=== PATIENT | female | born 1940 | race Caucasian/White ===

== ENCOUNTER → 2018-04-20 15:13 | Outpatient (CLI) | payer MEDICARE, SELFPAY ==
--- NOTE | 2018-04-20 15:16 | DI.RAD.S_ITS ---
PROCEDURE: XR LUMBAR SPINE MIN 4V INDICATIONS: Scoliosis TECHNIQUE: 5 views of the lumbar spine were acquired. COMPARISON: None. FINDINGS: Bones: 5 nonrib-bearing vertebrae are present. There is mild levoscoliosis. There is normal bony alignment. No vertebral body compression fractures. Mild degenerative disc disease throughout the lumbar spine. There is moderate to severe facet arthropathy at L4-L5 and L5-S1. No suspicious bony lesions. Soft tissues: Overlying bowel gas pattern is normal. Severe aortic calcifications consistent with atherosclerosis. Oblique images: No pars defects. IMPRESSION: 1. Mild levoscoliosis. 2. Degenerative disc and facet disease as described. 3. Severe atherosclerosis. Dictated by: Elodia Maki M.D. on 04/20/2018 at 17:31 Approved by: Elodia Maki M.D. on 04/20/2018 at 17:33
== END ==
PROVIDERS: PCP Internal Medicine; Visit Provider Physical Medicine & Rehabilitation
DX: M41.50 Other secondary scoliosis, site unspecified (principal); M47.817 Spondylosis without myelopathy or radiculopathy, lumbosacral region; M47.816 Spondylosis without myelopathy or radiculopathy, lumbar region; M51.36 Other intervertebral disc degeneration, lumbar region; I70.0 Atherosclerosis of aorta
CPT/HCPCS: 72110; 99214

== ENCOUNTER 2018-04-26 10:41 | Outpatient (CLI) | payer MEDICARE, SELFPAY ==
[2018-04-26] VITALS (9 sets, daily range): BP systolic 101–146; BP diastolic 52–82; PULSE 84–89; RESP 16–18; TEMP 37.4; O2SAT 96–100
--- NOTE | 2018-04-26 10:42 | DI.RAD.S_ITS ---
PROCEDURE: PAIN L/SI FACET INJ/BLK 1STL INDICATIONS: Lumbosacral spondylosis FINDINGS: Fluoroscopic spot filming was performed to verify placement of spinal needles at the L3-4 and L4-5 right-sided facet joint level(s), as labeled on the films. Appropriate location(s) of the needle tip(s) was confirmed by injection of iodinated contrast. IMPRESSION: Successful needle tip localization for right sided facet joint steroid injection at the L3-4 and L4-5 levels. Dictated by: Hardik Irwin M.D. on 04/26/2018 at 12:43 Approved by: Hardik Irwin M.D. on 04/26/2018 at 12:44
[2018-04-26] MEDS: MIDAZOLAM 5 MG/5 ML VIAL IV (11:57)
[2018-04-26] MEDS: IOPAMIDOL 15 ML VIAL 3 ML INJ (12:10)
[2018-04-26] MEDS: BUPIVACAINE 0.5% (PF) VIAL 2 ML INJ (12:10)
[2018-04-26] MEDS: LIDOCAINE 1% 20 ML INJ 10 ML INJ (12:11)
[2018-04-26] MEDS: BETAMETHASONE 30 MG/5 ML MDV 12 MG INJ (12:11)
--- NOTE | 2018-04-26 12:14 | PC.NURSE ---
ASSISTING PT OFF TABLE AND TRANSPORTING TO POST PROC AREA IN STABLE CONDITION
--- NOTE | 2018-04-26 12:20 | P.PCN_ITS ---
Procedures Date/Time Date of procedure: 04/26/18 Time of procedure: 12:18 General Procedure description: PREOP DIAGNOSIS 1. FACET ARTHROPATHY 2. AXIAL LBP 3. MULTILEVEL DDD POST OP DIAGNOSIS 1. FACET ARTHROPATHY 2. AXIAL LBP 3. MULTILEVEL DDD PROCEDURES 1. FLUORSCOPICALLY GUIDED CONTRAST CONTROLLED FACET JOINT INJECTIONS BILATERAL L3/4, L4/5 and left L5/S1 PHYSICIAN: Gilberto Thakur DO INDICATIONS: Chasity is referred by Dr. Varela for treatment of Axial LBP FINDINGS Multilevel Facet Arthropathy with Clinically significant axial LBP DESCRIPTION OF PROCEDURE Fluoroscopically guided, contrast-controlled bilateral L3/4, L4/5 and left L5/S1 facet joint injections. Following denial of allergy and review of potential side effects and complications, including, but not necessarily limited to, infection, allergic reaction, local tissue breakdown, stroke, temporary or permanent nerve injury, paralysis, and possible , the patient indicated that the patient understood and agreed to proceed. An informed consent document was signed by the patient, witnessed by a nurse, and placed in the patient's chart. Additionally, other treatment options including medications, modalities, and physical therapy were reviewed with the patient. After review of previous anaesthesic history and IV conscious sedation the patient was deemed safe to proceed with todays procedure with IV conscious sedation as ASA class II designation. Safety time-out was performed to confirm patient ID, procedure to be performed and site of procedure. IV sedation was accomplished with a combination of 3mg of Versed was administered by the RN after DO order, titrated to patient comfort during the course of the procedure while the patient remained responsive to all verbal commands. In the prone position, following sterile prep and drape of the lumbar region, the posterior aspect of the L3/4, L4/5 facet joints were identified fluoroscopically. The skin was anesthetized via a 25-gauge 1.5-inch needle with 1% lidocaine solution into the corresponding facet joints. At this point, a 22- gauge 3.5-inch spinal needle was atraumatically introduced and advanced under fluoroscopic guidance into the corresponding facet joints. Following negative aspiration, injections of approximately 0.2-cc of Isovue 200 confirmed interarticular placement without vascular uptake. The identical procedure was then performed at the L3/4, L4/5 and L5/S1 facet joints on the left. Radiological data, including multiple fluoroscopic views of the lumbosacral spine, reveal a spinal needle at the L3/4, L4/5 facet joints bilaterally and left L5/S1. Subsequent views show flow of contrast material both superiorly and inferiorly within the joint space without vascular or intrathecal uptake. At this point, a total of 0.5 cc including a mixture of 0.25 cc Marcaine and 0.25 cc betamethasone was injected without complication into each of the corresponding facet joints. The patient tolerated the procedure well without signs or symptoms of complicat ions prior to transfer to the recovery area continued monitoring without incident. The patient was then transferred to the recovery area where they were observed for an appropriate period of time after the injection. The patient reported a VAS score of 7 prior to the procedure and a post-procedure VAS of 0. Total Fluoroscopy Time: 20.3 seconds Total Conscious Sedation Time: 24min POST OP INSTRUCTIONS The patient was provided a Pain Log to continue to record their response to the target-specific procedure prior to follow-up visit with their referring physician. Additionally, specific post-injection care instructions and a contact number to our office were provided if concerns arise regarding possible complications associated with the procedure are suspected. Gilberto Thakur DO Complications: none
--- NOTE | 2018-04-26 12:25 | PC.NURSE ---
pt arrived post procedure, a little groggy, able to move from w/c to chair with minimal assist. Resumed monitoring from Cate BETANCOURT.
== END 2018-04-26 13:01 ==
PROVIDERS: PCP Internal Medicine; Visit Provider Physical Medicine & Rehabilitation
DX: M47.816 Spondylosis without myelopathy or radiculopathy, lumbar region (principal); M47.817 Spondylosis without myelopathy or radiculopathy, lumbosacral region; M54.5 Low back pain; M51.36 Other intervertebral disc degeneration, lumbar region; M51.37 Other intervertebral disc degeneration, lumbosacral region
CPT/HCPCS: 64493; 64494; 99152; J0702; J2250

== ENCOUNTER → 2018-06-06 19:43 | Outpatient (CLI) | payer MEDICARE, SELFPAY ==
--- NOTE | 2018-06-06 19:48 | DI.MRI.S_ITS ---
PROCEDURE: MR CERVICAL SPINE WO CON INDICATIONS: - OTHER SPONDYLOSIS WITH RADICULOPATHY TECHNIQUE: Noncontrast sagittal T1 spin echo and T2 fast spin echo, sagittal STIR, foraminal oblique sagittal T2 fast spin echo, and axial gradient echo or T2 fast spin echo through the cervical spine. COMPARISON: None. FINDINGS: Image quality: Diagnostic, with note made of motion artifact. Alignment and Curvature: There is normal bony alignment. Bone Marrow: Marrow demonstrates normal overall signal. Spinal Cord: Visualized spinal cord has normal size and signal. No cerebellar tonsillar herniation. Paraspinous Soft Tissues: No paravertebral masses. Prevertebral soft tissues are normal in thickness. C2-C3: Normal appearance. C3-C4: Mild loss of disc height is seen. Loss of disc signal is seen. A mild degree of generalized disc osteophyte complex is seen. There is prominent right-sided and moderate left-sided facet hypertrophy seen. There is moderate bilateral neural foraminal narrowing seen. Moderate central canal narrowing is seen. C4-C5: The disc height is well-preserved. Loss of disc signal is seen at this level. Moderate disc osteophyte complex is seen, which is eccentric to the right. There is prominent right-sided and moderate left-sided facet hypertrophy seen. Moderate to severe right-sided and at least moderate left-sided neural foraminal narrowing can be seen. Mild central canal narrowing is seen. C5-C6: Mild loss of disc height is seen. Loss of disc signal is seen. Mild to moderate disc osteophyte complex is seen. There is prominent right-sided and mild to moderate left-sided facet hypertrophy at this level. There is moderate to severe right-sided and moderate left-sided neural foraminal narrowing seen. Mild central canal narrowing is seen. C6-C7: Moderate loss of disc height is seen. Loss of disc signal is seen. Moderate generalized disc osteophyte complex is seen, with a central disc osteophyte protrusion. Moderate facet joint hypertrophy is seen. There is moderate right-sided and moderate to severe left-sided neural foraminal narrowing seen. Moderate to severe central canal narrowing is seen, as on series 3 image 28. There is associated mass effect upon the ventral spinal cord. C7-T1: The disc height is well-preserved. Loss of disc signal is seen at this level. A mild degree of generalized disc osteophyte complex is seen. No significant neural foraminal narrowing is seen. Likely mild central canal narrowing is present. IMPRESSION: Multiple levels of cervical spine degenerative changes are seen, including a central disc osteophyte protrusion at C6-C7. Dictated by: Rom Hankins M.D. on 06/07/2018 at 8:59 Approved by: Rom Hankins M.D. on 06/07/2018 at 9:04
== END ==
PROVIDERS: Family Provider Internal Medicine; PCP Internal Medicine; Visit Provider Physical Medicine & Rehabilitation
DX: M47.22 Other spondylosis with radiculopathy, cervical region (principal); M50.123 Cervical disc disorder at C6-C7 level with radiculopathy
CPT/HCPCS: 72141

== ENCOUNTER 2018-06-12 19:30 | Emergency (ER) | payer MEDICARE, SELFPAY ==
[2018-06-12] VITALS (10 sets, daily range): BP systolic 90–124; BP diastolic 56–79; PULSE 99–125; RESP 16–27; TEMP 36.4–37.6; O2SAT 88–97
--- NOTE | 2018-06-12 19:51 | DI.RAD.S_ITS ---
PROCEDURE: XR CHEST 1V INDICATIONS: back pain/dizziness/nausea TECHNIQUE: One view of the chest was acquired. COMPARISON: None. FINDINGS: Surgical changes and devices: Right apical surgical clips. It is uncertain whether these clips are related to the lung on this single view. Lungs and pleura: There is a moderate right pleural effusion. There is associated right basilar atelectasis. Mediastinum: Mediastinal contours appear normal. Heart size is normal. Bones and chest wall: No suspicious bony lesions. Overlying soft tissues appear unremarkable. IMPRESSION: Moderate right pleural effusion with underlying right basilar atelectasis. Dictated by: Adolfo Lazo M.D. on 06/12/2018 at 20:16 Approved by: Adolfo Lazo M.D. on 06/12/2018 at 20:18
[2018-06-12 20:15] LABS: Add Manual Diff / Slide Review NO; Basophils Absolute Auto 100 /uL (0-100); Basophils Percent Auto 0.6 % (0-2); Eosinophils Absolute Auto 0 /uL (0-450); Eosinophils Percent Auto 0.1 % (2-4); Hematocrit 23.2 % (36-46); Lymphocytes Absolute Auto 800 /uL (1100-4500); Lymphocytes Percent Auto 6.8 % (25-40); Mean Corpuscular HGB Conc 28.6 % (30-36); Monocytes Absolute Auto 1300 /uL (0-900); Neutrophils Absolute Auto 9700 /uL (1500-7000); Neutrophils Percent Auto 81.5 % (50-75); Platelet Count 333 X10^3/uL (150-400); Red Blood Cell Count 3.68 X10^6/uL (4.0-5.2); Red Cell Distribution Width 20.4 % (11.6-14.8)
[2018-06-12] MEDS: ONDANSETRON 4 MG/2 ML INJ IV (20:20)
[2018-06-12] MEDS: SODIUM CHLORIDE 0.9% 1,000 ML 150 ML IV (20:20)
--- NOTE | 2018-06-12 20:26 | ED.BACK ---
HPI - Back Pain/Injury <DO Daniel Long Last Filed: 06/14/18 03:19> General Chief Complaint: Back Pain/Injury Stated Complaint: NAUSEA BACK HURTS Time Seen by Provider: 06/12/18 19:35 Source: patient and family Mode of arrival: ambulatory Limitations: no limitations History of Present Illness HPI Narrative: 70-year-old female former smoker with extensive cardiac history presents with severe back pain, shortness of breath and fatigue. She has had extensive recent workup including MRI and back injection as of late. She states she is profoundly short of breath with any exertion. She becomes dizzy and lightheaded standing or walking. She denies any chest pain. She has nausea but denies any vomiting. She has had no blood in her stool or urine. She states symptoms came on relatively sudden.Her cardiac stents were 10 years ago and vascular grafts were 15 years ago MD Complaint: back pain Related Data Home Medications Medication Instructions Recorded Confirmed aspirin 81 mg tablet,delayed 81 mg PO DAILY 04/20/18 06/13/18 release losartan 25 mg tablet 25 mg PO DAILY 04/20/18 06/13/18 pantoprazole 40 mg tablet,delayed 40 mg PO DAILY 04/20/18 06/13/18 release simvastatin 40 mg tablet 40 mg PO BEDTIME 04/20/18 06/13/18 warfarin 5 mg tablet 5 mg PO DANIEL 04/20/18 06/13/18 isosorbide mononitrate 60 mg PO DAILY 06/13/18 06/13/18 metoprolol succinate 50 mg PO DAILY 06/13/18 06/13/18 warfarin 2.5 mg PO MOTUWETHFRSA 06/13/18 06/13/18 Previous Rx's Medication Instructions Recorded tramadol 50 mg tablet 50 mg PO TID PRN #60 tab 06/01/18 Allergies Allergy/AdvReac Type Severity Reaction Status Date / Time morphine AdvReac Intermediate burning Verified 06/01/18 11:53 sensation at IV site amoxicillin [From Augmentin] AdvReac Mild flu like Verified 06/01/18 11:53 symptoms clavulanic acid AdvReac Mild flu like Verified 06/01/18 11:53 [From Augmentin] symptoms lisinopril AdvReac Mild cough Verified 06/01/18 11:53 Review of Systems <DO Daniel Long Last Filed: 06/14/18 03:19> Constitutional Denies chills, Reports fatigue, Denies fever(s), Reports lethargy, Reports malaise and Reports weakness Eyes Denies change in vision, Denies eye discharge, Denies irritation and Denies loss of vision ENT Ears, Nose, Mouth, and Throat: Denies change in voice, Denies neck pain and Denies sore throat Cardiovascular Reports chest pain, Denies irregular heart rhythm, Denies lightheadedness, Denies palpitations, Reports dyspnea, Reports dyspnea on exertion and Denies orthopnea Respiratory Denies cough, Reports dyspnea, Reports dyspnea on exertion and Denies wheezing Gastrointestinal Gastrointestinal: Denies abdominal pain, Denies change in bowel habits, Denies diarrhea, Denies nausea and Denies vomiting Genitourinary Denies hematuria, Denies flank pain, Denies urinary incontinence and Denies urinary urgency Musculoskeletal Reports back pain and Denies neck pain Integumentary/Breasts Denies pruritus, Denies erythema, Denies rash and Denies wounds Neurologic Denies confusion, Denies loss of vision and Reports weakness Psychiatric Denies anxiety, Denies confusion, Denies depression, Denies homicidal ideation and Denies suicidal ideation Endocrine Reports fatigue and Denies palpitations Hematologic/Lymphatic Denies easy bruising Allergic/Immunologic Denies wheezing Exam <Lionel Juarez, DO - Last Filed: 06/14/18 03:19> Narrative Exam Narrative: GENERAL: 78-year-old female, ill appearing diaphoretic and pale HEAD: Atraumatic. Normocephalic. No temporal or scalp tenderness. EYES: Pale conjunctiva Pupils equal round and reactive. Extraocular motions intact. No scleral icterus. No injection or drainage. ENT: Nose without bleeding, purulent drainage or septal hematoma. Throat without erythema, tonsillar hypertrophy or exudate. Uvula midline. Airway patent. NECK: Trachea midline. No JVD or lymphadenopathy. Supple, nontender, no meningeal signs. CARDIOVASCULAR: Tachycardic but regular rhythm without murmurs, gallops, or rubs. RESPIRATORY: Clear to auscultation. Breath sounds equal bilaterally. No wheezes, rales, or rhonchi. GASTROINTESTINAL: Abdomen soft, non-tender, nondistended. No hepato-splenomegaly, or palpable masses. No guarding. RECTAL: weakly heme positive. EXTREMITIES: No clubbing, cyanosis, or edema. No joint tenderness, effusion, or edema noted. BACK: Upper and lower midline tenderness, consistent with prior NEURO: AOx3. SKIN: No rash or erythema. Initial Vital Signs Initial Vital Signs: Vital Signs Temperature 98.9 F 06/12/18 19:37 Pulse Rate 125 H 06/12/18 19:37 Respiratory Rate 20 06/12/18 19:37 Blood Pressure 107/70 06/12/18 19:37 Pulse Oximetry 92 06/12/18 19:37 <Fortunato Gómez, DO - Last Filed: 06/13/18 18:02> Initial Vital Signs Initial Vital Signs: Vital Signs Temperature 98.9 F 06/12/18 19:37 Pulse Rate 125 H 06/12/18 19:37 Respiratory Rate 20 06/12/18 19:37 Blood Pressure 107/70 06/12/18 19:37 Pulse Oximetry 92 06/12/18 19:37 Course <Lionel Juarez DO - Last Filed: 06/14/18 03:19> Orders Ordered: Discontinued Medications Sodium Chloride (Normal Saline 0.9%) 1,000 mls @ 150 mls/hr IV CONT [facility] Last Infusion: 06/12/18 20:38 Dose: 0 mls/hr Admin: 06/12/18 20:20 Dose: 150 mls/hr Sodium Chloride (Normal Saline 0.9%) 1,000 mls @ 100 mls/hr IV CONT [facility] Last Admin: 06/13/18 14:58 Dose: 100 mls/hr Ondansetron HCl (Zofran) 4 mg IV NOW ONE Stop: 06/12/18 19:59 Last Admin: 06/12/18 20:20 Dose: 4 mg Ondansetron HCl (Zofran) 4 mg IV NOW ONE Stop: 06/13/18 08:46 Last Admin: 06/13/18 08:47 Dose: 4 mg Tramadol HCl (Ultram) 50 mg PO NOW ONE Stop: 06/13/18 08:06 Last Admin: 06/13/18 08:16 Dose: 50 mg Reevaluation(s) Reevaluation #1: Patient feels well, she is not dizzy at this point nor lightheaded but continues to feel weak. She denies any chest pain or increasing shortness of breath Consultations Consultation #1: Initial call to our General surgery whom is happy to provide surgical backup if hospitalist is willing to accept Next call to hospitalist whom is unable to keep this patient due to a rising troponin and complexity of medical history. [facility] is full and on divert [facility] in [place] is full and on divert Prov is full and on divert VM is full [facility] is full /[facility] is accepting patient info and will call back. [phone] /[facility] has no availability, [facility] capped and HV boarding 20+ patients 0528 [place] is full 0530 call to [facility] cardiology to discuss troponin/EKGs. We share opinion that this is likely demand ischemia and that we are doing appropriate treatment with trending labs, administration of blood. Not a cath candidate. 0537 call back to [facility]. 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 No link between symptoms, labs, and these findings Consultation #3: call back from [facility]. Dr. Teran to be accepting. No current beds, but we are on the list. Will continue to replace PRBCs. Will recheck H/H. No need to reverse coumadin given lack of large bleed. Vital Signs - 8 hr 06/13/18 10:30 06/13/18 11:00 06/13/18 11:30 Pulse Rate 96 H 84 92 H Respiratory Rate 17 17 24 Blood Pressure [Left Arm] 103/82 103/82 111/83 Pulse Oximetry 95 97 06/13/18 11:35 06/13/18 12:00 06/13/18 13:00 Pulse Rate 98 H 102 H Respiratory Rate 26 H 25 H Blood Pressure [Left Arm] 116/74 120/67 Pulse Oximetry 95 97 06/13/18 13:30 06/13/18 14:00 06/13/18 15:00 Pulse Rate 92 H 97 H 87 Respiratory Rate 15 17 17 Blood Pressure [Left Arm] 129/76 122/95 H 108/67 Pulse Oximetry 96 96 95 06/13/18 16:00 06/13/18 17:00 Pulse Rate 95 H 96 H Respiratory Rate 20 19 Blood Pressure [Left Arm] 112/61 108/82 Pulse Oximetry 95 95 <Fortunato Gómez DO - Last Filed: 06/13/18 18:02> Orders Ordered: Discontinued Medications Sodium Chloride (Normal Saline 0.9%) 1,000 mls @ 150 mls/hr IV CONT [facility] Last Infusion: 06/12/18 20:38 Dose: 0 mls/hr Admin: 06/12/18 20:20 Dose: 150 mls/hr Sodium Chloride (Normal Saline 0.9%) 1,000 mls @ 100 mls/hr IV CONT [facility] Last Admin: 06/13/18 14:58 Dose: 100 mls/hr Ondansetron HCl (Zofran) 4 mg IV NOW ONE Stop: 06/12/18 19:59 Last Admin: 06/12/18 20:20 Dose: 4 mg Ondansetron HCl (Zofran) 4 mg IV NOW ONE Stop: 06/13/18 08:46 Last Admin: 06/13/18 08:47 Dose: 4 mg Tramadol HCl (Ultram) 50 mg PO NOW ONE Stop: 06/13/18 08:06 Last Admin: 06/13/18 08:16 Dose: 50 mg Vital Signs - 8 hr 06/13/18 10:30 06/13/18 11:00 06/13/18 11:30 Pulse Rate 96 H 84 92 H Respiratory Rate 17 17 24 Blood Pressure [Left Arm] 103/82 103/82 111/83 Pulse Oximetry 95 97 06/13/18 11:35 06/13/18 12:00 06/13/18 13:00 Pulse Rate 98 H 102 H Respiratory Rate 26 H 25 H Blood Pressure [Left Arm] 116/74 120/67 Pulse Oximetry 95 97 06/13/18 13:30 06/13/18 14:00 06/13/18 15:00 Pulse Rate 92 H 97 H 87 Respiratory Rate 15 17 17 Blood Pressure [Left Arm] 129/76 122/95 H 108/67 Pulse Oximetry 96 96 95 06/13/18 16:00 06/13/18 17:00 Pulse Rate 95 H 96 H Respiratory Rate 20 19 Blood Pressure [Left Arm] 112/61 108/82 Pulse Oximetry 95 95 MDM - Back Pain/Injury <Lionel Juarez DO - Last Filed: 06/14/18 03:19> Lab Data Attestation: I reviewed the patient's lab results. Result diagrams: 06/13/18 08:15 06/12/18 20:03 Lab Results 06/12/18 06/12/18 06/12/18 Range/Units 20:00 20:03 20:03 WBC 12.0 H (4.5-11.0) X10^3/uL RBC 3.68 L (4.0-5.2) X10^6/uL Hgb 6.6 L* (12.0-16.0) g/dL Hct 23.2 L (36-46) % MCV 63.0 L (80-100) fL MCH 18.0 L (26-34) PG MCHC 28.6 L (30-36) % RDW 20.4 H (11.6-14.8) % Plt Count 333 (150-400) X10^3/uL Neut % (Auto) 81.5 H (50-75) % Lymph % (Auto) 6.8 L (25-40) % [place] % (Auto) 11.0 (3-14) % Eos % (Auto) 0.1 L (2-4) % Baso % (Auto) 0.6 (0-2) % Neut # (Auto) 9700 H (8818-4123) /uL Lymph # (Auto) 800 L (1901-6824) /uL [place] # (Auto) 1300 H (0-900) /uL Eos # (Auto) 0 (0-450) /uL Baso # (Auto) 100 (0-100) /uL RBC Morphology Not Reportable Hypochromasia 3+ H Poikilocytosis 1+ H Anisocytosis 3+ H Microcytosis 3+ H PT 29.6 H (10.1-12.7) SECONDS INR 2.5 H (0.9-1.3) APTT 29 (26.4-36.2) SECONDS Sodium Cancelled Potassium Cancelled Chloride Cancelled Carbon Dioxide Cancelled BUN Cancelled Creatinine Cancelled Estimated GFR Cancelled BUN/Creatinine Ratio Cancelled Glucose Cancelled Calcium Cancelled Total Bilirubin Cancelled AST Cancelled ALT Cancelled Alkaline Phosphatase Cancelled Total Creatine Kinase Cancelled CK-MB (CK-2) Cancelled CK-MB (CK-2) Rel Index Cancelled Troponin I Cancelled B-Natriuretic Peptide (<100) Total Protein Cancelled Albumin Cancelled Globulin Cancelled Albumin/Globulin Ratio Cancelled Lipase (23-300) U/L Specimen Hemolysis Cancelled Blood Type Antibody Screen Crossmatch 06/12/18 06/12/18 06/12/18 Range/Units 20:03 20:03 20:03 WBC (4.5-11.0) X10^3/uL RBC (4.0-5.2) X10^6/uL Hgb (12.0-16.0) g/dL Hct (36-46) % MCV (80-100) fL MCH (26-34) PG MCHC (30-36) % RDW (11.6-14.8) % Plt Count (150-400) X10^3/uL Neut % (Auto) (50-75) % Lymph % (Auto) (25-40) % [place] % (Auto) (3-14) % Eos % (Auto) (2-4) % Baso % (Auto) (0-2) % Neut # (Auto) (7845-6995) /uL Lymph # (Auto) (6200-2540) /uL [place] # (Auto) (0-900) /uL Eos # (Auto) (0-450) /uL Baso # (Auto) (0-100) /uL RBC Morphology Hypochromasia Poikilocytosis Anisocytosis Microcytosis PT (10.1-12.7) SECONDS INR (0.9-1.3) APTT (26.4-36.2) SECONDS Sodium 133 L Potassium 4.3 Chloride 95 L Carbon Dioxide 25 BUN 28 H Creatinine 1.00 Estimated GFR 53.6 L BUN/Creatinine Ratio 28.0 H Glucose 135 H Calcium 9.0 Total Bilirubin 1.6 H AST 682 H ALT 557 H Alkaline Phosphatase 106 Total Creatine Kinase 73 CK-MB (CK-2) TNP CK-MB (CK-2) Rel Index TNP Troponin I 0.140 H* B-Natriuretic Peptide 679 H (<100) Total Protein 6.9 Albumin 4.1 Globulin 2.8 Albumin/Globulin Ratio 1.5 Lipase 44 (23-300) U/L Specimen Hemolysis Blood Type O Positive Antibody Screen Negative Crossmatch See Detail 06/12/18 06/13/18 06/13/18 Range/Units 23:45 02:27 02:27 WBC (4.5-11.0) X10^3/uL RBC (4.0-5.2) X10^6/uL Hgb 8.0 L (12.0-16.0) g/dL Hct 26.0 L (36-46) % MCV (80-100) fL MCH (26-34) PG MCHC (30-36) % RDW (11.6-14.8) % Plt Count (150-400) X10^3/uL Neut % (Auto) (50-75) % Lymph % (Auto) (25-40) % [place] % (Auto) (3-14) % Eos % (Auto) (2-4) % Baso % (Auto) (0-2) % Neut # (Auto) (1427-6218) /uL Lymph # (Auto) (9322-8929) /uL [place] # (Auto) (0-900) /uL Eos # (Auto) (0-450) /uL Baso # (Auto) (0-100) /uL RBC Morphology Hypochromasia Poikilocytosis Anisocytosis Microcytosis PT (10.1-12.7) SECONDS INR (0.9-1.3) APTT (26.4-36.2) SECONDS Sodium Potassium Chloride Carbon Dioxide BUN Creatinine Estimated GFR BUN/Creatinine Ratio Glucose Calcium Total Bilirubin AST ALT 527 H Alkaline Phosphatase Total Creatine Kinase CK-MB (CK-2) CK-MB (CK-2) Rel Index Troponin I 0.205 H* 0.293 H* B-Natriuretic Peptide (<100) Total Protein Albumin Globulin Albumin/Globulin Ratio Lipase (23-300) U/L Specimen Hemolysis Blood Type Antibody Screen Crossmatch 06/13/18 06/13/18 06/13/18 Range/Units 08:15 08:15 14:50 WBC (4.5-11.0) X10^3/uL RBC (4.0-5.2) X10^6/uL Hgb 10.1 L (12.0-16.0) g/dL Hct 32.6 L (36-46) % MCV (80-100) fL MCH (26-34) PG MCHC (30-36) % RDW (11.6-14.8) % Plt Count (150-400) X10^3/uL Neut % (Auto) (50-75) % Lymph % (Auto) (25-40) % [place] % (Auto) (3-14) % Eos % (Auto) (2-4) % Baso % (Auto) (0-2) % Neut # (Auto) (3174-3875) /uL Lymph # (Auto) (0861-7240) /uL [place] # (Auto) (0-900) /uL Eos # (Auto) (0-450) /uL Baso # (Auto) (0-100) /uL RBC Morphology Hypochromasia Poikilocytosis Anisocytosis Microcytosis PT (10.1-12.7) SECONDS INR (0.9-1.3) APTT (26.4-36.2) SECONDS Sodium Potassium Chloride Carbon Dioxide BUN Creatinine Estimated GFR BUN/Creatinine Ratio Glucose Calcium Total Bilirubin AST ALT Alkaline Phosphatase Total Creatine Kinase CK-MB (CK-2) CK-MB (CK-2) Rel Index Troponin I 0.341 H* 0.254 H* B-Natriuretic Peptide (<100) Total Protein Albumin Globulin Albumin/Globulin Ratio Lipase (23-300) U/L Specimen Hemolysis Blood Type Antibody Screen Crossmatch Urine Dip Bedside Urine Glucose Negative Bedside Urine Bilirubin - Negative Bedside Urine Ketone - Negative Urine Specific [place] 1.020 Bedside Urine Occult Blood - Negative Bedside Urine pH 6.0 Bedside Urine Protein + 30 Bedside Urine Urobilinogen +/- 1mg Bedside Urine Nitrite - Negative Bedside Urine Leukocytes - Negative Esterase Imaging Data CT scan - chest: Radiologist's impression: [place] [address] CT Scan Report Signed Patient: Chasity Wilks R#: [id number] : [id number]:[id number] Age/Sex: 78 / FDate of Service: 06/12/18 Loc: ED Accession Number: [id number] Procedure: CT angio chest abdomen pelvis Ordering Provider: Lionel Juarez D.O. PROCEDURE: CT ANGIO CHEST ABDOMEN PELVIS INDICATIONS: chest, back pain, near syncopal, tachy, hypotense TECHNIQUE: Precontrast 5 mm thick sections acquired from the lung apices to the iliac crests. After the administration of intravenous contrast, 2.5 mm thick sections again acquired from the lung apices to the iliac crests. Maximum intensity projection (MIP) oblique sagittal and coronal reformats were then acquired. For radiation dose reduction, the following was used: automated exposure control. COMPARISON: None. FINDINGS: Image quality: Excellent. AORTA and its attachments: The ascending aorta is normal caliber. It has shaggy plaque within it. The plaque continues down the thoracic aorta and abdominal aorta. There is no dissection. The infrarenal abdominal aorta is mildly aneurysmal, measuring 3.7 cm. 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 There is a vascular bypass of the right iliac which is also thrombosed. The right external iliac is diffusely diminutive and calcified and thrombosed. There is a right axillary/femoral bypass graft present which is widely patent. 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 There is a aorto left iliac bypass graft which is widely patent. There is classic 3 vessel arch anatomy. There is mild brachycephalic disease and mild to moderate proximal left common carotid artery disease. There is high grade stenosis of the proximal left subclavian artery, proximal to the origin of the left subclavian artery. CHEST: Lungs and pleura: Moderate to severe biapical centrilobular emphysema. No suspicious pulmonary nodules. No acute airspace opacities. Moderate right pleural effusion. Right basilar atelectasis. No pneumothorax. Central and peripheral airways are patent and normal in caliber. No pulmonary emboli. Mediastinum: Heart size is normal. No pericardial effusion. Diffuse coronary artery atherosclerotic calcifications. No mediastinal or hilar adenopathy by size criteria. Central pulmonary arteries are normal in size. Esophagus is normal in caliber. No hiatal hernias. Bones and chest wall: No axillary adenopathy by size criteria. Thyroid gland is unremarkable the. No suspicious bony lesions. No vertebral body compression fractures. ABDOMEN: Vasculature: Celiac and SMA are patent. MOLINA is occluded proximally. Renal arteries are grossly patent. Solid organs: Liver is normal in size and enhancement. Gallbladder contains a large gallstone. Biliary system is non dilated. Pancreas enhances normally. Spleen is normal in size and enhancement. No adrenal nodules. Both kidneys are normal in size and enhancement, without hydronephrosis. Peritoneum and bowel: Small amount of free air in the pelvis. Sigmoid diverticulosis without evidence of diverticulitis. Bowel loops are normal in caliber and wall thickness. Nodes and vessels: No retroperitoneal or mesenteric adenopathy by size criteria. Inferior vena cava is normal in morphology. Miscellaneous: No ventral hernias. PELVIS: Genitourinary: Bladder wall thickness is normal. Miscellaneous: No inguinal hernias or adenopathy. No ventral hernias. Bones: No suspicious bony lesions. No vertebral body compression fractures. IMPRESSION: 1. Normal caliber thoracic aorta without dissection. 2. High-grade proximal left subclavian artery stenosis. 3. Patent right ax-femoral bypass graft 4. SMA and celiac, and renals are patent. 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 5. Mild aneurysmal dilatation of the distal abdominal aorta. 6. Bilateral [place] common iliac arteries are occluded. Right aortoiliac bypass is occluded. 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 Left aortoiliac graft is patent. 7. No pulmonary emboli. 8. Moderate right pleural effusion with right basilar atelectasis. 9. Large gallstone. 10. Sigmoid diverticulosis. Dictated by: Adolfo Lazo M.D. on 06/12/2018 at 21:22 Approved by: Adolfo Lazo M.D. on 06/12/2018 at 21:38 ECG Data Attestation: I personally reviewed and interpreted this ECG as follows: Prior ECG tracings: not available for review Interpretation: sinus tachycardia with ST depressions in lateral leads no change in EKG #2 EKG #3 notes sinus rate [address] depressions in lateral leads MDM Narrative Medical decision making narrative: 70-year-old female presents in rather impressive fashion, short of breath, diaphoretic and weak. She has a rather impressive anemia which will require transfusions. EKG changes no lateral ST depressions and troponin is slowly rising. These are thought to be demand ischemia given cardiac history and low oxygen carrying capacity. Patient requires transfer due to complexity of medical history, and significant, symptomatic anemia in the absence of any of his large bleed, troponin, EKG changes. <Fortunato Gómez, DO - Last Filed: 06/13/18 18:02> Lab Data Lab Results 06/12/18 06/12/18 06/12/18 Range/Units 20:00 20:03 20:03 WBC 12.0 H (4.5-11.0) X10^3/uL RBC 3.68 L (4.0-5.2) X10^6/uL Hgb 6.6 L* (12.0-16.0) g/dL Hct 23.2 L (36-46) % MCV 63.0 L (80-100) fL MCH 18.0 L (26-34) PG MCHC 28.6 L (30-36) % RDW 20.4 H (11.6-14.8) % Plt Count 333 (150-400) X10^3/uL Neut % (Auto) 81.5 H (50-75) % Lymph % (Auto) 6.8 L (25-40) % [place] % (Auto) 11.0 (3-14) % Eos % (Auto) 0.1 L (2-4) % Baso % (Auto) 0.6 (0-2) % Neut # (Auto) 9700 H (3220-6084) /uL Lymph # (Auto) 800 L (6558-3840) /uL [place] # (Auto) 1300 H (0-900) /uL Eos # (Auto) 0 (0-450) /uL Baso # (Auto) 100 (0-100) /uL RBC Morphology Not Reportable Hypochromasia 3+ H Poikilocytosis 1+ H Anisocytosis 3+ H Microcytosis 3+ H PT 29.6 H (10.1-12.7) SECONDS INR 2.5 H (0.9-1.3) APTT 29 (26.4-36.2) SECONDS Sodium Cancelled Potassium Cancelled Chloride Cancelled Carbon Dioxide Cancelled BUN Cancelled Creatinine Cancelled Estimated GFR Cancelled BUN/Creatinine Ratio Cancelled Glucose Cancelled Calcium Cancelled Total Bilirubin Cancelled AST Cancelled ALT Cancelled Alkaline Phosphatase Cancelled Total Creatine Kinase Cancelled CK-MB (CK-2) Cancelled CK-MB (CK-2) Rel Index Cancelled Troponin I Cancelled B-Natriuretic Peptide (<100) Total Protein Cancelled Albumin Cancelled Globulin Cancelled Albumin/Globulin Ratio Cancelled Lipase (23-300) U/L Specimen Hemolysis Cancelled Blood Type Antibody Screen Crossmatch 06/12/18 06/12/18 06/12/18 Range/Units 20:03 20:03 20:03 WBC (4.5-11.0) X10^3/uL RBC (4.0-5.2) X10^6/uL Hgb (12.0-16.0) g/dL Hct (36-46) % MCV (80-100) fL MCH (26-34) PG MCHC (30-36) % RDW (11.6-14.8) % Plt Count (150-400) X10^3/uL Neut % (Auto) (50-75) % Lymph % (Auto) (25-40) % [place] % (Auto) (3-14) % Eos % (Auto) (2-4) % Baso % (Auto) (0-2) % Neut # (Auto) (4159-0173) /uL Lymph # (Auto) (7185-3355) /uL [place] # (Auto) (0-900) /uL Eos # (Auto) (0-450) /uL Baso # (Auto) (0-100) /uL RBC Morphology Hypochromasia Poikilocytosis Anisocytosis Microcytosis PT (10.1-12.7) SECONDS INR (0.9-1.3) APTT (26.4-36.2) SECONDS Sodium 133 L Potassium 4.3 Chloride 95 L Carbon Dioxide 25 BUN 28 H Creatinine 1.00 Estimated GFR 53.6 L BUN/Creatinine Ratio 28.0 H Glucose 135 H Calcium 9.0 Total Bilirubin 1.6 H AST 682 H ALT 557 H Alkaline Phosphatase 106 Total Creatine Kinase 73 CK-MB (CK-2) TNP CK-MB (CK-2) Rel Index TNP Troponin I 0.140 H* B-Natriuretic Peptide 679 H (<100) Total Protein 6.9 Albumin 4.1 Globulin 2.8 Albumin/Globulin Ratio 1.5 Lipase 44 (23-300) U/L Specimen Hemolysis Blood Type O Positive Antibody Screen Negative Crossmatch See Detail 06/12/18 06/13/18 06/13/18 Range/Units 23:45 02:27 02:27 WBC (4.5-11.0) X10^3/uL RBC (4.0-5.2) X10^6/uL Hgb 8.0 L (12.0-16.0) g/dL Hct 26.0 L (36-46) % MCV (80-100) fL MCH (26-34) PG MCHC (30-36) % RDW (11.6-14.8) % Plt Count (150-400) X10^3/uL Neut % (Auto) (50-75) % Lymph % (Auto) (25-40) % [place] % (Auto) (3-14) % Eos % (Auto) (2-4) % Baso % (Auto) (0-2) % Neut # (Auto) (7671-2989) /uL Lymph # (Auto) (9274-9848) /uL [place] # (Auto) (0-900) /uL Eos # (Auto) (0-450) /uL Baso # (Auto) (0-100) /uL RBC Morphology Hypochromasia Poikilocytosis Anisocytosis Microcytosis PT (10.1-12.7) SECONDS INR (0.9-1.3) APTT (26.4-36.2) SECONDS Sodium Potassium Chloride Carbon Dioxide BUN Creatinine Estimated GFR BUN/Creatinine Ratio Glucose Calcium Total Bilirubin AST ALT 527 H Alkaline Phosphatase Total Creatine Kinase CK-MB (CK-2) CK-MB (CK-2) Rel Index Troponin I 0.205 H* 0.293 H* B-Natriuretic Peptide (<100) Total Protein Albumin Globulin Albumin/Globulin Ratio Lipase (23-300) U/L Specimen Hemolysis Blood Type Antibody Screen Crossmatch 06/13/18 06/13/18 06/13/18 Range/Units 08:15 08:15 14:50 WBC (4.5-11.0) X10^3/uL RBC (4.0-5.2) X10^6/uL Hgb 10.1 L (12.0-16.0) g/dL Hct 32.6 L (36-46) % MCV (80-100) fL MCH (26-34) PG MCHC (30-36) % RDW (11.6-14.8) % Plt Count (150-400) X10^3/uL Neut % (Auto) (50-75) % Lymph % (Auto) (25-40) % [place] % (Auto) (3-14) % Eos % (Auto) (2-4) % Baso % (Auto) (0-2) % Neut # (Auto) (2606-2046) /uL Lymph # (Auto) (6761-4028) /uL [place] # (Auto) (0-900) /uL Eos # (Auto) (0-450) /uL Baso # (Auto) (0-100) /uL RBC Morphology Hypochromasia Poikilocytosis Anisocytosis Microcytosis PT (10.1-12.7) SECONDS INR (0.9-1.3) APTT (26.4-36.2) SECONDS Sodium Potassium Chloride Carbon Dioxide BUN Creatinine Estimated GFR BUN/Creatinine Ratio Glucose Calcium Total Bilirubin AST ALT Alkaline Phosphatase Total Creatine Kinase CK-MB (CK-2) CK-MB (CK-2) Rel Index Troponin I 0.341 H* 0.254 H* B-Natriuretic Peptide (<100) Total Protein Albumin Globulin Albumin/Globulin Ratio Lipase (23-300) U/L Specimen Hemolysis Blood Type Antibody Screen Crossmatch Urine Dip Bedside Urine Glucose Negative Bedside Urine Bilirubin - Negative Bedside Urine Ketone - Negative Urine Specific [place] 1.020 Bedside Urine Occult Blood - Negative Bedside Urine pH 6.0 Bedside Urine Protein + 30 Bedside Urine Urobilinogen +/- 1mg Bedside Urine Nitrite - Negative Bedside Urine Leukocytes - Negative Esterase MDM Narrative Medical decision making narrative: Dr gómez 0800: Received turned over from Dr. Juarez. Performed my own history and physical exam. Reviewed patient's lab reports. Patient just finished the 4th unit of packed red blood cells. Will repeat hemoglobin and hematocrit and also repeat troponin. Patient is complaining of shoulder pain which is not new for her. She has been on tramadol for the past couple days which she states works very well for her. Will give her dose of her tramadol. Patient was removed from the oxygen. Oxygen saturations currently above 90. Will continue to monitor. We do have an accepting physician at [facility] which was arranged by Dr. Juarez awaiting a bed assignment. Patient was informed of this. Patient currently stable for transport. Patient was informed of transport and agrees. Will continue to monitor until bed is available. 0900: Patient's oxygen saturations desatted to the high 80s when she was sleeping. She was placed back on nasal cannula and has now been greater than 90%. Hemoglobin and hematocrit improved. Will hold on further transfusions. Troponin continuing to elevate slightly. Patient states she feels better after receiving the Ultram with regard to her back pain. continuing to wait for bed assignment. Will continue to monitor. 1700: Patient has remained stable throughout the day. Multiple calls to [facility] resulted in them saying that it is unlikely that she is going to have a bed for the remainder of the day. I did discuss the case with Dr. Meek at [facility] who accepts the patient. I did discuss the case with the on-call GI provider who stated that she would contact the medicine provider to see what they would like her to do. Patient is stable for transfer. She was informed of the change in plans and is in agreement. Critical Care Time <Lionel Juarez DO - Last Filed: 06/14/18 03:19> Critical Care Time: Yes Total Critical Care Time: 60 Attestation: The high probability of a clinically significant, sudden or life threatening deterioration of the [cardiovascular] system(s) required my full and direct attention, intervention and personal management. The aggregate critical care time was [60] minutes. This time is in addition to time spent performing reported procedures but includes the following: [x] Data Review and interpretation [x] Patient assessment and monitoring of vital signs [x] Documentation [x] Medication orders and management Discharge Plan Departure Patient Disposition: [facility] Clinical Impression: Non-ST elevation SD (NSTEMI), Acute GI bleeding, Elevated LFTs Anemia Qualifiers: Anemia type: iron deficiency Iron deficiency anemia type: unspecified iron deficiency Qualified Code(s): D50.9 - Iron deficiency anemia, unspecified Discharge Date/Time: 06/13/18 19:49 Interventions: ED Discharge Assessment Last Done: 06/13/18 19:05 Prescriptions: No Action metoprolol succinate 50 mg tablet extended release 24 hr 50 mg PO DAILY RF: 0 isosorbide mononitrate 60 mg tablet extended release 24 hr 60 mg PO DAILY RF: 0 warfarin 5 mg Tablet 2.5 mg PO [id number] RF: 0 aspirin [Adult Aspirin Regimen] 81 mg tablet,delayed release (DR/EC) 81 mg PO DAILY RF: 0 simvastatin 40 mg tablet 40 mg PO BEDTIME RF: 0 pantoprazole 40 mg tablet,delayed release (DR/EC) 40 mg PO DAILY RF: 0 warfarin 5 mg tablet 5 mg PO DANIEL RF: 0 losartan 25 mg tablet 25 mg PO DAILY RF: 0 tramadol 50 mg tablet 50 mg PO TID PRN (Reason: pain) Qty: 60 RF: 1 Referrals: Deepa Varela MD [Primary Care Provider] -
[2018-06-12 20:27] LABS: Hemoglobin 6.6 g/dL (12.0-16.0)
[2018-06-12 20:28] LABS: Alanine Aminotransferase 557 IU/L (9-52); Albumin 4.1 g/dL (3.5-5.0); Albumin Globulin Ratio 1.5 (1.0-2.8); Alkaline Phosphatase 106 U/L (38-126); Aspartate Aminotransferase 682 IU/L (14-36); Bilirubin Total 1.6 mg/dL (0.2-1.3); Blood Urea Nitrogen 28 mg/dL (7-17); Carbon Dioxide 25 mmol/L (22-32); Chloride 95 mmol/L (98-107); Creatine Kinase 73 U/L (30-135); Estimated Glomerular Filt Rate 53.6 mL/min (>60); Globulin 2.8 g/dL (1.7-4.1); Glucose 135 mg/dL (80-110); HEMOLYSIS < 15 (0-50); Lipase 44 U/L (23-300); Potassium 4.3 mmol/L (3.4-5.1); Sodium 133 mmol/L (137-145); Total Protein 6.9 g/dL (6.3-8.2)
--- NOTE | 2018-06-12 20:33 | ED_ITS ---
HPI - Back Pain/Injury <DO Daniel Long Last Filed: 06/14/18 03:19> General Chief Complaint: Back Pain/Injury Stated Complaint: NAUSEA BACK HURTS Time Seen by Provider: 06/12/18 19:35 Source: patient and family Mode of arrival: ambulatory Limitations: no limitations History of Present Illness HPI Narrative: 70-year-old female former smoker with extensive cardiac history presents with severe back pain, shortness of breath and fatigue. She has had extensive recent workup including MRI and back injection as of late. She states she is profoundly short of breath with any exertion. She becomes dizzy and lightheaded standing or walking. She denies any chest pain. She has nausea but denies any vomiting. She has had no blood in her stool or urine. She states symptoms came on relatively sudden.Her cardiac stents were 10 years ago and vascular grafts were 15 years ago MD Complaint: back pain Related Data Home Medications Medication Instructions Recorded Confirmed aspirin 81 mg tablet,delayed 81 mg PO DAILY 04/20/18 06/13/18 release losartan 25 mg tablet 25 mg PO DAILY 04/20/18 06/13/18 pantoprazole 40 mg tablet,delayed 40 mg PO DAILY 04/20/18 06/13/18 release simvastatin 40 mg tablet 40 mg PO BEDTIME 04/20/18 06/13/18 warfarin 5 mg tablet 5 mg PO DANIEL 04/20/18 06/13/18 isosorbide mononitrate 60 mg PO DAILY 06/13/18 06/13/18 metoprolol succinate 50 mg PO DAILY 06/13/18 06/13/18 warfarin 2.5 mg PO MOTUWETHFRSA 06/13/18 06/13/18 Previous Rx's Medication Instructions Recorded tramadol 50 mg tablet 50 mg PO TID PRN #60 tab 06/01/18 Allergies Allergy/AdvReac Type Severity Reaction Status Date / Time morphine AdvReac Intermediate burning Verified 06/01/18 11:53 sensation at IV site amoxicillin [From Augmentin] AdvReac Mild flu like Verified 06/01/18 11:53 symptoms clavulanic acid AdvReac Mild flu like Verified 06/01/18 11:53 [From Augmentin] symptoms lisinopril AdvReac Mild cough Verified 06/01/18 11:53 Review of Systems <DO Daniel Long Last Filed: 06/14/18 03:19> Constitutional Denies chills, Reports fatigue, Denies fever(s), Reports lethargy, Reports malaise and Reports weakness Eyes Denies change in vision, Denies eye discharge, Denies irritation and Denies loss of vision ENT Ears, Nose, Mouth, and Throat: Denies change in voice, Denies neck pain and Denies sore throat Cardiovascular Reports chest pain, Denies irregular heart rhythm, Denies lightheadedness, Den ies palpitations, Reports dyspnea, Reports dyspnea on exertion and Denies orthopnea Respiratory Denies cough, Reports dyspnea, Reports dyspnea on exertion and Denies wheezing Gastrointestinal Gastrointestinal: Denies abdominal pain, Denies change in bowel habits, Denies diarrhea, Denies nausea and Denies vomiting Genitourinary Denies hematuria, Denies flank pain, Denies urinary incontinence and Denies urinary urgency Musculoskeletal Reports back pain and Denies neck pain Integumentary/Breasts Denies pruritus, Denies erythema, Denies rash and Denies wounds Neurologic Denies confusion, Denies loss of vision and Reports weakness Psychiatric Denies anxiety, Denies confusion, Denies depression, Denies homicidal ideation and Denies suicidal ideation Endocrine Reports fatigue and Denies palpitations Hematologic/Lymphatic Denies easy bruising Allergic/Immunologic Denies wheezing Exam <Lionle Juarez, DO - Last Filed: 06/14/18 03:19> Narrative Exam Narrative: GENERAL: 78-year-old female, ill appearing diaphoretic and pale HEAD: Atraumatic. Normocephalic. No temporal or scalp tenderness. EYES: Pale conjunctiva Pupils equal round and reactive. Extraocular motions intact. No scleral icterus. No injection or drainage. ENT: Nose without bleeding, purulent drainage or septal hematoma. Throat without erythema, tonsillar hypertrophy or exudate. Uvula midline. Airway patent. NECK: Trachea midline. No JVD or lymphadenopathy. Supple, nontender, no meningeal signs. CARDIOVASCULAR: Tachycardic but regular rhythm without murmurs, gallops, or rubs. RESPIRATORY: Clear to auscultation. Breath sounds equal bilaterally. No wheezes, rales, or rhonchi. GASTROINTESTINAL: Abdomen soft, non-tender, nondistended. No hepato- splenomegaly, or palpable masses. No guarding. RECTAL: weakly heme positive. EXTREMITIES: No clubbing, cyanosis, or edema. No joint tenderness, effusion, or edema noted. BACK: Upper and lower midline tenderness, consistent with prior NEURO: AOx3. SKIN: No rash or erythema. Initial Vital Signs Initial Vital Signs: Vital Signs Temperature 98.9 F 06/12/18 19:37 Pulse Rate 125 H 06/12/18 19:37 Respiratory Rate 20 06/12/18 19:37 Blood Pressure 107/70 06/12/18 19:37 Pulse Oximetry 92 06/12/18 19:37 <Fortunato Gómez, DO - Last Filed: 06/13/18 18:02> Initial Vital Signs Initial Vital Signs: Vital Signs Temperature 98.9 F 06/12/18 19:37 Pulse Rate 125 H 06/12/18 19:37 Respiratory Rate 20 06/12/18 19:37 Blood Pressure 107/70 06/12/18 19:37 Pulse Oximetry 92 06/12/18 19:37 Course <Lionel Juarez DO - Last Filed: 06/14/18 03:19> Orders Ordered: Discontinued Medications Sodium Chloride (Normal Saline 0.9%) 1,000 mls @ 150 mls/hr IV CONT [facility] Last Infusion: 06/12/18 20:38 Dose: 0 mls/hr Admin: 06/12/18 20:20 Dose: 150 mls/hr Sodium Chloride (Normal Saline 0.9%) 1,000 mls @ 100 mls/hr IV CONT [facility] Last Admin: 06/13/18 14:58 Dose: 100 mls/hr Ondansetron HCl (Zofran) 4 mg IV NOW ONE Stop: 06/12/18 19:59 Last Admin: 06/12/18 20:20 Dose: 4 mg Ondansetron HCl (Zofran) 4 mg IV NOW ONE Stop: 06/13/18 08:46 Last Admin: 06/13/18 08:47 Dose: 4 mg Tramadol HCl (Ultram) 50 mg PO NOW ONE Stop: 06/13/18 08:06 Last Admin: 06/13/18 08:16 Dose: 50 mg Reevaluation(s) Reevaluation #1: Patient feels well, she is not dizzy at this point nor lightheaded but continues to feel weak. She denies any chest pain or increasing shortness of breath Consultations Consultation #1: Initial call to our General surgery whom is happy to provide surgical backup if hospitalist is willing to accept Next call to hospitalist whom is unable to keep this patient due to a rising troponin and complexity of medical history. [facility] is full and on divert [facility] in [place] is full and on divert [facility] is full and on divert [facility] is full [place] is full [place] [place] and will call back. [phone] /[facility] [place], [facility] capped and [facility] boarding 20+ patients 0528 [place] is full 0530 call to [facility] cardiology to discuss troponin/EKGs. We share opinion that this is likely demand ischemia and that we are doing appropriate treatment with trending labs, administration of blood. Not a cath candidate. 0537 call back to [facility]. 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 No link between symptoms, labs, and these findings Consultation #3: call back from [facility]. Dr. Teran to be accepting. No current beds, but we are on the list. Will continue to replace PRBCs. Will recheck H/H. No need to reverse coumadin given lack of large bleed. Vital Signs - 8 hr 06/13/18 10:30 06/13/18 11:00 06/13/18 11:30 Pulse Rate 96 H 84 92 H Respiratory Rate 17 17 24 Blood Pressure [Left Arm] 103/82 103/82 111/83 Pulse Oximetry 95 97 06/13/18 11:35 06/13/18 12:00 06/13/18 13:00 Pulse Rate 98 H 102 H Respiratory Rate 26 H 25 H Blood Pressure [Left Arm] 116/74 120/67 Pulse Oximetry 95 97 06/13/18 13:30 06/13/18 14:00 06/13/18 15:00 Pulse Rate 92 H 97 H 87 Respiratory Rate 15 17 17 Blood Pressure [Left Arm] 129/76 122/95 H 108/67 Pulse Oximetry 96 96 95 06/13/18 16:00 06/13/18 17:00 Pulse Rate 95 H 96 H Respiratory Rate 20 19 Blood Pressure [Left Arm] 112/61 108/82 Pulse Oximetry 95 95 <Fortunato Gómez DO - Last Filed: 06/13/18 18:02> Orders Ordered: Discontinued Medications Sodium Chloride (Normal Saline 0.9%) 1,000 mls @ 150 mls/hr IV CONT [facility] Last Infusion: 06/12/18 20:38 Dose: 0 mls/hr Admin: 06/12/18 20:20 Dose: 150 mls/hr Sodium Chloride (Normal Saline 0.9%) 1,000 mls @ 100 mls/hr IV CONT [facility] Last Admin: 06/13/18 14:58 Dose: 100 mls/hr Ondansetron HCl (Zofran) 4 mg IV NOW ONE Stop: 06/12/18 19:59 Last Admin: 06/12/18 20:20 Dose: 4 mg Ondansetron HCl (Zofran) 4 mg IV NOW ONE Stop: 06/13/18 08:46 Last Admin: 06/13/18 08:47 Dose: 4 mg Tramadol HCl (Ultram) 50 mg PO NOW ONE Stop: 06/13/18 08:06 Last Admin: 06/13/18 08:16 Dose: 50 mg Vital Signs - 8 hr 06/13/18 10:30 06/13/18 11:00 06/13/18 11:30 Pulse Rate 96 H 84 92 H Respiratory Rate 17 17 24 Blood Pressure [Left Arm] 103/82 103/82 111/83 Pulse Oximetry 95 97 06/13/18 11:35 06/13/18 12:00 06/13/18 13:00 Pulse Rate 98 H 102 H Respiratory Rate 26 H 25 H Blood Pressure [Left Arm] 116/74 120/67 Pulse Oximetry 95 97 06/13/18 13:30 06/13/18 14:00 06/13/18 15:00 Pulse Rate 92 H 97 H 87 Respiratory Rate 15 17 17 Blood Pressure [Left Arm] 129/76 122/95 H 108/67 Pulse Oximetry 96 96 95 06/13/18 16:00 06/13/18 17:00 Pulse Rate 95 H 96 H Respiratory Rate 20 19 Blood Pressure [Left Arm] 112/61 108/82 Pulse Oximetry 95 95 MDM - Back Pain/Injury <Lionel Juarez DO - Last Filed: 06/14/18 03:19> Lab Data Attestation: I reviewed the patient's lab results. Result diagrams: 06/13/18 08:15 06/12/18 20:03 Lab Results 06/12/18 06/12/18 06/12/18 Range/Units 20:00 20:03 20:03 WBC 12.0 H (4.5-11.0) X10^3/uL RBC 3.68 L (4.0-5.2) X10^6/uL Hgb 6.6 L* (12.0-16.0) g/dL Hct 23.2 L (36-46) % MCV 63.0 L (80-100) fL MCH 18.0 L (26-34) PG MCHC 28.6 L (30-36) % RDW 20.4 H (11.6-14.8) % Plt Count 333 (150-400) X10^3/uL Neut % (Auto) 81.5 H (50-75) % Lymph % (Auto) 6.8 L (25-40) % [place] % (Auto) 11.0 (3-14) % Eos % (Auto) 0.1 L (2-4) % Baso % (Auto) 0.6 (0-2) % Neut # (Auto) 9700 H (4162-4656) /uL Lymph # (Auto) 800 L (8648-5083) /uL [place] # (Auto) 1300 H (0-900) /uL Eos # (Auto) 0 (0-450) /uL Baso # (Auto) 100 (0-100) /uL RBC Morphology Not Reportable Hypochromasia 3+ H Poikilocytosis 1+ H Anisocytosis 3+ H Microcytosis 3+ H PT 29.6 H (10.1-12.7) SECONDS INR 2.5 H (0.9-1.3) APTT 29 (26.4-36.2) SECONDS Sodium Cancelled Potassium Cancelled Chloride Cancelled Carbon Dioxide Cancelled BUN Cancelled Creatinine Cancelled Estimated GFR Cancelled BUN/Creatinine Ratio Cancelled Glucose Cancelled Calcium Cancelled Total Bilirubin Cancelled AST Cancelled ALT Cancelled Alkaline Phosphatase Cancelled Total Creatine Kinase Cancelled CK-MB (CK-2) Cancelled CK-MB (CK-2) Rel Index Cancelled Troponin I Cancelled B-Natriuretic Peptide (<100) Total Protein Cancelled Albumin Cancelled Globulin Cancelled Albumin/Globulin Ratio Cancelled Lipase (23-300) U/L Specimen Hemolysis Cancelled Blood Type Antibody Screen Crossmatch 06/12/18 06/12/18 06/12/18 Range/Units 20:03 20:03 20:03 WBC (4.5-11.0) X10^3/uL RBC (4.0-5.2) X10^6/uL Hgb (12.0-16.0) g/dL Hct (36-46) % MCV (80-100) fL MCH (26-34) PG MCHC (30-36) % RDW (11.6-14.8) % Plt Count (150-400) X10^3/uL Neut % (Auto) (50-75) % Lymph % (Auto) (25-40) % [place] % (Auto) (3-14) % Eos % (Auto) (2-4) % Baso % (Auto) (0-2) % Neut # (Auto) (3737-5388) /uL Lymph # (Auto) (6480-2277) /uL [place] # (Auto) (0-900) /uL Eos # (Auto) (0-450) /uL Baso # (Auto) (0-100) /uL RBC Morphology Hypochromasia Poikilocytosis Anisocytosis Microcytosis PT (10.1-12.7) SECONDS INR (0.9-1.3) APTT (26.4-36.2) SECONDS Sodium 133 L Potassium 4.3 Chloride 95 L Carbon Dioxide 25 BUN 28 H Creatinine 1.00 Estimated GFR 53.6 L BUN/Creatinine Ratio 28.0 H Glucose 135 H Calcium 9.0 Total Bilirubin 1.6 H AST 682 H ALT 557 H Alkaline Phosphatase 106 Total Creatine Kinase 73 CK-MB (CK-2) TNP CK-MB (CK-2) Rel Index TNP Troponin I 0.140 H* B-Natriuretic Peptide 679 H (<100) Total Protein 6.9 Albumin 4.1 Globulin 2.8 Albumin/Globulin Ratio 1.5 Lipase 44 (23-300) U/L Specimen Hemolysis Blood Type O Positive Antibody Screen Negative Crossmatch See Detail 06/12/18 06/13/18 06/13/18 Range/Units 23:45 02:27 02:27 WBC (4.5-11.0) X10^3/uL RBC (4.0-5.2) X10^6/uL Hgb 8.0 L (12.0-16.0) g/dL Hct 26.0 L (36-46) % MCV (80-100) fL MCH (26-34) PG MCHC (30-36) % RDW (11.6-14.8) % Plt Count (150-400) X10^3/uL Neut % (Auto) (50-75) % Lymph % (Auto) (25-40) % [place] % (Auto) (3-14) % Eos % (Auto) (2-4) % Baso % (Auto) (0-2) % Neut # (Auto) (3246-1284) /uL Lymph # (Auto) (4429-6424) /uL [place] # (Auto) (0-900) /uL Eos # (Auto) (0-450) /uL Baso # (Auto) (0-100) /uL RBC Morphology Hypochromasia Poikilocytosis Anisocytosis Microcytosis PT (10.1-12.7) SECONDS INR (0.9-1.3) APTT (26.4-36.2) SECONDS Sodium Potassium Chloride Carbon Dioxide BUN Creatinine Estimated GFR BUN/Creatinine Ratio Glucose Calcium Total Bilirubin AST ALT 527 H Alkaline Phosphatase Total Creatine Kinase CK-MB (CK-2) CK-MB (CK-2) Rel Index Troponin I 0.205 H* 0.293 H* B-Natriuretic Peptide (<100) Total Protein Albumin Globulin Albumin/Globulin Ratio Lipase (23-300) U/L Specimen Hemolysis Blood Type Antibody Screen Crossmatch 06/13/18 06/13/18 06/13/18 Range/Units 08:15 08:15 14:50 WBC (4.5-11.0) X10^3/uL RBC (4.0-5.2) X10^6/uL Hgb 10.1 L (12.0-16.0) g/dL Hct 32.6 L (36-46) % MCV (80-100) fL MCH (26-34) PG MCHC (30-36) % RDW (11.6-14.8) % Plt Count (150-400) X10^3/uL Neut % (Auto) (50-75) % Lymph % (Auto) (25-40) % [place] % (Auto) (3-14) % Eos % (Auto) (2-4) % Baso % (Auto) (0-2) % Neut # (Auto) (5701-9165) /uL Lymph # (Auto) (2533-9286) /uL [place] # (Auto) (0-900) /uL Eos # (Auto) (0-450) /uL Baso # (Auto) (0-100) /uL RBC Morphology Hypochromasia Poikilocytosis Anisocytosis Microcytosis PT (10.1-12.7) SECONDS INR (0.9-1.3) APTT (26.4-36.2) SECONDS Sodium Potassium Chloride Carbon Dioxide BUN Creatinine Estimated GFR BUN/Creatinine Ratio Glucose Calcium Total Bilirubin AST ALT Alkaline Phosphatase Total Creatine Kinase CK-MB (CK-2) CK-MB (CK-2) Rel Index Troponin I 0.341 H* 0.254 H* B-Natriuretic Peptide (<100) Total Protein Albumin Globulin Albumin/Globulin Ratio Lipase (23-300) U/L Specimen Hemolysis Blood Type Antibody Screen Crossmatch Urine Dip Bedside Urine Glucose Negative Bedside Urine Bilirubin - Negative Bedside Urine Ketone - Negative Urine Specific [place] 1.020 Bedside Urine Occult Blood - Negative Bedside Urine pH 6.0 Bedside Urine Protein + 30 Bedside Urine Urobilinogen +/- 1mg Bedside Urine Nitrite - Negative Bedside Urine Leukocytes - Negative Esterase Imaging Data CT scan - chest: Radiologist's impression: [place] [address] CT Scan Report Signed Patient: Chasity Wilks R#: [id number] : 1940cct:[id number] Age/Sex: 78 / FDate of Service: 06/12/18 Loc: ED Accession Number: [id number] Procedure: CT angio chest abdomen pelvis Ordering Provider: Lionel Juarez D.O. PROCEDURE: CT ANGIO CHEST ABDOMEN PELVIS INDICATIONS: chest, back pain, near syncopal, tachy, hypotense TECHNIQUE: Precontrast 5 mm thick sections acquired from the lung apices to the iliac crests. After the administration of intravenous contrast, 2.5 mm thick sections again acquired from the lung apices to the iliac crests. Maximum intensity projection (MIP) oblique sagittal and coronal reformats were then acquired. For radiation dose reduction, the following was used: automated exposure control. COMPARISON: None. FINDINGS: Image quality: Excellent. AORTA and its attachments: The ascending aorta is normal caliber. It has shaggy plaque within it. The plaque continues down the thoracic aorta and abdominal aorta. There is no dissection. The infrarenal abdominal aorta is mildly aneurysmal, measuring 3.7 cm. 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 There is a vascular bypass of the right iliac which is also thrombosed. The right external iliac is diffusely diminutive and calcified and thrombosed. There is a right axillary/femoral bypass graft present which is widely patent. 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 There is a aorto left iliac bypass graft which is widely patent. There is classic 3 vessel arch anatomy. There is mild brachycephalic disease and mild to moderate proximal left common carotid artery disease. There is high grade michael nosis of the proximal left subclavian artery, proximal to the origin of the left subclavian artery. CHEST: Lungs and pleura: Moderate to severe biapical centrilobular emphysema. No suspicious pulmonary nodules. No acute airspace opacities. Moderate right pleural effusion. Right basilar atelectasis. No pneumothorax. Central and peripheral airways are patent and normal in caliber. No pulmonary emboli. Mediastinum: Heart size is normal. No pericardial effusion. Diffuse coronary artery atherosclerotic calcifications. No mediastinal or hilar adenopathy by size criteria. Central pulmonary arteries are normal in size. Esophagus is normal in caliber. No hiatal hernias. Bones and chest wall: No axillary adenopathy by size criteria. Thyroid gland is unremarkable the. No suspicious bony lesions. No vertebral body compression fractures. ABDOMEN: Vasculature: Celiac and SMA are patent. MOLINA is occluded proximally. Renal arteries are grossly patent. Solid organs: Liver is normal in size and enhancement. Gallbladder contains a large gallstone. Biliary system is non dilated. Pancreas enhances normally. Spleen is normal in size and enhancement. No adrenal nodules. Both kidneys are normal in size and enhancement, without hydronephrosis. Peritoneum and bowel: Small amount of free air in the pelvis. Sigmoid diverticulosis without evidence of diverticulitis. Bowel loops are normal in caliber and wall thickness. Nodes and vessels: No retroperitoneal or mesenteric adenopathy by size criteria. Inferior vena cava is normal in morphology. Miscellaneous: No ventral hernias. PELVIS: Genitourinary: Bladder wall thickness is normal. Miscellaneous: No inguinal hernias or adenopathy. No ventral hernias. Bones: No suspicious bony lesions. No vertebral body compression fractures. IMPRESSION: 1. Normal caliber thoracic aorta without dissection. 2. High-grade proximal left subclavian artery stenosis. 3. Patent right ax-femoral bypass graft 4. SMA and celiac, and renals are patent. 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 5. Mild aneurysmal dilatation of the distal abdominal aorta. 6. Bilateral [place] common iliac arteries are occluded. Right aortoiliac bypass is occluded. 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 Left aortoiliac graft is patent. 7. No pulmonary emboli. 8. Moderate right pleural effusion with right basilar atelectasis. 9. Large gallstone. 10. Sigmoid diverticulosis. Dictated by: Adolfo Lazo M.D. on 06/12/2018 at 21:22 Approved by: Adolfo Lazo M.D. on 06/12/2018 at 21:38 ECG Data Attestation: I personally reviewed and interpreted this ECG as follows: Prior ECG tracings: not available for review Interpretation: sinus tachycardia with ST depressions in lateral leads no change in EKG #2 EKG #3 notes sinus rate [address] depressions in lateral leads MDM Narrative Medical decision making narrative: 70-year-old female presents in rather impressive fashion, short of breath, diaphoretic and weak. She has a rather impressive anemia which will require transfusions. EKG changes no lateral ST depressions and troponin is slowly rising. These are thought to be demand ischemia given cardiac history and low oxygen carrying capacity. Patient requires transfer due to complexity of medical history, and significant, symptomatic anemia in the absence of any of his large bleed, troponin, EKG changes. <Fortunato Gómez, DO - Last Filed: 06/13/18 18:02> Lab Data Lab Results 06/12/18 06/12/18 06/12/18 Range/Units 20:00 20:03 20:03 WBC 12.0 H (4.5-11.0) X10^3/uL RBC 3.68 L (4.0-5.2) X10^6/uL Hgb 6.6 L* (12.0-16.0) g/dL Hct 23.2 L (36-46) % MCV 63.0 L (80-100) fL MCH 18.0 L (26-34) PG MCHC 28.6 L (30-36) % RDW 20.4 H (11.6-14.8) % Plt Count 333 (150-400) X10^3/uL Neut % (Auto) 81.5 H (50-75) % Lymph % (Auto) 6.8 L (25-40) % [place] % (Auto) 11.0 (3-14) % Eos % (Auto) 0.1 L (2-4) % Baso % (Auto) 0.6 (0-2) % Neut # (Auto) 9700 H (8114-0386) /uL Lymph # (Auto) 800 L (9301-1495) /uL [place] # (Auto) 1300 H (0-900) /uL Eos # (Auto) 0 (0-450) /uL Baso # (Auto) 100 (0-100) /uL RBC Morphology Not Reportable Hypochromasia 3+ H Poikilocytosis 1+ H Anisocytosis 3+ H Microcytosis 3+ H PT 29.6 H (10.1-12.7) SECONDS INR 2.5 H (0.9-1.3) APTT 29 (26.4-36.2) SECONDS Sodium Cancelled Potassium Cancelled Chloride Cancelled Carbon Dioxide Cancelled BUN Cancelled Creatinine Cancelled Estimated GFR Cancelled BUN/Creatinine Ratio Cancelled Glucose Cancelled Calcium Cancelled Total Bilirubin Cancelled AST Cancelled ALT Cancelled Alkaline Phosphatase Cancelled Total Creatine Kinase Cancelled CK-MB (CK-2) Cancelled CK-MB (CK-2) Rel Index Cancelled Troponin I Cancelled B-Natriuretic Peptide (<100) Total Protein Cancelled Albumin Cancelled Globulin Cancelled Albumin/Globulin Ratio Cancelled Lipase (23-300) U/L Specimen Hemolysis Cancelled Blood Type Antibody Screen Crossmatch 06/12/18 06/12/18 06/12/18 Range/Units 20:03 20:03 20:03 WBC (4.5-11.0) X10^3/uL RBC (4.0-5.2) X10^6/uL Hgb (12.0-16.0) g/dL Hct (36-46) % MCV (80-100) fL MCH (26-34) PG MCHC (30-36) % RDW (11.6-14.8) % Plt Count (150-400) X10^3/uL Neut % (Auto) (50-75) % Lymph % (Auto) (25-40) % [place] % (Auto) (3-14) % Eos % (Auto) (2-4) % Baso % (Auto) (0-2) % Neut # (Auto) (7297-6096) /uL Lymph # (Auto) (7216-3306) /uL [place] # (Auto) (0-900) /uL Eos # (Auto) (0-450) /uL Baso # (Auto) (0-100) /uL RBC Morphology Hypochromasia Poikilocytosis Anisocytosis Microcytosis PT (10.1-12.7) SECONDS INR (0.9-1.3) APTT (26.4-36.2) SECONDS Sodium 133 L Potassium 4.3 Chloride 95 L Carbon Dioxide 25 BUN 28 H Creatinine 1.00 Estimated GFR 53.6 L BUN/Creatinine Ratio 28.0 H Glucose 135 H Calcium 9.0 Total Bilirubin 1.6 H AST 682 H ALT 557 H Alkaline Phosphatase 106 Total Creatine Kinase 73 CK-MB (CK-2) TNP CK-MB (CK-2) Rel Index TNP Troponin I 0.140 H* B-Natriuretic Peptide 679 H (<100) Total Protein 6.9 Albumin 4.1 Globulin 2.8 Albumin/Globulin Ratio 1.5 Lipase 44 (23-300) U/L Specimen Hemolysis Blood Type O Positive Antibody Screen Negative Crossmatch See Detail 06/12/18 06/13/18 06/13/18 Range/Units 23:45 02:27 02:27 WBC (4.5-11.0) X10^3/uL RBC (4.0-5.2) X10^6/uL Hgb 8.0 L (12.0-16.0) g/dL Hct 26.0 L (36-46) % MCV (80-100) fL MCH (26-34) PG MCHC (30-36) % RDW (11.6-14.8) % Plt Count (150-400) X10^3/uL Neut % (Auto) (50-75) % Lymph % (Auto) (25-40) % [place] % (Auto) (3-14) % Eos % (Auto) (2-4) % Baso % (Auto) (0-2) % Neut # (Auto) (0085-1337) /uL Lymph # (Auto) (9590-4015) /uL [place] # (Auto) (0-900) /uL Eos # (Auto) (0-450) /uL Baso # (Auto) (0-100) /uL RBC Morphology Hypochromasia Poikilocytosis Anisocytosis Microcytosis PT (10.1-12.7) SECONDS INR (0.9-1.3) APTT (26.4-36.2) SECONDS Sodium Potassium Chloride Carbon Dioxide BUN Creatinine Estimated GFR BUN/Creatinine Ratio Glucose Calcium Total Bilirubin AST ALT 527 H Alkaline Phosphatase Total Creatine Kinase CK-MB (CK-2) CK-MB (CK-2) Rel Index Troponin I 0.205 H* 0.293 H* B-Natriuretic Peptide (<100) Total Protein Albumin Globulin Albumin/Globulin Ratio Lipase (23-300) U/L Specimen Hemolysis Blood Type Antibody Screen Crossmatch 06/13/18 06/13/18 06/13/18 Range/Units 08:15 08:15 14:50 WBC (4.5-11.0) X10^3/uL RBC (4.0-5.2) X10^6/uL Hgb 10.1 L (12.0-16.0) g/dL Hct 32.6 L (36-46) % MCV (80-100) fL MCH (26-34) PG MCHC (30-36) % RDW (11.6-14.8) % Plt Count (150-400) X10^3/uL Neut % (Auto) (50-75) % Lymph % (Auto) (25-40) % [place] % (Auto) (3-14) % Eos % (Auto) (2-4) % Baso % (Auto) (0-2) % Neut # (Auto) (5282-2427) /uL Lymph # (Auto) (6254-4805) /uL [place] # (Auto) (0-900) /uL Eos # (Auto) (0-450) /uL Baso # (Auto) (0-100) /uL RBC Morphology Hypochromasia Poikilocytosis Anisocytosis Microcytosis PT (10.1-12.7) SECONDS INR (0.9-1.3) APTT (26.4-36.2) SECONDS Sodium Potassium Chloride Carbon Dioxide BUN Creatinine Estimated GFR BUN/Creatinine Ratio Glucose Calcium Total Bilirubin AST ALT Alkaline Phosphatase Total Creatine Kinase CK-MB (CK-2) CK-MB (CK-2) Rel Index Troponin I 0.341 H* 0.254 H* B-Natriuretic Peptide (<100) Total Protein Albumin Globulin Albumin/Globulin Ratio Lipase (23-300) U/L Specimen Hemolysis Blood Type Antibody Screen Crossmatch Urine Dip Bedside Urine Glucose Negative Bedside Urine Bilirubin - Negative Bedside Urine Ketone - Negative Urine Specific Cypress 1.020 Bedside Urine Occult Blood - Negative Bedside Urine pH 6.0 Bedside Urine Protein + 30 Bedside Urine Urobilinogen +/- 1mg Bedside Urine Nitrite - Negative Bedside Urine Leukocytes - Negative Esterase MDM Narrative Medical decision making narrative: Dr gómez 0800: Received turned over from Dr. Juarez. Performed my own history and physical exam. Reviewed patient's lab reports. Patient just finished the 4th unit of packed red blood cells. Will repeat hemoglobin and hematocrit and also repeat troponin. Patient is complaining of shoulder pain which is not new for her. She has been on tramadol for the past couple days which she states works very well for her. Will give her dose of her tramadol. Patient was removed from the oxygen. Oxygen saturations currently above 90. Will continue to monitor. We do have an accepting physician at [facility] which was arranged by Dr. Juarez awaiting a bed assignment. Patient was informed of this. Patient currently stable for transport. Patient was informed of transport and agrees. Will continue to monitor until bed is available. 0900: Patient's oxygen saturations desatted to the high 80s when she was sleeping. She was placed back on nasal cannula and has now been greater than 90%. Hemoglobin and hematocrit improved. Will hold on further transfusions. Troponin continuing to elevate slightly. Patient states she feels better after receiving the Ultram with regard to her back pain. continuing to wait for bed assignment. Will continue to monitor. 1700: Patient has remained stable throughout the day. Multiple calls to [facility] resulted in them saying that it is unlikely that she is going to have a bed for the remainder of the day. I did discuss the case with Dr. Meek at [facility] who accepts the patient. I did discuss the case with the on-call GI provider who stated that she would contact the medicine provider to see what they would like her to do. Patient is stable for transfer. She was informed of the change in plans and is in agreement. Critical Care Time <Lionel Juarez DO - Last Filed: 06/14/18 03:19> Critical Care Time: Yes Total Critical Care Time: 60 Attestation: The high probability of a clinically significant, sudden or life threatening deterioration of the [cardiovascular] system(s) required my full and direct att ention, intervention and personal management. The aggregate critical care time was [60] minutes. This time is in addition to time spent performing reported procedures but includes the following: [x] Data Review and interpretation [x] Patient assessment and monitoring of vital signs [x] Documentation [x] Medication orders and management Discharge Plan Departure Patient Disposition: [facility] Clinical Impression: Non-ST elevation MD (NSTEMI), Acute GI bleeding, Elevated LFTs Anemia Qualifiers: Anemia type: iron deficiency Iron deficiency anemia type: unspecified iron deficiency Qualified Code(s): D50.9 - Iron deficiency anemia, unspecified Discharge Date/Time: 06/13/18 19:49 Interventions: ED Discharge Assessment Last Done: 06/13/18 19:05 Prescriptions: No Action metoprolol succinate 50 mg tablet extended release 24 hr 50 mg PO DAILY RF: 0 isosorbide mononitrate 60 mg tablet extended release 24 hr 60 mg PO DAILY RF: 0 warfarin 5 mg Tablet 2.5 mg PO MOTUWETHFRSA RF: 0 aspirin [Adult Aspirin Regimen] 81 mg tablet,delayed release (DR/EC) 81 mg PO DAILY RF: 0 simvastatin 40 mg tablet 40 mg PO BEDTIME RF: 0 pantoprazole 40 mg tablet,delayed release (DR/EC) 40 mg PO DAILY RF: 0 warfarin 5 mg tablet 5 mg PO DANIEL RF: 0 losartan 25 mg tablet 25 mg PO DAILY RF: 0 tramadol 50 mg tablet 50 mg PO TID PRN (Reason: pain) Qty: 60 RF: 1 Referrals: Deepa Varela MD [Primary Care Provider] -
[2018-06-12 20:37] LABS: B Type Natriuretic Peptide 679 (<100)
--- NOTE | 2018-06-12 20:39 | DI.CT.S_ITS ---
PROCEDURE: CT ANGIO CHEST ABDOMEN PELVIS INDICATIONS: chest, back pain, near syncopal, tachy, hypotense TECHNIQUE: Precontrast 5 mm thick sections acquired from the lung apices to the iliac crests. After the administration of intravenous contrast, 2.5 mm thick sections again acquired from the lung apices to the iliac crests. Maximum intensity projection (MIP) oblique sagittal and coronal reformats were then acquired. For radiation dose reduction, the following was used: automated exposure control. COMPARISON: None. FINDINGS: Image quality: Excellent. AORTA and its attachments: The ascending aorta is normal caliber. It has shaggy plaque within it. The plaque continues down the thoracic aorta and abdominal aorta. There is no dissection. The infrarenal abdominal aorta is mildly aneurysmal, measuring 3.7 cm. 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 There is a vascular bypass of the right iliac which is also thrombosed. The right external iliac is diffusely diminutive and calcified and thrombosed. There is a right axillary/femoral bypass graft present which is widely patent. 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 There is a aorto left iliac bypass graft which is widely patent. There is classic 3 vessel arch anatomy. There is mild brachycephalic disease and mild to moderate proximal left common carotid artery disease. There is high grade stenosis of the proximal left subclavian artery, proximal to the origin of the left subclavian artery. CHEST: Lungs and pleura: Moderate to severe biapical centrilobular emphysema. No suspicious pulmonary nodules. No acute airspace opacities. Moderate right pleural effusion. Right basilar atelectasis. No pneumothorax. Central and peripheral airways are patent and normal in caliber. No pulmonary emboli. Mediastinum: Heart size is normal. No pericardial effusion. Diffuse coronary artery atherosclerotic calcifications. No mediastinal or hilar adenopathy by size criteria. Central pulmonary arteries are normal in size. Esophagus is normal in caliber. No hiatal hernias. Bones and chest wall: No axillary adenopathy by size criteria. Thyroid gland is unremarkable the. No suspicious bony lesions. No vertebral body compression fractures. ABDOMEN: Vasculature: Celiac and SMA are patent. MOLINA is occluded proximally. Renal arteries are grossly patent. Solid organs: Liver is normal in size and enhancement. Gallbladder contains a large gallstone. Biliary system is non dilated. Pancreas enhances normally. Spleen is normal in size and enhancement. No adrenal nodules. Both kidneys are normal in size and enhancement, without hydronephrosis. Peritoneum and bowel: Small amount of free air in the pelvis. Sigmoid diverticulosis without evidence of diverticulitis. Bowel loops are normal in caliber and wall thickness. Nodes and vessels: No retroperitoneal or mesenteric adenopathy by size criteria. Inferior vena cava is normal in morphology. Miscellaneous: No ventral hernias. PELVIS: Genitourinary: Bladder wall thickness is normal. Miscellaneous: No inguinal hernias or adenopathy. No ventral hernias. Bones: No suspicious bony lesions. No vertebral body compression fractures. IMPRESSION: 1. Normal caliber thoracic aorta without dissection. 2. High-grade proximal left subclavian artery stenosis. 3. Patent right ax-femoral bypass graft 4. SMA and celiac, and renals are patent. 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 5. Mild aneurysmal dilatation of the distal abdominal aorta. 6. Bilateral [place]nine [place] common iliac arteries are occluded. Right aortoiliac bypass is occluded. 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 Left aortoiliac graft is patent. 7. No pulmonary emboli. 8. Moderate right pleural effusion with right basilar atelectasis. 9. Large gallstone. 10. Sigmoid diverticulosis. Dictated by: Adolfo Lazo M.D. on 06/12/2018 at 21:22 Approved by: Adolfo Lazo M.D. on 06/12/2018 at 21:38
[2018-06-12 20:53] LABS: Anisocytosis 3+; Hypochromasia 3+; Microcytosis 3+; Poikilocytosis 1+
--- NOTE | 2018-06-12 21:03 | PC.NURSE ---
pt came to ED for back pain. in triage HR was found to be in the 120s. Pt placed in room 1 on monitor. Pt states she has not been feeling good for some time now. Her back pain was initially managed by an injection but the pain has persisted and worsened over time. IV placed, labs drawn, pt blood banded. Pt desatting to mid 80s on RA, placed on 3L nc, provider notified. Fluid stopped due to low hgb, provider aware.
[2018-06-12 21:29] LABS: INR 2.5 (0.9-1.3); Prothrombin Time 29.6 SECONDS (10.1-12.7)
[2018-06-12 21:31] LABS: PTT Partial Thromboplastin Tim 29 SECONDS (26.4-36.2)
[2018-06-13] VITALS (34 sets, daily range): BP systolic 94–132; BP diastolic 58–95; PULSE 84–107; RESP 15–28; TEMP 36.6–37; O2SAT 84–97
[2018-06-13 00:30] LABS: Troponin I 0.205 ng/mL (0.01-0.034)
[2018-06-13 02:54] LABS: Alanine Aminotransferase 527 IU/L (9-52)
[2018-06-13 03:07] LABS: Troponin I 0.293 ng/mL (0.01-0.034)
--- NOTE | 2018-06-13 05:30 | PC.NURSE ---
Pt has not urinated nor has had the urge to urinate. Provider notified, mccord order recieved.
[2018-06-13] MEDS: TRAMADOL 50 MG TABLET PO (08:16)
[2018-06-13 08:30] LABS: Hematocrit 32.6 % (36-46); Hemoglobin 10.1 g/dL (12.0-16.0)
[2018-06-13] MEDS: ONDANSETRON 4 MG/2 ML INJ IV (08:47)
--- NOTE | 2018-06-13 08:59 | PC.NURSE ---
Patient is 84% on RA at this time while sleeping. Has slight wet cough. Lungs clear to auscultation however MD Gómez reports she has a slight pleural effusion on chest xray. Does not appear to have labored breathing and denies shortness of breath. I confirmed her O2 Saturation using Juan SPO2 monitor. It states 84% as well. I placed her on 3L NC and was able to get her O2 saturation to 91-93%. She appears comfortable with this. MD Gómez is aware. I left the Juan monitor on the patient to ensure accurate readings.
[2018-06-13 09:16] LABS: Troponin I 0.341 ng/mL (0.01-0.034)
--- NOTE | 2018-06-13 09:36 | PC.NURSE ---
Reports nausea has improved.
--- NOTE | 2018-06-13 14:54 | PC.NURSE ---
At this time I spoke with transfer [facility] at [facility] regarding possible transfer of patient.
[2018-06-13] MEDS: SODIUM CHLORIDE 0.9% 1,000 ML 100 ML IV (14:58)
[2018-06-13 15:53] LABS: Troponin I 0.254 ng/mL (0.01-0.034)
--- NOTE | 2018-06-13 16:48 | PC.NURSE ---
Patient reports she feels a little more short of breath than this morning. Lung sounds are diminished with some mild expiratory wheezes. I asked RT to come and assess her and see if she would benefit from a breathing treatment.
--- NOTE | 2018-06-29 10:20 | PC.NURSE ---
NS Drip started at 1458 on 06/13/18 at 100ml/hr. This was stopped upon transfer at 1949 and patient received approximately 500ML. Fluids were restarted by transfer RN's.
== END 2018-06-13 19:49 | disposition short-term general hospital (02) ==
PROVIDERS: Emergency Medicine; Emergency Provider Emergency Medicine; Family Provider Internal Medicine; PCP Internal Medicine
DX: I21.4 Non-ST elevation (NSTEMI) myocardial infarction (principal); K92.2 Gastrointestinal hemorrhage, unspecified; R94.5 Abnormal results of liver function studies; D50.9 Iron deficiency anemia, unspecified
CPT/HCPCS: 36415; 36430; 36591; 51701; 71045; 71275; 74174; 80053; 81003; 82550; 83690; 83880; 84460; 84484; 85014; 85018; 85025; 85610; 85730; 86850; 86900; 86901; 93005; 93010; 96361; 96374; 96375; 96376; 99285; P9016; J2405

== ENCOUNTER → 2018-06-30 14:35 | Outpatient (REF) | payer MEDICARE, SELFPAY ==
[2018-06-30 15:07] LABS: INR 1.2 (0.9-1.3); Prothrombin Time 13.6 SECONDS (10.1-12.7)
[2018-06-30 15:12] LABS: BUN Creatinine Ratio 25.7 (6-22); Blood Urea Nitrogen 18 mg/dL (7-17); Carbon Dioxide 29 mmol/L (22-32); Chloride 101 mmol/L (98-107); Estimated Glomerular Filt Rate > 60.0 mL/min (>60); Glucose 191 mg/dL (80-110); HEMOLYSIS < 15 (0-50); Potassium 3.8 mmol/L (3.4-5.1); Sodium 140 mmol/L (137-145)
[2018-06-30 15:15] LABS: Add Manual Diff / Slide Review NO; Basophils Absolute Auto 100 /uL (0-100); Basophils Percent Auto 1.2 % (0-2); Eosinophils Absolute Auto 200 /uL (0-450); Eosinophils Percent Auto 2.1 % (2-4); Hematocrit 36.6 % (36-46); Hemoglobin 11.1 g/dL (12.0-16.0); Lymphocytes Absolute Auto 1400 /uL (1100-4500); Lymphocytes Percent Auto 13.9 % (25-40); Mean Corpuscular HGB Conc 30.3 % (30-36); Mean Corpuscular Hemoglobin 22.1 PG (26-34); Monocytes Absolute Auto 1000 /uL (0-900); Monocytes Percent Auto 10.4 % (3-14); Neutrophils Absolute Auto 7100 /uL (1500-7000); Neutrophils Percent Auto 72.4 % (50-75); Platelet Count 436 X10^3/uL (150-400); Red Blood Cell Count 5.02 X10^6/uL (4.0-5.2); Red Cell Distribution Width 29.2 % (11.6-14.8); White Blood Cell Count 9.8 X10^3/uL (4.5-11.0)
[2018-06-30 16:13] LABS: Anisocytosis 2+; Hypochromasia 2+; Microcytosis 2+; Platelet Morphology Comment NOTE; Poikilocytosis 1+
[2018-06-30 16:15] LABS: Schistocytes 1+
== END ==
LOC: LAB 14:35
PROVIDERS: Family Provider Internal Medicine; PCP Internal Medicine; Visit Provider Nurse Practitioner Family
DX: I48.91 Unspecified atrial fibrillation (principal); A41.9 Sepsis, unspecified organism
CPT/HCPCS: 80048; 85025; 85610

== ENCOUNTER → 2018-07-20 13:49 | Outpatient (CLI) | payer MEDICARE, SELFPAY ==
--- NOTE | 2018-07-20 14:03 | DI.CT.S_ITS ---
PROCEDURE: CT CHEST ABD PEL W CON INDICATIONS: ABDOMINAL ABSCESS TECHNIQUE: After the administration of oral and intravenous contrast, 5 mm thick sections acquired from the lung apices to the symphysis. 5 mm coronal and sagittal reformats were performed, with additional 7 mm coronal MIP reformats through the lungs. For radiation dose reduction, the following was used: automated exposure control, adjustment of mA and/or kV according to patient size. COMPARISON: [facility], CT, CT ANGIO CHEST ABDOMEN PELVIS, 06/12/2018, 20:55. FINDINGS: Image quality: Excellent. CHEST: Lungs and pleura: There is biapical scarring. Moderate centrilobular emphysema is seen. Dependent atelectasis in posterior aspect of bilateral lung bases are seen. No acute airspace opacities. No pleural effusions or pneumothorax. Central and peripheral airways appear patent and normal in caliber. Mediastinum: Left sided PICC line tip is in the SVC. Heart size is normal. No pericardial effusion. Coronary artery calcification is seen. Moderate amount of atherosclerotic calcifications throughout thoracic aorta is seen. No thoracic aortic dissection or aneurysm. Borderline enlarged mediastinal lymph nodes are seen measures up to 1 cm in short axis diameter in the precarinal space. No gross hilar lymphadenopathy. No gross filling defect is seen in pulmonary arteries. Esophagus is normal in caliber. No hiatal hernia. Chest wall: No axillary or supraclavicular adenopathy by size criteria. Thyroid gland is normal in size. Tiny 4 mm hypodense nodule involving the lower pole of left thyroid lobe is seen. Right axillary femoral bypass graft is again seen and is patent unchanged from prior study.. ABDOMEN: Solid organs: Liver is normal in size and enhancement. Gallbladder contain a calcified stone, unchanged from prior study. No evidence of acute cholecystitis. 6 mm cystic area involving the inferior aspect of right hepatic lobe is again seen, unchanged from prior study. Biliary system is non dilated. Pancreas enhances normally. Spleen is normal in size and enhancement. No adrenal nodules. Kidneys demonstrate normal size and enhancement, without hydronephrosis. Peritoneum and bowel: There is no gastric or small bowel wall thickening. Wall thickening involving distal sigmoid colon with narrowing of the lumen and surrounding mesenteric fat stranding is seen. No discrete drainable abscess collection. No free fluid or free air. owel loops demonstrate normal wall thickness and caliber. No free fluid or air. Nodes and vessels: No retroperitoneal or mesenteric adenopathy by size criteria. Infrarenal abdominal aortic aneurysm is again seen unchanged from prior study. 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 Thrombosed right iliac bypass graft is again seen and unchanged. Miscellaneous: No ventral hernias. PELVIS: Genitourinary: Bladder wall thickness is normal. Miscellaneous: No inguinal hernias or adenopathy. Bones: No suspicious bony lesions. No vertebral body compression fractures. IMPRESSION: 1. Interval development of significant wall thickening and narrowing of the lumen with surrounding fat stranding involving mid to distal sigmoid colon. Presacral fat stranding is also seen. No discrete abscess collection. No free fluid or free air. Sigmoid diverticulosis is seen. Finding may represent infectious or inflammatory sigmoid colitis versus sigmoid diverticulitis. 2. Fusiform infrarenal abdominal aortic aneurysm with thrombosed right iliac artery origin and thrombosed right iliac bypass graft. Patent right axillary femoral bypass graft. 3. Interval resolution of previously noted right-sided pleural effusion. Moderate centrilobular emphysema. No focal infiltrate, significant pleural effusion no gross pneumothorax. Bibasilar dependent atelectasis. 4. Cholelithiasis, no CT evidence of acute cholecystitis. Dictated by: De Nance M.D. on 07/20/2018 at 14:51 Approved by: De Nance M.D. on 07/20/2018 at 16:21
== END ==
PROVIDERS: Family Provider Internal Medicine; PCP Internal Medicine
DX: K65.1 Peritoneal abscess (principal); K57.30 Diverticulosis of large intestine without perforation or abscess without bleeding; I71.4 Abdominal aortic aneurysm, without rupture; J43.2 Centrilobular emphysema; K80.20 Calculus of gallbladder without cholecystitis without obstruction; J98.11 Atelectasis
CPT/HCPCS: 71260; 74177; Q9967

== ENCOUNTER → 2018-08-11 07:26 | Outpatient (ROUT) | payer SELFPAY ==
[2018-08-11 08:40] LABS: Prothrombin Time 35.6 SECONDS (10.1-12.7)
== END ==
PROVIDERS: Family Provider Internal Medicine; PCP Internal Medicine; Visit Provider Internal Medicine
DX: I48.91 Unspecified atrial fibrillation (principal)
CPT/HCPCS: 36415; 85610

== ENCOUNTER 2018-10-29 09:41 | Observation (INO) | payer MEDICARE, SELFPAY ==
[2018-10-29] VITALS (14 sets, daily range): BP systolic 114–179; BP diastolic 72–103; PULSE 85–97; RESP 16–24; TEMP 36.3–37; O2SAT 94–98; BMI 23.8
--- NOTE | 2018-10-29 09:54 | DI.CT.S_ITS ---
PROCEDURE: CT HEAD/BRAIN WO CON INDICATIONS: right facial droop TECHNIQUE: Noncontrast 4.5 mm thick angled axial sections acquired from the foramen magnum to the vertex, with coronal and sagittal reformats. For radiation dose reduction, the following was used: automated exposure control, adjustment of mA and/or kV according to patient size. COMPARISON: None. FINDINGS: Image quality: Diagnostic CSF spaces: Basal cisterns are patent. No extra-axial fluid collections. Ventricles are moderately prominent with corresponding parenchymal volume loss. The degree of ventricular enlargement is more prominent than the degree of parenchymal volume loss, raising suspicion for normal pressure hydrocephalus. Brain: No midline shift. No intracranial masses or hemorrhage. Martin-white matter interface is normal. Confluent areas of low attenuation are seen within the periventricular and deep white matter of the supratentorial brain. Skull and face: Calvarium and visualized facial bones are intact, without suspicious lesions. Sinuses: Mucous retention cyst versus a mucosal polyp involving the right posterior maxillary sinus is present. Otherwise, the imaged paranasal sinuses and mastoid air cells are clear. IMPRESSION: 1. No acute intracranial hemorrhage. 2. Parenchymal volume loss and chronic small vessel ischemic changes. 3. Possible normal pressure hydrocephalus. Please correlate clinically. 4. Right maxillary sinus mucosal polyp versus mucus retention cyst. Dictated by: Esau Elizabeth M.D. on 10/29/2018 at 9:12 Approved by: Esau Elizabeth M.D. on 10/29/2018 at 9:13
[2018-10-29 10:04] LABS: Add Manual Diff / Slide Review NO; Basophils Absolute Auto 100 /uL (0-100); Basophils Percent Auto 0.8 % (0-2); Eosinophils Absolute Auto 300 /uL (0-450); Eosinophils Percent Auto 3.9 % (2-4); Hematocrit 43.8 % (36-46); Hemoglobin 14.8 g/dL (12.0-16.0); Lymphocytes Absolute Auto 1900 /uL (1100-4500); Lymphocytes Percent Auto 26.2 % (25-40); Mean Corpuscular HGB Conc 33.9 % (30-36); Mean Corpuscular Hemoglobin 29.6 PG (26-34); Mean Corpuscular Volume 87.2 fL (80-100); Monocytes Absolute Auto 700 /uL (0-900); Monocytes Percent Auto 9.4 % (3-14); Neutrophils Absolute Auto 4300 /uL (1500-7000); Neutrophils Percent Auto 59.7 % (50-75); Platelet Count 257 X10^3/uL (150-400); Red Blood Cell Count 5.02 X10^6/uL (4.0-5.2); Red Cell Distribution Width 14.2 % (11.6-14.8); White Blood Cell Count 7.3 X10^3/uL (4.5-11.0)
[2018-10-29] MEDS: SODIUM CHLORIDE 0.9% 1,000 ML 150 ML IV ×2 (10:09→18:55)
[2018-10-29 10:12] LABS: INR 2.3 (0.9-1.3); Prothrombin Time 27.1 SECONDS (10.1-12.7)
[2018-10-29 10:14] LABS: Alanine Aminotransferase 13 IU/L (9-52); Albumin 4.2 g/dL (3.5-5.0); Albumin Globulin Ratio 1.3 (1.0-2.8); Alkaline Phosphatase 80 U/L (38-126); Aspartate Aminotransferase 26 IU/L (14-36); BUN Creatinine Ratio 17.5 (6-22); Bilirubin Total 0.6 mg/dL (0.2-1.3); Blood Urea Nitrogen 14 mg/dL (7-17); Calcium 9.9 mg/dL (8.4-10.2); Carbon Dioxide 31 mmol/L (22-32); Chloride 101 mmol/L (98-107); Creatine Kinase 45 U/L (30-135); Estimated Glomerular Filt Rate > 60.0 mL/min (>60); Globulin 3.2 g/dL (1.7-4.1); Glucose 113 mg/dL (80-110); HEMOLYSIS 16 (0-50); PTT Partial Thromboplastin Tim 44 SECONDS (26.4-36.2); Potassium 3.9 mmol/L (3.4-5.1); Sodium 142 mmol/L (137-145); Total Protein 7.4 g/dL (6.3-8.2)
--- NOTE | 2018-10-29 10:18 | ED.NEUROSD ---
HPI - Neuro Symptoms/Deficit General Chief Complaint: Neuro Symptoms/Deficit Stated Complaint: Possible stroke Time Seen by Provider: 10/29/18 09:54 Source: patient and family Mode of arrival: wheelchair Limitations: no limitations History of Present Illness HPI Narrative: Patient is a 78-year-old female with history of stroke with residual left facial droop, atrial fibrillation on Coumadin, coronary artery disease and COPD on home oxygen presenting with a slurring of speech and left facial droop. Her last known normal was 7:30 p.m.. Her son picked her up today and noticed that she was definitely having trouble speaking and right-sided facial droop. Upon arrival to the emergency department her speech is clear but does have some obvious right-sided facial droop. She denies any arm weakness or leg weakness no numbness or tingling. She states she had a headache last evening but to go to sleep. She denies any nausea no chest pain or shortness of breath. She took about 5 or 6 baby aspirin prior to her arrival. Location: speech and right face History of same: No On Anticoagulants: Yes (aspirin) Related Data Home Medications Medication Instructions Recorded Confirmed aspirin 81 mg tablet,delayed 81 mg PO DAILY 04/20/18 06/13/18 release losartan 25 mg tablet 25 mg PO DAILY 04/20/18 06/13/18 pantoprazole 40 mg tablet,delayed 40 mg PO DAILY 04/20/18 06/13/18 release simvastatin 40 mg tablet 40 mg PO BEDTIME 04/20/18 06/13/18 warfarin 5 mg tablet 5 mg PO DANIEL 04/20/18 06/13/18 isosorbide mononitrate 60 mg PO DAILY 06/13/18 06/13/18 metoprolol succinate 50 mg PO DAILY 06/13/18 06/13/18 warfarin 2.5 mg PO MOTUWETHFRSA 06/13/18 06/13/18 Previous Rx's Medication Instructions Recorded tramadol 50 mg tablet 50 mg PO TID PRN #60 tab 06/01/18 Allergies Allergy/AdvReac Type Severity Reaction Status Date / Time morphine AdvReac Intermediate burning Verified 10/29/18 09:51 sensation at IV site amoxicillin [From Augmentin] AdvReac Mild flu like Verified 10/29/18 09:51 symptoms clavulanic acid AdvReac Mild flu like Verified 10/29/18 09:51 [From Augmentin] symptoms lisinopril AdvReac Mild cough Verified 10/29/18 09:51 Review of Systems Review of Systems ROS Unobtainable: All systems reviewed & are unremarkable except as noted in HPI and below Constitutional Denies chills, Denies fever(s), Denies lethargy and Denies weakness Eyes Denies change in vision, Denies eye discharge, Denies irritation and Denies loss of vision Cardiovascular Denies chest pain, Denies irregular heart rhythm, Denies lightheadedness, Denies palpitations, Denies dyspnea, Denies dyspnea on exertion and Denies orthopnea Respiratory Denies cough, Denies dyspnea, Denies dyspnea on exertion and Denies wheezing Gastrointestinal Gastrointestinal: Denies abdominal pain, Denies change in bowel habits, Denies diarrhea, Denies nausea and Denies vomiting Integumentary/Breasts Denies pruritus, Denies erythema, Denies rash and Denies wounds Neurologic Reports as per HPI, Denies loss of vision and Denies weakness Endocrine Denies palpitations Allergic/Immunologic Denies wheezing [facility] Medical History COPD (chronic obstructive pulmonary disease) (Acute) CVA (cerebral vascular accident) (Acute) Exam Initial Vital Signs Initial Vital Signs: Vital Signs Pulse Rate 92 H 10/29/18 09:45 Respiratory Rate 16 10/29/18 09:45 Pulse Oximetry 97 10/29/18 09:45 GENERAL: Alert pleasant well-appearing elderly female and in no acute distress. HEENT: Head atraumatic,EOMI, pupils reactive, of very slight left-sided facial droop CARDIOVASCULAR: Regular rate and rhythm without murmurs, rubs or gallops. RESPIRATORY: Breath sounds equal bilaterally, no wheezes rales or rhonchi. ABDOMEN: Soft, nontender. Normoactive bowel sounds all 4 quadrants. No guarding or rebound. : No CVA tenderness EXTREMITIES: Normal range of motion, no clubbing or edema. Neurovascularly intact NEUROLOGICAL: Alert and oriented x4.Normal gait and speech. Cranial nerves II through XII grossly intact. Good [id number], good [id number], strength equal bilaterally, no dysarthria or aphasia, sensation in tact to soft touch bilaterally, no visual changes, no facial droop SKIN: Warm, dry, no laceration, no petechiae, no rashes or lesions. Scores NIH Stroke Scale Level of Conciousness: Alert, keenly responsive Ask month/age: Answers both questions correctly. Open/close eyes, close hand: Performs both tasks correctly Best gaze horizontal: Normal Visual acevedo: No visual loss Facial palsy: Minor paralysis, flattened nasolabial fold, asymmetry on smiling (old left) Left arm drift: No drift for full 10 sec Right arm drift: No drift for full 10 sec Left leg drift: No drift for full 10 sec Right leg drift: No drift for full 10 sec Limb ataxia: Absent Sensory on face/arms/legs: Normal, no sensory loss Best language: No aphasia, normal Dysarthria: Normal Extinction or inattention: No abnormality Total NIH Stroke scale score: 1 Course Orders Ordered: ED Orders 10/29/18 09:52 Complete Blood Count AUTO DIFF Stat Comprehensive Metabolic Panel Stat Partial Thromboplastin Time Stat Prothrombin Time INR Stat Troponin & CK Cardiac Panel Stat 10/29/18 09:54 CT head/brain wo con Stat EKG-12 Lead Stat 10/29/18 11:15 Urine Drug Screen, Rapid Stat 10/29/18 11:30 Urine Culture Stat 10/29/18 13:53 Education, smoking cessation ONGOING 10/30/18 05:00 Basic Metabolic Panel DAILY Complete Blood Count AUTO DIFF DAILY Hemoglobin A1C% w Est Avg Glu Routine Lipid Panel Routine Magnesium DAILY Partial Thromboplastin Time DAILY Prothrombin Time INR DAILY TSH w/ Reflex to FT4 Routine 10/31/18 05:00 Basic Metabolic Panel DAILY Complete Blood Count AUTO DIFF DAILY Magnesium DAILY Partial Thromboplastin Time DAILY Prothrombin Time INR DAILY 11/01/18 05:00 Basic Metabolic Panel DAILY Complete Blood Count AUTO DIFF DAILY Magnesium DAILY Partial Thromboplastin Time DAILY Prothrombin Time INR DAILY Acetaminophen (Tylenol) 650 mg PO Q6HR PRN PRN Reason: As Needed for Fever/Mild Pain Aspirin (Aspirin Ec) 81 mg PO DAILY SILKE Bisacodyl (Dulcolax) 10 mg PO DAILY PRN PRN Reason: Constipation Sodium Chloride (Normal Saline 0.9%) 1,000 mls @ 150 mls/hr IV CONT SILKE Last Admin: 10/29/18 10:09 Dose: 150 mls/hr Metoprolol Succinate (Toprol Xl) 25 mg PO DAILY SILKE Ondansetron HCl (Zofran) 4 mg IV Q8HR PRN PRN Reason: Nausea And Vomiting Pantoprazole Sodium (Protonix) 40 mg PO DAILY SILKE Simvastatin (Zocor) 40 mg PO BEDTIME [facility] Vital Signs - 8 hr 10/29/18 09:45 10/29/18 10:04 10/29/18 10:09 Temperature Pulse Rate 92 H 92 H 94 H Respiratory Rate 16 16 16 Blood Pressure 155/91 H Blood Pressure [Right Arm] 156/84 H Pulse Oximetry 97 97 95 10/29/18 10:56 10/29/18 11:30 10/29/18 12:00 Temperature Pulse Rate 90 90 97 H Respiratory Rate 16 18 17 Blood Pressure Blood Pressure [Right Arm] 149/87 H 161/78 H 179/94 H Pulse Oximetry 97 96 97 10/29/18 12:30 10/29/18 13:04 10/29/18 13:53 Temperature 98 F Pulse Rate 96 H 96 H 86 Respiratory Rate 20 24 16 Blood Pressure 153/97 H Blood Pressure [Right Arm] 145/96 H 142/75 H Pulse Oximetry 95 96 94 MDM - Neuro Symptoms/Deficit Lab Data Attestation: I reviewed the patient's lab results. Result diagrams: 10/29/18 09:52 10/29/18 09:52 Lab Results 10/29/18 10/29/18 10/29/18 Range/Units 09:52 09:52 09:52 WBC 7.3 (4.5-11.0) X10^3/uL RBC 5.02 (4.0-5.2) X10^6/uL Hgb 14.8 (12.0-16.0) g/dL Hct 43.8 (36-46) % MCV 87.2 (80-100) fL MCH 29.6 (26-34) PG MCHC 33.9 (30-36) % RDW 14.2 (11.6-14.8) % Plt Count 257 (150-400) X10^3/uL Neut % (Auto) 59.7 (50-75) % Lymph % (Auto) 26.2 (25-40) % Bradford % (Auto) 9.4 (3-14) % Eos % (Auto) 3.9 (2-4) % Baso % (Auto) 0.8 (0-2) % Neut # (Auto) 4300 (3992-8742) /uL Lymph # (Auto) 1900 (6853-1075) /uL Bradford # (Auto) 700 (0-900) /uL Eos # (Auto) 300 (0-450) /uL Baso # (Auto) 100 (0-100) /uL PT 27.1 H (10.1-12.7) SECONDS INR 2.3 H (0.9-1.3) APTT 44 H D (26.4-36.2) SECONDS Sodium 142 (137-145) mmol/L Potassium 3.9 (3.4-5.1) mmol/L Chloride 101 (98-107) mmol/L Carbon Dioxide 31 (22-32) mmol/L BUN 14 (7-17) mg/dL Creatinine 0.80 (0.52-1.04) mg/dL Estimated GFR > 60.0 (>60) mL/min BUN/Creatinine Ratio 17.5 (6-22) Glucose 113 H (80-110) mg/dL Calcium 9.9 (8.4-10.2) mg/dL Total Bilirubin 0.6 (0.2-1.3) mg/dL AST 26 (14-36) IU/L ALT 13 (9-52) IU/L Alkaline Phosphatase 80 (38-126) U/L Total Creatine Kinase 45 (30-135) U/L CK-MB (CK-2) TNP CK-MB (CK-2) Rel Index TNP Troponin I 0.014 (0.01-0.034) ng/mL Total Protein 7.4 (6.3-8.2) g/dL Albumin 4.2 (3.5-5.0) g/dL Globulin 3.2 (1.7-4.1) g/dL Albumin/Globulin Ratio 1.3 (1.0-2.8) Urine Opiates Screen (Negative) Ur Oxycodone Screen (Negative) Urine Methadone Screen (Negative) Ur Barbiturates Screen (Negative) U Tricyclic Antidepress (Negative) Ur Phencyclidine Scrn (Negative) Ur Amphetamines Screen (Negative) U Methamphetamines Scrn (Negative) Ur MDMA Scrn (Ecstasy) (Negative) U Benzodiazepines Scrn (Negative) Urine Cocaine Screen (Negative) U Marijuana (THC) Screen (Negative) 08/25/19 Range/Units 11:15 WBC (4.5-11.0) X10^3/uL RBC (4.0-5.2) X10^6/uL Hgb (12.0-16.0) g/dL Hct (36-46) % MCV (80-100) fL MCH (26-34) PG MCHC (30-36) % RDW (11.6-14.8) % Plt Count (150-400) X10^3/uL Neut % (Auto) (50-75) % Lymph % (Auto) (25-40) % Bradford % (Auto) (3-14) % Eos % (Auto) (2-4) % Baso % (Auto) (0-2) % Neut # (Auto) (2424-8217) /uL Lymph # (Auto) (7905-2054) /uL Bradford # (Auto) (0-900) /uL Eos # (Auto) (0-450) /uL Baso # (Auto) (0-100) /uL PT (10.1-12.7) SECONDS INR (0.9-1.3) APTT (26.4-36.2) SECONDS Sodium (137-145) mmol/L Potassium (3.4-5.1) mmol/L Chloride (98-107) mmol/L Carbon Dioxide (22-32) mmol/L BUN (7-17) mg/dL Creatinine (0.52-1.04) mg/dL Estimated GFR (>60) mL/min BUN/Creatinine Ratio (6-22) Glucose (80-110) mg/dL Calcium (8.4-10.2) mg/dL Total Bilirubin (0.2-1.3) mg/dL AST (14-36) IU/L ALT (9-52) IU/L Alkaline Phosphatase (38-126) U/L Total Creatine Kinase (30-135) U/L CK-MB (CK-2) CK-MB (CK-2) Rel Index Troponin I (0.01-0.034) ng/mL Total Protein (6.3-8.2) g/dL Albumin (3.5-5.0) g/dL Globulin (1.7-4.1) g/dL Albumin/Globulin Ratio (1.0-2.8) Urine Opiates Screen Negative (Negative) Ur Oxycodone Screen Negative (Negative) Urine Methadone Screen Negative (Negative) Ur Barbiturates Screen Negative (Negative) U Tricyclic Antidepress Negative (Negative) Ur Phencyclidine Scrn Negative (Negative) Ur Amphetamines Screen Negative (Negative) U Methamphetamines Scrn Negative (Negative) Ur MDMA Scrn (Ecstasy) Negative (Negative) U Benzodiazepines Scrn Negative (Negative) Urine Cocaine Screen Negative (Negative) U Marijuana (THC) Screen Negative (Negative) Point of Care Testing Glucose POC 121 Urine Dip Bedside Urine Glucose Negative Bedside Urine Bilirubin - Negative Bedside Urine Ketone - Negative Urine Specific [place] 1.015 Bedside Urine Occult Blood + Bedside Urine pH 6.0 Bedside Urine Protein - Negative Bedside Urine Urobilinogen - Negative Bedside Urine Nitrite + Positive Bedside Urine Leukocytes +++ [address] scan - head: Radiologist's impression: PROCEDURE: CT HEAD/BRAIN WO CON INDICATIONS: right facial droop TECHNIQUE: Noncontrast 4.5 mm thick angled axial sections acquired from the foramen magnum to the vertex, with coronal and sagittal reformats. For radiation dose reduction, the following was used: automated exposure control, adjustment of mA and/or kV according to patient size. COMPARISON: None. FINDINGS: Image quality: Diagnostic CSF spaces: Basal cisterns are patent. No extra-axial fluid collections. Ventricles are moderately prominent with corresponding parenchymal volume loss. The degree of ventricular enlargement is more prominent than the degree of parenchymal volume loss, raising suspicion for normal pressure hydrocephalus. Brain: No midline shift. No intracranial masses or hemorrhage. Martin-white matter interface is normal. Confluent areas of low attenuation are seen within the periventricular and deep white matter of the supratentorial brain. Skull and face: Calvarium and visualized facial bones are intact, without suspicious lesions. Sinuses: Mucous retention cyst versus a mucosal polyp involving the right posterior maxillary sinus is present. Otherwise, the imaged paranasal sinuses and mastoid air cells are clear. IMPRESSION: 1. No acute intracranial hemorrhage. 2. Parenchymal volume loss and chronic small vessel ischemic changes. 3. Possible normal pressure hydrocephalus. Please correlate clinically. 4. Right maxillary sinus mucosal polyp versus mucus retention cyst. Dictated by: Esau Elizabeth M.D. on 10/29/2018 at 9:12 ECG Data Attestation: I personally reviewed and interpreted this ECG as follows: Prior ECG tracings: available for review Interpretation: Atrial fibrillation rate [address] changes much improved from previous EKGs where there was significant ST depression. MDM Narrative Medical decision making narrative: Within states that she does have some fluid on her brain which they have noted before. Head CT today does show some hydrocephalus likely old. Her symptoms have completely resolved at this time. She has a chronic left facial droop but speech has returned to normal. Patient is not a candidate for tPA she is out of the window and does not have large vessel occlusion signs or symptoms. Dr. Driscoll has been updated on patient's symptoms test results agrees to observation. Discharge Plan Departure Patient Disposition: Admitted as Observation Clinical Impression: Brain TIA Discharge Date/Time: 10/29/18 13:36 Interventions: ED Discharge Assessment Last Done: 10/29/18 13:35 Referrals: Deepa Varela MD [Primary Care Provider] - Admit Date/Time: 10/29/18 11:15 Admit Provider: Di Cameron
[2018-10-29 10:26] LABS: Troponin I 0.014 ng/mL (0.01-0.034)
[2018-10-29 11:26] LABS: Urine Amphetamines Negative (Negative); Urine Barbiturates Negative (Negative); Urine Benzodiazepines Negative (Negative); Urine Cocaine Negative (Negative); Urine MDMA Negative (Negative); Urine Methadone Negative (Negative); Urine Methamphetamines Negative (Negative); Urine Morphine/Opi cutoff 2000 Negative (Negative); Urine Oxycodone Negative (Negative); Urine Phencyclidine Negative (Negative); Urine Tetrahydrocannabinol Negative (Negative); Urine Tricyclic Antidepressant Negative (Negative)
--- NOTE | 2018-10-29 14:28 | PM.HP.1 ---
History of Present Illness Date Patient Seen: 10/29/18 Time Patient Seen: 14:28 Chief complaint: Possible stroke Narrative: Chasity Wilks is a 78-year-old female with past medical history of CAD (stents x7 per patient), PAD s/p bypass and bilateral carotid disease, Atrial fibrillation on Coumadin, prior CVA with residual left-sided facial droop, HTN, HLD, COPD on 2L home O2, and perforated bowel after endoscopy without surgical repair who presented to the emergency room with right-sided facial droop and slurred speech. Since last night the patient reports a dull bilateral frontal headache without radiation. This improved with Tylenol last night but continued this morning. The patient lives alone and her son comes to help her with her medications in the morning, so around 830 the son came and noted slurred speech as well as a new right-sided facial droop. They brought her urgently to the emergency room. By the time she arrived in the emergency room her speech had cleared, the total duration of this was about an hour. In the emergency room she still had small residual right-sided facial droop which is now only apparent on smiling. She currently feels back to normal. Prior to the episode she only noted the headache, she had no nausea, vomiting, photophobia, fevers, chills, chest pain, palpitations, abdominal pain. She and her son both deny weakness in her arms or legs, and no sensory deficits. A few weeks ago she was evaluated it would at [facility] for an episode of syncope, where no definitive cause was found according to the patient and her son. Home medications: Metoprolol 25 mg daily Pantoprazole 40 mg daily Simvastatin 40 mg daily warfarin 2.5 mg ///sun warfarin 3.0 mg //. CaCo3 500 mg TID Iron tabs vit C Asa 81 mg daily Patient History Medical History (Updated 10/29/18 @ 14:43 by Andrea Driscoll DO) CAD (coronary artery disease) (Chronic) Carotid stenosis (Chronic) HLD (hyperlipidemia) (Chronic) HTN (hypertension) (Chronic) Heart failure (Chronic) PAD (peripheral artery disease) (Chronic) CVA (cerebral vascular accident) (Acute) COPD (chronic obstructive pulmonary disease) (Chronic) Surgical History (Updated 10/29/18 @ 14:43 by Andrea Driscoll DO) H/O carotid endarterectomy (Chronic) History of coronary artery stent placement (Chronic) Social History household members: none Smoking Status: Former smoker alcohol intake: current Family & Social History Safety & Behavioral: Feels Safe in Current Yes Environment Been Physically Hurt or No Threatened By a Person Meds Home Medications Medication Instructions Recorded Confirmed Type aspirin 81 mg tablet,delayed 81 mg PO DAILY 04/20/18 06/13/18 History release losartan 25 mg tablet 25 mg PO DAILY 04/20/18 06/13/18 History pantoprazole 40 mg tablet,delayed 40 mg PO DAILY 04/20/18 06/13/18 History release simvastatin 40 mg tablet 40 mg PO BEDTIME 04/20/18 06/13/18 History warfarin 5 mg tablet 5 mg PO DANIEL 04/20/18 06/13/18 History tramadol 50 mg tablet 50 mg PO TID PRN #60 tab 06/01/18 06/13/18 Rx isosorbide mononitrate 60 mg PO DAILY 06/13/18 06/13/18 History metoprolol succinate 50 mg PO DAILY 06/13/18 06/13/18 History warfarin 2.5 mg PO MOTUWETHFRSA 06/13/18 06/13/18 History Allergies Allergy/AdvReac Type Severity Reaction Status Date / Time morphine AdvReac Intermediate burning Verified 10/29/18 09:51 sensation at IV site amoxicillin [From Augmentin] AdvReac Mild flu like Verified 10/29/18 09:51 symptoms clavulanic acid AdvReac Mild flu like Verified 10/29/18 09:51 [From Augmentin] symptoms lisinopril AdvReac Mild cough Verified 10/29/18 09:51 Review of Systems Review of Systems All other systems reviewed with the patient and are negative unless otherwise stated. Exam Vital Signs (past 8 hours): - 10/29/18 09:45 10/29/18 10:04 10/29/18 10:09 Temperature Pulse Rate 92 H 92 H 94 H Respiratory Rate 16 16 16 Blood Pressure 155/91 H Blood Pressure [Right Arm] 156/84 H Pulse Oximetry 97 97 95 10/29/18 10:56 10/29/18 11:30 10/29/18 12:00 Temperature Pulse Rate 90 90 97 H Respiratory Rate 16 18 17 Blood Pressure Blood Pressure [Right Arm] 149/87 H 161/78 H 179/94 H Pulse Oximetry 97 96 97 10/29/18 12:30 10/29/18 13:04 10/29/18 13:53 Temperature 98 F Pulse Rate 96 H 96 H 86 Respiratory Rate 20 24 16 Blood Pressure 153/97 H Blood Pressure [Right Arm] 145/96 H 142/75 H Pulse Oximetry 95 96 94 Oxygen Delivery Method Nasal Cannula Oxygen Flow Rate 2 Narrative Exam Narrative: GENERAL APPEARANCE: Elderly female in NAD. SKIN: Inspection of the skin reveals mild bruising in her bilateral upper extremities. HEENT: The sclerae were anicteric and conjunctivae were pink and moist. Extraocular movements were intact and pupils were equal, round with normal accommodation. External inspection of the ears and nose showed no scars, lesions, or masses. Lips, teeth, and gums showed normal mucosa. The oral mucosa, hard and soft palate, tongue and posterior pharynx were unremarkable. NECK: Supple and symmetric. There was no thyroid enlargement, and no tenderness, or masses were felt. No JVD. CHEST: Normal AP diameter and normal contour without any kyphoscoliosis. LUNGS: Auscultation of the lungs revealed no wheezes, rhonchi, or rales. CARDIOVASCULAR: Irregulary irregular rhythm with normal rate without any murmurs, gallops, rubs. Peripheral pulses were 2+ and symmetric. ABDOMEN: Soft and nontender with normal bowel sounds. No ascites was noted. MUSCULOSKELETAL: There was no tenderness or effusions noted. Muscle strength and tone were normal. EXTREMITIES: No cyanosis, clubbing or edema. NEUROLOGIC: Alert and oriented x 3. Normal affect. Gait was normal. Strength is +5/5 in the Upper Extremities and Lower Extremities Bilaterally. Sensation to touch was normal. Rapid alternating movements smooth and coordinated, Heel to slaughter unremarkable. No pronator drift. Chronic L facial droop, R facial droop only present on smiling. Speech is normal. Objective ECG Impression: I read and interpreted her EKG, it showed AFib with a rate in the 90s, but no concerning ST or T-wave changes. Imaging CT scan - head: Radiologist's impression: 1. No acute intracranial hemorrhage. 2. Parenchymal volume loss and chronic small vessel ischemic changes. 3. Possible normal pressure hydrocephalus. Please correlate clinically. 4. Right maxillary sinus mucosal polyp versus mucus retention cyst. Labs Result Diagrams: 10/29/18 09:52 10/29/18 09:52 Labs: Laboratory Results - last 24 hr 10/29/18 10/29/18 10/29/18 09:52 09:52 09:52 WBC 7.3 RBC 5.02 Hgb 14.8 Hct 43.8 MCV 87.2 MCH 29.6 MCHC 33.9 RDW 14.2 Plt Count 257 Neut % (Auto) 59.7 Lymph % (Auto) 26.2 Anderson % (Auto) 9.4 Eos % (Auto) 3.9 Baso % (Auto) 0.8 Neut # (Auto) 4300 Lymph # (Auto) 1900 Anderson # (Auto) 700 Eos # (Auto) 300 Baso # (Auto) 100 PT 27.1 H INR 2.3 H APTT 44 H D Sodium 142 Potassium 3.9 Chloride 101 Carbon Dioxide 31 BUN 14 Creatinine 0.80 Estimated GFR > 60.0 BUN/Creatinine Ratio 17.5 Glucose 113 H Calcium 9.9 Total Bilirubin 0.6 AST 26 ALT 13 Alkaline Phosphatase 80 Total Creatine Kinase 45 CK-MB (CK-2) TNP CK-MB (CK-2) Rel Index TNP Troponin I 0.014 Total Protein 7.4 Albumin 4.2 Globulin 3.2 Albumin/Globulin Ratio 1.3 Urine Opiates Screen Ur Oxycodone Screen Urine Methadone Screen Ur Barbiturates Screen U Tricyclic Antidepress Ur Phencyclidine Scrn Ur Amphetamines Screen U Methamphetamines Scrn Ur MDMA Scrn (Ecstasy) U Benzodiazepines Scrn Urine Cocaine Screen U Marijuana (THC) Screen 10/29/18 11:15 WBC RBC Hgb Hct MCV MCH MCHC RDW Plt Count Neut % (Auto) Lymph % (Auto) Anderson % (Auto) Eos % (Auto) Baso % (Auto) Neut # (Auto) Lymph # (Auto) Anderson # (Auto) Eos # (Auto) Baso # (Auto) PT INR APTT Sodium Potassium Chloride Carbon Dioxide BUN Creatinine Estimated GFR BUN/Creatinine Ratio Glucose Calcium Total Bilirubin AST ALT Alkaline Phosphatase Total Creatine Kinase CK-MB (CK-2) CK-MB (CK-2) Rel Index Troponin I Total Protein Albumin Globulin Albumin/Globulin Ratio Urine Opiates Screen Negative Ur Oxycodone Screen Negative Urine Methadone Screen Negative Ur Barbiturates Screen Negative U Tricyclic Antidepress Negative Ur Phencyclidine Scrn Negative Ur Amphetamines Screen Negative U Methamphetamines Scrn Negative Ur MDMA Scrn (Ecstasy) Negative U Benzodiazepines Scrn Negative Urine Cocaine Screen Negative U Marijuana (THC) Screen Negative Assessment & Plan Assessment & Plan narrative: Chasity Wilks is a 78-year-old female with past medical history of CAD (stents x7 per patient), PAD s/p bypass and bilateral carotid disease, Atrial fibrillation on Coumadin, prior CVA with residual left-sided facial droop, HTN, HLD, COPD on 2L home O2, and perforated bowel after endoscopy without surgical repair who presented to the emergency room with right-sided facial droop and slurred speech. Her symptoms have markedly improved. She is admitted under observation for a transient ischemic attack. 1. Transient ischemic attack -patient presented with slurred speech and right-sided facial droop, which lasted for about 1 hour. Her speech is now back to baseline, and she has a mild right-sided facial droop upon smiling only. She has known carotid disease, and has a history of bilateral carotid endarterectomy. Her INR is therapeutic currently so this is unlikely to be embolic. CT head was negative for hemorrhage. There is comment of possible NPH by the radiologist, however the patient is not have current symptoms compatible with this and the family reports something similar being mentioned after her episode of syncope. Stroke Scale is 1. - telemetry - TSH, A1c and Lipid panel in the AM - No further imaging at this time given known carotid disease, will need to follow up outpatient with vascular surgery. - PT/OT evaluation, no difficulties currently with swallowing but will continue to monitor. -stroke scales Q shift 2. Elevated troponin - no ischemic findings on EKG, and no current or previous chest pain. Likely in setting of elevated demand. - continue to trend until downtrending. 3. Atrial fibrillation, chronic, present on admission - -INR therapeutic on admission, continue home dosing of Coumadin. 4. CAD, chronic -patient has a reported history of 7 cardiac stents as well as significant peripheral arterial disease. -continue aspirin and home simvastatin 5. Chronic heart failure -unknown ejection fraction but does not appear to be volume overloaded currently, no need to repeat echocardiogram. -continue metoprolol, losartan, and home Lasix 10 mg daily. 6. Chronic respiratory failure secondary to COPD-patient is currently on 2 L at home. -continue 2 L oxygen here 7. Hypertension, chronic -continue home medications as noted above. Code: Full code DVT: On warfarin FEN/GI: heart health diet Scores NIHSS Level of Conciousness: Alert, keenly responsive Ask month/age: Answers both questions correctly. Open/close eyes, close hand: Performs both tasks correctly Best gaze horizontal: Normal Visual acevedo: No visual loss Facial palsy: Minor paralysis, flattened nasolabial fold, asymmetry on smiling Left arm drift: No drift for full 10 sec Right arm drift: No drift for full 10 sec Left leg drift: No drift for full 5 sec Right leg drift: No drift for full 5 sec Limb ataxia: Absent Sensory on face/arms/legs: Normal, no sensory loss Best language: No aphasia, normal Dysarthria: Normal Extinction or inattention: No abnormality Total NIH Stroke scale score: 1
[2018-10-29 17:46] LABS: Troponin I < 0.012 ng/mL (0.01-0.034)
[2018-10-29] MEDS: SIMVASTATIN 40 MG TABLET PO (20:41)
[2018-10-30] VITALS (7 sets, daily range): BP systolic 137–161; BP diastolic 57–80; PULSE 95–96; RESP 15–18; TEMP 36.3–36.7; O2SAT 93–97; BMI 21.5
[2018-10-30] MEDS: SODIUM CHLORIDE 0.9% 1,000 ML 150 ML IV ×2 (00:57→07:05)
[2018-10-30 05:30] LABS: Add Manual Diff / Slide Review NO; Basophils Absolute Auto 0 /uL (0-100); Basophils Percent Auto 0.7 % (0-2); Eosinophils Absolute Auto 300 /uL (0-450); Eosinophils Percent Auto 4.6 % (2-4); Hematocrit 39.1 % (36-46); Lymphocytes Absolute Auto 1500 /uL (1100-4500); Lymphocytes Percent Auto 21.9 % (25-40); Mean Corpuscular HGB Conc 33.3 % (30-36); Mean Corpuscular Hemoglobin 28.9 PG (26-34); Monocytes Absolute Auto 700 /uL (0-900); Monocytes Percent Auto 9.4 % (3-14); Neutrophils Absolute Auto 4400 /uL (1500-7000); Neutrophils Percent Auto 63.4 % (50-75); Platelet Count 216 X10^3/uL (150-400); Red Blood Cell Count 4.49 X10^6/uL (4.0-5.2); Red Cell Distribution Width 14.2 % (11.6-14.8)
[2018-10-30 05:38] LABS: INR 2.6 (0.9-1.3)
[2018-10-30 05:40] LABS: Hemoglobin A1C% w Est Avg Glu 6.2 % (4.0-6.0)
[2018-10-30 05:41] LABS: PTT Partial Thromboplastin Tim 48 SECONDS (26.4-36.2)
[2018-10-30 05:42] LABS: Blood Urea Nitrogen 12 mg/dL (7-17); Calcium 8.9 mg/dL (8.4-10.2); Carbon Dioxide 31 mmol/L (22-32); Chloride 106 mmol/L (98-107); Cholesterol 115 mg/dL (140-199); Estimated Glomerular Filt Rate > 60.0 mL/min (>60); Glucose 99 mg/dL (80-110); HDL Cholesterol 36 mg/dL (40-60); HEMOLYSIS < 15 (0-50); LDL Cholesterol Calculated 56 mg/dL (<100); Magnesium 1.9 mg/dL (1.6-2.3); Potassium 3.7 mmol/L (3.4-5.1); Sodium 143 mmol/L (137-145); Triglycerides 114 mg/dL (35-150)
[2018-10-30 06:16] LABS: TSH w/ Reflex to FT4 2.14 uIU/mL (0.47-4.68)
--- NOTE | 2018-10-30 06:38 | PC.NURSE ---
Pt admit with CVA, slurred speech noted by pt upon waking up yesterday morning. NIH value of 1. Pt denies headache, evolution of CVA symptoms. Baseline mild left facial droop. Pt does endorse multiple falls in recent past, as recent as past 10days. She states she just wakes up on floor. Does not remember being dizzy or light headed, just realizes she must have fallen and found herself on floor. Pt with long cardiac hx. On tele in Afib. On coumadin and two medications for BP. Mild HTN overnight 150-160/70's. HR 80-90's. Pt wears upper dentures, lower ones missing for past 3 months. Pt has rectal fistula, blood noted on stool by previous shift. Not a candidate for surgery. Bed alarm on.
--- NOTE | 2018-10-30 08:29 | CM.DANOTE ---
DCP: Case received, EMR reviewed and met with patient. Introduced self and role. Was able to obtain baseline history and health information from patient. DCP assessment completed with information currently available. Patient is a 78 year old female who admitted yesterday morning to the care of the hospitalist team. PCP: Dr. Varela. Payer: confirmed: Medicare/[employer]. Patient came to the hospital via family vehicle secondary to stroke symptoms. Patient holds diagnosis of TIA. Met with patient in her room. She was sitting up in her bed eating breakfast, alert and oriented. She resides in [place]. She is on home oxygen, for she has a history of COPD. Patient lives alone, uses a walker, stated, she is pretty independent, but her son, Geoff, lives next door and helps her set up her medication. She mentioned that she had some slurring of her speech, which is why she came here. P: DCP to follow closely. She is on observation at this point. She should be able to return home when stable. She may also be working with therapy team. Audrey Moy RN/Compliance Review Officer
--- NOTE | 2018-10-30 09:15 | PT.IIE ---
Surgical History (Last Updated 10/29/18 @ 14:43 by Andrea Driscoll DO) H/O carotid endarterectomy (Chronic) History of coronary artery stent placement (Chronic) Medical History (Last Updated 10/29/18 @ 14:43 by Andrea Driscoll DO) CAD (coronary artery disease) (Chronic) Carotid stenosis (Chronic) HLD (hyperlipidemia) (Chronic) HTN (hypertension) (Chronic) Heart failure (Chronic) PAD (peripheral artery disease) (Chronic) CVA (cerebral vascular accident) (Acute) COPD (chronic obstructive pulmonary disease) (Chronic) Physical Therapy Inpatient Evaluation/Re-Eval M1 PT/OT-IP Prior Functional Status Start: 10/29/18 16:11 Freq: NEEDED Status: Active Protocol: Document 10/30/18 09:15 RS (Rec: 10/30/18 09:40 RS [id number]) Medical Review Prior Functional Status Medical History Reviewed Yes Diet/Fluid Consistency Regular Communication no known deficits Mobility and Gait mod ind with FWW (only recently), used to not use any ADs Activities of Daily Living and IADL's denies needing help with toileting, dressing, bathing, eating. dtr in law brings her most meals. son comes twice a day for assist with medications. pt hasn't driven since June 2018, relies on family. Prior Functional Level (Other details) has had multiple falls of different causes Social History Household Members none Living Arrangements House Number of Floors (Floors) One Floor Number of Stairs To Enter/Railing? 2STE Home Environment Walk in Shower Home Equipment Front Wheel Walker Shower Seat with Backrest Grab Bars Near Toilet Grab Bars In Shower Employment Status Retired M2 PT-IP Current Condition Start: 10/29/18 16:11 Freq: NEEDED Status: Active Protocol: Document 10/30/18 09:15 RS (Rec: 10/30/18 09:40 RS [id number]) Physical Therapy Current Condition Current Condition Evaluation Date 10/30/18 Treatment Diagnosis TIA (acute), impaired balance (chronic) Onset Date 10/29/18 M3 PT-IP Subjective Start: 10/29/18 16:11 Freq: NEEDED Status: Active Protocol: Document 10/30/18 09:15 RS (Rec: 10/30/18 09:40 RS [id number]) Subjective Physical Therapy Visit Type Type Initial Evaluation Visit Start Time 08:30 Visit Stop Time 09:15 Total Visit Minutes 45 Number of CONCRETE SCULPTOR Visits 0 Physical Therapy Visit Comments Patient Comments Pt feels like there's no difference between current function/strength/balance compared to 2 days ago, denies ever having symptoms into extremities. Patient Goals go home M4 PT-IP Mobility and Gait Start: 10/29/18 16:11 Freq: NEEDED Status: Active Protocol: Document 10/30/18 09:15 RS (Rec: 10/30/18 09:40 RS [id number]) PT-Bed Mobility Assessment Supine to Sit Supine to Sit Standby Assistance Sit to Supine Sit to Supine Standby Assistance Scooting Scooting to Edge of Bed Standby Assistance PT-Transfer Assessment Sit to and From Stand Sit to and from Stand Standby Assistance Equipment Transfer Assistive Device Gait Belt Front Wheeled Walker Transfers Transfer Destination Bed Chair Toilet Transfer Technique walked Transfer Ability Level of Assist Standby Assistance Comments Mobility Comments Pt doesn't require physical assist, is able to perform all bed mobility and transfers with SBA only. Relatively steady, no LOB. Gait Assessment Gait Gait Assistance Required: Contact Guard Assist Distance (Feet) 100 Assistive Devices Assistive Device Gait Belt Front Wheeled Walker Gait Deviations General Gait Pattern Flexed Trunk Comments Gait Comments Pt needing cues for upright posture and FWW positioned closer to body. Pt walks slower when trying to do that but eventually (without ongoing cues) tends to flex forward again and let walker get further away. Stair Climbing Assessment Comments Stair Climbing Comments not tested yet PT-Balance Assessment Sitting Balance and Reactions Static Sitting Balance Ability Normal Dynamic Sitting Balance Ability Good Standing Balance and Reactions Static Standing Balance Ability Good Dynamic Standing Balance Ability Fair Device Used FWW M5 PT-IP Objective Assessments Start: 10/29/18 16:11 Freq: NEEDED Status: Active Protocol: Document 10/30/18 09:15 RS (Rec: 10/30/18 09:40 RS [id number]) Orientation Orientation/Cognition Level of Alertness Alert Orientation Name Age Birthday Month Date Year Day of Week Place Situation Language Function Ability No Deficits Noted Safety Awareness Decreased Safety Awareness Memory Description No Deficits Noted Gross Range of Motion Upper Extremity ROM Assessment Within Functional Limits Lower Extremity ROM Assessment Within Functional Limits Strength Comments Strength Comments BUE/BLE grossly intact but at 4-/5 M6 PT-IP Treatment Start: 10/29/18 16:11 Freq: NEEDED Status: Active Protocol: Document 10/30/18 09:15 RS (Rec: 10/30/18 10:13 RS [id number]) Physical Therapy Treatment Education Education Provided Safety M7 PT-IP Assessment and Plan Start: 10/29/18 16:11 Freq: NEEDED Status: Active Protocol: Document 10/30/18 09:15 RS (Rec: 10/30/18 10:13 RS [id number]) PT Summary Assessment and Plan Potential Rehabilitation Potential Good Status of Condition at Evaluation Stable Summary Impairments Strength Balance Transfers Gait Activity Tolerance Assessment Summary Pt presents with gross weakness and poor balance, but both of these are chronic in nature. Pt does not present with acute changes in overall function, however, pt does have potential for functional improvement. Pt will benefit from ongoing acute and then home health PT to optimize independence, reduce fall risk , and improve overall quality of life. Pt will be safe to discharge directly home once medically ready and continue with same level of assist from family as well as HHPT. Goals Bed Mobility Goal Independent Transfer Goal Independent Front Wheeled Walker Gait Goal Independent Front Wheel Walker Other Goals Up/down 2 steps with SBA Days to Meet Goals 3 Frequency of Treatment Frequency Of Treatment Once a Day Treatment Plan Physical Therapy Treatment Plan Transfer Training Gait Training Balance Retraining Discharge Planning Neuromuscular Re-ed Other Recommendations and Next Treatment walker safety with turns/tight Focus spaces, balance, stairs Recommendations To Nursing Amount of Assist Needed 1 Person Assist Discharge Recommendations PT Discharge Recommendations Home with Assistance Home Health Equipment Needed for Home Before none, pt already owns FWW Discharge
[2018-10-30] MEDS: METOPROLOL ER 25 MG TABLET PO (09:27)
[2018-10-30] MEDS: ASPIRIN EC 81 MG TABLET PO (09:27)
[2018-10-30] MEDS: FUROSEMIDE 20 MG TABLET 10 MG PO (09:27)
[2018-10-30] MEDS: LOSARTAN 25 MG TABLET PO (09:28)
[2018-10-30] MEDS: PANTOPRAZOLE 40 MG TABLET PO (09:28)
[2018-10-30] MEDS: WARFARIN 2.5 MG TABLET PO (09:29)
--- NOTE | 2018-10-30 13:08 | PM.DS.1 ---
History of Present Illness Chief complaint: Possible stroke Narrative: Chasity Wilks is a 78-year-old female with past medical history of CAD (stents x7 per patient), PAD s/p bypass and bilateral carotid disease, Atrial fibrillation on Coumadin, prior CVA with residual left-sided facial droop, HTN, HLD, COPD on 2L home O2, and perforated bowel after endoscopy without surgical repair who presented to the emergency room with right-sided facial droop and slurred speech. Since last night the patient reports a dull bilateral frontal headache without radiation. This improved with Tylenol last night but continued this morning. The patient lives alone and her son comes to help her with her medications in the morning, so around 830 the son came and noted slurred speech as well as a new right-sided facial droop. They brought her urgently to the emergency room. By the time she arrived in the emergency room her speech had cleared, the total duration of this was about an hour. In the emergency room she still had small residual right-sided facial droop which is now only apparent on smiling. She currently feels back to normal. Prior to the episode she only noted the headache, she had no nausea, vomiting, photophobia, fevers, chills, chest pain, palpitations, abdominal pain. She and her son both deny weakness in her arms or legs, and no sensory deficits. A few weeks ago she was evaluated it would at [facility] for an episode of syncope, where no definitive cause was found according to the patient and her son. Home medications: Metoprolol 25 mg daily Pantoprazole 40 mg daily Simvastatin 40 mg daily warfarin 2.5 mg ///tue warfarin 3.0 mg //. CaCo3 500 mg TID Iron tabs vit C Asa 81 mg daily Discharge Providers Date of admission: 10/29/18 11:15 Discharge Date: 10/30/18 Primary care physician: Deepa Varela MD Consults: 10/29/18 14:40 Consult to Dietitian, Adult Routine Comment: Reason For Exam: weight loss 20lbs in 5 months 10/29/18 15:04 Consult to Occupational Therapy Evaluate & Treat Comment: Physician Instructions: Evaluate and treat Consult to Physical Therapy Evaluate & Treat Comment: Physician Instructions: Evaluate and Treat Discharge provider: Andrea Driscoll DO Summary Discharge Diagnosis: Chasity Wilks is a 78-year-old female with past medical history of CAD (stents x7 per patient), PAD s/p bypass and bilateral carotid disease, Atrial fibrillation on Coumadin, prior CVA with residual left-sided facial droop, HTN, HLD, COPD on 2L home O2, and perforated bowel after endoscopy without surgical repair who presented to the emergency room with right-sided facial droop and slurred speech. Her symptoms resolved the next morning and she was discharged the following day after evaluations with physical therapy and occupational therapy. She should follow up with her vascular surgeons for possible imaging of her carotid arteries after TIA, given that she has known carotid disease and multiple interventions do not believe there is any benefit to additional imaging as an inpatient. 1. Transient ischemic attack 2. Elevated troponin - 3. Atrial fibrillation, chronic, present on admission - 4. CAD, chronic - 5. Chronic heart failure, unspecified ejection fraction - 6. Chronic hypoxemic respiratory failure secondary to COPD- 7. Hypertension, chronic Hospital Course: Chasity Wilks is a 78-year-old female with past medical history of CAD (stents x7 per patient), PAD s/p bypass and bilateral carotid disease, Atrial fibrillation on Coumadin, prior CVA with residual left-sided facial droop, HTN, HLD, COPD on 2L home O2, and perforated bowel after endoscopy without surgical repair who presented to the emergency room with right-sided facial droop and slurred speech. Her symptoms resolved the next morning and she was discharged the following day after evaluations with physical therapy and occupational therapy. She should follow up with her vascular surgeons for possible imaging of her carotid arteries after TIA, given that she has known carotid disease and multiple interventions do not believe there is any benefit to additional imaging as an inpatient. 1. Transient ischemic attack -patient presented with slurred speech and right-sided facial droop, which lasted for about 1 hour. Her speech is now back to baseline, and she has a mild right-sided facial droop upon smiling only. She has known carotid disease, and has a history of bilateral carotid endarterectomy. Her INR is therapeutic currently so this is unlikely to be embolic. CT head was negative for hemorrhage. There is comment of possible NPH by the radiologist, however the patient is not have current symptoms compatible with this and the family reports something similar being mentioned after her episode of syncope. Stroke Scale was 1. - telemetry was unremarkable - TSH, A1c and Lipid panel was unremarkable - No further imaging at this time given known carotid disease, will need to follow up outpatient with vascular surgery. - PT/OT evaluation, recommended discharge home with home assist. 2. Elevated troponin - no ischemic findings on EKG, and no current or previous chest pain. Likely in setting of elevated demand. Peak at 0.014, and 2nd value was negative. 3. Atrial fibrillation, chronic, present on admission - -INR therapeutic on admission, continue home dosing of Coumadin. 4. CAD, chronic -patient has a reported history of 7 cardiac stents as well as significant peripheral arterial disease. -continue aspirin and home simvastatin 5. Chronic heart failure -unknown ejection fraction but does not appear to be volume overloaded currently, no need to repeat echocardiogram. -continue metoprolol, losartan, and home Lasix 10 mg daily. 6. Chronic respiratory failure secondary to COPD-patient is currently on 2 L at home. -continue 2 L oxygen 7. Hypertension, chronic -continue home medications as noted above. Status at Discharge Cognitive/behavioral status at discharge: oriented Functional status at discharge: uses cane/walker Overall status at discharge: patient is back to baseline Time Spent with Patient Greater than 30 minutes Exam Vital Signs (past 8 hours): - 10/30/18 08:00 10/30/18 08:11 10/30/18 09:48 Temperature 97.3 F L Pulse Rate 96 H Respiratory Rate 15 Blood Pressure 150/80 H Pulse Oximetry 94 95 93 10/30/18 09:49 10/30/18 12:00 Temperature 97.5 F L Pulse Rate 95 H Respiratory Rate 16 Blood Pressure 137/57 L Pulse Oximetry 97 96 Oxygen Delivery Method Nasal Cannula Oxygen Flow Rate 2 Narrative Exam Narrative: GENERAL APPEARANCE: Elderly female in NAD. SKIN: Inspection of the skin reveals mild bruising in her bilateral upper extremities. HEENT: The sclerae were anicteric and conjunctivae were pink and moist. Extraocular movements were intact and pupils were equal, round with normal accommodation. External inspection of the ears and nose showed no scars, lesions, or masses. Lips, teeth, and gums showed normal mucosa. The oral mucosa, hard and soft palate, tongue and posterior pharynx were unremarkable. NECK: Supple and symmetric. There was no thyroid enlargement, and no tenderness, or masses were felt. No JVD. CHEST: Normal AP diameter and normal contour without any kyphoscoliosis. LUNGS: Auscultation of the lungs revealed no wheezes, rhonchi, or rales. CARDIOVASCULAR: Irregulary irregular rhythm with normal rate without any murmurs, gallops, rubs. Peripheral pulses were 2+ and symmetric. ABDOMEN: Soft and nontender with normal bowel sounds. No ascites was noted. MUSCULOSKELETAL: There was no tenderness or effusions noted. Muscle strength and tone were normal. EXTREMITIES: No cyanosis, clubbing or edema. NEUROLOGIC: Alert and oriented x 3. Normal affect. Gait was normal. Strength is +5/5 in the Upper Extremities and Lower Extremities Bilaterally. Sensation to touch was normal. Rapid alternating movements smooth and coordinated, Heel to slaughter unremarkable. No pronator drift. Chronic L facial droop, R facial droop resolved. Speech is normal. Objective Labs Result Diagrams: 10/30/18 05:08 10/30/18 05:08 Labs: Laboratory Results - last 24 hr 10/29/18 10/30/18 10/30/18 17:16 05:08 05:08 WBC 7.0 RBC 4.49 Hgb 13.0 Hct 39.1 MCV 87.0 MCH 28.9 MCHC 33.3 RDW 14.2 Plt Count 216 Neut % (Auto) 63.4 Lymph % (Auto) 21.9 L [place] % (Auto) 9.4 Eos % (Auto) 4.6 H Baso % (Auto) 0.7 Neut # (Auto) 4400 Lymph # (Auto) 1500 [place] # (Auto) 700 Eos # (Auto) 300 Baso # (Auto) 0 PT 31.0 H INR 2.6 H APTT 48 H D Sodium Potassium Chloride Carbon Dioxide BUN Creatinine Estimated GFR BUN/Creatinine Ratio Glucose Hemoglobin A1c Calcium Magnesium Troponin I < 0.012 Triglycerides Cholesterol LDL Cholesterol, Calc HDL Cholesterol TSH 10/30/18 10/30/18 10/30/18 05:08 05:08 05:08 WBC RBC Hgb Hct MCV MCH MCHC RDW Plt Count Neut % (Auto) Lymph % (Auto) [place] % (Auto) Eos % (Auto) Baso % (Auto) Neut # (Auto) Lymph # (Auto) [place] # (Auto) Eos # (Auto) Baso # (Auto) PT INR APTT Sodium 143 Potassium 3.7 Chloride 106 Carbon Dioxide 31 BUN 12 Creatinine 0.80 Estimated GFR > 60.0 BUN/Creatinine Ratio 15.0 Glucose 99 Hemoglobin A1c 6.2 H Calcium 8.9 Magnesium 1.9 Troponin I Triglycerides 114 Cholesterol 115 L LDL Cholesterol, Calc 56 HDL Cholesterol 36 L TSH 2.14 Discharge Plan Discharge Plan Patient Disposition: Home Discharge comment: Your admitted to the hospital for a transient ischemic attack, your facial droop improved upon discharge. Your evaluated by Physical therapy and Occupational therapy. You should continue the medications you were taking prior to coming to the hospital as no changes are needed. You should follow up with your vascular surgeons, to see additional imaging of your carotid arteries is needed. Discharge Med Rec/Prescriptions Prescriptions: Continued warfarin 5 mg Tablet 2.5 mg PO MOTUWETHFRSA RF: 0 calcium carbonate 300 mg (750 mg) Tablet,Chewable 300 mg PO TID RF: 0 simvastatin [Zocor] 40 mg Tablet 40 mg PO QPM RF: 0 warfarin 3 mg Tablet 3 mg PO DAILY RF: 0 ascorbic acid (vitamin C) [Vitamin C] 500 mg Tablet 500 mg PO DAILY RF: 0 ferrous gluconate 240 mg (27 mg iron) Tablet 240 mg PO DAILY RF: 0 furosemide 20 mg Tablet 10 mg PO DAILY RF: 0 metoprolol succinate 25 mg Tablet Extended Release 24 Hr 25 mg PO DAILY RF: 0 albuterol sulfate [Ventolin HFA] 90 mcg/actuation Hfa Aerosol Inhaler 2 puff INHALATION Q6H PRN (Reason: Shortness Of Breath Or Wheezing) RF: 0 magnesium oxide 400 mg magnesium Tablet 400 mg PO QAM RF: 0 aspirin [Adult Aspirin Regimen] 81 mg tablet,delayed release (DR/EC) 81 mg PO DAILY RF: 0 pantoprazole 40 mg tablet,delayed release (DR/EC) 40 mg PO DAILY RF: 0 Follow up/Referrals: Deepa Varela MD [Primary Care Provider] - Provider Discharge Instructions Diet: Diet as Tolerated and Low-sodium Activity: As tolerated Visit Report/Discharge Packet Instructions: DI for Transient Ischemic Attack Discharge Data Primary Care Provider: Deepa Varela Attending Provider: Di Cameron Admit Date/Time: 10/29/18 11:15 Quality VTE Deep Vein Thrombosis/Pulmonary Embolism Present on Admission: No
--- NOTE | 2018-10-30 13:36 | DIET.PN ---
Dietary Progress Note Assessment: 78y F referred to nutrition for reported 20# wt loss in 5mo. Pt came in c symptoms of stroke, hx of CAD, PAD, CVA, HTN, HLD, and COPD on oxygen at home. Pt reports having reduced appetite since June r/t perforated bowel. Appetite is average now. Usual day: B: oatmeal c cinnamon and raisins D: bowl soup or noodles Sn: fruit Pt eats intuitively, does not follow regimen. Prepares some things herself or family brings in food. Feels she will easily gain some wt back when healed, does not want to gain it all back, however. HT: 177.8cm WT: 68.2kg (100%IBW) UBW: 72.7kg (6% loss in 5mo) BMI: 21.6 (low for age) Labs: A1c: 6.2 (prediabetes) Nutrition Diagnosis: Inadequate Protein energy intake r/t decreased appetite c perforated intestines aeb 6% wt loss in 5mo, BMI 21.6 (low for age) and pt stating reduced appetite for 5mo. Interventions: Discussed increasing healthy fats in diet to reduce respiratory quotient (olive oil, nuts, seeds, avocado, fatty fish) Recc consistent carb diet c limited saturated fat so pt can benefit from healthy fat to reduce RQ and pt A1c shows prediabetic. Monitoring/Evaluations: I&Os, wt
--- NOTE | 2018-10-30 14:29 | OT.IP.EVAL ---
Past Medical History (Last Updated 10/29/18 @ 14:43 by Andrea Driscoll DO) CAD (coronary artery disease) (Chronic) Carotid stenosis (Chronic) HLD (hyperlipidemia) (Chronic) HTN (hypertension) (Chronic) Heart failure (Chronic) PAD (peripheral artery disease) (Chronic) CVA (cerebral vascular accident) (Acute) COPD (chronic obstructive pulmonary disease) (Chronic) Surgical History (Last Updated 10/29/18 @ 14:43 by Andrea Driscoll DO) H/O carotid endarterectomy (Chronic) History of coronary artery stent placement (Chronic) Occupational Therapy Inpatient Evaluation/Re-Eval M1 PT/OT-IP Prior Functional Status Start: 10/30/18 13:33 Freq: NEEDED Status: Active Protocol: Document 10/30/18 13:33 [facility] (Rec: 10/30/18 14:29 [facility] [id number]) Medical Review Prior Functional Status Medical History Reviewed Yes Diet/Fluid Consistency Regular Communication no known deficits Mobility and Gait mod ind with FWW (only recently), used to not use any ADs Activities of Daily Living and IADL's denies needing help with toileting, dressing, bathing, eating. dtr in law brings her most meals. son comes twice a day for assist with medications. pt hasn't driven since June 2018, relies on family. When spoke to pt during OT eval, pt states usually has family present and sitting in her living room while she showers. In addition, pt states would like to get back to driving eventually. Pt states pays her bills via writing checks and automatic payments. Prior Functional Level (Other details) has had multiple falls of different causes Pt states has had difficulty with blacking out all her life and not been able to determine what causes it. Social History Household Members none Living Arrangements House Number of Floors (Floors) One Floor Number of Stairs To Enter/Railing? 2STE Home Environment Walk in Shower Home Equipment Front Wheel Walker Shower Seat with Backrest Grab Bars In Shower Employment Status Retired M2 OT-IP Current Condition Start: 10/30/18 13:33 Freq: Status: Active Protocol: Document 10/30/18 13:33 [facility] (Rec: 10/30/18 14:29 [facility] [id number]) Occupational Therapy Current Condition Current Condition Evaluation Date 10/30/18 Treatment Diagnosis TIA, decreased balance Weight Bearing Status Weight Bearing Status Weight Bear as Tolerated M3 OT- IP Subjective and Pain Start: 10/30/18 13:33 Freq: Status: Active Protocol: Document 10/30/18 13:33 [facility] (Rec: 10/30/18 14:29 [facility] [id number]) OT- Subjective Occupational Therapy Visit Type Type Initial Evaluation Visit Start Time 11:20 Visit Stop Time 11:47 Total Visit Minutes 47 Notes Pt also seen to complete ACL assessment from [id number]. Occupational Therapy Visit Comments Patient Comments Pt wanting to use the bathroom . Patient/Caregiver Goals Pt wanting to go home. M4 OT- IP ADL's Start: 10/30/18 13:33 Freq: Status: Active Protocol: Document 10/30/18 13:33 [facility] (Rec: 10/30/18 14:29 [facility] [id number]) OT ADL-Dressing General Eval Lower Body Dressing Ability Independent Comments OT Dressing Comments Pt able to don/doff socks while sitting from the edge of the bed independently. OT ADL-Toileting General Evaluation Toileting Ability Independent Devices Toileting Assistive Devices Grab Bars Comments OT Toileting Comments Pt states has to get up to the bathroom 2times a night at times. Pt states uses O2 cord able to reach the bathroom at home or at times goes without the o2 tubing. Pt states usually fall in the bathroom when trying to get up from the toilet. Pt states looking to get handles on back of the toilet as currently in no place for her to hold to from getting up from the toilet. OT ADL-Bathing Comments OT Bathing Comments Pt states has a shower chair and if going home will have someone to be present when showering initially. M5 OT- IP IADL's Start: 10/30/18 13:33 Freq: Status: Active Protocol: Document 10/30/18 13:33 [facility] (Rec: 10/30/18 14:29 [facility] [id number]) OT-Instrumental Activities of Daily Living Home Safety Awareness Ability to Problem Solve Emergency Able to Problem Solve Situations Home Safety Comments Intact to problem solve home safety in case of fire, stranger at the door, running out of medications, toilet flooding, and if receiving a phone scam. Pt states does not have good cell medical receptionist in her mother in law apartment , and that her family is looking to install a land line for her. Suggestion of Life Alert and/or caregiver wireless nurse calling alert system given. Medication Management Medication Management Caregiver Provides Supervision Medication Management Comments Pt's son sets up medications for her. Money Management Money Management Comments Pt states writes checks or use of automatic bill payments. Meal Preparation Meal Preparation Caregiver Provides Assist Desk Assistant Desk Assistant Comments Daughter in law brings her meals, does laundry and other IADl needs. Driving Driving Comments At this time pt not driving. M6 OT- IP Functional Cognition Start: 10/30/18 13:33 Freq: Status: Active Protocol: Document 10/30/18 13:33 [facility] (Rec: 10/30/18 14:29 [facility] [id number]) Cognitive Factors Limiting Selfcare Function Cognitive Ability Level of Alertness Alert Patient Orientation Name Age Birthday Month Date Year Day of Week Place Situation Attention Span Ability Capable of Focused Attention Capable of Sustained Attention Ability to Follow Commands Able to Follow Multi-Step Commands Memory Description Short Term Impaired Safety Awareness Underestimates Need for Assistance Problem Solving Ability Needs Assist to Identify Solutions Executive Function Ability Unable to Remember Details Cognitive Tests ACL Pt score 4.6 out of 6.0 which implies pt may live alone with daily assistance to monitor personal safety, my need assist with finances, med set -up, monitor nutrition and get to appointment. Pt feels like she is baseline for cognition. Cognitive Comments Cognitive Assessment Comments Pt able to follow 2 step commands. However, pt has difficulty to manage O2 tubing and constantly tangled up in the O2 tubing however states has never fallen from tripping over the O2 tubing. While in the bathroom , instead of sitting, pt standing and holding to the grab bar while stepping over and untangling herself from the o2 tubing. OT- Vision and Hearing OT- Hearing Assessment OT- Hearing Assessment WFL OT- Vision Assessment Visual Acuity Glasses For Reading Visual Convergence WFL Visual Brantley WFL M7 OT- IP Mobility and Balance Start: 10/30/18 13:33 Freq: Status: Active Protocol: Document 10/30/18 13:33 [facility] (Rec: 10/30/18 14:29 [facility] [id number]) OT- Bed Mobility Assessment Rolling Type of Rolling Roll to Right Supine to Sit Supine to Sit Assist Standby Assistance Sit to Supine Sit to Supine Assist Standby Assistance Scooting Scooting to Edge of Bed Standby Assistance OT-Transfer Assessment Sit to and From Stand Sit to and from Stand Standby Assistance Transfers Transfer Ability Standby Assistance Technique Transfer Destination Bed Chair Toilet Devices Transfer Assistive Devices Gait Belt Front Wheeled Walker Comments Mobility Comments Pt at times not using FWW and tend to how to counter and recliner for transfer. Suggested pt to have FWW in front of her at all times. In addition to be mindful and watch out for O2 tubing to get tangled under her feet. OT- Balance Assessment Sitting Balance and Reactions Static Sitting Balance Ability Normal Dynamic Sitting Balance Ability Normal Standing Balance and Reactions Static Standing Balance Ability Good M8 OT- IP Objective Assessments Start: 10/30/18 13:33 Freq: Status: Active Protocol: Document 10/30/18 13:33 [facility] (Rec: 10/30/18 14:29 [facility] [id number]) OT Gross Range of Motion Upper Extremity Range of Motion Assessment Within Functional Limits OT Strength Comments Strength Comments LUE 4-5/, RUE 4/5 OT-Muscle Tone Assessment Muscle Tone WNL Yes M9 OT- IP Assessment and Plan Start: 10/30/18 13:33 Freq: Status: Active Protocol: Document 10/30/18 13:33 [facility] (Rec: 10/30/18 14:29 [facility] [id number]) OT Summary Assessment and Plan Potential Rehabilitation Potential Good Analytic Complexity at Evaluation Low Summary OT Impairments Balance Functional Mobility Toileting Bathing Toilet Transfers Shower Transfers Progress Towards Goals Progressing Toward Goals Goals Grooming Goal Independent Dressing Goal Independent Toileting Goal Independent Bathing Goal Standby Assistance Toilet Transfer Goal Independent Shower Transfer Goal Standby Assistance OT-Other Goals Pt to have good O2 tubing management to prevent from falls. Days to Meet Goals 2 Frequency of Treatment Frequency Of Treatment Once a Day Treatment Plan OT Treatment Plan ADL Training Functional Mobility Patient/Family Education Discharge Planning Other Treatment Recommendations and Next Shower Treatment Focus Discharge Recommendations OT Discharge Recommendations Home with Assistance Home Health Home Equipment Needs Life Alert and/or caregiver wireless call button
--- NOTE | 2018-10-30 15:04 | PC.NURSE ---
Day shift: Left unit in w/ BOILER/CHILLER OPERATOR at approx 1500. Paperwork signed and all questions answered. Pt has all personal belongings. No new MD scrips.
== END 2018-10-30 15:05 | disposition home or self-care (01) ==
LOC: ED 11:10 → AC 11:16
PROVIDERS: Internal Medicine; Admitting Provider Internal Medicine; Emergency Provider Emergency Medicine; PCP Internal Medicine; Visit Provider Internal Medicine
DX: G45.9 Transient cerebral ischemic attack, unspecified (principal); R29.701 NIHSS score 1; I48.2 Chronic atrial fibrillation; Z79.01 Long term (current) use of anticoagulants; I25.10 Atherosclerotic heart disease of native coronary artery without angina pectoris; Z95.5 Presence of coronary angioplasty implant and graft; I11.0 Hypertensive heart disease with heart failure; I50.9 Heart failure, unspecified; J96.10 Chronic respiratory failure, unspecified whether with hypoxia or hypercapnia; J44.9 Chronic obstructive pulmonary disease, unspecified
CPT/HCPCS: 36415; 70450; 80048; 80053; 80061; 80305; 81003; 82550; 82962; 83036; 83735; 84443; 84484; 85025; 85610; 85730; 87077; 87086; 87186; 93005; 94760; 97116; 97162; 97165; 97530; 99283; 99285; G0378

== ENCOUNTER 2019-02-04 13:55 | Observation (INO) | payer MEDICARE, SELFPAY ==
[2018-10-29 14:25] VITALS: BMI 23.8
[2019-02-04] VITALS (9 sets, daily range): BP systolic 76–141; BP diastolic 50–87; PULSE 76–109; RESP 13–22; TEMP 36.6–37.1; O2SAT 87–97; BMI 22.2
--- NOTE | 2019-02-04 14:19 | ED_ITS ---
HPI - Back Pain/Injury General Chief Complaint: Back Pain/Injury Stated Complaint: Back pain Time Seen by Provider: 02/04/19 14:18 Source: patient and family History of Present Illness HPI Narrative: Patient is 78-year-old elderly female with history of COPD recent stents currently wearing a defibrillator vest and currently taking Eliquis discharged from [place] on the . She tripped and fell landing on her left side she denies any head injury. She says the pain is getting worse. It hurts when she takes a breath. She was seen evaluated Steve Ash on 02/02/2019. Pain continues today she feels short of breath overall weak. She took pain pills prior to arrival. In triage she is noted to be hypoxic with oxygen level 76% and a blood pressure of 76/50. She is awake alert able to give me history. Son is with her as well with some records. Related Data Home Medications Medication Instructions Recorded Confirmed aspirin 81 mg tablet,delayed 81 mg PO DAILY 04/20/18 10/29/18 release pantoprazole 40 mg tablet,delayed 40 mg PO DAILY 04/20/18 10/29/18 release warfarin 2.5 mg PO MOTUWETHFRSA 06/13/18 10/29/18 albuterol sulfate [Ventolin HFA] 2 puff INHALATION Q6H PRN 10/29/18 10/29/18 ascorbic acid (vitamin C) [Vitamin 500 mg PO DAILY 10/29/18 10/29/18 C] calcium carbonate 300 mg PO TID 10/29/18 10/29/18 ferrous gluconate 240 mg PO DAILY 10/29/18 10/29/18 furosemide 10 mg PO DAILY 10/29/18 10/29/18 magnesium oxide 400 mg PO QAM 10/29/18 10/29/18 metoprolol succinate 25 mg PO DAILY 10/29/18 10/29/18 simvastatin [Zocor] 40 mg PO QPM 10/29/18 10/29/18 warfarin 3 mg PO DAILY 10/29/18 10/29/18 Allergies Allergy/AdvReac Type Severity Reaction Status Date / Time morphine AdvReac Intermediate burning Verified 10/29/18 09:51 sensation at IV site amoxicillin [From Augmentin] AdvReac Mild flu like Verified 10/29/18 09:51 symptoms clavulanic acid AdvReac Mild flu like Verified 10/29/18 09:51 [From Augmentin] symptoms lisinopril AdvReac Mild cough Verified 10/29/18 09:51 Review of Systems Review of Systems ROS Unobtainable: All systems reviewed & are unremarkable except as noted in HPI and below Constitutional Constitutional: Denies chills, Denies fever(s), Denies lethargy and Denies weakness Eyes Eyes: Denies change in vision, Denies eye discharge, Denies irritation and Denies loss of vision Cardiovascular Cardiovascular: Reports as per HPI Respiratory Respiratory: Reports as per HPI Gastrointestinal Gastrointestinal: Denies abdominal pain, Denies change in bowel habits, Denies diarrhea, Denies nausea and Denies vomiting Genitourinary Genitourinary: Denies hematuria, Denies flank pain, Denies urinary incontinence and Denies urinary urgency Musculoskeletal Musculoskeletal: Denies back pain, Denies muscle weakness, Denies numbness and Denies tingling Integumentary/Breasts Skin/Breast: Denies pruritus, Denies erythema, Denies rash and Denies wounds Neurologic Neurologic: Denies loss of vision, Denies numbness, Denies tingling and Denies weakness Patient History Medical History Afib (Acute) CAD (coronary artery disease) (Chronic) Cardiac defibrillator in place (Acute) Carotid stenosis (Chronic) Colovaginal fistula (Acute) COPD (chronic obstructive pulmonary disease) (Chronic) CVA (cerebral vascular accident) (Acute) Enterovaginal fistula (Acute) Heart failure (Chronic) HLD (hyperlipidemia) (Chronic) HTN (hypertension) (Chronic) Nicotine addiction (Acute) PAD (peripheral artery disease) (Chronic) Surgical History H/O carotid endarterectomy (Chronic) History of appendectomy (Acute) History of coronary artery stent placement (Chronic) History of hysterectomy (Acute) Hx of tonsillectomy (Acute) Family History Father Throat cancer Mother Ovarian cancer Social History household members: none Smoking Status: Former smoker alcohol intake: current alcohol intake frequency: holidays/special occasions only Substance Use Type: does not use Exam Initial Vital Signs Initial Vital Signs: Vital Signs Temperature 97.8 F 02/04/19 13:58 Pulse Rate 79 02/04/19 13:58 Respiratory Rate 22 02/04/19 13:58 Blood Pressure 76/50 L 02/04/19 13:58 Pulse Oximetry 87 L 02/04/19 13:58 GENERAL: Week alert elderly female and in no acute distress. HEENT: Head atraumatic,EOMI, pupils reactive, CARDIOVASCULAR: Regular rate and rhythm without murmurs, rubs or gallops. Life Vest in place. Tender to touch left ribs side but no contusion RESPIRATORY: Breath sounds equal bilaterally, no wheezes rales or rhonchi. ABDOMEN: Soft, nontender. Normoactive bowel sounds all 4 quadrants. No guarding or rebound. EXTREMITIES: Normal range of motion, no clubbing or edema. Neurovascularly intact NEUROLOGICAL: Alert and oriented x4. SKIN: Warm, dry, no laceration, no petechiae, no rashes or lesions. Course Orders Ordered: ED Orders 02/04/19 14:19 XR chest 1V Stat EKG-12 Lead Stat 02/04/19 14:44 B Type Natriuretic Peptide Stat Complete Blood Count AUTO DIFF Stat Comprehensive Metabolic Panel Stat Lipase Stat Partial Thromboplastin Time Stat Prothrombin Time INR Stat Troponin & CK Cardiac Panel Stat 02/04/19 18:04 Education, smoking cessation ONGOING 02/05/19 Basic Metabolic Panel Stat Complete Blood Count AUTO DIFF Stat Hydrocodone Bitart/Acetaminophen ([place] 5/325) 2 tab PO Q4HR PRN PRN Reason: Pain, Severe (7-10) Last Admin: 02/04/19 18:46 Dose: 2 tab Documented by: FLAVIA Albuterol (Ventolin Hfa) 2 puff INH Q6H PRN PRN Reason: Shortness Of Breath Or Wheezing Aspirin (Aspirin Ec) 81 mg PO DAILY SILKE Sodium Chloride (Normal Saline 0.9%) 1,000 mls @ 75 mls/hr IV CONT SILKE Last Admin: 02/04/19 18:47 Dose: 75 mls/hr Documented by: FLAVIA Naloxone HCl (Narcan) 0.2 mg IV Q2MIN PRN PRN Reason: Opiate Reversal Pantoprazole Sodium (Protonix) 40 mg PO DAILY SILKE Simvastatin (Zocor) 40 mg PO QPM SILKE Warfarin Sodium (Coumadin) 2.5 mg PO WeFr@1700 [facility] Warfarin Sodium (Coumadin) 3 mg PO SuTuThSa@1700 [facility] Discontinued Medications Albuterol/Ipratropium (Duoneb) 3 ml INH NOW ONE Stop: 02/04/19 14:20 Last Admin: 02/04/19 14:50 Dose: 3 ml Documented by: NIKKI Enoxaparin Sodium (Lovenox) 40 mg SUBCUT DAILY [facility] Vital Signs Vital signs: Vital Signs - 8 hr 02/04/19 13:58 02/04/19 14:50 02/04/19 15:33 Temperature 97.8 F Pulse Rate 79 109 H 76 Respiratory Rate 22 16 13 Blood Pressure 76/50 L Blood Pressure [Right Arm] 116/56 L Pulse Oximetry 87 L 91 97 02/04/19 16:10 02/04/19 17:04 02/04/19 18:06 Temperature Pulse Rate 81 82 84 Respiratory Rate 14 17 Blood Pressure 104/87 Blood Pressure [Right Arm] 125/57 L 123/54 L Pulse Oximetry 95 95 95 MDM - Back Pain/Injury Lab Data Attestation: I reviewed the patient's lab results. Result diagrams: 02/04/19 14:44 02/04/19 14:44 Labs: Lab Results 02/04/19 02/04/19 02/04/19 Range/Units 14:44 14:44 14:44 WBC 11.1 H (4.5-11.0) X10^3/uL RBC 3.63 L (4.0-5.2) X10^6/uL Hgb 11.0 L (12.0-16.0) g/dL Hct 33.1 L (36-46) % MCV 91.4 (80-100) fL MCH 30.2 (26-34) PG MCHC 33.1 (30-36) % RDW 16.3 H (11.6-14.8) % Plt Count 358 (150-400) X10^3/uL Neut % (Auto) 81.2 H (50-75) % Lymph % (Auto) 9.6 L (25-40) % [place] % (Auto) 6.2 (3-14) % Eos % (Auto) 2.5 (2-4) % Baso % (Auto) 0.5 (0-2) % Neut # (Auto) 9000 H (0368-6944) /uL Lymph # (Auto) 1100 (5289-5937) /uL [place] # (Auto) 700 (0-900) /uL Eos # (Auto) 300 (0-450) /uL Baso # (Auto) 100 (0-100) /uL PT 19.7 H (10.1-12.7) SECONDS INR 1.7 H (0.9-1.3) APTT 34 D (26.4-36.2) SECONDS Sodium 135 L (137-145) mmol/L Potassium 4.6 (3.4-5.1) mmol/L Chloride 96 L (98-107) mmol/L Carbon Dioxide 30 (22-32) mmol/L BUN 27 H (7-17) mg/dL Creatinine 1.00 (0.52-1.04) mg/dL Estimated GFR 53.6 L (>60) mL/min BUN/Creatinine Ratio 27.0 H (6-22) Glucose 118 H (80-110) mg/dL Calcium 9.5 (8.4-10.2) mg/dL Total Bilirubin 0.9 (0.2-1.3) mg/dL AST 24 (14-36) IU/L ALT 11 (<35) IU/L Alkaline Phosphatase 71 (38-126) U/L Total Creatine Kinase 49 (30-135) U/L CK-MB (CK-2) TNP CK-MB (CK-2) Rel Index TNP Troponin I < 0.012 (0.01-0.034) ng/mL B-Natriuretic Peptide 437 H (<100) Total Protein 6.9 (6.3-8.2) g/dL Albumin 4.0 (3.5-5.0) g/dL Globulin 2.9 (1.7-4.1) g/dL Albumin/Globulin Ratio 1.4 (1.0-2.8) Lipase 36 (23-300) U/L Imaging Data Chest x-ray: Radiologist's impression: PROCEDURE: XR CHEST 1V INDICATIONS: sob left sided pain TECHNIQUE: One view of the chest was acquired. COMPARISON: [facility], CR, XR CHEST 1V, 06/12/2018, 19:58. FINDINGS: Study is limited by overlying equipment monitor phototypesetting. Surgical changes and devices: None. Lungs and pleura: The lung volumes are large and the diaphragms are flattened suggesting emphysema. Blunting of the right costophrenic sulcus suggesting small pleural effusion. Mediastinum: Mediastinal contours appear normal. Heart size is normal. Bones and chest wall: No suspicious bony lesions. Overlying soft tissues appear unremarkable. IMPRESSION: Limited study. Emphysematous change. Probable small right effusion. Dictated by: Afia Todd M.D. on 02/04/2019 at 14:19 ECG Data Attestation: I personally reviewed and interpreted this ECG as follows: Prior ECG tracings: available for review Interpretation: Sinus rhythm rate [address] elevation no signs of ischemia MDM Narrative Medical decision making narrative: Her blood pressure actually improved without any sort of intervention. Possible vagal reaction. Oxygen increased with 2-3 L of oxygen she does have oxygen at she has not been wearing it but has the ability to have it. She had a CT couple days ago [facility] which did not show any sort of rib fracture or hematoma. She was given pain medications which may have also contributed to her hypoxia and hypotensive. Son is concerned patient is progressively getting weak, her pain is out of control at home, alt samy she has not required pain medication in the ER. Patient was also recently diagnosed with UTI and started on antibiotics at [facility] I have discussed with Dr. pablo about possible observation for pain control and rehab evaluation. He is aware of all of her medical conditions, in ED to see and evaluate patient. And accepts. Discharge Plan Departure Patient Disposition: Admitted as Observation Admit Date/Time: 02/04/19 18:06 Admit Provider: Robina Pablo
[2019-02-04] MEDS: ALBUTEROL/IPRATROPIUM 3 ML AMPUL INH (14:50)
[2019-02-04 14:54] LABS: Add Manual Diff / Slide Review NO; Basophils Absolute Auto 100 /uL (0-100); Basophils Percent Auto 0.5 % (0-2); Eosinophils Absolute Auto 300 /uL (0-450); Eosinophils Percent Auto 2.5 % (2-4); Hematocrit 33.1 % (36-46); Lymphocytes Absolute Auto 1100 /uL (1100-4500); Lymphocytes Percent Auto 9.6 % (25-40); Mean Corpuscular HGB Conc 33.1 % (30-36); Mean Corpuscular Hemoglobin 30.2 PG (26-34); Mean Corpuscular Volume 91.4 fL (80-100); Monocytes Absolute Auto 700 /uL (0-900); Monocytes Percent Auto 6.2 % (3-14); Neutrophils Absolute Auto 9000 /uL (1500-7000); Neutrophils Percent Auto 81.2 % (50-75); Platelet Count 358 X10^3/uL (150-400); Red Blood Cell Count 3.63 X10^6/uL (4.0-5.2); Red Cell Distribution Width 16.3 % (11.6-14.8); White Blood Cell Count 11.1 X10^3/uL (4.5-11.0)
[2019-02-04 14:59] LABS: INR 1.7 (0.9-1.3); Prothrombin Time 19.7 SECONDS (10.1-12.7)
[2019-02-04 15:02] LABS: PTT Partial Thromboplastin Tim 34 SECONDS (26.4-36.2)
[2019-02-04 15:04] LABS: Alanine Aminotransferase 11 IU/L (<35); Albumin Globulin Ratio 1.4 (1.0-2.8); Alkaline Phosphatase 71 U/L (38-126); Aspartate Aminotransferase 24 IU/L (14-36); Bilirubin Total 0.9 mg/dL (0.2-1.3); Blood Urea Nitrogen 27 mg/dL (7-17); Calcium 9.5 mg/dL (8.4-10.2); Carbon Dioxide 30 mmol/L (22-32); Chloride 96 mmol/L (98-107); Creatine Kinase 49 U/L (30-135); Estimated Glomerular Filt Rate 53.6 mL/min (>60); Globulin 2.9 g/dL (1.7-4.1); Glucose 118 mg/dL (80-110); HEMOLYSIS < 15 (0-50); Lipase 36 U/L (23-300); Potassium 4.6 mmol/L (3.4-5.1); Sodium 135 mmol/L (137-145); Total Protein 6.9 g/dL (6.3-8.2)
[2019-02-04 15:16] LABS: Troponin I < 0.012 ng/mL (0.01-0.034)
[2019-02-04 15:37] LABS: B Type Natriuretic Peptide 437 (<100)
--- NOTE | 2019-02-04 18:10 | PM.HP.1 ---
History of Present Illness History of Present Illness Date Patient Seen: 02/04/19 Time Patient Seen: 18:29 Chief complaint: Back pain Narrative: This is a 78-year-old female, patient of Dr. Deepa Delarosa from [place] who arrives to our ED this evening with complaints of generalized weakness, falling and running out of her pain medicines. She was just in [facility] for a 12 day cardiac hospitalization, then was discharged to home and then fell on 02/02 contusing the left posterior ribs on the toilet edge. A rib fracture was reportedly ruled out with a chest CT at [facility] and she returned home where she has used up all her Hydrocodone and become unable to care for herself. She has also been treated for a UTI (with Bactrim)related to her Colovaginal and Enterovaginal fistulas. She had been pending surgical repair of these fistulas in [place] just before this cardiac hospitalization. During this hospitalization she was treated with 2 emergency coronary stents and was placed on an external cardiac defibrillator vest device which she is still wearing. This is apparently also the reason why she was not able to go to [facility] for rehab, due to the cost of this device concerning the [facility] facility. She has also recently resumed home oxygen. When she arrived in our emergency department she was hypotensive and and hypoxic both of which improved spontaneously. She is a vasculopath with descriptions of bypasses that run from the right axilla to the right iliac artery, from the right pelvis to the left pelvis, vascular bypasses in her legs, bilateral carotid endarterectomies and very loud carotid bruits bilaterally today. The recent admission to the [facility] was because of recurrent syncope which was determined to be arhythmia in origin when she experienced 1 of these episodes while on telemetry there. Patient History Medical History (Updated 02/04/19 @ 18:21 by Robina Pablo MD) Afib (Acute) CAD (coronary artery disease) (Chronic) Cardiac defibrillator in place (Acute) Carotid stenosis (Chronic) Colovaginal fistula (Acute) COPD (chronic obstructive pulmonary disease) (Chronic) CVA (cerebral vascular accident) (Acute) Enterovaginal fistula (Acute) Heart failure (Chronic) HLD (hyperlipidemia) (Chronic) HTN (hypertension) (Chronic) Nicotine addiction (Acute) PAD (peripheral artery disease) (Chronic) Surgical History (Updated 02/04/19 @ 18:16 by Robina Pablo MD) H/O carotid endarterectomy (Chronic) History of appendectomy (Acute) History of coronary artery stent placement (Chronic) History of hysterectomy (Acute) Hx of tonsillectomy (Acute) Family & Social History Family History (Updated 02/04/19 @ 18:17 by Robina Pablo MD) Father Throat cancer Mother Ovarian cancer Social History: household members none Tobacco & Substance use: Tobacco type cigarettes Smoking Status Former smoker alcohol intake current alcohol intake frequency holiday/special occasion Substance Use Type does not use Comment: She stopped smoking 1 year ago. She drinks alcohol rarely. Her son Geoff is her backup decision maker. She lives in a [id number] unit on her son's property in [place]. Her physician is Dr. Delarosa. Her sports physiologist is Dr. Ruel Treviño Home Medications and Allergies Home Medications Medication Instructions Recorded Confirmed Type aspirin 81 mg tablet,delayed 81 mg PO DAILY 04/20/18 10/29/18 History release pantoprazole 40 mg tablet,delayed 40 mg PO DAILY 04/20/18 10/29/18 History release warfarin 2.5 mg PO MOTUWETHFRSA 06/13/18 10/29/18 History albuterol sulfate [Ventolin HFA] 2 puff INHALATION Q6H PRN 10/29/18 10/29/18 History ascorbic acid (vitamin C) [Vitamin 500 mg PO DAILY 10/29/18 10/29/18 History C] calcium carbonate 300 mg PO TID 10/29/18 10/29/18 History ferrous gluconate 240 mg PO DAILY 10/29/18 10/29/18 History furosemide 10 mg PO DAILY 10/29/18 10/29/18 History magnesium oxide 400 mg PO QAM 10/29/18 10/29/18 History metoprolol succinate 25 mg PO DAILY 10/29/18 10/29/18 History simvastatin [Zocor] 40 mg PO QPM 10/29/18 10/29/18 History warfarin 3 mg PO DAILY 10/29/18 10/29/18 History Allergies Allergy/AdvReac Type Severity Reaction Status Date / Time morphine AdvReac Intermediate burning Verified 10/29/18 09:51 sensation at IV site amoxicillin [From Augmentin] AdvReac Mild flu like Verified 10/29/18 09:51 symptoms clavulanic acid AdvReac Mild flu like Verified 10/29/18 09:51 [From Augmentin] symptoms lisinopril AdvReac Mild cough Verified 10/29/18 09:51 Review of Systems Review of Systems Narrative: Positive for weakness, fatigue, shortness of breath, wheezing, falling. Negative for fevers, chills, sweats, chest pain, palpitations, vomiting, bleeding, dysuria, rashes, seizures, headaches, difficulty talking, new allergies. ROS Unobtainable: All systems reviewed & are unremarkable except as noted in HPI and below Exam Vital Signs (past 8 hours): - 02/04/19 13:58 02/04/19 14:50 02/04/19 15:33 Temperature 97.8 F Pulse Rate 79 109 H 76 Respiratory Rate 22 16 13 Blood Pressure 76/50 L Blood Pressure [Right Arm] 116/56 L Pulse Oximetry 87 L 91 97 02/04/19 16:10 02/04/19 17:04 02/04/19 18:06 Temperature Pulse Rate 81 82 84 Respiratory Rate 14 17 Blood Pressure 104/87 Blood Pressure [Right Arm] 125/57 L 123/54 L Pulse Oximetry 95 95 95 Oxygen Delivery Method Nasal Cannula Oxygen Flow Rate 2 Narrative Exam Narrative: Alert and oriented x3. No apparent distress. She does appear quite weak and bed-bound. Pupils are equally round and reactive to light and accommodation. Extraocular muscles are intact. Sclerae are pink and not icteric. No lymph nodes are felt head, neck, supraclavicular area. Throat looks normal. JVD is less than 7 cm. Carotid bruits are heard bilaterally they are quite loud. Heart is regular rate and rhythm without murmur. She is wearing a external defibrillator vest. Lungs are clear to auscultation bilaterally. Abdomen is soft, bowel sounds positive, nontender, no organomegaly. Extremities no ankle edema. She has surprisingly strong dorsalis pedal pulses bilaterally. Neuro exam there is no tremor. Cranial nerves 2-12 tested intact. Motor function is 3/5 throughout. Gait and balance are not tested. Skin no rash or jaundice. Objective Labs Result Diagrams: 02/04/19 14:44 02/04/19 14:44 Labs: Laboratory Results - last 24 hr 02/04/19 02/04/19 02/04/19 14:44 14:44 14:44 WBC 11.1 H RBC 3.63 L Hgb 11.0 L Hct 33.1 L MCV 91.4 MCH 30.2 MCHC 33.1 RDW 16.3 H Plt Count 358 Neut % (Auto) 81.2 H Lymph % (Auto) 9.6 L [place] % (Auto) 6.2 Eos % (Auto) 2.5 Baso % (Auto) 0.5 Neut # (Auto) 9000 H Lymph # (Auto) 1100 [place] # (Auto) 700 Eos # (Auto) 300 Baso # (Auto) 100 PT 19.7 H INR 1.7 H APTT 34 D Sodium 135 L Potassium 4.6 Chloride 96 L Carbon Dioxide 30 BUN 27 H Creatinine 1.00 Estimated GFR 53.6 L BUN/Creatinine Ratio 27.0 H Glucose 118 H Calcium 9.5 Total Bilirubin 0.9 AST 24 ALT 11 Alkaline Phosphatase 71 Total Creatine Kinase 49 CK-MB (CK-2) TNP CK-MB (CK-2) Rel Index TNP Troponin I < 0.012 B-Natriuretic Peptide 437 H Total Protein 6.9 Albumin 4.0 Globulin 2.9 Albumin/Globulin Ratio 1.4 Lipase 36 Assessment & Plan Assessment & Plan narrative: Severe Weakness and Falling - PT and OT ordered - Discharge Planning for SNF placement - She already has a Medicare Qualifying stay at [facility] in the last 30 days. (Her son says that [facility] had declined to take her due to the cost of the external defibrillator) - Follow labs and continue UTI treatment if indicated. Atrial Fibrillation - Continue Warfarin, pharmacy to manage dosing - Continue Metoprolol External Defibrillator Device - Continue, monitor on telemetry COPD - Continue Albuterol prn Hypertension - continue Metoprolol Hyperlipidemia - Continue Simvastatin Peripheral Arterial Disease - Continue Warfarin and Aspirin Colovaginal Fistula - Pending surgery with Dr. Yamile Marc in [place]. Enterovaginal Fistula - Pending surgery with Dr. Yamile Marc in [place]. Urinary Tract Infection - Repeat UA and resume Bactrim if indicated - Her intestinal/vaginal fistulas complicate the dependability of her urine culture and UA results. - No current typical UTI symptoms other than her general weakness. Disposition - Per Dry Heat Cabinet Attendant/c4 planner. Likely to be unable to go home and will need a SNF. She has a medicare qualifying stay at [facility].
[2019-02-04] MEDS: HYDROCODONE/ACET 5/325 TABLET 2 TAB PO ×2 (18:46→23:57)
[2019-02-04] MEDS: SODIUM CHLORIDE 0.9% 1,000 ML 75 ML IV (18:47)
--- NOTE | 2019-02-04 21:33 | PC.ADMIT ---
[address] Admission Note: The patient,Chasity Wilks,78 y/o, was given written information regarding hospital policies, unit procedures and contact persons. Patient's smoking status: Former smoker. Vital Signs - 8 hr 02/04/19 13:58 02/04/19 14:50 02/04/19 15:33 Temperature 97.8 F Pulse Rate 79 109 H 76 Respiratory Rate 22 16 13 Blood Pressure 76/50 L Blood Pressure [Right Arm] 116/56 L Pulse Oximetry 87 L 91 97 02/04/19 16:10 02/04/19 17:04 02/04/19 18:06 Temperature Pulse Rate 81 82 84 Respiratory Rate 14 17 Blood Pressure 104/87 Blood Pressure [Right Arm] 125/57 L 123/54 L Pulse Oximetry 95 95 95 02/04/19 18:26 02/04/19 19:35 Temperature 97.9 F Pulse Rate 82 Respiratory Rate 20 Blood Pressure 125/74 Blood Pressure [Right Arm] Pulse Oximetry 93 92 Admit to room 219 from ED, awake, alert, and pleasant. Oriented to room, environment, and plan of care. High fall risk precautions initiated, call light within reach. Son Geoff at bedside providing supportive care
--- NOTE | 2019-02-04 21:35 | PC.NURSE ---
Paz shift note: Received patient from ED, awake, alert, and pleasant. Transferred from [facility] with 2 person [place] assistance, transfer only to bed. Weak and unsteady gait. Able to shift positions independently in bed, High fall risk precautions initiated. Received from ED on O2 at 3L via NC, O2 sat 93%. Medicated for pain as ordered with adequate relief, states pain 3/10 at rest and 8/10 with activity to left lateral back. Large bruise to right chest area, no open skin. Patient has a defibrillator vest which was placed on [employer] (dailey) with monitor/battery pack attached. Son Marcos) at bedside, who is primary caregiver, providing supportive and attentive care. Call light within reach
[2019-02-05] VITALS (9 sets, daily range): BP systolic 108–154; BP diastolic 61–73; PULSE 83–97; RESP 14–21; TEMP 36.5–37; O2SAT 91–98
[2019-02-05 00:49] LABS: Appearance Urine UA CLEAR; Bilirubin Urine UA NEGATIVE (NEGATIVE); Color Urine UA YELLOW; Glucose Urine UA NEGATIVE (Negative); Ketones Urine UA NEGATIVE (NEGATIVE); Leukocyte Esterase Urine UA NEGATIVE (NEGATIVE); Nitrite Urine UA NEGATIVE (Negative); Occult Blood Urine UA NEGATIVE (Negative); Protein Urine UA NEGATIVE (Negative); RBC Urine None Seen (0-5/HPF); Specific Gravity Urine UA <=1.005 (1.000-1.035); Urobilinogen Urine UA 0.2 E.U./dL (0.2)
[2019-02-05 00:50] LABS: Bacteria Urine Occasional (0-1); Squamous Epithelial Cell Urine 1-5 /HPF (0-5/HPF); WBC Urine 0-1/HPF (0-5/HPF); pH Urine UA 5.5 (4.5-8.0)
[2019-02-05 00:51] LABS: Culture Indicated Urine Cult Not Indicated; Hyaline Casts Urine 0-1/LPF
--- NOTE | 2019-02-05 03:11 | PC.NURSE ---
Desats. low 70-85% with 2 liters of oxygen, with any activities. If she's resting or sleeping her SPO2 90-95% 2 liters. Using the bed dominguez at this time, will cont. POC & monitor.
[2019-02-05 05:37] LABS: Add Manual Diff / Slide Review NO; Basophils Absolute Auto 0 /uL (0-100); Basophils Percent Auto 0.4 % (0-2); Eosinophils Absolute Auto 300 /uL (0-450); Hematocrit 30.9 % (36-46); Hemoglobin 10.4 g/dL (12.0-16.0); INR 1.5 (0.9-1.3); Lymphocytes Absolute Auto 1200 /uL (1100-4500); Lymphocytes Percent Auto 15.8 % (25-40); Mean Corpuscular HGB Conc 33.7 % (30-36); Mean Corpuscular Hemoglobin 30.6 PG (26-34); Monocytes Absolute Auto 700 /uL (0-900); Neutrophils Absolute Auto 5500 /uL (1500-7000); Neutrophils Percent Auto 70.8 % (50-75); Platelet Count 325 X10^3/uL (150-400); Prothrombin Time 17.2 SECONDS (10.1-12.7); Red Cell Distribution Width 15.9 % (11.6-14.8); White Blood Cell Count 7.8 X10^3/uL (4.5-11.0)
[2019-02-05] MEDS: HYDROCODONE/ACET 5/325 TABLET 2 TAB PO ×4 (05:41→20:18)
[2019-02-05 05:43] LABS: Blood Urea Nitrogen 23 mg/dL (7-17); Calcium 9.3 mg/dL (8.4-10.2); Carbon Dioxide 32 mmol/L (22-32); Chloride 99 mmol/L (98-107); Estimated Glomerular Filt Rate 53.6 mL/min (>60); Glucose 95 mg/dL (80-110); HEMOLYSIS < 15 (0-50); Potassium 4.5 mmol/L (3.4-5.1); Sodium 138 mmol/L (137-145)
--- NOTE | 2019-02-05 06:52 | PC.NURSE ---
Son Geoff came by this morning to changed the battery of her cardiac vest. Reported battery need to be change every 0600 in the morning & leave an instructions booklet in the room & haz tech. Will report to day RN & will monitor. While she's asleep her SPO2 @ 96% in 3 liters of oxygen, turned down her 02 to 2 liters.
[2019-02-05] MEDS: SODIUM CHLORIDE 0.9% 1,000 ML 75 ML IV (08:18)
[2019-02-05] MEDS: PANTOPRAZOLE 40 MG TABLET PO (08:19)
[2019-02-05] MEDS: ASPIRIN EC 81 MG TABLET PO (08:19)
[2019-02-05] MEDS: METOPROLOL ER 25 MG TABLET PO (08:26)
--- NOTE | 2019-02-05 08:35 | OT.IP.EVAL ---
Past Medical History (Last Reviewed 02/04/19 @ 19:19 by Jeannie Steinberg DO) Afib (Acute) CAD (coronary artery disease) (Chronic) Cardiac defibrillator in place (Acute) Carotid stenosis (Chronic) Colovaginal fistula (Acute) COPD (chronic obstructive pulmonary disease) (Chronic) CVA (cerebral vascular accident) (Acute) Enterovaginal fistula (Acute) Heart failure (Chronic) HLD (hyperlipidemia) (Chronic) HTN (hypertension) (Chronic) Nicotine addiction (Acute) PAD (peripheral artery disease) (Chronic) Surgical History (Last Reviewed 02/04/19 @ 19:19 by Jeannie Steinberg DO) H/O carotid endarterectomy (Chronic) History of appendectomy (Acute) History of coronary artery stent placement (Chronic) History of hysterectomy (Acute) Hx of tonsillectomy (Acute) Occupational Therapy Inpatient Evaluation/Re-Eval M1 PT/OT-IP Prior Functional Status Start: 02/05/19 10:03 Freq: NEEDED Status: Active Protocol: Document 02/05/19 10:03 [facility] (Rec: 02/05/19 10:33 [facility] [id number]) Medical Review Prior Functional Status Medical History Reviewed Yes Diet/Fluid Consistency Regular,Thin Liquids Communication Independent. Mobility and Gait Pt states at times used 4WW and for at night ot the bathroom. Activities of Daily Living and IADL's Pt completely independent for basic ADl's and granddaughter present and assisted for showers. Pt's son provides medications , and daughter in law provides al her meals and does IADl needs. Social History Household Members none Living Arrangements House Number of Floors (Floors) One Floor Number of Stairs To Enter/Railing? 2 steps and no rails. Home Environment Standard Height Toilet,Walk in Shower Home Equipment Front Wheel Walker,Four Wheel Walker,Raised Toilet Seat w/ Armrests,Shower Seat with Backrest,Hand Held Shower,Grab Bars In Shower Employment Status Retired Additional Social History Comment Pt fell on the toilet 02/02/19 and [facility] noted negative for rib fracture at the time. 01/23/19 pt [facility]'d [facility] with recent stents and wearing defribillator cardiac vest. M2 OT-IP Current Condition Start: 02/05/19 10:03 Freq: Status: Active Protocol: Document 02/05/19 10:03 [facility] (Rec: 02/05/19 10:33 [facility] [id number]) Occupational Therapy Current Condition Current Condition Evaluation Date 02/05/19 Treatment Diagnosis Back pain, decreased functional mobility and ADl's Diagnosis Onset Date 02/04/19 Post Operative Precautions Lumbar Precautions Log Roll,No Twisting,Limit Bending,Lifting Restriction of 10 lbs M3 OT- IP Subjective and Pain Start: 02/05/19 10:03 Freq: Status: Active Protocol: Document 02/05/19 10:03 [facility] (Rec: 02/05/19 10:33 [facility] [id number]) OT- Subjective Occupational Therapy Visit Type Type Initial Evaluation Visit Start Time 08:35 Visit Stop Time 09:47 Total Visit Minutes 72 Occupational Therapy Visit Comments Patient Comments Pt needing encouragement and agreed to try to get up for OT /PT eval. Patient/Caregiver Goals Pt just states at this time just wants to sleep and not be in pain. OT Pain Assessment Pain When Pain Assessed During Mobility Pain Present Pain Present Pain Reported Location Left Back Intensity 10 Scale Used Numeric (1 - 10) Description Stabbing M4 OT- IP ADL's Start: 02/05/19 10:03 Freq: Status: Active Protocol: Document 02/05/19 10:03 [facility] (Rec: 02/05/19 10:33 [facility] [id number]) OT [id number] General Evaluation Self-Feeding Ability Independent OT ADL-Grooming Comments OT Grooming Comments Pt not wanting to do any grooming needs at this time. OT ADL-Dressing General Eval Lower Body Dressing Ability Minimal Assistance Comments OT Dressing Comments Pt intially was not able to lean forwards to get brief over her foot due to back pain/spasm and than after resting able to jodee brief over right foot with right hand and left foot with left hand. Pt CGA/SBa to stand from higher surface with FWW while able to pull up brief over her hips and needing assist to take off tab brief. Pt's socks already on at this time. OT ADL-Toileting Comments OT Toileting Comments Pt states just used the toilet eariler. Pt would benefit from BSC at home but states will never use one at home and would rather just walk to the bathroom. OT ADL-Bathing Comments OT Bathing Comments No performed. M5 OT- IP IADL's Start: 02/05/19 10:03 Freq: Status: Active Protocol: Document 02/05/19 10:03 [facility] (Rec: 02/05/19 10:33 [facility] [id number]) OT-Instrumental Activities of Daily Living Home Safety Awareness Awareness of Need for Assistance at Home Decreased Awareness Medication Management Medication Management Caregiver Administers Meal Preparation Meal Preparation Caregiver Provides Assist Tapper Bit Tapper Bit Caregiver Provides Assist Driving Driving Caregiver Provides Assist M6 OT- IP Functional Cognition Start: 02/05/19 10:03 Freq: Status: Active Protocol: Document 02/05/19 10:03 [facility] (Rec: 02/05/19 10:33 [facility] [id number]) Cognitive Factors Limiting Selfcare Function Cognitive Ability Level of Alertness Alert,Confusional State Patient Orientation Name,Place,Situation Attention Span Ability Capable of Focused Attention, Capable of Sustained Attention Ability to Follow Commands Able to Follow One Step Commands with Increased Time, Able to Follow One Step Commands with Repetition Memory Description Short Term Impaired Safety Awareness Decreased Ability to Apply Precautions,Underestimates Need for Assistance Problem Solving Ability Unable to Identify Errors, Needs Assist to Identify Solutions Cognitive Comments Cognitive Assessment Comments Pt a bit confused and needing simple concrete commands to follow. Pt not remembering that therapist asked if she wanted to wear mesh brief with pad versus brief. Pt not remembering to follow safety awareness for hand placement to push up from the bed versus on the fww. Pt insistent that she does not need to use the FWW and having loss of balance and leaning backwards. OT- Vision and Hearing OT- Hearing Assessment OT- Hearing Assessment WFL OT- Vision Assessment Visual Acuity Glasses For Reading M7 OT- IP Mobility and Balance Start: 02/05/19 10:03 Freq: Status: Active Protocol: Document 02/05/19 10:03 [facility] (Rec: 02/05/19 10:33 [facility] [id number]) OT- Bed Mobility Assessment Supine to Sit Supine to Sit Assist Standby Assistance,Bedrails Sit to Supine Sit to Supine Assist Moderate Assistance OT-Transfer Assessment Sit to and From Stand Sit to and from Stand Minimal Assistance,1 Person Assistance Transfers Transfer Ability Minimal Assistance,2 Person Assistance Technique Transfer Destination Bed,Chair Transfer Technique Stand Step Pivot Devices Transfer Assistive Devices Gait Belt,Front Wheeled Walker Comments Mobility Comments Pt needing increased time to get up and initially due to pain stopped during process of getting up and needing 3 attempts and then eventually able to get to the edge of the bed. ALETHEA x 2 with FWW, one for balance and safety awareness and other person to help manage all lining of IV, O2, pulse ox line, and cardiac cord from cardiac vest. Supine bp 133/65, sitting, 119 /72, standing drops to 96/62. O2 reading on 3L drops to mid 80'5 after exertions and within one minute back up to lower 90's. OT- Gait Assessment Comments Gait Ability Comments Trasnfer only at this time. OT- Balance Assessment Sitting Balance and Reactions Static Sitting Balance Ability Normal Dynamic Sitting Balance Ability Good Standing Balance and Reactions Static Standing Balance Ability Fair M8 OT- IP Objective Assessments Start: 02/05/19 10:03 Freq: Status: Active Protocol: Document 02/05/19 10:03 [facility] (Rec: 02/05/19 10:33 [facility] [id number]) OT Gross Range of Motion Upper Extremity Range of Motion Assessment Left Impaired ROM Impairments LUE limited at end range of shoulder flexion. OT Strength Comments Strength Comments hand valve fitter 5/5, NT for BUE due to back pain at least 3+/5 per functional mobility. OT- Coordination Assessment Upper Extremity Finger to Nose Test Within Functional Limits Finger Tapping Test Within Functional Limits M9 OT- IP Assessment and Plan Start: 02/05/19 10:03 Freq: Status: Active Protocol: Document 02/05/19 10:03 [facility] (Rec: 02/05/19 10:33 [facility] [id number]) OT Summary Assessment and Plan Potential Rehabilitation Potential Good Analytic Complexity at Evaluation Moderate Summary OT Impairments Pain,Balance,Functional Cognition,Functional Mobility, Grooming,Dressing,Toileting, Bathing,Toilet Transfers, Shower Transfers Progress Towards Goals Slow Progress due to Pain,Slow Progress due to Activity Tolerance,Slow Progress due to Cognition Assessment Summary Pt MOD complexity and main barriers are steps, pain, and now needing assist for all functional mobility and ADl's needs. Pt needing increased time for movement and O2 level tends to drop during exertion . Pt does not have someone to assist her at home 27/09 and at this time would benefit from skilled rehab to help get pt back to prior level of MODA for basic ADl needs and mobility. Goals Grooming Goal Independent Dressing Goal Independent Toileting Goal Independent Bathing Goal Standby Assistance Toilet Transfer Goal Independent Shower Transfer Goal Standby Assistance Patient/Caregiver Education Goal Demonstrate Post-Op Precautions,Demonstrate Energy Conservation and Pacing OT-Other Goals Grooming goal in standing. Days to Meet Goals 10 Treatment Plan OT Treatment Plan ADL Training,Functional Cognition Training,Functional Mobility,Patient/Family Education,Discharge Planning Other Treatment Recommendations and Next Go over use of LB dressing Treatment Focus equipment for needs, standing for grooming. Discharge Recommendations OT Discharge Recommendations SNF Rehab Home Equipment Needs [facility]
--- NOTE | 2019-02-05 10:35 | PT.IIE ---
Surgical History (Last Reviewed 02/04/19 @ 19:19 by Jeannie Steinberg DO) H/O carotid endarterectomy (Chronic) History of appendectomy (Acute) History of coronary artery stent placement (Chronic) History of hysterectomy (Acute) Hx of tonsillectomy (Acute) Medical History (Last Reviewed 02/04/19 @ 19:19 by Jeannie Steinberg DO) Afib (Acute) CAD (coronary artery disease) (Chronic) Cardiac defibrillator in place (Acute) Carotid stenosis (Chronic) Colovaginal fistula (Acute) COPD (chronic obstructive pulmonary disease) (Chronic) CVA (cerebral vascular accident) (Acute) Enterovaginal fistula (Acute) Heart failure (Chronic) HLD (hyperlipidemia) (Chronic) HTN (hypertension) (Chronic) Nicotine addiction (Acute) PAD (peripheral artery disease) (Chronic) Physical Therapy Inpatient Evaluation/Re-Eval M1 PT/OT-IP Prior Functional Status Start: 02/05/19 08:16 Freq: NEEDED Status: Active Protocol: Document 02/05/19 09:44 AW (Rec: 02/05/19 10:35 AW [id number]) Medical Review Prior Functional Status Medical History Reviewed Yes Diet/Fluid Consistency Regular Communication No known deficits Mobility and Gait Pt reports household mobility only with need for FWW or 4WW Activities of Daily Living and IADL's Pt reports requiring occasional assistance with dressing, granddaughter helps with showering, independent with toileting. Son, Geoff, stops by twice per day to check in. He also assists with medication management. Social History Household Members none Living Arrangements House Number of Floors (Floors) One Floor Number of Stairs To Enter/Railing? 2 ZANDER without railing Home Environment Standard Height Toilet,Walk in Shower Home Equipment Front Wheel Walker,Four Wheel Walker,Raised Toilet Seat w/ Armrests,Shower Seat with Backrest,Hand Held Shower,Grab Bars In Shower Additional Social History Comment Pt's son, [id number], and granddaughter live in a house next door on the same property. There is a baby monitor/video monitor in place which the family uses as an additional safety measure. Pt reports she tends to sleep on a couch near her bathroom. M1 PT/OT-IP Prior Functional Status Start: 02/05/19 10:03 Freq: NEEDED Status: Active Protocol: Document 02/05/19 10:03 [facility] (Rec: 02/05/19 10:33 [facility] [id number]) Medical Review Prior Functional Status Medical History Reviewed Yes Diet/Fluid Consistency Regular,Thin Liquids Communication Independent. Mobility and Gait Pt states at times used 4WW and for at night ot the bathroom. Activities of Daily Living and IADL's Pt compoetely independent for basuic ADl's and granddaughter present and assisted for showers. Pt's son provides medications , and daughter in law provides al her meals and doesn IADl needs. Social History Household Members none Living Arrangements House Number of Floors (Floors) One Floor Number of Stairs To Enter/Railing? 2 steps and no rails. Home Environment Standard Height Toilet,Walk in Shower Home Equipment Front Wheel Walker,Four Wheel Walker,Raised Toilet Seat w/ Armrests,Shower Seat with Backrest,Hand Held Shower,Grab Bars In Shower Employment Status Retired Additional Social History Comment Pt fell on the toilet 02/02/19 and [facility] noted negative for rib fracture at the time. 01/23/19 pt d/c'd form [facility] with recent stents and wearing defribillator cardiac vest. M2 PT-IP Current Condition Start: 02/05/19 08:16 Freq: NEEDED Status: Active Protocol: Document 02/05/19 09:44 AW (Rec: 02/05/19 10:35 AW [id number]) Physical Therapy Current Condition Current Condition Evaluation Date 02/05/19 Treatment Diagnosis weakness, multiple falls, difficulty in walking Onset Date 02/04/19 Precautions Other Precautions Pt with defibrillator vest and external battery pack which requires daily battery change. Weight Bearing Status Weight Bearing Status Full Weight Bearing M3 PT-IP Subjective Start: 02/05/19 08:16 Freq: NEEDED Status: Active Protocol: Document 02/05/19 09:44 AW (Rec: 02/05/19 10:35 AW [id number]) Subjective Physical Therapy Visit Type Type Initial Evaluation Visit Start Time 08:40 Visit Stop Time 09:40 Total Visit Minutes 60 Notes Pt seen with OT Number of [facility] Visits 0 Physical Therapy Visit Comments Patient Comments Pt hurts to move but she is willing to attempt mobility Patient Goals Ultimately, to be home with family Therapy Pain Assessment Pain When Pain Assessed During Mobility Pain Present Pain Present Pain Reported Location Left Back Intensity 10 Description Sharp,Stabbing Pain Behaviors Facial Grimacing,Guarding, Moaning,Restlessness,Wincing M4 PT-IP Mobility and Gait Start: 02/05/19 08:16 Freq: NEEDED Status: Active Protocol: Document 02/05/19 09:44 AW (Rec: 02/05/19 10:35 AW [id number]) PT-Bed Mobility Assessment Rolling Level of Assist Minimal Assistance Supine to Sit Supine to Sit Minimal Assistance,2 Person Assistance,Bedrails Sit to Supine Sit to Supine Minimal Assistance,2 Person Assistance Scooting Scooting to Edge of Bed Contact Guard Assistance PT-Transfer Assessment Sit to and From Stand Sit to and from Stand Minimal Assistance,2 Person Assistance,Use of Upper Extremities Equipment Transfer Assistive Device Gait Belt,Front Wheeled Walker Transfers Transfer Destination Bed,Chair Transfer Technique Stand Step Pivot Transfer Ability Level of Assist Minimal Assistance,2 Person Assistance,Use of Upper Extremities Comments Mobility Comments Pt required significantly increased time to move from supine to sit min A x 2. She first attempted log roll but experienced sharp pain and needed several minutes to recover. SpO2 was ~95% on 3LPM but dropped to mid 80's when experiencing sharp pain. Second attempt at supine to sit also required increased time and min A x 2; instead of log roll, pt swung legs toward EOB and used bed rails to pull to seated position, managing to move in spite of increased pain reported at 10/ 10. She again de-satted to mid -80's. With cues for deep breaths through her nose, she recovered SpO2 to mid-90's. Pt was able to sit EOB with UE support and then stood with min A x 2 for line management (O2, pulse ox, BP, defibrillator battery pack, IV ) and for safety. Pt was then interested in changing her briefs, so sat again EOB. She was able to don the brief CGA for safety sitting EOB and then stand again using UE's on FWW to pull to standing. In standing, she was able to release the walker handles and pull up her briefs CGA. She then transferred with stand step pivot technique to chair at bedside using FWW min A x 2 for line management and safety. As with all mobility, SpO2 dropped to mid-80's. Pt requested return to bed, stating she could do it without the walker. Pt stood CGA without walker, but required min A to recover from lateral loss of balance as she reached for the bed. PT/OT encouraged pt to use the walker to transfer, but pt had difficulty staying within the walker frame, requiring max cues for sequencing and safety . BP was monitored throughout session as followin/65 supine, 119/72 sitting, 96/62 standing with patient reporting lightheadedness and appearing unsteady on her feet . Gait Assessment Gait Gait Assistance Required: Minimum Assistance Able to Maintain Weight Bearing Status Yes During Gait Assistive Devices Assistive Device Gait Belt,Front Wheeled Walker Gait Deviations General Gait Pattern Antalgic,Decreased Stride Length,Decreased Feet Clearance,Flexed Trunk Factors Limiting Gait Function Factors Limiting Gait Function Decreased Activity Tolerance, Decreased Strength,Difficulty Following Directions,Limited Range of Motion,Pain,Poor Balance,Poor Safety Awareness, Respiratory Distress Comments Gait Comments See mobility comments. Stair Climbing Assessment Comments Stair Climbing Comments Not assessed. PT-Balance Assessment Sitting Balance and Reactions Static Sitting Balance Ability Good Dynamic Sitting Balance Ability Fair Standing Balance and Reactions Static Standing Balance Ability Fair Dynamic Standing Balance Ability Fair Device Used FWW Comments Other Balance Tests/Deviations/Treatment Pt with poor safety awareness : regarding balance and denied need for walker during transfer, but she is clearly unsteady on her feet and susceptible to spasm/shooting pain which further compromises her balance. M5 PT-IP Objective Assessments Start: 02/05/19 08:16 Freq: NEEDED Status: Active Protocol: Document 02/05/19 09:44 AW (Rec: 02/05/19 10:35 AW [id number]) Orientation Orientation/Cognition Level of Alertness Confusional State Orientation Name,Place,Situation Language Function Ability No Deficits Noted Safety Awareness Decreased Safety Awareness Memory Description Short Term Impaired Gross Range of Motion Lower Extremity ROM Assessment Within Functional Limits Strength Lower Extremity Strength Hip R 4/5; L 3/5 Knee B 4/5 Ankle B 4+/5 Comments Strength Comments Pt could not take any resistance on MMT left hip due to reported left sided rib and back pain Coordination Assessment Gross Coordination Gross Coordination WNL Assessment Finger to Nose Test Normal Performance Sensation Assessment Sensation Gross Sensation WNL M6 PT-IP Treatment Start: 02/05/19 08:16 Freq: NEEDED Status: Active Protocol: Document 02/05/19 09:44 AW (Rec: 02/05/19 10:35 AW [id number]) Physical Therapy Treatment Education Education Provided Precautions,Safety Other Treatments Other Treatment Performed Discussed with pt PT plan of care, safe use of FWW. Initiated discharge planning conversation. M7 PT-IP Assessment and Plan Start: 02/05/19 08:16 Freq: NEEDED Status: Active Protocol: Document 02/05/19 09:44 AW (Rec: 02/05/19 10:35 AW [id number]) PT Summary Assessment and Plan Potential Rehabilitation Potential Good Status of Condition at Evaluation Evolving Summary Impairments Pain,ROM,Strength,Balance, Cognition,Bed Mobility, Transfers,Gait,Activity Tolerance Assessment Summary Pt is a 78 yo woman with multiple recent hospitalizations who was seen for PT evaluation three days after last known fall, two weeks after extensive cardiac workup including emergency stent placement and external defibrillator, and one day after admission due to multiple falls and weakness. Pt was living alone but next door to her son, daughter in law, and granddaughter who check on her a few times per day. She was ambulating modified independent with FWW and 4WW at home but had not left the house much since June when cardiac symptoms worsened significantly. Pt now presents with generalized weakness, painful movement, poor safety awareness, and decreased independence with all mobility secondary to left -sided thorax and back pain. She lacks 24/7 care at home and is unable to care for herself in her current condition. At discharge, she will require 24/7 assistance with all mobility and ongoing therapy to improve her independence and safety at home. PT recommends SNF rehab. Goals Bed Mobility Goal Standby Assistance Transfer Goal Standby Assistance,Front Wheeled Walker Gait Goal Standby Assistance,Front Wheel Walker Gait Distance 75 Other Goals up/down 2 stairs without railing CGA Days to Meet Goals 10 Frequency of Treatment Frequency Of Treatment Once a Day Treatment Plan Physical Therapy Treatment Plan Bed Mobility Training,Transfer Training,Gait Training, Therapeutic Exercise,Balance Retraining,Discharge Planning, Hot or Cold Pack,Neuromuscular Re-ed,Manual Therapy Other Recommendations and Next Treatment bed mobility, transfers, Focus initiate gait training Recommendations To Nursing Amount of Assist Needed 2 Person Assist Discharge Recommendations PT Discharge Recommendations SNF Rehab
--- NOTE | 2019-02-05 13:09 | CM.DANOTE ---
Addendum entered by Caitlyn Rodgers 02/05/19 13:36: Spoke with son/Wilson re: SNF choice. Wilson has no preference in facilities. He requested CM team attempt next closest facilities for placement. Patient and Wilson do not want [facility]. Therefore, asked YUNIOR/Mey to fax to both [facility] and [facility]. [facility] is patient/son first choice. [facility] Original Note: DCP/Assessment: Reviewed chart. Patient is a 78yr old female admitted to [facility] under OBS status back pain. PCP is Deepa Varela. Primary payor is 1)Medicare 2)[facility]. Met with patient explained CM/SW role. Patient reports that she was recently discharged from [facility] in [place]. At time of that d/c, patient had HH arranged through [facility] for nursing and therapy. Patient reports that she fell at home recently and has been unable to do much since. Patient complains of pain. PT/OT evaluations pending. Patient wears external cardiac defibrillator. Patient reports that she hopes to d/c to [facility] when medically stable. Patient does not believe that she can manage at home by herself. Patient does have supportive son and resides on his property but she feels that this is not enough. Patient has previous inpatient stay at [facility] that should qualify her for SNF if recommended. Placed call to [facility] notifying them of referral. Dr. Cameron reports that she is going to check with [facility] on why patient has external cardiac defibrillator rather than internal? P: Pending. Do not anticipate patient will be changed to inpatient. Patient has 3dy LOS from previous admit at [facility] within the last 30dys. [facility] reviewing for admit. Patient aware that second SNF choice may be needed. Continue to follow closely. JAIRO Eid Discharge Planning/Care Management CM Discharge Assessment Start: 02/05/19 13:06 Freq: Status: Active Protocol: Document 02/05/19 13:06 MEG (Rec: 02/05/19 13:09 [facility] [id number]) Discharge Planning Assessment Assigned Electric Scoop Operator JAIRO Eid Contact Information Geoff (son)# [phone] Advance Directives? Yes/POLST History Provided By Patient,Medical Record Prior Living Arrangements House Household Members none Type of transporation used prior to Relies on Others admit Independent with ADL's No Is patient alert and oriented? Yes Caregiver for Another No DME Already Rented / Owned FWW / Walker,Cane Patient/Family Preference Half-Way Facility Discharge Plan Half-Way Facility Referrals Initiated Half-Way If patient plan is SNF: Has PASSR been No completed? Medicare Choice List Provided Yes SNF/HH Preference [facility] Contact Name/Phone August [phone] Has Agency SNF been contacted Yes Whiteboard Updated in Patient Room with Yes name and ext. # of Electric Scoop Operator Review Status In Process Next Review Type Continued Stay Review
--- NOTE | 2019-02-05 15:39 | CM.DPC ---
Addendum entered by Silvia Rodgers R.N. 02/05/19 15:56: DCp Continues: [facility] and stated they will not be able to accept the patient due to the cost of coving the daily rental for patients Cardiac External Defibrillator which they can't charge to the patient because she is medicare. Sent Clinicals to [facility] to review for possible placement to review to cover basis. They are reviewing. CM/SW might want to talk about HH options for patient since SNF will be challenging due to the added cost with the cardiac Vest. Silvia Rodgers RN Original Note: DCP continued: YUNIOR Mathias Faxed clinicals to [facility] and [facility] to review for possible SNF placement. [facility] called CM/RN to discuss possible acceptance of the patient. [facility] needed more information about the patients cardiac external defibrillator vest. CM/RN sent discharge summary from carmen [facility]ace[facility] which gives some information about Cardiac vest for [facility] to review. CM/SW will follow up with dr. mensah to see if she had any information from [facility] about Cardiac vest. [facility] contacted CM/RN about accepting patient when ready to d/c. They can accept closer to the end of the week when the have a female bed available. Only thing they are verifying is the cost of taking the patient with an external defibrillator vest. [facility]- left a message for August to call CM/RN back about if they will accept patient. CM/SW to follow up in the AM. Silvia Rodgers RN
--- NOTE | 2019-02-05 16:47 | PM.PN.1 ---
Subjective Subjective Date Patient Seen: 02/05/19 Interval history: Chasity Wilks is a 78-year-old female with a past medical history significant for CAD status post stents x2, PAD status post venous grafts, chronic atrial fibrillation, recent nonsustained ventricular tachycardia causing syncope now with defibrillator vest in place, COPD, and colovaginal and enterovaginal fistulas with recent UTI who presented to the ED due to severe weakness and recent ground level fall with left-sided chest wall/rib pain. The patient is resting in bed and appears comfortable. She intermittently has muscle spasms which cause her some discomfort. She Has significant pinpoint tenderness to palpation on her left chest wall where she struck her self during the fall. She has pain with movement which is controlled with hydrocodone. She worked with physical therapy today and reports she did well. She requests a bowel regimen as she reports she has not had a bowel movement in 3-4 days. She has no other complaints and denies headache, shortness of breath, chest pain, abdominal pain, nausea, vomiting, fever, chills, dysuria, diarrhea or constipation. She is voiding and without difficulty. She is up ambulating with assistance. Exam Vital Signs (past 8 hours): - 02/05/19 15:42 Temperature 97.7 F Pulse Rate 88 Respiratory Rate 20 Blood Pressure 108/73 Pulse Oximetry 93 Oxygen Delivery Method Nasal Cannula Oxygen Flow Rate 2 Narrative Exam Narrative: General: Elderly female lying in bed and in no acute distress, well-developed, well-nourished, appropriately interactive HEENT: Normocephalic, atraumatic. External ears without defect. Pupils equal, round, and reactive to light. Anicteric sclerae, moist conjunctivae, and no lid lag. Neck: Supple with full range of motion. No lymphadenopathy or thyromegaly. Cardiovascular: Irregularly irregular without murmurs, rubs, or gallops appreciated. Pinpoint tenderness to palpation on lateral chest wall at mid axillary line. Pulmonary: Clear to auscultation bilaterally without crackles, wheezes, or rhonchi. Normal respiratory effort with no use of accessory muscles. Abdomen: Soft, bowel sounds present, nontender, nondistended. No hepatosplenomegaly or masses appreciated. Extremities: No clubbing, cyanosis, or edema. Skin: Normal temperature, turgor, and texture; no rash, ulcers, or subcutaneous nodules appreciated. Neurological: Cranial nerves grossly intact. Psychiatric: Anxious mood and affect. Appears to be alert and oriented to person, place, and time. Objective Labs Result Diagrams: 02/05/19 05:02 02/05/19 05:02 Labs: Laboratory Results - last 24 hr 02/04/19 02/05/19 02/05/19 23:20 05:02 05:02 WBC 7.8 RBC 3.40 L Hgb 10.4 L Hct 30.9 L MCV 91.0 MCH 30.6 MCHC 33.7 RDW 15.9 H Plt Count 325 Neut % (Auto) 70.8 Lymph % (Auto) 15.8 L Douglas % (Auto) 9.0 Eos % (Auto) 4.0 Baso % (Auto) 0.4 Neut # (Auto) 5500 Lymph # (Auto) 1200 Douglas # (Auto) 700 Eos # (Auto) 300 Baso # (Auto) 0 PT INR Sodium 138 Potassium 4.5 Chloride 99 Carbon Dioxide 32 BUN 23 H Creatinine 1.00 Estimated GFR 53.6 L BUN/Creatinine Ratio 23.0 H Glucose 95 Calcium 9.3 Urine Color Yellow Urine Appearance Clear Urine pH 5.5 Ur Specific [place] <=1.005 Urine Protein Negative Urine Glucose (UA) Negative Urine Ketones Negative Urine Occult Blood Negative Urine Nitrate Negative Urine Bilirubin Negative Urine Urobilinogen 0.2 Ur Leukocyte Esterase Negative Urine RBC None seen Urine WBC 0-1/hpf Ur Squamous Epith Cells 1-5 /hpf Urine Bacteria Occasional (0-1) Hyaline Casts 0-1/lpf Ur Culture Indicated? Cult not indicated 02/05/19 05:02 WBC RBC Hgb Hct MCV MCH MCHC RDW Plt Count Neut % (Auto) Lymph % (Auto) Douglas % (Auto) Eos % (Auto) Baso % (Auto) Neut # (Auto) Lymph # (Auto) Douglas # (Auto) Eos # (Auto) Baso # (Auto) PT 17.2 H INR 1.5 H Sodium Potassium Chloride Carbon Dioxide BUN Creatinine Estimated GFR BUN/Creatinine Ratio Glucose Calcium Urine Color Urine Appearance Urine pH Ur Specific [place] Urine Protein Urine Glucose (UA) Urine Ketones Urine Occult Blood Urine Nitrate Urine Bilirubin Urine Urobilinogen Ur Leukocyte Esterase Urine RBC Urine WBC Ur Squamous Epith Cells Urine Bacteria Hyaline Casts Ur Culture Indicated? Assessment & Plan Assessment & Plan narrative: Chasity Wilks is a 78-year-old female with a past medical history significant for CAD status post stents x2, PAD status post venous grafts, chronic atrial fibrillation, recent nonsustained ventricular tachycardia causing syncope now with defibrillator vest in place, COPD, and colovaginal and enterovaginal fistulas with recent UTI who presented to the ED due to severe weakness and recent ground level fall with left-sided chest wall/rib pain. 1. Severe weakness with ground level fall and left chest wall/rib contusion, present on admission. Active. 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 -Continue pain control with acetaminophen 650 mg every 6 hours as needed for mild pain, baclofen 10 mg 3 times daily as needed for muscle spasticity, and hydrocodone 10-325 mg every 4 hours as needed for severe pain. -Continue physical and occupational therapy evaluation and treatment. -She already has a Medicare qualifying stay at [facility] in the last 30 days. Her son says that [facility] had declined to take her due to the cost of the external defibrillator. Consulted [employer]RE[employer] for SNF placement if possible in lieu of life vest. 2. Chronic atrial fibrillation present on admission. Stable. -Continue metoprolol succinate 100 mg daily for rate control and Eliquis 5 mg twice daily for anticoagulation. -Continue to monitor electrolytes and replete as necessary. Goal K+ > 4.0 and Mg + >2.0. 3. Intermittent ventricular tachycardia with external defibrillator device, present on admission. Stable. -Continue to monitor closely on telemetry. -Continue to monitor electrolytes and replete as necessary. Goal K+ > 4.0 and Mg + >2.0. 4. COPD, present on admission. Stable. -Does not represent COPD exacerbation. -Continue albuterol inhaler every 6 hours as needed for shortness of breath or wheezing. 5. Hypertension, chronic, present on admission. Stable. -Continue metoprolol succinate 100 mg daily. 6. Hyperlipidemia, chronic, present on admission. Stable. -Continue simvastatin 40 mg daily at bedtime. 7. Coronary and peripheral arterial disease, chronic, present on admission. Stable. -Patient recently received 2 drug-eluting stents at [facility] 01/2019. Patient has history of several vascular grafts in her lower extremities. -Continue aspirin 81 mg daily, clopidogrel 75 mg daily, and Eliquis 5 mg twice daily for 1 month. 8. Colovaginal and enterovaginal fistulas, chronic, present on admission. Stable. -Pending surgery with Dr. Yamile Marc in [place]. 9. Recent urinary tract infection. -Her intestinal/vaginal fistulas complicate the dependability of her urine culture and UA results and place her at high risk for recurrent UTI. -No current UTI symptoms other than her generalized weakness. Urinalysis was not infected. Disposition: Patient potentially would benefit from senior living rehabilitation for physical and occupational therapy, however, due to life vest/external defibrillator not likely to be a candidate for senior living rehabilitation and will likely be discharged home with home health tomorrow and provided resources for caregiving if needed.
[2019-02-05] MEDS: SIMVASTATIN 40 MG TABLET PO (17:08)
[2019-02-05] MEDS: POLYETHYLENE GLYCOL 3350 17 GM POWD.PACK PO (17:08)
[2019-02-05] MEDS: DOCUSATE 100 MG CAPSULE PO (20:18)
[2019-02-05] MEDS: BACLOFEN 10 MG TABLET 5 MG PO (20:18)
[2019-02-05] MEDS: APIXABAN 5 MG TABLET PO (20:57)
[2019-02-06] VITALS (7 sets, daily range): BP systolic 139–151; BP diastolic 70–76; PULSE 89–92; RESP 17–19; TEMP 36.6–36.8; O2SAT 78–97
[2019-02-06] MEDS: HYDROCODONE/ACET 5/325 TABLET 2 TAB PO ×3 (00:22→12:27)
--- NOTE | 2019-02-06 03:18 | PC.NURSE ---
Addendum entered by Eliecer Mckoy R.N. 02/06/19 06:39: Patient has portable supervisor malt house for defibrillator in room. Patient said that battery was suppose to be changed Q Day, it was changed at 0630 this AM. Original Note: Pt AxOx3, Hypertensive and Tachy, Pt is on 2 liters O2 at 91%. Pt is on tele: AFib. Pt complains of left sided back/rib pain /, medicated w/ 2 [place] 5/325 Q4 for pain control. Pt has bilateral compression stockings applied. Patient has been on bedpan to urinate. Bed is in low and locked position, bed alarm is on, call light is within reach.
[2019-02-06] MEDS: ASPIRIN EC 81 MG TABLET PO (08:48)
[2019-02-06] MEDS: PANTOPRAZOLE 40 MG TABLET PO (08:48)
[2019-02-06] MEDS: BACLOFEN 10 MG TABLET 5 MG PO (08:48)
[2019-02-06] MEDS: DOCUSATE 100 MG CAPSULE PO (08:49)
[2019-02-06] MEDS: METOPROLOL ER 25 MG TABLET PO (08:49)
[2019-02-06] MEDS: APIXABAN 5 MG TABLET PO (08:49)
[2019-02-06] MEDS: BISACODYL 10 MG SUPP PR (09:19)
[2019-02-06] MEDS: POLYETHYLENE GLYCOL 3350 17 GM POWD.PACK PO (09:19)
--- NOTE | 2019-02-06 10:11 | P.DS_ITS ---
History of Present Illness History of Present Illness Date Patient Seen: 02/04/19 Chief complaint: Back pain Narrative: Written by Dr. Pablo: This is a 78-year-old female, patient of Dr. Deepa Delarosa from [place] who arrives to our ED this evening with complaints of generalized weakness, falling and running out of her pain medicines. She was just in [facility] for a 12 day cardiac hospitalization, then was discharged to home and then fell on 02/02 contusing the left posterior ribs on the toilet edge. A rib fracture was reportedly ruled out with a chest [place] [facility] and she returned home where she has used up all her Hydrocodone and become unable to care for herself. She has also been treated for a UTI (with Bactrim)related to her Colovaginal and Enterovaginal fistulas. She had been pending surgical repair of these fistulas in [place] just before this cardiac hospitalization. During this hospitalization she was treated with 2 emergency coronary stents and was placed on an external cardiac defibrillator vest device which she is still wearing. This is apparently also the reason why she was not able to go to [facility] for rehab, due to the cost of this device concerning the custodial facility. She has also recently resumed home oxygen. When she arrived in our emergency department she was hypotensive and and hypoxic both of which improved spontaneously. She is a vasculopath with descriptions of bypasses that run from the right axilla to the right iliac artery, from the right pelvis to the left pelvis, vascular bypasses in her legs, bilateral carotid endarterectomies and very loud carotid bruits bilaterally today. The recent admission to the [facility] was because of recurrent syncope which was determined to be arhythmia in origin when she experienced 1 of these episodes while on telemetry there. Discharge Providers Provider Date of admission: 02/04/19 18:06 Discharge Date: 02/06/19 Primary care physician: Deepa Varela MD Consults: 02/04/19 18:10 Consult to Pharmacy Routine Comment: coumadin dosing 02/04/19 18:24 Consult to Occupational Therapy Evaluate & Treat Comment: Physician Instructions: Evaluate and treat Consult to Physical Therapy Evaluate & Treat Comment: Physician Instructions: Evaluate and Treat Discharge provider: Di Cameron DO Summary Hospital Course Discharge Diagnosis: 1. Severe weakness with ground level fall and left chest wall/rib contusion, present on admission. Active. 2. Chronic atrial fibrillation present on admission. Stable. 3. Intermittent ventricular tachycardia with external defibrillator device, present on admission. Stable. 4. COPD, present on admission. Stable. 5. Hypertension, chronic, present on admission. Stable. 6. Hyperlipidemia, chronic, present on admission. Stable. 7. Coronary and peripheral arterial disease, chronic, present on admission. Stable. 8. Colovaginal and enterovaginal fistulas, chronic, present on admission. Stable. 9. Recent urinary tract infection. Hospital Course: Chasity Wilks is a 78-year-old female with a past medical history significant for CAD status post stents x2, PAD status post venous grafts, chronic atrial fibrillation, recent nonsustained ventricular tachycardia causing syncope now with defibrillator vest in place, COPD, and colovaginal and enterovaginal fistulas with recent UTI who presented to the ED due to severe weakness and recent ground level fall with left-sided chest wall/rib pain. 1. Severe weakness with ground level fall and left chest wall/rib contusion, present on admission. Active. 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 -Continued pain control with acetaminophen 650 mg every 6 hours as needed for mild pain, baclofen 10 mg 3 times daily as needed for muscle spasticity, and hydrocodone 10-325 mg every 4 hours as needed for severe pain. -Continued physical and occupational therapy evaluation and treatment. -She already has a Medicare qualifying stay at [facility] in the last 30 days. Consulted [facility] for SNF placement in lieu of life vest and we appreciate her time and care of the patient. 2. Chronic atrial fibrillation present on admission. Stable. -Continued metoprolol succinate 100 mg daily for rate control and Eliquis 5 mg twice daily for anticoagulation. -Continued to monitor electrolytes and replete as necessary. Goal K+ > 4.0 and Mg + >2.0. 3. Intermittent ventricular tachycardia with external defibrillator device, present on admission. Stable. -Continued to monitor closely on telemetry. -Continued to monitor electrolytes and replete as necessary. Goal K+ > 4.0 and Mg + >2.0. 4. COPD, present on admission. Stable. -Does not represent COPD exacerbation. -Continued albuterol inhaler every 6 hours as needed for shortness of breath or wheezing. 5. Hypertension, chronic, present on admission. Stable. -Continued metoprolol succinate 100 mg daily. 6. Hyperlipidemia, chronic, present on admission. Stable. -Continued simvastatin 40 mg daily at bedtime. 7. Coronary and peripheral arterial disease, chronic, present on admission. Stable. -Patient recently received 2 drug-eluting stents at [facility] 01/2019. Patient has history of several vascular grafts in her lower extremities. -Continued aspirin 81 mg daily, clopidogrel 75 mg daily, and Eliquis 5 mg twice daily. 8. Colovaginal and enterovaginal fistulas, chronic, present on admission. Stable. -Pending surgery with Dr. Yamile Marc in [place]. 9. Recent urinary tract infection. -Her intestinal/vaginal fistulas complicate the dependability of her urine culture and UA results and place her at high risk for recurrent UTI. -No current UTI symptoms other than her generalized weakness. Urinalysis was no t infected. Exam Vital Signs (past 8 hours): - 02/06/19 04:35 02/06/19 08:00 02/06/19 09:48 Temperature 98.1 F 97.8 F Pulse Rate 92 H 90 Respiratory Rate 19 17 Blood Pressure 139/75 140/76 Pulse Oximetry 90 L 91 97 02/06/19 09:51 Temperature Pulse Rate Respiratory Rate Blood Pressure Pulse Oximetry 78 L Oxygen Delivery Method Room Air Oxygen Flow Rate 2 Narrative Exam Narrative: General: Elderly female lying in bed and in no acute distress, well-developed, appropriately interactive. HEENT: Normocephalic, atraumatic. External ears without defect. Pupils equal, r ound, and reactive to light. Anicteric sclerae, moist conjunctivae, and no lid lag. Neck: Supple with full range of motion. No lymphadenopathy or thyromegaly. Cardiovascular: Irregularly irregular without murmurs, rubs, or gallops appreciated. Pinpoint tenderness to palpation on lateral chest wall at mid axillary line. Life vest in place. Pulmonary: Clear to auscultation bilaterally without crackles, wheezes, or rhonchi. Normal respiratory effort with no use of accessory muscles. Abdomen: Soft, bowel sounds present, nontender, nondistended. No hepatosplenomegaly or masses appreciated. Extremities: No clubbing, cyanosis, or edema. Skin: Normal temperature, turgor, and texture; no rash, ulcers, or subcutaneous nodules appreciated. Neurological: Cranial nerves grossly intact. Psychiatric: Anxious mood and affect. Appears to be alert and oriented to person, place, and time. Mildly slowed cognition due to muscle relaxant and narcotic use. Objective Labs Result Diagrams: 02/05/19 05:02 02/05/19 05:02 Discharge Plan Discharge Plan Patient Disposition: SNF Transfer to: [facility] Under care of provider: apprentice funeral directordirector inbound sales: Facility vehicle I certify the postop hospital custodial care is medically necessary on a continuing basis for any conditions for which he/ she received care during this hospitalization.: Yes The receiving facility has agreed to accept transfer and provide medical treatment.: Yes Discharge orders & Medications Prescriptions: New acetaminophen 325 mg Tablet 650 mg PO Q6HR PRN (Reason: Fever/Mild Pain (1-3)) Qty: 30 RF: 0 polyethylene glycol 3350 17 gram Powder In Packet 17 gm PO DAILY Qty: 1 RF: 0 hydrocodone-acetaminophen 5-325 mg Tablet 2 tab PO Q4HR PRN (Reason: Pain, Severe (7-10)) Qty: 30 RF: 0 baclofen 10 mg Tablet 5 mg PO TID Qty: 30 RF: 0 bisacodyl 10 mg Suppository [address] DAILY PRN (Reason: Constipation) Qty: 10 RF: 0 docusate sodium [DOK] 100 mg Capsule 100 mg PO BID Qty: 60 RF: 0 Continued simvastatin [Zocor] 40 mg Tablet 40 mg PO QPM RF: 0 metoprolol succinate 25 mg Tablet Extended Release 24 Hr 100 mg PO DAILY RF: 0 albuterol sulfate [Ventolin HFA] 90 mcg/actuation Hfa Aerosol Inhaler 2 puff INHALATION Q6H PRN (Reason: Shortness Of Breath Or Wheezing) RF: 0 magnesium oxide 400 mg magnesium Tablet 400 mg PO QAM RF: 0 clopidogrel 75 mg tablet 75 mg PO DAILY RF: 0 amlodipine 5 mg tablet 5 mg PO DAILY RF: 0 Eliquis 5 mg tablet 5 mg PO BID RF: 0 aspirin [Adult Aspirin Regimen] 81 mg tablet,delayed release (DR/EC) 81 mg PO DAILY RF: 0 pantoprazole 40 mg tablet,delayed release (DR/EC) 40 mg PO DAILY RF: 0 Follow up/Referrals: Deepa Varela MD [Primary Care Provider] - As previously scheduled Alverto Lipscomb MD [Non-Staff] - 3-5 Days (As soon as available) Diet/Activity/Treatments Diet: Diet as Tolerated, Low-fat, Low-sodium and Low-cholesterol Activity: Activity as tolerated with physical and occupational therapy [facility] Rehab type: Physical therapy and Occupational therapy Discharge Data Primary Care Provider: Deepa Varela Attending Provider: Robina Pablo Admit Date/Time: 02/04/19 18:06
--- NOTE | 2019-02-06 10:20 | PC.NURSE ---
Addendum entered by Zena Mendenhall R.N. 02/06/19 14:18: TSF - after lunch,SL dc'd, tele dc'd, when staff [facility] arrived pt slowly tsf from bed w/fww,gait belt to wc connected 02 at 2L to portable tank, her belongings including her external defib device and its director business, glasses, clothing, cell phone and director business were packed and given to [facility] staff, report called to ASIA Erickson at [facility]. Addendum entered by Zena Mendenhall R.N. 02/06/19 12:31: GI/PAIN - phys therapy in and pt up to [facility] w/x2 small formed stools, ret bed for lunch, states l torso discomfort 7 on scale 0/10, given norco 5/325mg x 2 tabs prior to transfer. Original Note: AM NOTE - pt is sitting up in bed eating breakfast, denies pain when not moving, does wince later am when repositioned and turned, discomfort r torso area, healing bruises, discussed medications, no complaints in am, no recent bm, did give prune juice, miralax and lurdes and later after breakfast admin a dulcolax suppos, positioned comfortably, call light available.
--- NOTE | 2019-02-06 11:03 | CM.DPC ---
DCP/continued: Reviewed chart. Received call from Tita at [facility]. She reports that they can accept patient today. Per Tita, they had prepared to take patient in the past but patient then insisted upon going home. Tita reports that they had gotten authorization/approval for cardiac vest. Dr. Cameron notified and reports that patient is medically stable to d/c today. Orders obtained. YUNIOR/Mey to finalize arrangements. Spoke with Amada at [facility] and she indicates that they will pick patient up around 1:00pm. [facility] aware that patient requires 2 liters 02 (baseline). Amada made aware that patient does have outpatient cardiac f/u on 02-15 (see d/c summary for details). Met with patient and she is so happy that she is able to go to [facility]. Placed call to son/Geoff and he is aware and agreeable to the above. Son also reports that he will double check to see if patient has additional outpatient appointments that will need to be provided to [facility]. P: [facility] today. JAIRO Eid
--- NOTE | 2019-02-06 11:11 | CM.DPC ---
DCP Cont: Faxed signed med list, SNF order, PASRR and discharge summary to [facility] at fax # [phone]. Fax confirmations scanned in. Reuben Shi Sales Training Coordinator
--- NOTE | 2019-02-06 11:14 | PT.IPTN ---
Physical Therapy Treatment Note M2 PT-IP Current Condition Start: 02/05/19 08:16 Freq: NEEDED Status: Active Protocol: Document 02/05/19 09:44 AW (Rec: 02/05/19 10:35 AW [id number]) Physical Therapy Current Condition Current Condition Evaluation Date 02/05/19 Treatment Diagnosis weakness, multiple falls, difficulty in walking Onset Date 02/04/19 Precautions Other Precautions Pt with defibrillator vest and external battery pack which requires daily battery change. Weight Bearing Status Weight Bearing Status Full Weight Bearing M3 PT-IP Subjective Start: 02/05/19 08:16 Freq: NEEDED Status: Active Protocol: Document 02/06/19 10:45 SP (Rec: 02/06/19 11:37 SP [email or web address]) Subjective Physical Therapy Visit Type Type Treatment Note Visit Start Time 10:45 Visit Stop Time 11:14 Total Visit Minutes 29 Physical Therapy Visit Comments Patient Comments Pt was willing to work with PT today. Therapy Pain Assessment Pain When Pain Assessed During Mobility Pain Present Pain Present Pain Reported Location Left Back Intensity 10 Scale Used Numeric (1 - 10) Description Sharp,Stabbing Pain Behaviors Facial Grimacing,Guarding, Holding Area,Moaning, Restlessness,Wincing Pain Management Techniques Apply Cold,Re-positioning, Timing of Activity with Medications M4 PT-IP Mobility and Gait Start: 02/05/19 08:16 Freq: NEEDED Status: Active Protocol: Document 02/06/19 10:45 SP (Rec: 02/06/19 11:37 SP [email or web address]) PT-Bed Mobility Assessment Rolling Type of Rolling Roll to Right Level of Assist Minimal Assistance Supine to Sit Supine to Sit Minimal Assistance,1 Person Assistance,Head of Bed Elevated,Bedrails Scooting Scooting to Edge of Bed Contact Guard Assistance PT-Transfer Assessment Sit to and From Stand Sit to and from Stand Minimal Assistance,1 Person Assistance,Use of Upper Extremities Equipment Transfer Assistive Device Gait Belt,Front Wheeled Walker Transfers Transfer Destination Chair Transfer Technique Stand Step Pivot Transfer Ability Level of Assist Minimal Assistance,1 Person Assistance,Use of Upper Extremities Comments Mobility Comments Pt required increased time to complete supine>sitting with HOB elevated secondary to L posterolateral ribcage pain 10 /10 top level pain during transition complete at 3rd attempt. Cued for log roll to R with no success, required Min support upper posterior back to transition sitting straight up with use of bed rails RUE. Pt was able to scoot to EOB her self CGA with fair sitting balance. Sp O2 on 2 L stable mid 90s. Pt was able to complete sit to stand Min A x1 using FWW and step pivot over to BSC with cuing for trunk and feet positioning within FWW and spacial awarness backing up to chair for safety. Pt required cuing for use of BUE to stand and reaching back with slow controlled descent to sit for safety. Gait Assessment Gait Gait Assistance Required: Minimum Assistance Distance (Feet) 5 Able to Maintain Weight Bearing Status Yes During Gait Assistive Devices Assistive Device Gait Belt,Front Wheeled Walker Gait Deviations General Gait Pattern Antalgic,Decreased Stride Length,Decreased Feet Clearance,Flexed Trunk Factors Limiting Gait Function Factors Limiting Gait Function Decreased Activity Tolerance, Decreased Strength,Difficulty Following Directions,Limited Range of Motion,Pain,Poor Balance,Poor Safety Awareness, Respiratory Distress Comments Gait Comments See mobililty comments. Pt was able to complete short distance gait to BSC 5 ft and again across room 20 ft using FWW Min A x1 with cuing for trunk and feet within and closer to FWW, obstacle mgt around end of bed. Cued patient for awareness of O2 tubing, Max assist for management. Pt required 2 stopped rest during room distance gait with good breathing techniques, stable O2 Mid 90s. PT-Balance Assessment Sitting Balance and Reactions Static Sitting Balance Ability Normal Dynamic Sitting Balance Ability Good Standing Balance and Reactions Static Standing Balance Ability Fair Dynamic Standing Balance Ability Fair Device Used FWW Comments Other Balance Tests/Deviations/Treatment Pt has poor safety awareness : regarding balance, welcomed suggestion of use of FWW during transfers and gait with Mod cuing for safety management and body closes within. Pt required increase time between activities for activity recovery. M5 PT-IP Objective Assessments Start: 02/05/19 08:16 Freq: NEEDED Status: Active Protocol: Document 02/05/19 09:44 AW (Rec: 02/05/19 10:35 AW [id number]) Orientation Orientation/Cognition Level of Alertness Confusional State Orientation Name,Place,Situation Language Function Ability No Deficits Noted Safety Awareness Decreased Safety Awareness Memory Description Short Term Impaired Gross Range of Motion Lower Extremity ROM Assessment Within Functional Limits Strength Lower Extremity Strength Hip R 4/5; L 3/5 Knee B 4/5 Ankle B 4+/5 Comments Strength Comments Pt could not take any resistance on MMT left hip due to reported left sided rib and back pain Coordination Assessment Gross Coordination Gross Coordination WNL Assessment Finger to Nose Test Normal Performance Sensation Assessment Sensation Gross Sensation WNL M6 PT-IP Treatment Start: 02/05/19 08:16 Freq: NEEDED Status: Active Protocol: Document 02/06/19 10:45 SP (Rec: 02/06/19 11:37 SP [email or web address]) Physical Therapy Treatment Education Education Provided Precautions,Safety Other Treatments Other Treatment Performed Discussed with pt PT plan of care, safe use of FWW. Initiated discharge planning conversation. M7 PT-IP Assessment and Plan Start: 02/05/19 08:16 Freq: NEEDED Status: Active Protocol: Document 02/06/19 10:45 SP (Rec: 02/06/19 11:37 SP [email or web address]) PT Summary Assessment and Plan Potential Rehabilitation Potential Good Status of Condition at Evaluation Evolving Summary Impairments Pain,ROM,Strength,Balance, Cognition,Bed Mobility, Transfers,Gait,Activity Tolerance Assessment Summary Pt has generalized weakness, painful movement, poor safety awareness, and decreased independence with all mobility secondary to left-sided thorax and back pain. See mobility comments. At discharge, she will require 24 /7 assistance with all mobility and ongoing therapy to improve her independence and safety at home. PT recommends SNF rehab. Goals Bed Mobility Goal Standby Assistance Transfer Goal Standby Assistance,Front Wheeled Walker Gait Goal Standby Assistance,Front Wheel Walker Gait Distance 75 Other Goals up/down 2 stairs without railing CGA at home. Days to Meet Goals 10 Frequency of Treatment Frequency Of Treatment Once a Day Treatment Plan Physical Therapy Treatment Plan Bed Mobility Training,Transfer Training,Gait Training, Therapeutic Exercise,Balance Retraining,Discharge Planning, Hot or Cold Pack,Neuromuscular Re-ed,Manual Therapy Other Recommendations and Next Treatment bed mobility, transfers, Focus initiate gait training Recommendations To Nursing Amount of Assist Needed 1 Person Assist Discharge Recommendations PT Discharge Recommendations SNF Rehab
--- NOTE | 2019-02-06 11:42 | OT.IP.TRT ---
Occupational Therapy Treatment Note M2 OT-IP Current Condition Start: 02/05/19 10:03 Freq: Status: Active Protocol: Document 02/05/19 10:03 [facility] (Rec: 02/05/19 10:33 [facility] [id number]) Occupational Therapy Current Condition Current Condition Evaluation Date 02/05/19 Treatment Diagnosis Back pain, decreased functional mobility and ADl's Diagnosis Onset Date 02/04/19 Post Operative Precautions Lumbar Precautions Log Roll,No Twisting,Limit Bending,Lifting Restriction of 10 lbs M3 OT- IP Subjective and Pain Start: 02/05/19 10:03 Freq: Status: Active Protocol: Document 02/06/19 13:46 [facility] (Rec: 02/06/19 14:07 [facility] [id number]) OT- Subjective Occupational Therapy Visit Type Type Treatment Note Visit Start Time 11:42 Visit Stop Time 12:15 Total Visit Minutes 33 Occupational Therapy Visit Comments Patient Comments Pt wanting to brush her teeth and use the toilet. Pt not feeling up to showering at this time. OT Pain Assessment Pain When Pain Assessed At Rest Pain Present Pain Present Denied Pain M4 OT- IP ADL's Start: 02/05/19 10:03 Freq: Status: Active Protocol: Document 02/06/19 13:46 [facility] (Rec: 02/06/19 14:07 [facility] [id number]) OT ADL-Grooming General Evaluation Grooming Ability Standby Assistance Areas Needing Assistance Retrieving/Set-up of Grooming Items Comments OT Grooming Comments Pt able to stand at the sink initially and then having to sit down due to not able to tolerate standing due to back pain. OT ADL-Oral Care General Eval Oral Care Ability Independent OT ADL-Toileting General Evaluation Toileting Ability Moderate Assistance Areas Needing Assistance Manage Clothing Comments OT Toileting Comments Pt just needing assist for brief management but able to do own hygiene after set-up of wipe. M5 OT- IP IADL's Start: 02/05/19 10:03 Freq: Status: Active Protocol: Document 02/05/19 10:03 [facility] (Rec: 02/05/19 10:33 [facility] [id number]) OT-Instrumental Activities of Daily Living Home Safety Awareness Awareness of Need for Assistance at Home Decreased Awareness Medication Management Medication Management Caregiver Administers Meal Preparation Meal Preparation Caregiver Provides Assist Sustainability Manager Sustainability Manager Caregiver Provides Assist Driving Driving Caregiver Provides Assist M6 OT- IP Functional Cognition Start: 02/05/19 10:03 Freq: Status: Active Protocol: Document 02/06/19 13:46 [facility] (Rec: 02/06/19 14:07 [facility] [id number]) Cognitive Factors Limiting Selfcare Function Cognitive Ability Level of Alertness Alert Patient Orientation Name,Place,Situation Attention Span Ability Capable of Focused Attention, Capable of Sustained Attention Ability to Follow Commands Able to Follow One Step Commands Memory Description Short Term Impaired Safety Awareness Decreased Ability to Apply Precautions,Underestimates Need for Assistance Problem Solving Ability Unable to Identify Errors, Needs Assist to Identify Solutions Cognitive Comments Cognitive Assessment Comments Pt thinking better today and able to problem solve through task of grooming and toileting . M7 OT- IP Mobility and Balance Start: 02/05/19 10:03 Freq: Status: Active Protocol: Document 02/06/19 13:46 [facility] (Rec: 02/06/19 14:07 [facility] [id number]) OT-Transfer Assessment Sit to and From Stand Sit to and from Stand Minimal Assistance,1 Person Assistance Transfers Transfer Ability Minimal Assistance,1 Person Assistance Technique Transfer Destination Chair,Toilet Devices Transfer Assistive Devices Gait Belt,Front Wheeled Walker Comments Mobility Comments Pt able to tolerate walking with FWW to the sink , but needing to sit and then able to walk to the bathroom to use the toilet. ALETHEA with FWW for balance and safety with FWW as tends to have FWW too far away. M8 OT- IP Objective Assessments Start: 02/05/19 10:03 Freq: Status: Active Protocol: Document 02/05/19 10:03 [facility] (Rec: 02/05/19 10:33 [facility] [id number]) OT Gross Range of Motion Upper Extremity Range of Motion Assessment Left Impaired ROM Impairments LUE limited at end range of shoulder flexion. OT Strength Comments Strength Comments hand hydrometer calibrator 5/5, NT for BUE due to back pain at least 3+/5 per functional mobility. OT- Coordination Assessment Upper Extremity Finger to Nose Test Within Functional Limits Finger Tapping Test Within Functional Limits M9 OT- IP Assessment and Plan Start: 02/05/19 10:03 Freq: Status: Active Protocol: Document 02/06/19 13:46 [facility] (Rec: 02/06/19 14:07 [facility] [id number]) OT Summary Assessment and Plan Potential Rehabilitation Potential Good Analytic Complexity at Evaluation Moderate Summary OT Impairments Pain,Balance,Functional Cognition,Functional Mobility, Grooming,Dressing,Toileting, Bathing,Toilet Transfers, Shower Transfers Progress Towards Goals Progressing Toward Goals Assessment Summary Pt increased activity tolerance for ADl's today. Pt being discharged to skilled rehab today. Discharge Recommendations OT Discharge Recommendations SNF Rehab
== END 2019-02-06 12:45 ==
LOC: ED 14:16 → AC 18:06
PROVIDERS: Admitting Provider Family Medicine; Emergency Provider Emergency Medicine; PCP Internal Medicine; Visit Provider Family Medicine
DX: M54.89 Other dorsalgia (principal); R53.1 Weakness; S20.212A Contusion of left front wall of thorax, initial encounter; W18.30XA Fall on same level, unspecified, initial encounter; I25.10 Atherosclerotic heart disease of native coronary artery without angina pectoris; J44.9 Chronic obstructive pulmonary disease, unspecified; I50.9 Heart failure, unspecified; E78.5 Hyperlipidemia, unspecified; I73.89 Other specified peripheral vascular diseases; Z87.891 Personal history of nicotine dependence; N39.0 Urinary tract infection, site not specified; N82.4 Other female intestinal-genital tract fistulae; I48.20 Chronic atrial fibrillation, unspecified; I47.2 Ventricular tachycardia
CPT/HCPCS: 36415; 71045; 80048; 80053; 81001; 82550; 83690; 83880; 84484; 85025; 85610; 85730; 93005; 94640; 96360; 96361; 97110; 97116; 97162; 97166; 97530; 97535; 99283; 99285; G0378

== ENCOUNTER 2019-03-02 12:39 | Emergency (ER) | payer MEDICARE, SELFPAY ==
[2019-02-04 18:29] VITALS: BMI 22.2
[2019-03-02] VITALS (10 sets, daily range): BP systolic 91–150; BP diastolic 56–77; PULSE 68–89; RESP 13–28; TEMP 37.3; O2SAT 90–100
--- NOTE | 2019-03-02 12:56 | DI.RAD.S_ITS ---
PROCEDURE: XR RIBS LT MIN 3V W CXR1V INDICATIONS: pain left ribs TECHNIQUE: 2 views of the left ribs were acquired, along with a single view chest. COMPARISON: [facility], , XR CHEST 1V, 02/04/2019, 15:06. FINDINGS: Surgical changes and devices: Electronic control device is overlying the left lower chest. There is alveolar opacification of the retrocardiac left lower lobe, atelectasis or pneumonia is the most likely cause. Bones and chest wall: No fractures or dislocations. No suspicious bony lesions. Overlying soft tissues appear unremarkable. Lungs and pleura: No pleural effusions or pneumothorax. Lungs appear clear. Mediastinum: Mediastinal contours appear normal. Heart size is normal. IMPRESSION: A definite source of pain at the left ribs is not known but note is made of at least 6 complex electronic control device is over the left lower chest and upper abdomen. Opacification retrocardiac left lower lobe is present, mild, representing atelectasis and/or pneumonia. No central mass lesion is found. Dictated by: Hardik Irwin M.D. on 03/02/2019 at 14:04 Approved by: Hardik Irwin M.D. on 03/02/2019 at 14:06
--- NOTE | 2019-03-02 13:01 | PC.NURSE ---
lab at bedside for blood draw
[2019-03-02] MEDS: SODIUM CHLORIDE 0.9% 1,000 ML 150 ML IV (13:06)
[2019-03-02] MEDS: LIDOCAINE PATCH 1 EACH ADH..PATCH TOP (13:06)
--- NOTE | 2019-03-02 13:20 | ED.CHESTPAIN ---
HPI - Chest Pain <Nia FitzgeraldSOFIAP-BC - Last Filed: 03/02/19 19:00> General Chief Complaint: Chest Pain Stated Complaint: chest pain x 1 hour Time Seen by Provider: 03/02/19 12:39 Source: patient and EMS Mode of arrival: EMS Limitations: physical limitation History of Present Illness HPI narrative: The patient is a 70-year-old female former smoker with 1 extensive complicated medical history presents with a chief complaint of chest pain underneath her left breast for 1 hour. 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 She does present to wearing a life vest. She states that she has had multiple falls, but nothing recently. She states that previously she fell and hit her left ribs. She states that her left chest pain is worse with pressure, worse with movement, and she does not want to take a deep breath because it hurts to take a deep breath. She denies any fevers nausea vomiting or diarrhea. She has a history of COPD, is on home oxygen and denies any new or different shortness of breath. She was given a [place] this morning at [facility] for her back pain. Related Data Home Medications Medication Instructions Recorded Confirmed aspirin 81 mg tablet,delayed 81 mg PO DAILY 04/20/18 03/02/19 release pantoprazole 40 mg tablet,delayed 40 mg PO DAILY 04/20/18 03/02/19 release albuterol sulfate [Ventolin HFA] 2 puff INHALATION Q6H PRN 10/29/18 03/02/19 magnesium oxide 400 mg PO QAM 10/29/18 03/02/19 Eliquis 5 mg PO BID 02/04/19 03/02/19 amlodipine 5 mg PO DAILY 02/04/19 03/02/19 baclofen 5 mg PO TID 03/02/19 03/02/19 metoprolol succinate 100 mg PO DAILY 03/02/19 03/02/19 simvastatin 20 mg PO DAILY 03/02/19 03/02/19 Previous Rx's Medication Instructions Recorded acetaminophen 650 mg PO Q6HR PRN #30 tab 02/06/19 bisacodyl 10 mg TN DAILY PRN #10 ea 02/06/19 docusate sodium [DOK] 100 mg PO BID #60 cap 02/06/19 hydrocodone-acetaminophen 2 tab PO Q4HR PRN #30 tab 02/06/19 polyethylene glycol 3350 17 gm PO DAILY #1 pkg 02/06/19 prednisone 20 mg PO DAILY #4 tab 03/02/19 sulfamethoxazole-trimethoprim 1 tab PO BID #10 tab 03/02/19 [Bactrim DS] Allergies Allergy/AdvReac Type Severity Reaction Status Date / Time morphine AdvReac Intermediate burning Verified 10/29/18 09:51 sensation at IV site amoxicillin [From Augmentin] AdvReac Mild flu like Verified 10/29/18 09:51 symptoms clavulanic acid AdvReac Mild flu like Verified 10/29/18 09:51 [From Augmentin] symptoms lisinopril AdvReac Mild cough Verified 10/29/18 09:51 Review of Systems <SERGE Mai - Last Filed: 03/02/19 19:00> Review of Systems Narrative: GENERAL: Denies chills, fatigue, malaise, fever, sweats. HEENT: Denies sinus pain, ear pain, sore throat, difficulty swallowing, dizziness. RESPIRATORY: See HPI CARDIOVASCULAR: See HPI GASTROINTESTINAL: Denies nausea, vomiting, abdominal pain, diarrhea, constipation, melena. : Denies dysuria, frequency, incontinence, hematuria, urinary retention. MUSCULOSKELETAL: denies weakness, joint pain, or bony pain SKIN: Denies rash, skin lesions, or other NEUROLOGIC: Denies weakness, headache, numbness, change in speech, confusion, seizures, incoordination. PSYCHIATRIC: No concerning psychosocial issues. 12 point review of systems is negative except for those stated above Patient History <SERGE Mai - Last Filed: 03/02/19 19:00> Medical History Afib (Acute) CAD (coronary artery disease) (Chronic) Cardiac defibrillator in place (Acute) Carotid stenosis (Chronic) Colovaginal fistula (Acute) COPD (chronic obstructive pulmonary disease) (Chronic) CVA (cerebral vascular accident) (Acute) Enterovaginal fistula (Acute) Heart failure (Chronic) HLD (hyperlipidemia) (Chronic) HTN (hypertension) (Chronic) Nicotine addiction (Acute) PAD (peripheral artery disease) (Chronic) Surgical History H/O carotid endarterectomy (Chronic) History of appendectomy (Acute) History of coronary artery stent placement (Chronic) History of hysterectomy (Acute) Hx of tonsillectomy (Acute) Family History Father Throat cancer Mother Ovarian cancer Social History household members: none Smoking Status: Former smoker alcohol intake: current Smoking Status: Former smoker tobacco type: cigarettes alcohol intake frequency: holidays/special occasions only Substance Use Type: does not use Exam <SERGE Mai - Last Filed: 03/02/19 19:00> Narrative Exam Narrative: GENERAL: Elderly female lying on stretcher in no acute distress wearing a life vest HEAD: Atraumatic. Normocephalic. No temporal or scalp tenderness. EYES: Pupils equal round and reactive. Extraocular motions intact. No scleral icterus. No injection or drainage. ENT: Nose without bleeding, purulent drainage or septal hematoma. Throat without erythema, tonsillar hypertrophy or exudate. Uvula midline. Airway patent. NECK: Trachea midline. No JVD or lymphadenopathy. Supple, nontender, no meningeal signs. CARDIOVASCULAR: Regular rate and irregular rhythm RESPIRATORY: Decreased bilaterally to auscultation. Breath sounds equal bilaterally. No wheezes, rales, or rhonchi. No cough. No increased respiratory effort. No accessory muscle use. Pain to palpation of left lower ribs anterior side, pain to lateral chest wall compression and anterior posterior chest wall compression GASTROINTESTINAL: Abdomen soft, non-tender, nondistended. No hepato-splenomegaly, or palpable masses. No guarding. EXTREMITIES: No clubbing, cyanosis, or edema. No joint tenderness, effusion, or edema noted. BACK: Nontender without deformity or crepitance. No flank tenderness. NEURO: AOx3. SKIN: No rash or erythema on visible skin. No rash erythema ecchymosis laceration noted on left chest Initial Vital Signs Initial Vital Signs: Vital Signs Pulse Rate 89 03/02/19 12:45 Respiratory Rate 28 H 03/02/19 12:45 Blood Pressure 91/77 03/02/19 12:45 Pulse Oximetry 90 L 03/02/19 12:45 <Jeannie Steinberg DO - Last Filed: 03/05/19 08:06> Initial Vital Signs Initial Vital Signs: Vital Signs Pulse Rate 89 03/02/19 12:45 Respiratory Rate 28 H 03/02/19 12:45 Blood Pressure 91/77 03/02/19 12:45 Pulse Oximetry 90 L 03/02/19 12:45 Course <SERGE Mai - Last Filed: 03/02/19 19:00> Orders Ordered: Discontinued Medications Albuterol/Ipratropium (Duoneb) 3 ml INH NOW ONE Stop: 03/02/19 15:23 Last Admin: 03/02/19 15:25 Dose: 3 ml Documented by: MASOOD Sodium Chloride (Normal Saline 0.9%) 1,000 mls @ 150 mls/hr IV CONT SILKE Last Infusion: 03/02/19 18:07 Dose: 0 mls/hr Documented by: Infusion: 03/02/19 13:31 Dose: 150 mls/hr Documented by: Infusion: 03/02/19 13:10 Dose: 0 mls/hr Documented by: Admin: 03/02/19 13:06 Dose: 150 mls/hr Documented by: RUELARRINGTO Lidocaine (Lidoderm) 1 each TOP NOW ONE Stop: 03/02/19 12:57 Last Admin: 03/02/19 13:06 Dose: 1 each Documented by: RUELARRINGSONAL Prednisone (Deltasone) 20 mg PO NOW ONE Stop: 03/02/19 15:13 Last Admin: 03/02/19 15:47 Dose: 20 mg [facility]: [facility] Trimethoprim/Sulfamethoxazole (Bactrim Ds) 1 tab PO NOW ONE Stop: 03/02/19 17:18 Last Admin: 03/02/19 17:27 Dose: 1 tab Documented by: [facility] Vital Signs Vital signs: Vital Signs - 8 hr 03/02/19 12:45 03/02/19 12:52 03/02/19 13:49 Temperature 99.1 F Pulse Rate 89 88 75 Respiratory Rate 28 H 15 18 Blood Pressure 91/77 Blood Pressure [Left Arm] 91/77 92/56 L Pulse Oximetry 90 L 93 97 03/02/19 14:00 03/02/19 14:30 03/02/19 15:00 Temperature Pulse Rate 72 77 78 Respiratory Rate 21 18 20 Blood Pressure Blood Pressure [Left Arm] 95/57 L 97/60 105/75 Pulse Oximetry 97 97 100 03/02/19 15:25 03/02/19 15:34 03/02/19 16:04 Temperature Pulse Rate 77 82 85 Respiratory Rate 19 13 18 Blood Pressure Blood Pressure [Left Arm] 111/66 94/74 Pulse Oximetry 98 99 96 03/02/19 18:06 Temperature Pulse Rate 68 Respiratory Rate 22 Blood Pressure Blood Pressure [Left Arm] 150/67 H Pulse Oximetry 97 <Jeannie Steinberg, DO - Last Filed: 03/05/19 08:06> Orders Ordered: Discontinued Medications Albuterol/Ipratropium (Duoneb) 3 ml INH NOW ONE Stop: 03/02/19 15:23 Last Admin: 03/02/19 15:25 Dose: 3 ml Documented by: MASOOD Sodium Chloride (Normal Saline 0.9%) 1,000 mls @ 150 mls/hr IV CONT SILKE Last Infusion: 03/02/19 18:07 Dose: 0 mls/hr Documented by: Infusion: 03/02/19 13:31 Dose: 150 mls/hr Documented by: Infusion: 03/02/19 13:10 Dose: 0 mls/hr Documented by: Admin: 03/02/19 13:06 Dose: 150 mls/hr Documented by: HFARRINGTO Lidocaine (Lidoderm) 1 each TOP NOW ONE Stop: 03/02/19 12:57 Last Admin: 03/02/19 13:06 Dose: 1 each Documented by: RUELARRINGTO Prednisone (Deltasone) 20 mg PO NOW ONE Stop: 03/02/19 15:13 Last Admin: 03/02/19 15:47 Dose: 20 mg Documented by: RUELARRINGTO Trimethoprim/Sulfamethoxazole (Bactrim Ds) 1 tab PO NOW ONE Stop: 03/02/19 17:18 Last Admin: 03/02/19 17:27 Dose: 1 tab Documented [facility]: [facility] Vital Signs Vital signs: Vital Signs - 8 hr 03/02/19 12:45 03/02/19 12:52 03/02/19 13:49 Temperature 99.1 F Pulse Rate 89 88 75 Respiratory Rate 28 H 15 18 Blood Pressure 91/77 Blood Pressure [Left Arm] 91/77 92/56 L Pulse Oximetry 90 L 93 97 03/02/19 14:00 03/02/19 14:30 03/02/19 15:00 Temperature Pulse Rate 72 77 78 Respiratory Rate 21 18 20 Blood Pressure Blood Pressure [Left Arm] 95/57 L 97/60 105/75 Pulse Oximetry 97 97 100 03/02/19 15:25 03/02/19 15:34 03/02/19 16:04 Temperature Pulse Rate 77 82 85 Respiratory Rate 19 13 18 Blood Pressure Blood Pressure [Left Arm] 111/66 94/74 Pulse Oximetry 98 99 96 03/02/19 18:06 Temperature Pulse Rate 68 Respiratory Rate 22 Blood Pressure Blood Pressure [Left Arm] 150/67 H Pulse Oximetry 97 MDM - Chest Pain <DAYNE Mai-BC - Last Filed: 03/02/19 19:00> Lab Data Result diagrams: 03/02/19 13:07 03/02/19 13:07 Labs: Lab Results 03/02/19 03/02/19 03/02/19 Range/Units 13:07 13:07 13:07 WBC 12.4 H (4.5-11.0) X10^3/uL RBC 4.20 (4.0-5.2) X10^6/uL Hgb 12.0 (12.0-16.0) g/dL Hct 36.8 (36-46) % MCV 87.7 (80-100) fL MCH 28.7 (26-34) PG MCHC 32.7 (30-36) % RDW 15.0 H (11.6-14.8) % Plt Count 263 (150-400) X10^3/uL Neut % (Auto) 83.5 H (50-75) % Lymph % (Auto) 7.5 L (25-40) % [place] % (Auto) 8.0 (3-14) % Eos % (Auto) 0.6 L (2-4) % Baso % (Auto) 0.4 (0-2) % Neut # (Auto) 12665 H (2509-6787) /uL Lymph # (Auto) 900 L (5172-0193) /uL [place] # (Auto) 1000 H (0-900) /uL Eos # (Auto) 100 (0-450) /uL Baso # (Auto) 0 (0-100) /uL PT 22.2 H (10.1-12.7) SECONDS INR 1.9 H (0.9-1.3) APTT 35 (26.4-36.2) SECONDS Sodium (137-145) mmol/L Potassium (3.4-5.1) mmol/L Chloride (98-107) mmol/L Carbon Dioxide (22-32) mmol/L BUN (7-17) mg/dL Creatinine (0.52-1.04) mg/dL Estimated GFR (>60) mL/min BUN/Creatinine Ratio (6-22) Glucose (80-110) mg/dL Calcium (8.4-10.2) mg/dL Total Bilirubin (0.2-1.3) mg/dL AST (14-36) IU/L ALT (<35) IU/L Alkaline Phosphatase (38-126) U/L Total Creatine Kinase (30-135) U/L CK-MB (CK-2) CK-MB (CK-2) Rel Index Troponin I (0.01-0.034) ng/mL B-Natriuretic Peptide 345 H (<100) Total Protein (6.3-8.2) g/dL Albumin (3.5-5.0) g/dL Globulin (1.7-4.1) g/dL Albumin/Globulin Ratio (1.0-2.8) Lipase (23-300) U/L Procalcitonin (<0.5) ng/mL Urine RBC (0-5/HPF) Urine WBC (0-5/HPF) Ur Squamous Epith Cells (0-5/HPF) Amorphous Sediment Urine Bacteria (None) Ur Culture Indicated? 03/02/19 03/02/19 03/02/19 Range/Units 13:07 16:00 16:07 WBC (4.5-11.0) X10^3/uL RBC (4.0-5.2) X10^6/uL Hgb (12.0-16.0) g/dL Hct (36-46) % MCV (80-100) fL MCH (26-34) PG MCHC (30-36) % RDW (11.6-14.8) % Plt Count (150-400) X10^3/uL Neut % (Auto) (50-75) % Lymph % (Auto) (25-40) % [place] % (Auto) (3-14) % Eos % (Auto) (2-4) % Baso % (Auto) (0-2) % Neut # (Auto) (8962-6176) /uL Lymph # (Auto) (3285-4386) /uL [place] # (Auto) (0-900) /uL Eos # (Auto) (0-450) /uL Baso # (Auto) (0-100) /uL PT (10.1-12.7) SECONDS INR (0.9-1.3) APTT (26.4-36.2) SECONDS Sodium 141 (137-145) mmol/L Potassium 4.0 (3.4-5.1) mmol/L Chloride 101 (98-107) mmol/L Carbon Dioxide 32 (22-32) mmol/L BUN 21 H (7-17) mg/dL Creatinine 0.70 (0.52-1.04) mg/dL Estimated GFR > 60.0 (>60) mL/min BUN/Creatinine Ratio 30.0 H (6-22) Glucose 178 H (80-110) mg/dL Calcium 9.7 (8.4-10.2) mg/dL Total Bilirubin 0.5 (0.2-1.3) mg/dL AST 21 (14-36) IU/L ALT 12 (<35) IU/L Alkaline Phosphatase 87 (38-126) U/L Total Creatine Kinase 35 31 (30-135) U/L CK-MB (CK-2) TNP TNP CK-MB (CK-2) Rel Index TNP TNP Troponin I < 0.012 0.015 (0.01-0.034) ng/mL B-Natriuretic Peptide (<100) Total Protein 6.7 (6.3-8.2) g/dL Albumin 4.1 (3.5-5.0) g/dL Globulin 2.6 (1.7-4.1) g/dL Albumin/Globulin Ratio 1.6 (1.0-2.8) Lipase 12 L (23-300) U/L Procalcitonin (<0.5) ng/mL Urine RBC 0-1/hpf (0-5/HPF) Urine WBC 5-10/hpf H (0-5/HPF) Ur Squamous Epith Cells 0-1 /hpf (0-5/HPF) Amorphous Sediment 1+ Urine Bacteria Many (>30) H (None) Ur Culture Indicated? Specimen cultured 03/02/19 Range/Units 16:07 WBC (4.5-11.0) X10^3/uL RBC (4.0-5.2) X10^6/uL Hgb (12.0-16.0) g/dL Hct (36-46) % MCV (80-100) fL MCH (26-34) PG MCHC (30-36) % RDW (11.6-14.8) % Plt Count (150-400) X10^3/uL Neut % (Auto) (50-75) % Lymph % (Auto) (25-40) % [place] % (Auto) (3-14) % Eos % (Auto) (2-4) % Baso % (Auto) (0-2) % Neut # (Auto) (7854-4803) /uL Lymph # (Auto) (3601-0479) /uL [place] # (Auto) (0-900) /uL Eos # (Auto) (0-450) /uL Baso # (Auto) (0-100) /uL PT (10.1-12.7) SECONDS INR (0.9-1.3) APTT (26.4-36.2) SECONDS Sodium (137-145) mmol/L Potassium (3.4-5.1) mmol/L Chloride (98-107) mmol/L Carbon Dioxide (22-32) mmol/L BUN (7-17) mg/dL Creatinine (0.52-1.04) mg/dL Estimated GFR (>60) mL/min BUN/Creatinine Ratio (6-22) Glucose (80-110) mg/dL Calcium (8.4-10.2) mg/dL Total Bilirubin (0.2-1.3) mg/dL AST (14-36) IU/L ALT (<35) IU/L Alkaline Phosphatase (38-126) U/L Total Creatine Kinase (30-135) U/L CK-MB (CK-2) CK-MB (CK-2) Rel Index Troponin I (0.01-0.034) ng/mL B-Natriuretic Peptide (<100) Total Protein (6.3-8.2) g/dL Albumin (3.5-5.0) g/dL Globulin (1.7-4.1) g/dL Albumin/Globulin Ratio (1.0-2.8) Lipase (23-300) U/L Procalcitonin < 0.05 (<0.5) ng/mL Urine RBC (0-5/HPF) Urine WBC (0-5/HPF) Ur Squamous Epith Cells (0-5/HPF) Amorphous Sediment Urine Bacteria (None) Ur Culture Indicated? Urine Dip Bedside Urine Glucose Negative Bedside Urine Bilirubin - Negative Bedside Urine Ketone - Negative Urine Specific [place] 1.015 Bedside Urine Occult Blood +/- Bedside Urine pH 6.0 Bedside Urine Protein +/- 15 Bedside Urine Urobilinogen +/- 1mg Bedside Urine Nitrite + Positive Bedside Urine Leukocytes +++ 500 Esterase Imaging Data Rib x-ray: Radiologist's Impression: [address] [address] XRay Report Signed Patient: Chasity Wilks JMR#: [id number] : 1Acct:[id number] Age/Sex: 78 / FDate of Service: 03/02/19 Loc: ED Accession Number: [id number] Procedure: XR ribs LT min 3V w CXR1V Ordering Provider: Nia FitzgeraldP- PROCEDURE: XR RIBS LT MIN 3V W CXR1V INDICATIONS: pain left ribs TECHNIQUE: 2 views of the left ribs were acquired, along with a single view chest. COMPARISON: [facility], KESHA, XR CHEST 1V, 02/04/2019, 15:06. FINDINGS: Surgical changes and devices: Electronic control device is overlying the left lower chest. There is alveolar opacification of the retrocardiac left lower lobe, atelectasis or pneumonia is the most likely cause. Bones and chest wall: No fractures or dislocations. No suspicious bony lesions. Overlying soft tissues appear unremarkable. Lungs and pleura: No pleural effusions or pneumothorax. Lungs appear clear. Mediastinum: Mediastinal contours appear normal. Heart size is normal. IMPRESSION: A definite source of pain at the left ribs is not known but note is made of at least 6 complex electronic control device is over the left lower chest and upper abdomen. Opacification retrocardiac left lower lobe is present, mild, representing atelectasis and/or pneumonia. No central mass lesion is found. Dictated by: Hardik Irwin M.D. on 03/02/2019 at 14:04 Approved by: Hardik Irwin M.D. on 03/02/2019 at 14:06 ECG Data Attestation: I personally reviewed and interpreted this ECG as follows: Interpretation: Atrial fibrillation. Ventricular rate 85. QRS 106. Viewed by Dr. Steinberg MDM Narrative Medical decision making narrative: The patient is a 78-year-old female with a very complicated medical history who presents with a chief complaint of left-sided chest pain onset 1 hour prior to arrival. However it is reassuring that this pain is very reproducible on exam, supporting musculoskeletal pain. Given that she has pain on deep breath, I'm suspicious of pleurisy especially given her recent diagnosis of rib contusion. She has 2 negative troponins, 3 hours apart. Her EKG has no acute abnormalities. Her x-ray is concerning for mild atelectasis versus pneumonia, but her lung exam is very reassuring she has no productive cough. She was evaluated by respiratory therapist while in the emergency department. Lack of pneumonia is also supported by her negative procalcitonin. Given that she is on Eliquis I cannot do NSAIDs, elected to treat her pain with prednisone, which had a very positive affect in the patient felt much improved. I placed her on a burst of prednisone However her urine is concerning for infection with nitrates. I started her on Bactrim according to her most recent urine culture and sensitivity. She does have any signs of systemic illness, is afebrile. Bactrim will not interact with her Eliquis. After her repeat lab work, the patient requested to go home, stated that she felt much better and would like to go back to [facility]. The patient's son is present during her stay. He is in accordance with plan of care and the 2 prescriptions. I discussed at length follow up with primary care provider coming back to the emergency department for any acute concerns such as chest pain, shortness of breath etc.. Patient has no questions or concerns upon discharge and states understanding of return precautions as well as follow-up care. <Jeannie Steinberg, DO - Last Filed: 03/05/19 08:06> Lab Data Labs: Lab Results 03/02/19 03/02/19 03/02/19 Range/Units 13:07 13:07 13:07 WBC 12.4 H (4.5-11.0) X10^3/uL RBC 4.20 (4.0-5.2) X10^6/uL Hgb 12.0 (12.0-16.0) g/dL Hct 36.8 (36-46) % MCV 87.7 (80-100) fL MCH 28.7 (26-34) PG MCHC 32.7 (30-36) % RDW 15.0 H (11.6-14.8) % Plt Count 263 (150-400) X10^3/uL Neut % (Auto) 83.5 H (50-75) % Lymph % (Auto) 7.5 L (25-40) % [place]ack[place] % (Auto) 8.0 (3-14) % Eos % (Auto) 0.6 L (2-4) % Baso % (Auto) 0.4 (0-2) % Neut # (Auto) 21852 H (7913-0944) /uL Lymph # (Auto) 900 L (9357-9739) /uL [place]ack[place] # (Auto) 1000 H (0-900) /uL Eos # (Auto) 100 (0-450) /uL Baso # (Auto) 0 (0-100) /uL PT 22.2 H (10.1-12.7) SECONDS INR 1.9 H (0.9-1.3) APTT 35 (26.4-36.2) SECONDS Sodium (137-145) mmol/L Potassium (3.4-5.1) mmol/L Chloride (98-107) mmol/L Carbon Dioxide (22-32) mmol/L BUN (7-17) mg/dL Creatinine (0.52-1.04) mg/dL Estimated GFR (>60) mL/min BUN/Creatinine Ratio (6-22) Glucose (80-110) mg/dL Calcium (8.4-10.2) mg/dL Total Bilirubin (0.2-1.3) mg/dL AST (14-36) IU/L ALT (<35) IU/L Alkaline Phosphatase (38-126) U/L Total Creatine Kinase (30-135) U/L CK-MB (CK-2) CK-MB (CK-2) Rel Index Troponin I (0.01-0.034) ng/mL B-Natriuretic Peptide 345 H (<100) Total Protein (6.3-8.2) g/dL Albumin (3.5-5.0) g/dL Globulin (1.7-4.1) g/dL Albumin/Globulin Ratio (1.0-2.8) Lipase (23-300) U/L Procalcitonin (<0.5) ng/mL Urine RBC (0-5/HPF) Urine WBC (0-5/HPF) Ur Squamous Epith Cells (0-5/HPF) Amorphous Sediment Urine Bacteria (None) Ur Culture Indicated? 03/02/19 03/02/19 03/02/19 Range/Units 13:07 16:00 16:07 WBC (4.5-11.0) X10^3/uL RBC (4.0-5.2) X10^6/uL Hgb (12.0-16.0) g/dL Hct (36-46) % MCV (80-100) fL MCH (26-34) PG MCHC (30-36) % RDW (11.6-14.8) % Plt Count (150-400) X10^3/uL Neut % (Auto) (50-75) % Lymph % (Auto) (25-40) % [place] % (Auto) (3-14) % Eos % (Auto) (2-4) % Baso % (Auto) (0-2) % Neut # (Auto) (2439-3179) /uL Lymph # (Auto) (9562-7928) /uL [place] # (Auto) (0-900) /uL Eos # (Auto) (0-450) /uL Baso # (Auto) (0-100) /uL PT (10.1-12.7) SECONDS INR (0.9-1.3) APTT (26.4-36.2) SECONDS Sodium 141 (137-145) mmol/L Potassium 4.0 (3.4-5.1) mmol/L Chloride 101 (98-107) mmol/L Carbon Dioxide 32 (22-32) mmol/L BUN 21 H (7-17) mg/dL Creatinine 0.70 (0.52-1.04) mg/dL Estimated GFR > 60.0 (>60) mL/min BUN/Creatinine Ratio 30.0 H (6-22) Glucose 178 H (80-110) mg/dL Calcium 9.7 (8.4-10.2) mg/dL Total Bilirubin 0.5 (0.2-1.3) mg/dL AST 21 (14-36) IU/L ALT 12 (<35) IU/L Alkaline Phosphatase 87 (38-126) U/L Total Creatine Kinase 35 31 (30-135) U/L CK-MB (CK-2) TNP TNP CK-MB (CK-2) Rel Index TNP TNP Troponin I < 0.012 0.015 (0.01-0.034) ng/mL B-Natriuretic Peptide (<100) Total Protein 6.7 (6.3-8.2) g/dL Albumin 4.1 (3.5-5.0) g/dL Globulin 2.6 (1.7-4.1) g/dL Albumin/Globulin Ratio 1.6 (1.0-2.8) Lipase 12 L (23-300) U/L Procalcitonin (<0.5) ng/mL Urine RBC 0-1/hpf (0-5/HPF) Urine WBC 5-10/hpf H (0-5/HPF) Ur Squamous Epith Cells 0-1 /hpf (0-5/HPF) Amorphous Sediment 1+ Urine Bacteria Many (>30) H (None) Ur Culture Indicated? Specimen cultured 03/02/19 Range/Units 16:07 WBC (4.5-11.0) X10^3/uL RBC (4.0-5.2) X10^6/uL Hgb (12.0-16.0) g/dL Hct (36-46) % MCV (80-100) fL MCH (26-34) PG MCHC (30-36) % RDW (11.6-14.8) % Plt Count (150-400) X10^3/uL Neut % (Auto) (50-75) % Lymph % (Auto) (25-40) % [place] % (Auto) (3-14) % Eos % (Auto) (2-4) % Baso % (Auto) (0-2) % Neut # (Auto) (4229-3932) /uL Lymph # (Auto) (1627-5024) /uL [place] # (Auto) (0-900) /uL Eos # (Auto) (0-450) /uL Baso # (Auto) (0-100) /uL PT (10.1-12.7) SECONDS INR (0.9-1.3) APTT (26.4-36.2) SECONDS Sodium (137-145) mmol/L Potassium (3.4-5.1) mmol/L Chloride (98-107) mmol/L Carbon Dioxide (22-32) mmol/L BUN (7-17) mg/dL Creatinine (0.52-1.04) mg/dL Estimated GFR (>60) mL/min BUN/Creatinine Ratio (6-22) Glucose (80-110) mg/dL Calcium (8.4-10.2) mg/dL Total Bilirubin (0.2-1.3) mg/dL AST (14-36) IU/L ALT (<35) IU/L Alkaline Phosphatase (38-126) U/L Total Creatine Kinase (30-135) U/L CK-MB (CK-2) CK-MB (CK-2) Rel Index Troponin I (0.01-0.034) ng/mL B-Natriuretic Peptide (<100) Total Protein (6.3-8.2) g/dL Albumin (3.5-5.0) g/dL Globulin (1.7-4.1) g/dL Albumin/Globulin Ratio (1.0-2.8) Lipase (23-300) U/L Procalcitonin < 0.05 (<0.5) ng/mL Urine RBC (0-5/HPF) Urine WBC (0-5/HPF) Ur Squamous Epith Cells (0-5/HPF) Amorphous Sediment Urine Bacteria (None) Ur Culture Indicated? Urine Dip Bedside Urine Glucose Negative Bedside Urine Bilirubin - Negative Bedside Urine Ketone - Negative Urine Specific [place] 1.015 Bedside Urine Occult Blood +/- Bedside Urine pH 6.0 Bedside Urine Protein +/- 15 Bedside Urine Urobilinogen +/- 1mg Bedside Urine Nitrite + Positive Bedside Urine Leukocytes +++ 500 Esterase Discharge Plan Departure Patient Disposition: Home Clinical Impression: Pleurisy, Acute UTI, Atypical chest pain Discharge Date/Time: 03/02/19 18:08 Instructions: How to Use an Incentive Spirometer, DI for Urinary Tract Infection (UTI), DI for Atypical Chest Pain, DI for Pleurisy Activity Restrictions/Additional Instructions: Today your cardiac labs came back well twice Your urine is concerning for infection. I've given you a prescription of Bactrim. We have a urine culture pending at this time. This will result in 48-72 hours. We have treated your chest pain as pleurisy. This is inflammation in the lining of the lung. Please continue [id number] measures as needed and able for pain. I've also placed you on a small amount of prednisone to help with the inflammation. Please come back to emergency department for any acute concerns such as concern of heart attack or stroke Prescriptions: New sulfamethoxazole-trimethoprim [Bactrim DS] 800-160 mg tablet 1 tab PO BID Qty: 10 RF: 0 prednisone 20 mg tablet 20 mg PO DAILY Qty: 4 RF: 0 No Action albuterol sulfate [Ventolin HFA] 90 mcg/actuation Hfa Aerosol Inhaler 2 puff INHALATION Q6H PRN (Reason: Shortness Of Breath Or Wheezing) RF: 0 magnesium oxide 400 mg magnesium Tablet 400 mg PO QAM RF: 0 amlodipine 5 mg tablet 5 mg PO DAILY RF: 0 Eliquis 5 mg tablet 5 mg PO BID RF: 0 acetaminophen 325 mg Tablet 650 mg PO Q6HR PRN (Reason: Fever/Mild Pain (1-3)) Qty: 30 RF: 0 polyethylene glycol 3350 17 gram Powder In Packet 17 gm PO DAILY Qty: 1 RF: 0 hydrocodone-acetaminophen 5-325 mg Tablet 2 tab PO Q4HR PRN (Reason: Pain, Severe (7-10)) Qty: 30 RF: 0 bisacodyl 10 mg Suppository 10 mg TN DAILY PRN (Reason: Constipation) Qty: 10 RF: 0 docusate sodium [DOK] 100 mg Capsule 100 mg PO BID Qty: 60 RF: 0 metoprolol succinate 100 mg tablet extended release 24 hr 100 mg PO DAILY RF: 0 simvastatin 20 mg Tablet 20 mg PO DAILY RF: 0 baclofen 5 mg Tablet 5 mg PO TID RF: 0 aspirin [Adult Aspirin Regimen] 81 mg tablet,delayed release (DR/EC) 81 mg PO DAILY RF: 0 pantoprazole 40 mg tablet,delayed release (DR/EC) 40 mg PO DAILY RF: 0 Referrals: Deepa Varela MD [Primary Care Provider] -
[2019-03-02 13:22] LABS: Add Manual Diff / Slide Review NO; Basophils Absolute Auto 0 /uL (0-100); Basophils Percent Auto 0.4 % (0-2); Eosinophils Absolute Auto 100 /uL (0-450); Eosinophils Percent Auto 0.6 % (2-4); Hematocrit 36.8 % (36-46); Lymphocytes Absolute Auto 900 /uL (1100-4500); Lymphocytes Percent Auto 7.5 % (25-40); Mean Corpuscular HGB Conc 32.7 % (30-36); Mean Corpuscular Hemoglobin 28.7 PG (26-34); Mean Corpuscular Volume 87.7 fL (80-100); Monocytes Absolute Auto 1000 /uL (0-900); Neutrophils Absolute Auto 10300 /uL (1500-7000); Neutrophils Percent Auto 83.5 % (50-75); Platelet Count 263 X10^3/uL (150-400); White Blood Cell Count 12.4 X10^3/uL (4.5-11.0)
[2019-03-02 13:24] LABS: INR 1.9 (0.9-1.3); Prothrombin Time 22.2 SECONDS (10.1-12.7)
[2019-03-02 13:27] LABS: PTT Partial Thromboplastin Tim 35 SECONDS (26.4-36.2)
[2019-03-02 13:29] LABS: Alanine Aminotransferase 12 IU/L (<35); Albumin 4.1 g/dL (3.5-5.0); Albumin Globulin Ratio 1.6 (1.0-2.8); Alkaline Phosphatase 87 U/L (38-126); Aspartate Aminotransferase 21 IU/L (14-36); Bilirubin Total 0.5 mg/dL (0.2-1.3); Blood Urea Nitrogen 21 mg/dL (7-17); Calcium 9.7 mg/dL (8.4-10.2); Carbon Dioxide 32 mmol/L (22-32); Chloride 101 mmol/L (98-107); Creatine Kinase 35 U/L (30-135); Estimated Glomerular Filt Rate > 60.0 mL/min (>60); Globulin 2.6 g/dL (1.7-4.1); Glucose 178 mg/dL (80-110); HEMOLYSIS < 15 (0-50); Lipase 12 U/L (23-300); Sodium 141 mmol/L (137-145); Total Protein 6.7 g/dL (6.3-8.2)
[2019-03-02 13:40] LABS: Troponin I < 0.012 ng/mL (0.01-0.034)
[2019-03-02 13:48] LABS: B Type Natriuretic Peptide 345 (<100)
[2019-03-02] MEDS: ALBUTEROL/IPRATROPIUM 3 ML AMPUL INH (15:25)
[2019-03-02] MEDS: predniSONE 20 MG TABLET PO (15:47)
[2019-03-02 16:29] LABS: Creatine Kinase 31 U/L (30-135)
[2019-03-02 16:39] LABS: Amorphous Sediment Urine 1+; RBC Urine 0-1/HPF (0-5/HPF); Squamous Epithelial Cell Urine 0-1 /HPF (0-5/HPF); WBC Urine 5-10/HPF (0-5/HPF)
[2019-03-02 16:40] LABS: Troponin I 0.015 ng/mL (0.01-0.034)
[2019-03-02 16:40] LABS: Bacteria Urine Many (>30); Culture Indicated Urine Specimen Cultured
[2019-03-02 17:00] LABS: Procalcitonin < 0.05 ng/mL (<0.5)
[2019-03-02] MEDS: TRIMETH/SULFA 160/800 (DS) TABLET 1 TAB PO (17:27)
== END 2019-03-02 18:08 | disposition home or self-care (01) ==
PROVIDERS: Emergency Provider Nurse Practitioner Family; PCP Internal Medicine
DX: R07.89 Other chest pain (principal); R09.1 Pleurisy; N39.0 Urinary tract infection, site not specified; I48.91 Unspecified atrial fibrillation; Z79.01 Long term (current) use of anticoagulants
CPT/HCPCS: 36415; 71101; 80053; 81003; 81015; 82550; 83690; 83880; 84145; 84484; 85025; 85610; 85730; 87077; 87086; 87147; 87186; 93005; 94640; 96360; 96361; 99284; 99285

== ENCOUNTER 2019-04-22 13:14 | Emergency (ER) | payer MEDICARE, SELFPAY ==
[2019-02-04 18:29] VITALS: BMI 22.2
[2019-04-22] VITALS (8 sets, daily range): BP systolic 92–148; BP diastolic 46–91; PULSE 86–104; RESP 16–24; TEMP 36.7; O2SAT 93–97; BMI 21.5
--- NOTE | 2019-04-22 13:36 | DI.RAD.S_ITS ---
PROCEDURE: XR CHEST 1V INDICATIONS: altered mental status. TECHNIQUE: One view of the chest was acquired. COMPARISON: [facility], CT, CT CHEST ABD PEL W CON, 07/20/2018, 14:11. [facility], CR, XR CHEST 1V, 06/12/2018, 19:58. [facility], CR, XR CHEST 1V, 02/04/2019, 15:06. FINDINGS: Surgical changes and devices: Right upper chest clips are seen. Lungs and pleura: Lungs are clear, yet hyperexpanded. No pleural effusions or pneumothorax. Mediastinum: The cardiac contours are within normal limits. The aorta demonstrates calcification and tortuosity. Bones and chest wall: Age-appropriate bony degenerative changes are seen. No suspicious bony lesions. Overlying soft tissues appear unremarkable. IMPRESSION: Hyperexpanded lungs, without an acute cardiopulmonary process identified. Postoperative and degenerative changes are seen. Dictated by: Rom Hankins M.D. on 04/22/2019 at 13:51 Approved by: Rom Hankins M.D. on 04/22/2019 at 13:52
--- NOTE | 2019-04-22 14:52 | PC.NURSE ---
three attempts at IV by triage nurse.
[2019-04-22 15:03] LABS: Add Manual Diff / Slide Review NO; Basophils Absolute Auto 100 /uL (0-100); Basophils Percent Auto 0.7 % (0-2); Eosinophils Absolute Auto 200 /uL (0-450); Eosinophils Percent Auto 2.7 % (2-4); Hemoglobin 13.6 g/dL (12.0-16.0); Lymphocytes Absolute Auto 1400 /uL (1100-4500); Lymphocytes Percent Auto 17.4 % (25-40); Mean Corpuscular HGB Conc 32.5 % (30-36); Mean Corpuscular Hemoglobin 27.7 PG (26-34); Mean Corpuscular Volume 85.4 fL (80-100); Monocytes Absolute Auto 600 /uL (0-900); Monocytes Percent Auto 7.2 % (3-14); Neutrophils Absolute Auto 5900 /uL (1500-7000); Platelet Count 292 X10^3/uL (150-400); Red Blood Cell Count 4.92 X10^6/uL (4.0-5.2); Red Cell Distribution Width 17.7 % (11.6-14.8); White Blood Cell Count 8.2 X10^3/uL (4.5-11.0)
[2019-04-22 15:08] LABS: Alanine Aminotransferase 14 IU/L (<35); Albumin 4.4 g/dL (3.5-5.0); Albumin Globulin Ratio 1.3 (1.0-2.8); Alkaline Phosphatase 84 U/L (38-126); Aspartate Aminotransferase 31 IU/L (14-36); BUN Creatinine Ratio 28.8 (6-22); Bilirubin Total 0.5 mg/dL (0.2-1.3); Blood Urea Nitrogen 23 mg/dL (7-17); Carbon Dioxide 33 mmol/L (22-32); Chloride 103 mmol/L (98-107); Estimated Glomerular Filt Rate > 60.0 mL/min (>60); Globulin 3.5 g/dL (1.7-4.1); Glucose 105 mg/dL (80-110); HEMOLYSIS 24 (0-50); Sodium 143 mmol/L (137-145); Total Protein 7.9 g/dL (6.3-8.2)
[2019-04-22 18:09] LABS: INR 1.7 (0.9-1.3); Prothrombin Time 19.8 SECONDS (10.1-12.7)
[2019-04-22 18:12] LABS: PTT Partial Thromboplastin Tim 37 SECONDS (26.4-36.2)
[2019-04-22 18:13] LABS: Creatine Kinase 33 U/L (30-135)
[2019-04-22] MEDS: SODIUM CHLORIDE 0.9% 500 ML 1000 ML IV ×2 (18:14→20:44)
[2019-04-22 18:25] LABS: Troponin I < 0.012 ng/mL (0.01-0.034)
[2019-04-22 18:33] LABS: Bacteria Urine Many (>30); Culture Indicated Urine Specimen Cultured; RBC Urine 1-5/HPF (0-5/HPF); Squamous Epithelial Cell Urine 1-5 /HPF (0-5/HPF); WBC Urine 10-30/HPF (0-5/HPF)
[2019-04-22 18:38] LABS: Procalcitonin < 0.05 ng/mL (<0.5)
--- NOTE | 2019-04-22 19:18 | ED_ITS ---
HPI - Weakness <David MANUEL Velásquez - Last Filed: 04/22/19 21:23> General Chief complaint: Weakness Stated complaint: Pt states headaches, foggy headed, lethargic x1day Time Seen by Provider: 04/22/19 16:57 Source: patient and family Mode of arrival: Wheelchair Limitations: no limitations History of Present Illness HPI Narrative: This is a 78-year-old female, former smoker, who presents to ED with her son with chief complain of generalized weakness, headache, and feeling yucky since yesterday. Son reports patient is ambulatory usually but today seems like she is losing a steam and difficulty with ambulation. They checked her blood pressure at home and it was elevated up to 170/76 and she felt clammy. Patient had cardiac stent surgery about 2 months ago at [facility]. 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 Patient was diagnosed with UTI 2 weeks ago and had completed 3 day course of Bactrim about a week ago. Patient was waiting to get her surgery by Dr. Marc at [facility] then patient needed cardiac ca theterization surgery for this has been postponed until her heart condition improves. Patient denies chest pain, breathing difficulty, fever, chills, nausea or vomiting or urinary symptoms. Patient reports dizziness. Patient reports decreased appetite and p.o. fluid intake last few days. Patient is currently on Eliquis, baby aspirin, Plavix. Related Data Home Medications Medication Instructions Recorded Confirmed aspirin 81 mg tablet,delayed 81 mg PO DAILY 04/20/18 03/02/19 release pantoprazole 40 mg tablet,delayed 40 mg PO DAILY 04/20/18 03/02/19 release albuterol sulfate [Ventolin HFA] 2 puff INHALATION Q6H PRN 10/29/18 03/02/19 magnesium oxide 400 mg PO QAM 10/29/18 03/02/19 Eliquis 5 mg PO BID 02/04/19 03/02/19 amlodipine 5 mg PO DAILY 02/04/19 03/02/19 baclofen 5 mg PO TID 03/02/19 03/02/19 metoprolol succinate 100 mg PO DAILY 03/02/19 03/02/19 simvastatin 20 mg PO DAILY 03/02/19 03/02/19 Previous Rx's Medication Instructions Recorded acetaminophen 650 mg PO Q6HR PRN #30 tab 02/06/19 bisacodyl 10 mg [place] DAILY PRN #10 ea 02/06/19 docusate sodium [DOK] 100 mg PO BID #60 cap 02/06/19 hydrocodone-acetaminophen 2 tab PO Q4HR PRN #30 tab 02/06/19 polyethylene glycol 3350 17 gm PO DAILY #1 pkg 02/06/19 prednisone 20 mg PO DAILY #4 tab 03/02/19 cephalexin [Keflex] 500 mg PO Q12H 7 Days #14 cap 04/22/19 Allergies Allergy/AdvReac Type Severity Reaction Status Date / Time morphine AdvReac Intermediate burning Verified 04/22/19 13:32 sensation at IV site amoxicillin [From Augmentin] AdvReac Mild flu like Verified 04/22/19 13:32 symptoms clavulanic acid AdvReac Mild flu like Verified 04/22/19 13:32 [From Augmentin] symptoms lisinopril AdvReac Mild cough Verified 04/22/19 13:32 Review of Systems <MANUEL Benjamin - Last Filed: 04/22/19 21:23> Review of Systems Narrative: General: Denies fever, chills, (+) fatigue, (+) malaise, sweats. HEENT: Denies sinus pain, ear pain, sore throat, difficulty swallowing, dizziness. Respiratory: Denies dyspnea, cough, wheezing, hemoptysis, sputum. Cardiovascular: Denies chest pain, palpitations, orthopnea, edema. Gastrointestinal: Denies nausea, vomiting, abdominal pain, diarrhea, constipation, melena. : Denies dysuria, frequency, incontinence, hematuria, urinary retention. Musculoskeletal: Denies (+) generalized weakness, joint pain or bony pain. Skin: Denies rash, skin lesions, or other. Neurologic: Denies weakness, headache, numbness, change in speech, confusion, seizures, incoordination. Psychiatric: No concerning psychosocial issues. 12-point review of systems is negative except for those stated above. Patient History <MANUEL Benjamin - Last Filed: 04/22/19 21:23> Medical History Afib (Acute) CAD (coronary artery disease) (Chronic) Cardiac defibrillator in place (Acute) Carotid stenosis (Chronic) Colovaginal fistula (Acute) COPD (chronic obstructive pulmonary disease) (Chronic) CVA (cerebral vascular accident) (Acute) Enterovaginal fistula (Acute) Heart failure (Chronic) HLD (hyperlipidemia) (Chronic) HTN (hypertension) (Chronic) Nicotine addiction (Acute) PAD (peripheral artery disease) (Chronic) Surgical History H/O carotid endarterectomy (Chronic) History of appendectomy (Acute) History of coronary artery stent placement (Chronic) History of hysterectomy (Acute) Hx of tonsillectomy (Acute) Family History Father Throat cancer Mother Ovarian cancer Social History household members: none Smoking Status: Former smoker alcohol intake: current Smoking Status: Former smoker tobacco type: cigarettes alcohol intake frequency: holidays/special occasions only Substance Use Type: does not use Exam <MANUEL Benjamin - Last Filed: 04/22/19 21:23> Narrative Exam Narrative: GEN: Alert, oriented x 3, well appearing and nourished, and in no acute distress. Head: Normal cephalic, atraumatic. No scalp or temporal tenderness, palpable mass or rash. EYES: Pupils are equal, round, and reactive to light and accommodation. Extraocular muscles are intact bilaterally. There is no subconjunctival hemorrhage, exudate and sclera non-icteric. ENT: Bilateral auditory canals and tympanic membranes clear. Hearing grossly intact. Nose without bleeding, purulent discharge, septal hematoma or deviation. Turbinate without erythema or swelling. Facial sinuses nontender to palpate. Mucous membrane dry, no mucosal lesion. Throat without erythema, tonsillar hypertrophy or exudate. Uvula in midline, airway patent. Neck: Trachea in midline. No JVD, non-tender without lymphadenopathy. No masses or thyroid megaly. Supple, non-tender and no meningeal signs. CARDIAC: Irregular rhythm without murmurs, gallops, or rubs. No chest wall tenderness. No peripheral edema, cyanosis or pallor. Capillary refill is less than 2 seconds. No carotid bruits. RESPIRATORY: Lungs are cleat to auscultate bilaterally. No cough, wheezes, rales, or rhonchi. No stridor, respiratory distress, increase work of breathing, or accessary muscle used. ABD: Abdomen soft, nontender and non-distended. No guarding or rebound tenderness to palpate. Bowel sounds are normal in all 4 quadrants. There is no palpable masses or organomegaly. EXT: Full painless ROM of all extremities with no loss of sensation, strength, effusion or edema. SKIN: Warm, dry, normal color for patient. No erythema, lesions or rash. BACK: Nontender without deformity or crepitance. No flank tenderness. NEUROLOGICAL: Alert and oriented to place, time and person. No facial droops, dysphasia. CN II-XII intact. Strength and sensation symmetric and intact throughout. Cerebellar testing normal. PSYCHIATRIC: Good judgement and reason, without hallucinations, abnormal affect or abnormal behaviors during the examination. Initial Vital Signs Initial Vital Signs: Vital Signs Temperature 98.0 F 04/22/19 13:32 Pulse Rate 100 H 04/22/19 13:32 Respiratory Rate 16 04/22/19 13:32 Blood Pressure 148/75 H 04/22/19 13:32 Pulse Oximetry 97 04/22/19 13:32 <Walker Stearns MD - Last Filed: 04/22/19 23:14> Initial Vital Signs Initial Vital Signs: Vital Signs Temperature 98.0 F 04/22/19 13:32 Pulse Rate 100 H 04/22/19 13:32 Respiratory Rate 16 04/22/19 13:32 Blood Pressure 148/75 H 04/22/19 13:32 Pulse Oximetry 97 04/22/19 13:32 Scores <MANUEL Benjamin - Last Filed: 04/22/19 21:23> GCS Raj coma scale eye opening: Spontaneous [place] coma scale verbal response: Orientated [place] coma scale motor response: Obey commands Raj coma scale total score: 15 NIH Stroke Scale Level of Conciousness: Alert, keenly responsive Ask month/age: Answers both questions correctly. Open/close eyes, close hand: Performs both tasks correctly Best gaze horizontal: Normal Visual acevedo: No visual loss Facial palsy: Normal symetrical movement Left arm drift: No drift for full 10 sec Right arm drift: No drift for full 10 sec Left leg drift: No drift for full 10 sec Right leg drift: No drift for full 10 sec Limb ataxia: Absent Sensory on face/arms/legs: Normal, no sensory loss Best language: No aphasia, normal Dysarthria: Normal Extinction or inattention: No abnormality Total NIH Stroke scale score: 0 Course <David NareshDanielSergeMANUEL huddleston - Last Filed: 04/22/19 21:23> Orders Ordered: ED Orders 04/22/19 14:45 Complete Blood Count AUTO DIFF Stat Comprehensive Metabolic Panel Stat Partial Thromboplastin Time Stat Procalcitonin Stat Prothrombin Time INR Stat Troponin & CK Cardiac Panel Stat 04/22/19 18:05 Urine Culture Stat Urine Microscopic Stat Discontinued Medications Cephalexin HCl (Keflex) 500 mg PO NOW ONE Stop: 04/22/19 19:16 Last Admin: 04/22/19 19:23 Dose: 500 mg Documented by: ANEL Sodium Chloride (Normal Saline 0.9%) 500 mls @ 1,000 mls/hr IV BOLUS ONE Stop: 04/22/19 17:58 Last Infusion: 04/22/19 19:59 Dose: 0 mls/hr Documented by: Admin: 04/22/19 18:14 Dose: 1,000 mls/hr Documented by: CLIFTON Sodium Chloride (Normal Saline 0.9%) 500 mls @ 1,000 mls/hr IV BOLUS ONE Stop: 04/22/19 20:51 Last Infusion: 04/22/19 21:45 Dose: 0 mls/hr Documented by: Admin: 04/22/19 20:44 Dose: 1,000 mls/hr Documented by: ANEL Vital Signs Vital signs: Vital Signs - 8 hr 04/22/19 15:54 04/22/19 17:17 04/22/19 18:00 Pulse Rate 104 H 102 H 97 H Pulse Rate [Orthostatic Lying] Pulse Rate [Orthostatic Sitting] Respiratory Rate 18 22 24 Blood Pressure Blood Pressure [Orthostatic Lying] Blood Pressure [Orthostatic Sitting] Blood Pressure [Right Arm] 131/82 114/73 116/72 Pulse Oximetry 95 93 04/22/19 20:00 04/22/19 20:52 04/22/19 21:00 Pulse Rate 90 91 H Pulse Rate [Orthostatic Lying] 87 Pulse Rate [Orthostatic Sitting] 87 Respiratory Rate 18 Blood Pressure Blood Pressure [Orthostatic Lying] 140/74 Blood Pressure [Orthostatic Sitting] 92/46 L Blood Pressure [Right Arm] 117/91 H 129/61 Pulse Oximetry 94 93 04/22/19 21:44 Pulse Rate 86 Pulse Rate [Orthostatic Lying] Pulse Rate [Orthostatic Sitting] Respiratory Rate 24 Blood Pressure 128/68 Blood Pressure [Orthostatic Lying] Blood Pressure [Orthostatic Sitting] Blood Pressure [Right Arm] Pulse Oximetry 95 <Walker Stearns MD - Last Filed: 04/22/19 23:14> Orders Ordered: ED Orders 04/22/19 14:45 Complete Blood Count AUTO DIFF Stat Comprehensive Metabolic Panel Stat Partial Thromboplastin Time Stat Procalcitonin Stat Prothrombin Time INR Stat Troponin & CK Cardiac Panel Stat 04/22/19 18:05 Urine Culture Stat Urine Microscopic Stat Discontinued Medications Cephalexin HCl (Keflex) 500 mg PO NOW ONE Stop: 04/22/19 19:16 Last Admin: 04/22/19 19:23 Dose: 500 mg Documented by: ANEL Sodium Chloride (Normal Saline 0.9%) 500 mls @ 1,000 mls/hr IV BOLUS ONE Stop: 04/22/19 17:58 Last Infusion: 04/22/19 19:59 Dose: 0 mls/hr Documented by: Admin: 04/22/19 18:14 Dose: 1,000 mls/hr Documented by: CLIFTON Sodium Chloride (Normal Saline 0.9%) 500 mls @ 1,000 mls/hr IV BOLUS ONE Stop: 04/22/19 20:51 Last Infusion: 04/22/19 21:45 Dose: 0 mls/hr Documented by: Admin: 04/22/19 20:44 Dose: 1,000 mls/hr Documented by: ANEL Vital Signs Vital signs: Vital Signs - 8 hr 04/22/19 15:54 04/22/19 17:17 04/22/19 18:00 Pulse Rate 104 H 102 H 97 H Pulse Rate [Orthostatic Lying] Pulse Rate [Orthostatic Sitting] Respiratory Rate 18 22 24 Blood Pressure Blood Pressure [Orthostatic Lying] Blood Pressure [Orthostatic Sitting] Blood Pressure [Right Arm] 131/82 114/73 116/72 Pulse Oximetry 95 93 04/22/19 20:00 04/22/19 20:52 04/22/19 21:00 Pulse Rate 90 91 H Pulse Rate [Orthostatic Lying] 87 Pulse Rate [Orthostatic Sitting] 87 Respiratory Rate 18 Blood Pressure Blood Pressure [Orthostatic Lying] 140/74 Blood Pressure [Orthostatic Sitting] 92/46 L Blood Pressure [Right Arm] 117/91 H 129/61 Pulse Oximetry 94 93 04/22/19 21:44 Pulse Rate 86 Pulse Rate [Orthostatic Lying] Pulse Rate [Orthostatic Sitting] Respiratory Rate 24 Blood Pressure 128/68 Blood Pressure [Orthostatic Lying] Blood Pressure [Orthostatic Sitting] Blood Pressure [Right Arm] Pulse Oximetry 95 MDM - Weakness <David eVlásquezMANUEL - Last Filed: 04/22/19 21:23> Differential Diagnosis Differential diagnosis: Likely acute myocardial infarction, anemia, sepsis, dehydration and other (UTI, pneumonia,) Medical Records Attestation: I reviewed the patient's medical records. Lab Data Attestation: I reviewed the patient's lab results. Result diagrams: 04/22/19 14:45 04/22/19 14:45 Labs: Lab Results 04/22/19 04/22/19 04/22/19 Range/Units 14:45 14:45 14:45 WBC 8.2 (4.5-11.0) X10^3/uL RBC 4.92 (4.0-5.2) X10^6/uL Hgb 13.6 (12.0-16.0) g/dL Hct 42.0 (36-46) % MCV 85.4 (80-100) fL MCH 27.7 (26-34) PG MCHC 32.5 (30-36) % RDW 17.7 H (11.6-14.8) % Plt Count 292 (150-400) X10^3/uL Neut % (Auto) 72.0 (50-75) % Lymph % (Auto) 17.4 L (25-40) % Harding % (Auto) 7.2 (3-14) % Eos % (Auto) 2.7 (2-4) % Baso % (Auto) 0.7 (0-2) % Neut # (Auto) 5900 (8663-3444) /uL Lymph # (Auto) 1400 (2053-9048) /uL Harding # (Auto) 600 (0-900) /uL Eos # (Auto) 200 (0-450) /uL Baso # (Auto) 100 (0-100) /uL PT (10.1-12.7) SECONDS INR (0.9-1.3) APTT (26.4-36.2) SECONDS Sodium 143 (137-145) mmol/L Potassium 4.0 (3.4-5.1) mmol/L Chloride 103 (98-107) mmol/L Carbon Dioxide 33 H (22-32) mmol/L BUN 23 H (7-17) mg/dL Creatinine 0.80 (0.52-1.04) mg/dL Estimated GFR > 60.0 (>60) mL/min BUN/Creatinine Ratio 28.8 H (6-22) Glucose 105 (80-110) mg/dL Calcium 10.0 (8.4-10.2) mg/dL Total Bilirubin 0.5 (0.2-1.3) mg/dL AST 31 (14-36) IU/L ALT 14 (<35) IU/L Alkaline Phosphatase 84 (38-126) U/L Total Creatine Kinase 33 (30-135) U/L CK-MB (CK-2) TNP CK-MB (CK-2) Rel Index TNP Troponin I < 0.012 (0.01-0.034) ng/mL Total Protein 7.9 (6.3-8.2) g/dL Albumin 4.4 (3.5-5.0) g/dL Globulin 3.5 (1.7-4.1) g/dL Albumin/Globulin Ratio 1.3 (1.0-2.8) Procalcitonin (<0.5) ng/mL Urine RBC (0-5/HPF) Urine WBC (0-5/HPF) Ur Squamous Epith Cells (0-5/HPF) Urine Bacteria (None) Ur Culture Indicated? 04/22/19 04/22/19 04/22/19 Range/Units 14:45 14:45 18:05 WBC (4.5-11.0) X10^3/uL RBC (4.0-5.2) X10^6/uL Hgb (12.0-16.0) g/dL Hct (36-46) % MCV (80-100) fL MCH (26-34) PG MCHC (30-36) % RDW (11.6-14.8) % Plt Count (150-400) X10^3/uL Neut % (Auto) (50-75) % Lymph % (Auto) (25-40) % Harding % (Auto) (3-14) % Eos % (Auto) (2-4) % Baso % (Auto) (0-2) % Neut # (Auto) (1567-2900) /uL Lymph # (Auto) (9307-2135) /uL Harding # (Auto) (0-900) /uL Eos # (Auto) (0-450) /uL Baso # (Auto) (0-100) /uL PT 19.8 H (10.1-12.7) SECONDS INR 1.7 H (0.9-1.3) APTT 37 H D (26.4-36.2) SECONDS Sodium (137-145) mmol/L Potassium (3.4-5.1) mmol/L Chloride (98-107) mmol/L Carbon Dioxide (22-32) mmol/L BUN (7-17) mg/dL Creatinine (0.52-1.04) mg/dL Estimated GFR (>60) mL/min BUN/Creatinine Ratio (6-22) Glucose (80-110) mg/dL Calcium (8.4-10.2) mg/dL Total Bilirubin (0.2-1.3) mg/dL AST (14-36) IU/L ALT (<35) IU/L Alkaline Phosphatase (38-126) U/L Total Creatine Kinase (30-135) U/L CK-MB (CK-2) CK-MB (CK-2) Rel Index Troponin I (0.01-0.034) ng/mL Total Protein (6.3-8.2) g/dL Albumin (3.5-5.0) g/dL Globulin (1.7-4.1) g/dL Albumin/Globulin Ratio (1.0-2.8) Procalcitonin < 0.05 (<0.5) ng/mL Urine RBC 1-5/hpf (0-5/HPF) Urine WBC 10-30/hpf H (0-5/HPF) Ur Squamous Epith Cells 1-5 /hpf (0-5/HPF) Urine Bacteria Many (>30) H (None) Ur Culture Indicated? Specimen cultured Urine Dip Bedside Urine Glucose Negative Bedside Urine Bilirubin + 1 Bedside Urine Ketone +/- 5 Urine Specific Forbes 1.025 Bedside Urine Occult Blood +++ Bedside Urine pH 6.0 Bedside Urine Protein +/- 15 Bedside Urine Urobilinogen +/- 1mg Bedside Urine Nitrite - Negative Bedside Urine Leukocytes +++ 500 Esterase Imaging Data Chest x-ray: Radiologist Impression: [place] [id number] [place] [id number] XRay Report Signed Patient: Chasity Wilks JMR#: [id number] : [id number]:[id number] Age/Sex: 78 / FDate of Service: 04/22/19 Loc: ED Accession Number: [id number] Procedure: XR chest 1V Ordering Provider: Walker Stearns MD PROCEDURE: XR CHEST 1V INDICATIONS: altered mental status. TECHNIQUE: One view of the chest was acquired. COMPARISON: [facility], CT, CT CHEST ABD PEL W CON, 07/20/2018, 14:11. [facility], CR, XR CHEST 1V, 06/12/2018, 19:58. [facility], CR, XR CHEST 1V, 02/04/2019, 15:06. FINDINGS: Surgical changes and devices: Right upper chest clips are seen. Lungs and pleura: Lungs are clear, yet hyperexpanded. No pleural effusions or pneumothorax. Mediastinum: The cardiac contours are within normal limits. The aorta demonstrates calcification and tortuosity. Bones and chest wall: Age-appropriate bony degenerative changes are seen. No suspicious bony lesions. Overlying soft tissues appear unremarkable. IMPRESSION: Hyperexpanded lungs, without an acute cardiopulmonary process identified. Postoperative and degenerative changes are seen. Dictated by: Rom Hankins M.D. on 04/22/2019 at 13:51 Approved by: Rom Hankins M.D. on 04/22/2019 at 13:52 ECG Data Attestation: I personally reviewed and interpreted this ECG as follows: Interpretation: Afib rate at 104 with RVR. Normal [place]. QRS duration 98, QT/QTC 377/434. Nonspecific ST and T-wave abnormalty. No significant changes from previous EKG MDM Narrative Medical decision making narrative: This is a 78-year-old female who is medically fragile presents to ED with generalized weakness, malaise, dizziness. Patient has fistula in between her bowel to vagina due to colonoscopy accident which needs to be repaired when her heart condition improves. Patient recently had cardiac stent procedure 2 months ago right around when patient was to go in for fistula repair surgery. Patient was recently treated with Bactrim/Septra for 3 day course with UTI about a week ago. Today's urine test shows again UTI. No leukocytosis today. Afebrile while in ED with initial tachycardia. Patient's neuro exam without focal deficit. Patient is alert and oriented x3 and appropriate. Patient's physical exam appreciated dried oral mucous membrane and signs of dehydration. Chemistry also indicates increased BUN and BUN/creatinine ratio with normal kidney function. Patient was hydrated with normal saline while in ED. patient has condition of orthostatic hypotension and she exhibited this while in ED. patient was treated with Keflex for UTI and patient discharged to home with remaining 7 day course b.i.d. dose. Patient was able to hydrate several glasses of liquid and sandwich without nausea and vomiting. Patient advised to take time before changing positions to prevent falls. Patient advised close follow-up with her primary care physician and discuss other options for frequent UTI possibly from existing fistula. Return precautions were discussed with the patient and patient verbalized understanding and in agreement with treatment plan. <Walker Stearns MD - Last Filed: 04/22/19 23:14> Lab Data Labs: Lab Results 04/22/19 04/22/19 04/22/19 Range/Units 14:45 14:45 14:45 WBC 8.2 (4.5-11.0) X10^3/uL RBC 4.92 (4.0-5.2) X10^6/uL Hgb 13.6 (12.0-16.0) g/dL Hct 42.0 (36-46) % MCV 85.4 (80-100) fL MCH 27.7 (26-34) PG MCHC 32.5 (30-36) % RDW 17.7 H (11.6-14.8) % Plt Count 292 (150-400) X10^3/uL Neut % (Auto) 72.0 (50-75) % Lymph % (Auto) 17.4 L (25-40) % Harding % (Auto) 7.2 (3-14) % Eos % (Auto) 2.7 (2-4) % Baso % (Auto) 0.7 (0-2) % Neut # (Auto) 5900 (0185-8092) /uL Lymph # (Auto) 1400 (3364-6197) /uL Harding # (Auto) 600 (0-900) /uL Eos # (Auto) 200 (0-450) /uL Baso # (Auto) 100 (0-100) /uL PT (10.1-12.7) SECONDS INR (0.9-1.3) APTT (26.4-36.2) SECONDS Sodium 143 (137-145) mmol/L Potassium 4.0 (3.4-5.1) mmol/L Chloride 103 (98-107) mmol/L Carbon Dioxide 33 H (22-32) mmol/L BUN 23 H (7-17) mg/dL Creatinine 0.80 (0.52-1.04) mg/dL Estimated GFR > 60.0 (>60) mL/min BUN/Creatinine Ratio 28.8 H (6-22) Glucose 105 (80-110) mg/dL Calcium 10.0 (8.4-10.2) mg/dL Total Bilirubin 0.5 (0.2-1.3) mg/dL AST 31 (14-36) IU/L ALT 14 (<35) IU/L Alkaline Phosphatase 84 (38-126) U/L Total Creatine Kinase 33 (30-135) U/L CK-MB (CK-2) TNP CK-MB (CK-2) Rel Index TNP Troponin I < 0.012 (0.01-0.034) ng/mL Total Protein 7.9 (6.3-8.2) g/dL Albumin 4.4 (3.5-5.0) g/dL Globulin 3.5 (1.7-4.1) g/dL Albumin/Globulin Ratio 1.3 (1.0-2.8) Procalcitonin (<0.5) ng/mL Urine RBC (0-5/HPF) Urine WBC (0-5/HPF) Ur Squamous Epith Cells (0-5/HPF) Urine Bacteria (None) Ur Culture Indicated? 04/22/19 04/22/19 04/22/19 Range/Units 14:45 14:45 18:05 WBC (4.5-11.0) X10^3/uL RBC (4.0-5.2) X10^6/uL Hgb (12.0-16.0) g/dL Hct (36-46) % MCV (80-100) fL MCH (26-34) PG MCHC (30-36) % RDW (11.6-14.8) % Plt Count (150-400) X10^3/uL Neut % (Auto) (50-75) % Lymph % (Auto) (25-40) % Harding % (Auto) (3-14) % Eos % (Auto) (2-4) % Baso % (Auto) (0-2) % Neut # (Auto) (0398-5930) /uL Lymph # (Auto) (3402-6700) /uL Harding # (Auto) (0-900) /uL Eos # (Auto) (0-450) /uL Baso # (Auto) (0-100) /uL PT 19.8 H (10.1-12.7) SECONDS INR 1.7 H (0.9-1.3) APTT 37 H D (26.4-36.2) SECONDS Sodium (137-145) mmol/L Potassium (3.4-5.1) mmol/L Chloride (98-107) mmol/L Carbon Dioxide (22-32) mmol/L BUN (7-17) mg/dL Creatinine (0.52-1.04) mg/dL Estimated GFR (>60) mL/min BUN/Creatinine Ratio (6-22) Glucose (80-110) mg/dL Calcium (8.4-10.2) mg/dL Total Bilirubin (0.2-1.3) mg/dL AST (14-36) IU/L ALT (<35) IU/L Alkaline Phosphatase (38-126) U/L Total Creatine Kinase (30-135) U/L CK-MB (CK-2) CK-MB (CK-2) Rel Index Troponin I (0.01-0.034) ng/mL Total Protein (6.3-8.2) g/dL Albumin (3.5-5.0) g/dL Globulin (1.7-4.1) g/dL Albumin/Globulin Ratio (1.0-2.8) Procalcitonin < 0.05 (<0.5) ng/mL Urine RBC 1-5/hpf (0-5/HPF) Urine WBC 10-30/hpf H (0-5/HPF) Ur Squamous Epith Cells 1-5 /hpf (0-5/HPF) Urine Bacteria Many (>30) H (None) Ur Culture Indicated? Specimen cultured Urine Dip Bedside Urine Glucose Negative Bedside Urine Bilirubin + 1 Bedside Urine Ketone +/- 5 Urine Specific Forbes 1.025 Bedside Urine Occult Blood +++ Bedside Urine pH 6.0 Bedside Urine Protein +/- 15 Bedside Urine Urobilinogen +/- 1mg Bedside Urine Nitrite - Negative Bedside Urine Leukocytes +++ 500 Esterase Discharge Plan Departure Patient Disposition: Home Clinical Impression: Orthostatic hypotension UTI (urinary tract infection) Qualifiers: Urinary tract infection type: site unspecified Hematuria presence: with hematuria Qualified Code(s): N39.0 - Urinary tract infection, site not specified Discharge Date/Time: 04/22/19 21:44 Instructions: DI for Orthostatic Hypotension, DI for Urinary Tract Infection (UTI) Activity Restrictions/Additional Instructions: You have been diagnosed with [UTI. Urine test indicates he have an urinary tract infection. Urine culture is pending at this time and you will receive a phone call if you need different antibiotic medication coverage in a couple of days. You were treated with 1st dose of Keflex while in ED. it appears to be you were dehydrated as well. Otherwise, blood tests were unremarkable. Please change of positions slowly, especially before you get out of bed and ambulate to decrease lightheadedness.]. What to do: *Take your medications as directed. Since you recently had Bactrim/Septra for your UTI will change medication to Keflex. Please take this medication twice a day for 7 days. Please hydrate adequately. *Follow up with your primary care provider in 2-3 days, call for an appointment. Let them know you were seen in the ED and that we asked you to be seen in follow up. 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 *Return to ED if you have any new, worsening, or concerning symptoms, such as [chest pain, breathing difficulty, unable to tolerate fluids, back pain, high fever, fainting episode or any acute concerns]. Prescriptions: New cephalexin [Keflex] 500 mg capsule 500 mg PO Q12H 7 Days Qty: 14 RF: 0 No Action albuterol sulfate [Ventolin HFA] 90 mcg/actuation Hfa Aerosol Inhaler 2 puff INHALATION Q6H PRN (Reason: Shortness Of Breath Or Wheezing) RF: 0 magnesium oxide 400 mg magnesium Tablet 400 mg PO QAM RF: 0 amlodipine 5 mg tablet 5 mg PO DAILY RF: 0 Eliquis 5 mg tablet 5 mg PO BID RF: 0 acetaminophen 325 mg Tablet 650 mg PO Q6HR PRN (Reason: Fever/Mild Pain (1-3)) Qty: 30 RF: 0 polyethylene glycol 3350 17 gram Powder In Packet 17 gm PO DAILY Qty: 1 RF: 0 hydrocodone-acetaminophen 5-325 mg Tablet 2 tab PO Q4HR PRN (Reason: Pain, Severe (7-10)) Qty: 30 RF: 0 bisacodyl 10 mg Suppository 10 mg [place] DAILY PRN (Reason: Constipation) Qty: 10 RF: 0 docusate sodium [DOK] 100 mg Capsule 100 mg PO BID Qty: 60 RF: 0 metoprolol succinate 100 mg tablet extended release 24 hr 100 mg PO DAILY RF: 0 simvastatin 20 mg Tablet 20 mg PO DAILY RF: 0 baclofen 5 mg Tablet 5 mg PO TID RF: 0 prednisone 20 mg tablet 20 mg PO DAILY Qty: 4 RF: 0 aspirin [Adult Aspirin Regimen] 81 mg tablet,delayed release (DR/EC) 81 mg PO DAILY RF: 0 pantoprazole 40 mg tablet,delayed release (DR/EC) 40 mg PO DAILY RF: 0 Referrals: Deepa Varela MD [Primary Care Provider] -
[2019-04-22] MEDS: cephALEXin 250 MG CAPSULE 500 MG PO (19:23)
== END 2019-04-22 21:44 | disposition home or self-care (01) ==
PROVIDERS: Emergency Medicine; Emergency Provider Nurse Practitioner Family; PCP Internal Medicine
DX: I95.1 Orthostatic hypotension (principal); N39.0 Urinary tract infection, site not specified; R00.0 Tachycardia, unspecified
CPT/HCPCS: 36415; 71045; 80053; 81003; 81015; 82550; 84145; 84484; 85025; 85610; 85730; 87086; 93005; 96360; 96361; 99284; 99285

== ENCOUNTER 2019-04-23 17:20 | Emergency (ER) | payer MEDICARE, SELFPAY ==
[2019-02-04 18:29] VITALS: BMI 22.2
[2019-04-23] VITALS (8 sets, daily range): BP systolic 137–184; BP diastolic 59–90; PULSE 92–112; RESP 16–20; TEMP 36.6; O2SAT 93–95; BMI 16.5
--- NOTE | 2019-04-23 17:34 | DI.RAD.S_ITS ---
PROCEDURE: XR CHEST 1V INDICATIONS: suspected sepsis TECHNIQUE: One view of the chest was acquired. COMPARISON: [facility], CR, XR CHEST 1V, 04/22/2019, 14:23. FINDINGS: Surgical changes and devices: Surgical clips project over the right axillary region. Lungs and pleura: Lungs are hyperinflated, hyperlucent, with slight coarsened interstitial markings. No focal consolidation. Small pulmonary density at the tip of the right scapula is present on the prior study, but not seen as a discrete lesion on prior CT scan. No pleural effusions or pneumothorax. Mediastinum: Mediastinal contours appear normal. Heart size is normal. Bones and chest wall: No suspicious bony lesions. Overlying soft tissues appear unremarkable. Surgical changes of axillary femoral bypass on the right. IMPRESSION: 1. Hyperinflation suggesting asthma or emphysema. 2. No focal pneumonia. 3. Non-emergent followup chest CT recommended to assess the right midlung nodule. Dictated by: Faith Wilde M.D. on 04/23/2019 at 19:44 Approved by: Faith Wilde M.D. on 04/23/2019 at 19:49
--- NOTE | 2019-04-23 18:56 | ED.AMS ---
HPI - Altered Mental Status General Chief Complaint: Altered Mental Status Stated Complaint: UTI, Dehydrated, Fever, Confussion Time Seen by Provider: 04/23/19 18:55 Source: patient, family (son) and old records reviewed Mode of arrival: Wheelchair History of Present Illness HPI narrative: This is a 78-year-old female who is brought in for increased altered mental status. Patient was seen yesterday with complaint of increasing weakness which her son states has been increasing even more since yesterday patient a fever 101 F at home but is afebrile here. She was seen yesterday was diagnosed preliminary with a UTI based on her urinalysis culture is still pending but has not had growth yet although it has been only 24 hours. 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 There is plan for the repair but not until one year after her cardiac stents after have been in place. Patient has been just sort of generally confused son states a little bit better right now. He states she has also been sort of generally weaker on Tuesday they were able to go out to dinner she was able to use her walker to get to the restaurant with minimal assistance. Tuesday she was little bit weaker, yesterday she had difficulty but was able to ambulate some today also seems increased they have been only able to get back and forth to the bathroom with help. He does not appreciate nor does the patient any one-sided weakness. Patient states she feels confused but does answer questions well especially her medical history appropriately. Patient denies vision changes, no difficulty with speech, no chest pain or shortness of breath, no nausea, vomiting no diarrhea constipation. She does typically have stool from her vaginal area. She has not appreciated any urinary incontinence frequency or dysuria. Patient per son does not have any history of dementia. Related Data Home Medications Medication Instructions Recorded Confirmed aspirin 81 mg tablet,delayed 81 mg PO DAILY 04/20/18 03/02/19 release pantoprazole 40 mg tablet,delayed 40 mg PO DAILY 04/20/18 04/23/19 release albuterol sulfate [Ventolin HFA] 2 puff INHALATION Q6H PRN 10/29/18 03/02/19 magnesium oxide 400 mg PO QAM 10/29/18 03/02/19 Eliquis 5 mg PO BID 02/04/19 03/02/19 amlodipine 5 mg PO DAILY 02/04/19 04/23/19 baclofen 5 mg PO TID 03/02/19 03/02/19 metoprolol succinate 100 mg PO DAILY 03/02/19 04/23/19 simvastatin 20 mg PO DAILY 03/02/19 04/23/19 metoprolol succinate PO 04/23/19 Previous Rx's Medication Instructions Recorded acetaminophen 650 mg PO Q6HR PRN #30 tab 02/06/19 bisacodyl 10 mg [place] DAILY PRN #10 ea 02/06/19 docusate sodium [DOK] 100 mg PO BID #60 cap 02/06/19 hydrocodone-acetaminophen 2 tab PO Q4HR PRN #30 tab 02/06/19 polyethylene glycol 3350 17 gm PO DAILY #1 pkg 02/06/19 prednisone 20 mg PO DAILY #4 tab 03/02/19 cephalexin [Keflex] 500 mg PO Q12H 7 Days #14 cap 04/22/19 Allergies Allergy/AdvReac Type Severity Reaction Status Date / Time morphine AdvReac Intermediate burning Verified 04/22/19 13:32 sensation at IV site amoxicillin [From Augmentin] AdvReac Mild flu like Verified 04/22/19 13:32 symptoms clavulanic acid AdvReac Mild flu like Verified 04/22/19 13:32 [From Augmentin] symptoms lisinopril AdvReac Mild cough Verified 04/22/19 13:32 Review of Systems Review of Systems ROS Unobtainable: All systems reviewed & are unremarkable except as noted in HPI and below Patient History Medical History Afib (Acute) CAD (coronary artery disease) (Chronic) Cardiac defibrillator in place (Acute) Carotid stenosis (Chronic) Colovaginal fistula (Acute) COPD (chronic obstructive pulmonary disease) (Chronic) CVA (cerebral vascular accident) (Acute) Enterovaginal fistula (Acute) Heart failure (Chronic) HLD (hyperlipidemia) (Chronic) HTN (hypertension) (Chronic) Nicotine addiction (Acute) PAD (peripheral artery disease) (Chronic) Surgical History H/O carotid endarterectomy (Chronic) History of appendectomy (Acute) History of coronary artery stent placement (Chronic) History of hysterectomy (Acute) Hx of tonsillectomy (Acute) Social History household members: none Smoking Status: Former smoker alcohol intake: current Smoking Status: Former smoker tobacco type: cigarettes alcohol intake frequency: holidays/special occasions only Substance Use Type: does not use Exam Narrative Exam Narrative: GEN: well nourished, well appearing elderly female, alert and oriented x 2, patient appears to be in mild distress. Patient is able to sit up in the bed unassisted from a flat position. HEENT: Atraumatic, pupils are equal round reactive to light, extraocular movements are intact, nares are clear, TMs are clear with no fluid, there is no conjunctival pallor. Throat is clear without any exudates, erythema, tonsillar enlargement or uvular deviation, no facial droop. Negative Kernig's and Brudzinski. HEART: Regular rate and rhythm without murmur, clicks, rubs. Pulses are equal in upper and lower extremities LUNGS:Lungs clear to auscultation, no wheezes, rales, crackles, chest moves symmetrically, no tachypnea accessory muscle use. ABD:bowel sounds normal, nondistended, soft, non-tender, no guarding, rebound, rigidity, no masses noted, no hepatosplenomegaly :No CVA tenderness. MSCL: Non-tender, no muscle atrophy, muscles strength 5/5 upper and lower extremities, full range of motion. NEURO:CN 2-12 intact, sensation normal, reflexes 2/4 upper and lower extremities. finger nose finger test normal, heel slaughter test patient has difficulty understanding the command. SKIN: No erythema, no rash or skin changes. Nontender. Initial Vital Signs Initial Vital Signs: Vital Signs Temperature 97.9 F 04/23/19 17:32 Pulse Rate 112 H 04/23/19 17:32 Respiratory Rate 18 04/23/19 17:32 Blood Pressure 149/59 H 04/23/19 17:32 Pulse Oximetry 93 04/23/19 17:32 Course Orders Ordered: Discontinued Medications Sodium Chloride (Normal Saline 0.9%) 1,000 mls @ 1,000 mls/hr IV BOLUS ONE Stop: 04/23/19 18:33 Last Infusion: 04/23/19 20:55 Dose: 0 mls/hr Documented by: Admin: 04/23/19 19:26 Dose: 1,000 mls/hr Documented by: DELFINA Sodium Chloride (Normal Saline 0.9%) 1,000 mls @ 150 mls/hr IV CONT SILKE Last Infusion: 04/23/19 22:15 Dose: 0 mls/hr Documented by: Admin: 04/23/19 20:55 Dose: 150 mls/hr Documented by: DELFINA Vital Signs Vital signs: Vital Signs - 8 hr 04/23/19 17:32 04/23/19 18:00 04/23/19 18:30 Temperature 97.9 F Pulse Rate 112 H 94 H 93 H Respiratory Rate 18 16 18 Blood Pressure 149/59 H Blood Pressure [Left Arm] 171/80 H 174/74 H Pulse Oximetry 93 95 95 04/23/19 19:00 04/23/19 19:45 04/23/19 20:25 Temperature Pulse Rate 96 H 96 H 95 H Respiratory Rate 18 18 16 Blood Pressure Blood Pressure [Left Arm] 184/84 H 179/90 H 153/78 H Pulse Oximetry 95 95 95 04/23/19 20:51 Temperature Pulse Rate 97 H Respiratory Rate Blood Pressure Blood Pressure [Left Arm] 137/70 Pulse Oximetry 95 MDM - Altered Mental Status Lab Data Attestation: I reviewed the patient's lab results. Result diagrams: 04/23/19 18:05 04/23/19 18:05 Labs: Lab Results 04/23/19 04/23/19 04/23/19 Range/Units 18:05 18:05 18:05 WBC 8.0 (4.5-11.0) X10^3/uL RBC 4.96 (4.0-5.2) X10^6/uL Hgb 13.7 (12.0-16.0) g/dL Hct 42.0 (36-46) % MCV 84.6 (80-100) fL MCH 27.7 (26-34) PG MCHC 32.8 (30-36) % RDW 17.9 H (11.6-14.8) % Plt Count 274 (150-400) X10^3/uL Neut % (Auto) 71.4 (50-75) % Lymph % (Auto) 19.5 L (25-40) % [place] % (Auto) 6.6 (3-14) % Eos % (Auto) 1.7 L (2-4) % Baso % (Auto) 0.8 (0-2) % Neut # (Auto) 5700 (0546-5230) /uL Lymph # (Auto) 1600 (0707-3350) /uL [place] # (Auto) 500 (0-900) /uL Eos # (Auto) 100 (0-450) /uL Baso # (Auto) 100 (0-100) /uL PT 18.7 H (10.1-12.7) SECONDS INR 1.6 H (0.9-1.3) APTT 35 D (26.4-36.2) SECONDS Sodium (137-145) mmol/L Potassium (3.4-5.1) mmol/L Chloride (98-107) mmol/L Carbon Dioxide (22-32) mmol/L BUN (7-17) mg/dL Creatinine (0.52-1.04) mg/dL Estimated GFR (>60) mL/min BUN/Creatinine Ratio (6-22) Glucose (80-110) mg/dL Lactate (0.7-2.1) mmol/L Calcium (8.4-10.2) mg/dL Total Bilirubin (0.2-1.3) mg/dL AST (14-36) IU/L ALT (<35) IU/L Alkaline Phosphatase (38-126) U/L Total Creatine Kinase (30-135) U/L CK-MB (CK-2) CK-MB (CK-2) Rel Index Troponin I (0.01-0.034) ng/mL Total Protein (6.3-8.2) g/dL Albumin (3.5-5.0) g/dL Globulin (1.7-4.1) g/dL Albumin/Globulin Ratio (1.0-2.8) Lipase (23-300) U/L Procalcitonin < 0.05 (<0.5) ng/mL Urine Color Urine Appearance Urine pH (4.5-8.0) Ur Specific [place] (1.000-1.035) Urine Protein (Negative) Urine Glucose (UA) (Negative) g/dL Urine Ketones (NEGATIVE) Urine Occult Blood (Negative) Urine Nitrate (Negative) Urine Bilirubin (NEGATIVE) Urine Urobilinogen (0.2) E.U./dL Ur Leukocyte Esterase (NEGATIVE) Urine RBC (0-5/HPF) Urine WBC (0-5/HPF) Ur Squamous Epith Cells (0-5/HPF) Urine Bacteria (None) Ur Culture Indicated? 04/23/19 04/23/19 04/23/19 Range/Units 18:05 18:05 18:05 WBC (4.5-11.0) X10^3/uL RBC (4.0-5.2) X10^6/uL Hgb (12.0-16.0) g/dL Hct (36-46) % MCV (80-100) fL MCH (26-34) PG MCHC (30-36) % RDW (11.6-14.8) % Plt Count (150-400) X10^3/uL Neut % (Auto) (50-75) % Lymph % (Auto) (25-40) % [place] % (Auto) (3-14) % Eos % (Auto) (2-4) % Baso % (Auto) (0-2) % Neut # (Auto) (1805-4412) /uL Lymph # (Auto) (6591-0908) /uL [place] # (Auto) (0-900) /uL Eos # (Auto) (0-450) /uL Baso # (Auto) (0-100) /uL PT (10.1-12.7) SECONDS INR (0.9-1.3) APTT (26.4-36.2) SECONDS Sodium 141 (137-145) mmol/L Potassium 3.7 (3.4-5.1) mmol/L Chloride 102 (98-107) mmol/L Carbon Dioxide 31 (22-32) mmol/L BUN 17 (7-17) mg/dL Creatinine 0.80 (0.52-1.04) mg/dL Estimated GFR > 60.0 (>60) mL/min BUN/Creatinine Ratio 21.3 (6-22) Glucose 110 (80-110) mg/dL Lactate 1.1 (0.7-2.1) mmol/L Calcium 10.1 (8.4-10.2) mg/dL Total Bilirubin 0.5 (0.2-1.3) mg/dL AST 26 (14-36) IU/L ALT 12 (<35) IU/L Alkaline Phosphatase 83 (38-126) U/L Total Creatine Kinase 28 L (30-135) U/L CK-MB (CK-2) TNP CK-MB (CK-2) Rel Index TNP Troponin I 0.014 (0.01-0.034) ng/mL Total Protein 7.6 (6.3-8.2) g/dL Albumin 4.4 (3.5-5.0) g/dL Globulin 3.2 (1.7-4.1) g/dL Albumin/Globulin Ratio 1.4 (1.0-2.8) Lipase 25 (23-300) U/L Procalcitonin (<0.5) ng/mL Urine Color Urine Appearance Urine pH (4.5-8.0) Ur Specific [place] (1.000-1.035) Urine Protein (Negative) Urine Glucose (UA) (Negative) g/dL Urine Ketones (NEGATIVE) Urine Occult Blood (Negative) Urine Nitrate (Negative) Urine Bilirubin (NEGATIVE) Urine Urobilinogen (0.2) E.U./dL Ur Leukocyte Esterase (NEGATIVE) Urine RBC (0-5/HPF) Urine WBC (0-5/HPF) Ur Squamous Epith Cells (0-5/HPF) Urine Bacteria (None) Ur Culture Indicated? 04/23/19 Range/Units 20:30 WBC (4.5-11.0) X10^3/uL RBC (4.0-5.2) X10^6/uL Hgb (12.0-16.0) g/dL Hct (36-46) % MCV (80-100) fL MCH (26-34) PG MCHC (30-36) % RDW (11.6-14.8) % Plt Count (150-400) X10^3/uL Neut % (Auto) (50-75) % Lymph % (Auto) (25-40) % [place] % (Auto) (3-14) % Eos % (Auto) (2-4) % Baso % (Auto) (0-2) % Neut # (Auto) (2017-0072) /uL Lymph # (Auto) (8320-2989) /uL [place] # (Auto) (0-900) /uL Eos # (Auto) (0-450) /uL Baso # (Auto) (0-100) /uL PT (10.1-12.7) SECONDS INR (0.9-1.3) APTT (26.4-36.2) SECONDS Sodium (137-145) mmol/L Potassium (3.4-5.1) mmol/L Chloride (98-107) mmol/L Carbon Dioxide (22-32) mmol/L BUN (7-17) mg/dL Creatinine (0.52-1.04) mg/dL Estimated GFR (>60) mL/min BUN/Creatinine Ratio (6-22) Glucose (80-110) mg/dL Lactate (0.7-2.1) mmol/L Calcium (8.4-10.2) mg/dL Total Bilirubin (0.2-1.3) mg/dL AST (14-36) IU/L ALT (<35) IU/L Alkaline Phosphatase (38-126) U/L Total Creatine Kinase (30-135) U/L CK-MB (CK-2) CK-MB (CK-2) Rel Index Troponin I (0.01-0.034) ng/mL Total Protein (6.3-8.2) g/dL Albumin (3.5-5.0) g/dL Globulin (1.7-4.1) g/dL Albumin/Globulin Ratio (1.0-2.8) Lipase (23-300) U/L Procalcitonin (<0.5) ng/mL Urine Color Yellow Urine Appearance Clear Urine pH 7.0 (4.5-8.0) Ur Specific [place] 1.010 (1.000-1.035) Urine Protein Negative (Negative) Urine Glucose (UA) Negative (Negative) g/dL Urine Ketones Negative (NEGATIVE) Urine Occult Blood Negative (Negative) Urine Nitrate Negative (Negative) Urine Bilirubin Negative (NEGATIVE) Urine Urobilinogen 0.2 (0.2) E.U./dL Ur Leukocyte Esterase 1+ H (NEGATIVE) Urine RBC 0-1/hpf (0-5/HPF) Urine WBC 1-5/hpf (0-5/HPF) Ur Squamous Epith Cells 0-1 /hpf (0-5/HPF) Urine Bacteria Occasional (0-1) D (None) Ur Culture Indicated? Specimen cultured Imaging Data Chest x-ray: Radiologist's Impression: [place] [id number] [place] [id number] XRay Report Signed Patient: Chasity Wilks JMR#: [id number] : 1Acct:[id number] Age/Sex: 78 / FDate of Service: 04/23/19 Loc: ED Accession Number: [id number] Procedure: XR chest 1V Ordering Provider: Walker Stearns MD PROCEDURE: XR CHEST 1V INDICATIONS: suspected sepsis TECHNIQUE: One view of the chest was acquired. COMPARISON: [facility], CR, XR CHEST 1V, 04/22/2019, 14:23. FINDINGS: Surgical changes and devices: Surgical clips project over the right axillary region. Lungs and pleura: Lungs are hyperinflated, hyperlucent, with slight coarsened interstitial markings. No focal consolidation. Small pulmonary density at the tip of the right scapula is present on the prior study, but not seen as a discrete lesion on prior CT scan. No pleural effusions or pneumothorax. Mediastinum: Mediastinal contours appear normal. Heart size is normal. Bones and chest wall: No suspicious bony lesions. Overlying soft tissues appear unremarkable. Surgical changes of axillary femoral bypass on the right. IMPRESSION: 1. Hyperinflation suggesting asthma or emphysema. 2. No focal pneumonia. 3. Non-emergent followup chest CT recommended to assess the right midlung nodule. Dictated by: Faith Wilde M.D. on 04/23/2019 at 19:44 Approved by: Faith Wilde M.D. on 04/23/2019 at 19:49 [facility] Narrative Medical decision making narrative: This is a 78-year-old female comes to the emergency department with recent evaluation just yesterday for possible UTI who had leukocytes but no nitrates in her urine initial micro is negative. Patient had 1 fever per family at home today they states she is confused although she is fairly appropriate in the room. She does defer most answers to her son and asked that he answer questions. Patient's heart rate slightly elevated. Her lab work is similar to yesterday's with no major abnormalities and procalcitonin are both negative. Repeat urine today shows leuks but otherwise negative. It was cultured as well as blood cultures pending. Patient does not have any changes that are highly suspicious for meningitis. We did discuss possibly TIA versus CVA she does seem to bleed a little to the side when walking to the bathroom. She did not require extensive assistance but some from nursing. Patient and I discussed observation she does not me in patient status she does not wish to stay in observation secondary to financial causes this was discussed with her her son at bedside and they are both in agreement that she will return home at this time although I encouraged her to stay overnight in the hospital for further evaluation. I suspect that she will return in the next 24 hours as she has had worsening weakness and symptoms. Patient was encouraged to continue her antibiotics at this point but we also discussed that we have not fully ruled out other causes. Discharge Plan Departure Patient Disposition: Home Clinical Impression: Weakness, Confusion Discharge Date/Time: 04/23/19 22:36 Instructions: DI for Altered Mental Status Activity Restrictions/Additional Instructions: Follow up with your physician tomorrow for recheck, you may return to the ER at any time for recheck. Continue antibiotics as prescribed. Your symptoms may be from a UTI but your urine culture is still pending but negative. There is potentially other causes such as TIA's or strokes versus other infectious causes. Blood cultures are pending. Return to the ER for worsening symptoms, fevers, worsening mental status, weakness, difficulty with speech, slurred speech, one-sided weakness, severe headaches, persistent vomiting, new chest pain shortness of breath or other new or concerning symptoms. Prescriptions: No Action albuterol sulfate [Ventolin HFA] 90 mcg/actuation Hfa Aerosol Inhaler 2 puff INHALATION Q6H PRN (Reason: Shortness Of Breath Or Wheezing) RF: 0 magnesium oxide 400 mg magnesium Tablet 400 mg PO QAM RF: 0 amlodipine 5 mg tablet 5 mg PO DAILY RF: 0 Eliquis 5 mg tablet 5 mg PO BID RF: 0 acetaminophen 325 mg Tablet 650 mg PO Q6HR PRN (Reason: Fever/Mild Pain (1-3)) Qty: 30 RF: 0 polyethylene glycol 3350 17 gram Powder In Packet 17 gm PO DAILY Qty: 1 RF: 0 hydrocodone-acetaminophen 5-325 mg Tablet 2 tab PO Q4HR PRN (Reason: Pain, Severe (7-10)) Qty: 30 RF: 0 bisacodyl 10 mg Suppository 10 mg [place] DAILY PRN (Reason: Constipation) Qty: 10 RF: 0 docusate sodium [DOK] 100 mg Capsule 100 mg PO BID Qty: 60 RF: 0 metoprolol succinate 100 mg tablet extended release 24 hr 100 mg PO DAILY RF: 0 simvastatin 20 mg Tablet 20 mg PO DAILY RF: 0 baclofen 5 mg Tablet 5 mg PO TID RF: 0 prednisone 20 mg tablet 20 mg PO DAILY Qty: 4 RF: 0 metoprolol succinate 25 mg tablet extended release 24 hr PO RF: 0 cephalexin [Keflex] 500 mg capsule 500 mg PO Q12H 7 Days Qty: 14 RF: 0 aspirin [Adult Aspirin Regimen] 81 mg tablet,delayed release (DR/EC) 81 mg PO DAILY RF: 0 pantoprazole 40 mg tablet,delayed release (DR/EC) 40 mg PO DAILY RF: 0 Referrals: Deepa Varela MD [Primary Care Provider] -
--- NOTE | 2019-04-23 19:09 | DI.CT.S_ITS ---
PROCEDURE: CT HEAD/BRAIN WO CON INDICATIONS: confusion, ? recent uti, no trauma TECHNIQUE: Noncontrast 4.5 mm thick angled axial sections acquired from the foramen magnum to the vertex, with coronal and sagittal reformats. For radiation dose reduction, the following was used: automated exposure control, adjustment of mA and/or kV according to patient size. COMPARISON: [facility], CT, CT HEAD/BRAIN WO CON, 10/29/2018, 9:54. FINDINGS: Image quality: Excellent. CSF spaces: Basal cisterns are patent. No extra-axial fluid collections. The ventricles are stable, mildly enlarged, slightly out of proportion to degree of volume loss, but symmetric in size and shape. Brain: No intracranial bleeds or masses. There is cerebral volume loss for age, with resultant ventricular and sulcal prominence. There are moderate periventricular and deep white matter chronic small vessel ischemic changes. There is intracranial internal carotid artery atherosclerosis. Skull and face: Calvarium and visualized facial bones appear intact, without suspicious lesions. Sinuses: Visualized sinuses and mastoids are clear. IMPRESSION: 1. No CT evidence of acute process. 2. Slight ventricular enlargement out of proportion to degree of volume loss. This finding is stable compared to the prior study. Normal pressure hydrocephalus cannot be excluded. Dictated by: Faith Wilde M.D. on 04/23/2019 at 20:32 Approved by: Faith Wilde M.D. on 04/23/2019 at 20:35
[2019-04-23] MEDS: SODIUM CHLORIDE 0.9% 1,000 ML 1000 ML IV (19:26)
[2019-04-23 19:35] LABS: Add Manual Diff / Slide Review NO; Basophils Absolute Auto 100 /uL (0-100); Basophils Percent Auto 0.8 % (0-2); Eosinophils Absolute Auto 100 /uL (0-450); Eosinophils Percent Auto 1.7 % (2-4); Hemoglobin 13.7 g/dL (12.0-16.0); Lymphocytes Absolute Auto 1600 /uL (1100-4500); Lymphocytes Percent Auto 19.5 % (25-40); Mean Corpuscular HGB Conc 32.8 % (30-36); Mean Corpuscular Hemoglobin 27.7 PG (26-34); Mean Corpuscular Volume 84.6 fL (80-100); Monocytes Absolute Auto 500 /uL (0-900); Monocytes Percent Auto 6.6 % (3-14); Neutrophils Absolute Auto 5700 /uL (1500-7000); Neutrophils Percent Auto 71.4 % (50-75); Platelet Count 274 X10^3/uL (150-400); Red Blood Cell Count 4.96 X10^6/uL (4.0-5.2); Red Cell Distribution Width 17.9 % (11.6-14.8)
[2019-04-23 19:47] LABS: INR 1.6 (0.9-1.3); Prothrombin Time 18.7 SECONDS (10.1-12.7)
[2019-04-23 19:50] LABS: PTT Partial Thromboplastin Tim 35 SECONDS (26.4-36.2)
[2019-04-23 19:52] LABS: Alanine Aminotransferase 12 IU/L (<35); Albumin 4.4 g/dL (3.5-5.0); Albumin Globulin Ratio 1.4 (1.0-2.8); Alkaline Phosphatase 83 U/L (38-126); Aspartate Aminotransferase 26 IU/L (14-36); BUN Creatinine Ratio 21.3 (6-22); Bilirubin Total 0.5 mg/dL (0.2-1.3); Blood Urea Nitrogen 17 mg/dL (7-17); Calcium 10.1 mg/dL (8.4-10.2); Carbon Dioxide 31 mmol/L (22-32); Chloride 102 mmol/L (98-107); Creatine Kinase 28 U/L (30-135); Estimated Glomerular Filt Rate > 60.0 mL/min (>60); Globulin 3.2 g/dL (1.7-4.1); Glucose 110 mg/dL (80-110); HEMOLYSIS < 15 (0-50); Lactate (Lactic Acid) 1.1 mmol/L (0.7-2.1); Lipase 25 U/L (23-300); Potassium 3.7 mmol/L (3.4-5.1); Sodium 141 mmol/L (137-145); Total Protein 7.6 g/dL (6.3-8.2)
[2019-04-23 20:03] LABS: Troponin I 0.014 ng/mL (0.01-0.034)
[2019-04-23 20:06] LABS: Procalcitonin < 0.05 ng/mL (<0.5)
[2019-04-23 20:37] LABS: Appearance Urine UA CLEAR; Bilirubin Urine UA NEGATIVE (NEGATIVE); Color Urine UA YELLOW; Glucose Urine UA NEGATIVE (Negative); Ketones Urine UA NEGATIVE (NEGATIVE); Leukocyte Esterase Urine UA 1+ (NEGATIVE); Nitrite Urine UA NEGATIVE (Negative); Occult Blood Urine UA NEGATIVE (Negative); Protein Urine UA NEGATIVE (Negative); Urobilinogen Urine UA 0.2 E.U./dL (0.2)
[2019-04-23 20:43] LABS: Bacteria Urine Occasional (0-1); Culture Indicated Urine Specimen Cultured; RBC Urine 0-1/HPF (0-5/HPF); Squamous Epithelial Cell Urine 0-1 /HPF (0-5/HPF); WBC Urine 1-5/HPF (0-5/HPF)
[2019-04-23] MEDS: SODIUM CHLORIDE 0.9% 1,000 ML 150 ML IV (20:55)
== END 2019-04-23 22:36 | disposition home or self-care (01) ==
PROVIDERS: Emergency Medicine; Emergency Provider Emergency Medicine; PCP Internal Medicine
DX: R53.1 Weakness (principal); R41.0 Disorientation, unspecified; R50.9 Fever, unspecified
CPT/HCPCS: 36415; 70450; 71045; 80053; 81001; 82550; 83605; 83690; 84145; 84484; 85025; 85610; 85730; 87040; 87086; 93005; 96360; 96361; 99284; 99285

== ENCOUNTER 2019-05-13 10:48 | Emergency (ER) | payer MEDICARE, SELFPAY ==
[2019-02-04 18:29] VITALS: BMI 22.2
[2019-05-13 10:59] VITALS: BP 144/90; PULSE 119; RESP 18; TEMP 36.5; O2SAT 95
[2019-05-13 11:49] LABS: Amorphous Sediment Urine 1+; Bacteria Urine Moderate (10-30); Culture Indicated Urine Specimen Cultured; Mucus Urine 2+ (Negative); RBC Urine 0-1/HPF (0-5/HPF); Squamous Epithelial Cell Urine 5-10 /HPF (0-5/HPF); WBC Urine 10-30/HPF (0-5/HPF)
--- NOTE | 2019-05-13 11:51 | ED_ITS ---
HPI - Female Genitourinary <Nia Fitzgerald, BEVERAGE SPECIALIST-BC - Last Filed: 05/13/19 17:08> General Chief complaint: Urogenital-Female Stated complaint: Possible UTI,Fever Time Seen by Provider: 05/13/19 11:03 Source: patient and family Mode of arrival: Wheelchair Limitations: no limitations History of Present Illness HPI Narrative: The patient is a 78-year-old female former smoker with history of hypertension hand cardiac stents who presents for chief complaint of ?I think I have a urinary tract infection.She states that this morning she had a bad headache and fever of 100?. Her son brings her in and states that ?she. Was not herself he states that this is consistent with previous presentation of urinary tract infection. 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 She is supposed to have surgery in January to fix this, as surgery and would like to wait for 1 year after her cardiac stents. Patient states that she took Tylenol to feel better, and that her headache is improved slightly. She denies any vision changes, difficulty speaking chest pain shortness of breath nausea vomiting diarrhea constipation or abdominal pain. She states that she is urinating more than usual. She denies any dysuria. The patient states she is upset that she has to wait so long to have surgery to correct her fistulas. Her son states that he is working with her primary care provider to have a prescription for urinary tract infection prevention. Related Data Home Medications Medication Instructions Recorded Confirmed aspirin 81 mg tablet,delayed 81 mg PO DAILY 04/20/18 03/02/19 release pantoprazole 40 mg tablet,delayed 40 mg PO DAILY 04/20/18 04/23/19 release albuterol sulfate [Ventolin HFA] 2 puff INHALATION Q6H PRN 10/29/18 03/02/19 magnesium oxide 400 mg PO QAM 10/29/18 03/02/19 Eliquis 5 mg PO BID 02/04/19 03/02/19 amlodipine 5 mg PO DAILY 02/04/19 04/23/19 baclofen 5 mg PO TID 03/02/19 03/02/19 metoprolol succinate 100 mg PO DAILY 03/02/19 04/23/19 simvastatin 20 mg PO DAILY 03/02/19 04/23/19 metoprolol succinate PO 04/23/19 Previous Rx's Medication Instructions Recorded acetaminophen 650 mg PO Q6HR PRN #30 tab 02/06/19 bisacodyl 10 mg MD DAILY PRN #10 ea 02/06/19 docusate sodium [DOK] 100 mg PO BID #60 cap 02/06/19 hydrocodone-acetaminophen 2 tab PO Q4HR PRN #30 tab 02/06/19 polyethylene glycol 3350 17 gm PO DAILY #1 pkg 02/06/19 prednisone 20 mg PO DAILY #4 tab 03/02/19 nitrofurantoin macrocrystal 100 mg PO BID 7 Days #14 cap 05/13/19 Allergies Allergy/AdvReac Type Severity Reaction Status Date / Time morphine AdvReac Intermediate burning Verified 04/22/19 13:32 sensation at IV site amoxicillin [From Augmentin] AdvReac Mild flu like Verified 04/22/19 13:32 symptoms clavulanic acid AdvReac Mild flu like Verified 04/22/19 13:32 [From Augmentin] symptoms lisinopril AdvReac Mild cough Verified 04/22/19 13:32 Review of Systems <SERGE Mai - Last Filed: 05/13/19 17:08> Review of Systems Narrative: GENERAL: See HPI HEENT: Denies sinus pain, ear pain, sore throat, difficulty swallowing, di zziness. RESPIRATORY: Denies dyspnea, cough, wheezing, hemoptysis, sputum. CARDIOVASCULAR: Denies chest pain, palpitations, orthopnea, edema, GASTROINTESTINAL: Denies nausea, vomiting, abdominal pain, diarrhea, constipation, melena. : See HPI MUSCULOSKELETAL: denies weakness, joint pain, or bony pain SKIN: Denies rash, skin lesions, or other NEUROLOGIC: See HPI PSYCHIATRIC: No concerning psychosocial issues. 12 point review of systems is negative except for those stated above Patient History <SERGE Mai - Last Filed: 05/13/19 17:08> Medical History Afib (Acute) CAD (coronary artery disease) (Chronic) Cardiac defibrillator in place (Acute) Carotid stenosis (Chronic) Colovaginal fistula (Acute) COPD (chronic obstructive pulmonary disease) (Chronic) CVA (cerebral vascular accident) (Acute) Enterovaginal fistula (Acute) Heart failure (Chronic) HLD (hyperlipidemia) (Chronic) HTN (hypertension) (Chronic) Nicotine addiction (Acute) PAD (peripheral artery disease) (Chronic) Surgical History H/O carotid endarterectomy (Chronic) History of appendectomy (Acute) History of coronary artery stent placement (Chronic) History of hysterectomy (Acute) Hx of tonsillectomy (Acute) Family History Father Throat cancer Mother Ovarian cancer tobacco type: cigarettes alcohol intake frequency: holidays/special occasions only Substance Use Type: does not use Exam <SERGE Mai - Last Filed: 05/13/19 17:08> Narrative Exam Narrative: GENERAL: T elderly female lying on stretcher in no acute distress HEAD: Atraumatic. Normocephalic. No temporal or scalp tenderness. EYES: Pupils equal round and reactive. Extraocular motions intact. No scleral icterus. No injection or drainage. ENT: Nose without bleeding, purulent drainage or septal hematoma. Throat without erythema, tonsillar hypertrophy or exudate. Uvula midline. Airway patent. NECK: Trachea midline. No JVD or lymphadenopathy. Supple, nontender, no meningeal signs. CARDIOVASCULAR: Regular rate and rhythm RESPIRATORY: Clear to auscultation. Breath sounds equal bilaterally. No wheezes, rales, or rhonchi. GASTROINTESTINAL: Abdomen soft, non-tender, nondistended. No hepato- splenomegaly, or palpable masses. No guarding. Active bowel sounds all 4 quadrants. No pain to palpation. EXTREMITIES: No clubbing, cyanosis, or edema. No joint tenderness, effusion, or edema noted. BACK: Nontender without deformity or crepitance. No flank tenderness. NEURO: AOx3. Interactive, age appropriate, no gross cranial nerve deficit. Using all extremities equally. SKIN: No rash or erythema on visible skin Initial Vital Signs Initial Vital Signs: Vital Signs Temperature 97.7 F 05/13/19 10:59 Pulse Rate 119 H 05/13/19 10:59 Respiratory Rate 18 05/13/19 10:59 Blood Pressure 144/90 H 05/13/19 10:59 Pulse Oximetry 95 05/13/19 10:59 <Kaitlyn Fajardo MD - Last Filed: 05/14/19 07:13> Initial Vital Signs Initial Vital Signs: Vital Signs Temperature 97.7 F 05/13/19 10:59 Pulse Rate 119 H 05/13/19 10:59 Respiratory Rate 18 05/13/19 10:59 Blood Pressure 144/90 H 05/13/19 10:59 Pulse Oximetry 95 05/13/19 10:59 Scores <SERGE Mai - Last Filed: 05/13/19 17:08> GCS Raj coma scale eye opening: Spontaneous [place] coma scale verbal response: Orientated [place] coma scale motor response: Obey commands Raj coma scale total score: 15 NIH Stroke Scale Level of Conciousness: Alert, keenly responsive Ask month/age: Answers both questions correctly. Open/close eyes, close hand: Performs both tasks correctly Best gaze horizontal: Normal Facial palsy: Normal symetrical movement Left arm drift: No drift for full 10 sec Right arm drift: No drift for full 10 sec Left leg drift: No drift for full 10 sec Right leg drift: No drift for full 10 sec Limb ataxia: Absent Sensory on face/arms/legs: Normal, no sensory loss Best language: No aphasia, normal Dysarthria: Normal Extinction or inattention: No abnormality Course <SERGE Mai - Last Filed: 05/13/19 17:08> Orders Ordered: Discontinued Medications Acetaminophen (Tylenol) 650 mg PO NOW ONE Stop: 05/13/19 12:01 Last Admin: 05/13/19 12:12 Dose: 650 mg Documented by: MILTON Vital Signs Vital signs: Vital Signs - 8 hr 05/13/19 10:59 05/13/19 15:40 Temperature 97.7 F 98.6 F Pulse Rate 119 H 92 H Respiratory Rate 18 16 Blood Pressure 144/90 H 150/63 H Pulse Oximetry 95 97 <Kaitlyn Fajardo MD - Last Filed: 05/14/19 07:13> Orders Ordered: Discontinued Medications Acetaminophen (Tylenol) 650 mg PO NOW ONE Stop: 05/13/19 12:01 Last Admin: 05/13/19 12:12 Dose: 650 mg Documented by: MILTON Vital Signs Vital signs: Vital Signs - 8 hr 05/13/19 10:59 05/13/19 15:40 Temperature 97.7 F 98.6 F Pulse Rate 119 H 92 H Respiratory Rate 18 16 Blood Pressure 144/90 H 150/63 H Pulse Oximetry 95 97 MDM - Female Genitourinary <Nia FitzgeraldSOFIAP- - Last Filed: 05/13/19 17:08> Lab Data Result diagrams: 05/13/19 11:50 05/13/19 11:50 Labs: Lab Results 05/13/19 05/13/19 05/13/19 Range/Units 11:15 11:50 11:50 WBC 9.3 (4.5-11.0) X10^3/uL RBC 4.96 (4.0-5.2) X10^6/uL Hgb 13.7 (12.0-16.0) g/dL Hct 41.8 (36-46) % MCV 84.3 (80-100) fL MCH 27.7 (26-34) PG MCHC 32.8 (30-36) % RDW 18.2 H (11.6-14.8) % Plt Count 302 (150-400) X10^3/uL Neut % (Auto) 73.7 (50-75) % Lymph % (Auto) 18.0 L (25-40) % [place] % (Auto) 6.2 (3-14) % Eos % (Auto) 1.2 L (2-4) % Baso % (Auto) 0.9 (0-2) % Neut # (Auto) 6800 (1976-8859) /uL Lymph # (Auto) 1700 (2099-3376) /uL Henderson # (Auto) 600 (0-900) /uL Eos # (Auto) 100 (0-450) /uL Baso # (Auto) 100 (0-100) /uL PT (10.1-12.7) SECONDS INR (0.9-1.3) APTT (26.4-36.2) SECONDS Sodium (137-145) mmol/L Potassium (3.4-5.1) mmol/L Chloride (98-107) mmol/L Carbon Dioxide (22-32) mmol/L BUN (7-17) mg/dL Creatinine (0.52-1.04) mg/dL Estimated GFR (>60) mL/min BUN/Creatinine Ratio (6-22) Glucose (80-110) mg/dL Lactate (0.7-2.1) mmol/L Calcium (8.4-10.2) mg/dL Total Bilirubin (0.2-1.3) mg/dL AST (14-36) IU/L ALT (<35) IU/L Alkaline Phosphatase (38-126) U/L Total Creatine Kinase (30-135) U/L CK-MB (CK-2) CK-MB (CK-2) Rel Index Troponin I (0.01-0.034) ng/mL Total Protein (6.3-8.2) g/dL Albumin (3.5-5.0) g/dL Globulin (1.7-4.1) g/dL Albumin/Globulin Ratio (1.0-2.8) Procalcitonin < 0.05 (<0.5) ng/mL Urine RBC 0-1/hpf (0-5/HPF) Urine WBC 10-30/hpf H (0-5/HPF) Ur Squamous Epith Cells 5-10 /hpf H (0-5/HPF) Amorphous Sediment 1+ Urine Bacteria Moderate (10-30) H (None) Urine Mucus 2+ H (Negative) Ur Culture Indicated? Specimen cultured 05/13/19 05/13/19 05/13/19 Range/Units 11:50 11:50 11:50 WBC (4.5-11.0) X10^3/uL RBC (4.0-5.2) X10^6/uL Hgb (12.0-16.0) g/dL Hct (36-46) % MCV (80-100) fL MCH (26-34) PG MCHC (30-36) % RDW (11.6-14.8) % Plt Count (150-400) X10^3/uL Neut % (Auto) (50-75) % Lymph % (Auto) (25-40) % Henderson % (Auto) (3-14) % Eos % (Auto) (2-4) % Baso % (Auto) (0-2) % Neut # (Auto) (5007-4845) /uL Lymph # (Auto) (3486-5643) /uL Henderson # (Auto) (0-900) /uL Eos # (Auto) (0-450) /uL Baso # (Auto) (0-100) /uL PT 24.1 H (10.1-12.7) SECONDS INR 2.1 H (0.9-1.3) APTT 39 H D (26.4-36.2) SECONDS Sodium 140 (137-145) mmol/L Potassium 3.9 (3.4-5.1) mmol/L Chloride 101 (98-107) mmol/L Carbon Dioxide 29 (22-32) mmol/L BUN 21 H (7-17) mg/dL Creatinine 0.90 (0.52-1.04) mg/dL Estimated GFR > 60.0 (>60) mL/min BUN/Creatinine Ratio 23.3 H (6-22) Glucose 116 H (80-110) mg/dL Lactate 1.2 (0.7-2.1) mmol/L Calcium 10.1 (8.4-10.2) mg/dL Total Bilirubin 0.6 (0.2-1.3) mg/dL AST 26 (14-36) IU/L ALT 12 (<35) IU/L Alkaline Phosphatase 92 (38-126) U/L Total Creatine Kinase 41 (30-135) U/L CK-MB (CK-2) TNP CK-MB (CK-2) Rel Index TNP Troponin I 0.013 (0.01-0.034) ng/mL Total Protein 8.0 (6.3-8.2) g/dL Albumin 4.5 (3.5-5.0) g/dL Globulin 3.5 (1.7-4.1) g/dL Albumin/Globulin Ratio 1.3 (1.0-2.8) Procalcitonin (<0.5) ng/mL Urine RBC (0-5/HPF) Urine WBC (0-5/HPF) Ur Squamous Epith Cells (0-5/HPF) Amorphous Sediment Urine Bacteria (None) Urine Mucus (Negative) Ur Culture Indicated? Urine Dip Bedside Urine Glucose Negative Bedside Urine Bilirubin - Negative Bedside Urine Ketone - Negative Urine Specific [place] 1.020 Bedside Urine Occult Blood +/- Bedside Urine pH 6.0 Bedside Urine Protein +/- 15 Bedside Urine Urobilinogen - Negative Bedside Urine Nitrite - Negative Bedside Urine Leukocytes +++ [address] scan - head: Radiologist's Impression: [address] [address] [address] Scan Report Signed Patient: Chasity Wilks JMR#: [id number] : 1Acct:[id number] Age/Sex: 78 / FDate of Service: 05/13/19 Loc: ED Accession Number: [id number] Procedure: CT head/brain wo con Ordering Provider: Nia Fitzgerald PROCEDURE: CT HEAD/BRAIN WO CON INDICATIONS: headache confusion TECHNIQUE: Noncontrast 4.5 mm thick angled axial sections acquired from the foramen magnum to the vertex, with coronal and sagittal reformats. For radiation dose reduction, the following was used: automated exposure control, adjustment of mA and/or kV according to patient size. COMPARISON: [facility], CT, CT HEAD/BRAIN WO CON, 10/29/2018, 9:54. [facility], CT, CT HEAD/BRAIN WO CON, 04/23/2019, 19:34. FINDINGS: Image quality: Motion artifact limits evaluation of the vertex. CSF spaces: Basal cisterns are patent. No extra-axial fluid collections. As before, there is enlargement of the lateral third ventricles. This is similar in extent to the CT dated 10/29/18. Brain: No intracranial bleeds or masses. There is cerebral volume loss for age, with resultant ventricular and sulcal prominence. There are periventricular and deep white matter chronic small vessel ischemic changes. There is intracranial internal carotid artery atherosclerosis. A chronic appearing infarct is present within the right cerebellar hemisphere. Skull and face: Calvarium and visualized facial bones appear intact, without suspicious lesions. Sinuses: Fluid and gas are present within the right maxillary cholecystectomy and Visualized sinuses and mastoids are otherwise clear. IMPRESSION: 1. Limited study given motion artifact. The vertex is not adequately characterized. 2. No acute intracranial findings where visualized. 3. Ventriculomegaly similar to the study dated 10/29/18. Differential considerations include central volume loss and hydrocephalus. 4. Acute right maxillary sinusitis. 5. Findings likely associated with chronic microvascular ischemic changes. Dictated by: Afia Todd M.D. on 05/13/2019 at 13:18 Approved by: Afia Todd M.D. on 05/13/2019 at 13:[address] performed due to motion artifact related to radiologist request. Patient okay with repeat head CT. Impression: Repeat study with improve visualization at the vertex demonstrates no acute intracranial abnormalities. Ventriculomegaly is unchanged suggesting central volume loss versus hydrocephalus. ECG Data Attestation: I personally reviewed and interpreted this ECG as follows: Interpretation: Atrial fibrillation. Ventricular rate 97. No ectopy noted. QRS 100 MDM Narrative Medical decision making narrative: The patient is a 78-year-old female who presents after an episode of a headache and slow thinking this morning. Her NIH is 0 in the emergency department. Basic lab work was drawn, urine is very concerning for infection. She has had recent urinary tract infection, treated with Keflex and Bactrim. Most recent micro shows susceptibility to Macrobid, so I will use that at this time. She has 500+ leukocytes, moderate bacteria, 2+ mucus, 10-30 wbc's. Otherwise her lab work is very reassuring, no leukocytosis, negative procalcitonin. She is alert and quite sharp throughout her stay in the emergency department. Given her episode Of ?confusion? at home, we did obtain a head CT. I did discuss with the patient and her son this would be a repeat and she had one 2 weeks ago, they elected to proceed. I did discuss the possibility of TIA, however family is certain that her episode of confusion is related to urinary tract infection, which is entirely possible. They do not want to consider observation or admission at this point time and would rather come back if anything is needed. They declined further evaluation or admission in the emergency department today. I discussed at length coming back to the emergency department for any acute concerns, follow-up with primary care provider in the next few days. The patient may benefit from prophylactic antibiotics for urinary tract infection until her fistula is fixed. Patient's son have no questions or concerns upon discharge and state understanding of return precaut ions as well as follow-up care. <Kaitlyn Fajardo MD - Last Filed: 05/14/19 07:13> Lab Data Labs: Lab Results 05/13/19 05/13/19 05/13/19 Range/Units 11:15 11:50 11:50 WBC 9.3 (4.5-11.0) X10^3/uL RBC 4.96 (4.0-5.2) X10^6/uL Hgb 13.7 (12.0-16.0) g/dL Hct 41.8 (36-46) % MCV 84.3 (80-100) fL MCH 27.7 (26-34) PG MCHC 32.8 (30-36) % RDW 18.2 H (11.6-14.8) % Plt Count 302 (150-400) X10^3/uL Neut % (Auto) 73.7 (50-75) % Lymph % (Auto) 18.0 L (25-40) % Henderson % (Auto) 6.2 (3-14) % Eos % (Auto) 1.2 L (2-4) % Baso % (Auto) 0.9 (0-2) % Neut # (Auto) 6800 (1883-5700) /uL Lymph # (Auto) 1700 (8181-0911) /uL Henderson # (Auto) 600 (0-900) /uL Eos # (Auto) 100 (0-450) /uL Baso # (Auto) 100 (0-100) /uL PT (10.1-12.7) SECONDS INR (0.9-1.3) APTT (26.4-36.2) SECONDS Sodium (137-145) mmol/L Potassium (3.4-5.1) mmol/L Chloride (98-107) mmol/L Carbon Dioxide (22-32) mmol/L BUN (7-17) mg/dL Creatinine (0.52-1.04) mg/dL Estimated GFR (>60) mL/min BUN/Creatinine Ratio (6-22) Glucose (80-110) mg/dL Lactate (0.7-2.1) mmol/L Calcium (8.4-10.2) mg/dL Total Bilirubin (0.2-1.3) mg/dL AST (14-36) IU/L ALT (<35) IU/L Alkaline Phosphatase (38-126) U/L Total Creatine Kinase (30-135) U/L CK-MB (CK-2) CK-MB (CK-2) Rel Index Troponin I (0.01-0.034) ng/mL Total Protein (6.3-8.2) g/dL Albumin (3.5-5.0) g/dL Globulin (1.7-4.1) g/dL Albumin/Globulin Ratio (1.0-2.8) Procalcitonin < 0.05 (<0.5) ng/mL Urine RBC 0-1/hpf (0-5/HPF) Urine WBC 10-30/hpf H (0-5/HPF) Ur Squamous Epith Cells 5-10 /hpf H (0-5/HPF) Amorphous Sediment 1+ Urine Bacteria Moderate (10-30) H (None) Urine Mucus 2+ H (Negative) Ur Culture Indicated? Specimen cultured 05/13/19 05/13/19 05/13/19 Range/Units 11:50 11:50 11:50 WBC (4.5-11.0) X10^3/uL RBC (4.0-5.2) X10^6/uL Hgb (12.0-16.0) g/dL Hct (36-46) % MCV (80-100) fL MCH (26-34) PG MCHC (30-36) % RDW (11.6-14.8) % Plt Count (150-400) X10^3/uL Neut % (Auto) (50-75) % Lymph % (Auto) (25-40) % Henderson % (Auto) (3-14) % Eos % (Auto) (2-4) % Baso % (Auto) (0-2) % Neut # (Auto) (2330-1519) /uL Lymph # (Auto) (6255-5492) /uL Henderson # (Auto) (0-900) /uL Eos # (Auto) (0-450) /uL Baso # (Auto) (0-100) /uL PT 24.1 H (10.1-12.7) SECONDS INR 2.1 H (0.9-1.3) APTT 39 H D (26.4-36.2) SECONDS Sodium 140 (137-145) mmol/L Potassium 3.9 (3.4-5.1) mmol/L Chloride 101 (98-107) mmol/L Carbon Dioxide 29 (22-32) mmol/L BUN 21 H (7-17) mg/dL Creatinine 0.90 (0.52-1.04) mg/dL Estimated GFR > 60.0 (>60) mL/min BUN/Creatinine Ratio 23.3 H (6-22) Glucose 116 H (80-110) mg/dL Lactate 1.2 (0.7-2.1) mmol/L Calcium 10.1 (8.4-10.2) mg/dL Total Bilirubin 0.6 (0.2-1.3) mg/dL AST 26 (14-36) IU/L ALT 12 (<35) IU/L Alkaline Phosphatase 92 (38-126) U/L Total Creatine Kinase 41 (30-135) U/L CK-MB (CK-2) TNP CK-MB (CK-2) Rel Index TNP Troponin I 0.013 (0.01-0.034) ng/mL Total Protein 8.0 (6.3-8.2) g/dL Albumin 4.5 (3.5-5.0) g/dL Globulin 3.5 (1.7-4.1) g/dL Albumin/Globulin Ratio 1.3 (1.0-2.8) Procalcitonin (<0.5) ng/mL Urine RBC (0-5/HPF) Urine WBC (0-5/HPF) Ur Squamous Epith Cells (0-5/HPF) Amorphous Sediment Urine Bacteria (None) Urine Mucus (Negative) Ur Culture Indicated? Urine Dip Bedside Urine Glucose Negative Bedside Urine Bilirubin - Negative Bedside Urine Ketone - Negative Urine Specific [place] 1.020 Bedside Urine Occult Blood +/- Bedside Urine pH 6.0 Bedside Urine Protein +/- 15 Bedside Urine Urobilinogen - Negative Bedside Urine Nitrite - Negative Bedside Urine Leukocytes +++ 500 Esterase Discharge Plan Departure Patient Disposition: Home Clinical Impression: Urinary tract infection Qualifiers: Urinary tract infection type: site unspecified Hematuria presence: without hematuria Qualified Code(s): N39.0 - Urinary tract infection, site not specified Discharge Date/Time: 05/13/19 15:42 Instructions: DI for Urinary Tract Infection (UTI), DI for Altered Mental Status Activity Restrictions/Additional Instructions: Thank you for trusting us with your care today Please follow-up with primary care provider in a few days. You may benefit from prophylaxis for urinary tract infections. I sent a prescription of an antibiotic to [facility] in [place]. Please take this with probiotic or yogurt. Please monitor for fever, inability keep down fluids flank pain or signs of worsening infection. Please come back to the emergency department for any acute concerns such as concern of heart attack or stroke etcetera Please rest and push fluids. Prescriptions: New nitrofurantoin macrocrystal 100 mg capsule 100 mg PO BID 7 Days Qty: 14 RF: 0 No Action albuterol sulfate [Ventolin HFA] 90 mcg/actuation Hfa Aerosol Inhaler 2 puff INHALATION Q6H PRN (Reason: Shortness Of Breath Or Wheezing) RF: 0 magnesium oxide 400 mg magnesium Tablet 400 mg PO QAM RF: 0 amlodipine 5 mg tablet 5 mg PO DAILY RF: 0 Eliquis 5 mg tablet 5 mg PO BID RF: 0 acetaminophen 325 mg Tablet 650 mg PO Q6HR PRN (Reason: Fever/Mild Pain (1-3)) Qty: 30 RF: 0 polyethylene glycol 3350 17 gram Powder In Packet 17 gm PO DAILY Qty: 1 RF: 0 hydrocodone-acetaminophen 5-325 mg Tablet 2 tab PO Q4HR PRN (Reason: Pain, Severe (7-10)) Qty: 30 RF: 0 bisacodyl 10 mg Suppository 10 mg MD DAILY PRN (Reason: Constipation) Qty: 10 RF: 0 docusate sodium [DOK] 100 mg Capsule 100 mg PO BID Qty: 60 RF: 0 metoprolol succinate 100 mg tablet extended release 24 hr 100 mg PO DAILY RF: 0 simvastatin 20 mg Tablet 20 mg PO DAILY RF: 0 baclofen 5 mg Tablet 5 mg PO TID RF: 0 prednisone 20 mg tablet 20 mg PO DAILY Qty: 4 RF: 0 metoprolol succinate 25 mg tablet extended release 24 hr PO RF: 0 aspirin [Adult Aspirin Regimen] 81 mg tablet,delayed release (DR/EC) 81 mg PO DAILY RF: 0 pantoprazole 40 mg tablet,delayed release (DR/EC) 40 mg PO DAILY RF: 0 Referrals: Deepa Varela MD [Primary Care Provider] -
[2019-05-13 11:58] LABS: Add Manual Diff / Slide Review NO; Basophils Absolute Auto 100 /uL (0-100); Basophils Percent Auto 0.9 % (0-2); Eosinophils Absolute Auto 100 /uL (0-450); Eosinophils Percent Auto 1.2 % (2-4); Hematocrit 41.8 % (36-46); Hemoglobin 13.7 g/dL (12.0-16.0); Lymphocytes Absolute Auto 1700 /uL (1100-4500); Mean Corpuscular HGB Conc 32.8 % (30-36); Mean Corpuscular Hemoglobin 27.7 PG (26-34); Mean Corpuscular Volume 84.3 fL (80-100); Monocytes Absolute Auto 600 /uL (0-900); Monocytes Percent Auto 6.2 % (3-14); Neutrophils Absolute Auto 6800 /uL (1500-7000); Neutrophils Percent Auto 73.7 % (50-75); Platelet Count 302 X10^3/uL (150-400); Red Blood Cell Count 4.96 X10^6/uL (4.0-5.2); Red Cell Distribution Width 18.2 % (11.6-14.8); White Blood Cell Count 9.3 X10^3/uL (4.5-11.0)
--- NOTE | 2019-05-13 11:59 | PC.NURSE ---
patient reports some confusion and headache. Comes with concerns of recurrent UTI. Denies significant sympotms.
[2019-05-13 12:09] LABS: INR 2.1 (0.9-1.3); Prothrombin Time 24.1 SECONDS (10.1-12.7)
[2019-05-13 12:11] LABS: PTT Partial Thromboplastin Tim 39 SECONDS (26.4-36.2)
[2019-05-13] MEDS: ACETAMINOPHEN 325 MG TABLET 650 MG PO (12:12)
[2019-05-13 12:17] LABS: Alanine Aminotransferase 12 IU/L (<35); Albumin 4.5 g/dL (3.5-5.0); Albumin Globulin Ratio 1.3 (1.0-2.8); Alkaline Phosphatase 92 U/L (38-126); Aspartate Aminotransferase 26 IU/L (14-36); BUN Creatinine Ratio 23.3 (6-22); Bilirubin Total 0.6 mg/dL (0.2-1.3); Blood Urea Nitrogen 21 mg/dL (7-17); Calcium 10.1 mg/dL (8.4-10.2); Carbon Dioxide 29 mmol/L (22-32); Chloride 101 mmol/L (98-107); Creatine Kinase 41 U/L (30-135); Estimated Glomerular Filt Rate > 60.0 mL/min (>60); Globulin 3.5 g/dL (1.7-4.1); Glucose 116 mg/dL (80-110); HEMOLYSIS < 15 (0-50); Lactate (Lactic Acid) 1.2 mmol/L (0.7-2.1); Potassium 3.9 mmol/L (3.4-5.1); Sodium 140 mmol/L (137-145)
--- NOTE | 2019-05-13 12:25 | DI.CT.S_ITS ---
PROCEDURE: CT HEAD/BRAIN WO CON INDICATIONS: headache confusion TECHNIQUE: Noncontrast 4.5 mm thick angled axial sections acquired from the foramen magnum to the vertex, with coronal and sagittal reformats. For radiation dose reduction, the following was used: automated exposure control, adjustment of mA and/or kV according to patient size. COMPARISON: [facility], CT, CT HEAD/BRAIN WO CON, 10/29/2018, 9:54. [facility], CT, CT HEAD/BRAIN WO CON, 04/23/2019, 19:34. FINDINGS: Image quality: Motion artifact limits evaluation of the vertex. CSF spaces: Basal cisterns are patent. No extra-axial fluid collections. As before, there is enlargement of the lateral third ventricles. This is similar in extent to the CT dated 10/29/18. Brain: No intracranial bleeds or masses. There is cerebral volume loss for age, with resultant ventricular and sulcal prominence. There are periventricular and deep white matter chronic small vessel ischemic changes. There is intracranial internal carotid artery atherosclerosis. A chronic appearing infarct is present within the right cerebellar hemisphere. Skull and face: Calvarium and visualized facial bones appear intact, without suspicious lesions. Sinuses: Fluid and gas are present within the right maxillary cholecystectomy and Visualized sinuses and mastoids are otherwise clear. IMPRESSION: 1. Limited study given motion artifact. The vertex is not adequately characterized. 2. No acute intracranial findings where visualized. 3. Ventriculomegaly similar to the study dated 10/29/18. Differential considerations include central volume loss and hydrocephalus. 4. Acute right maxillary sinusitis. 5. Findings likely associated with chronic microvascular ischemic changes. Dictated by: Afia Todd M.D. on 05/13/2019 at 13:18 Approved by: Afia Todd M.D. on 05/13/2019 at 13:26
[2019-05-13 12:28] LABS: Troponin I 0.013 ng/mL (0.01-0.034)
[2019-05-13 12:32] LABS: Procalcitonin < 0.05 ng/mL (<0.5)
--- NOTE | 2019-05-13 14:42 | PC.NURSE ---
Had to repeat due to CT artifact
[2019-05-13 15:40] VITALS: BP 150/63; PULSE 92; RESP 16; TEMP 37; O2SAT 97
--- NOTE | 2019-05-13 20:11 | PC.NURSE ---
[facility] for [facility] of care
== END 2019-05-13 15:42 | disposition home or self-care (01) ==
PROVIDERS: Emergency Provider Nurse Practitioner Family; PCP Internal Medicine
DX: N39.0 Urinary tract infection, site not specified (principal); R41.0 Disorientation, unspecified; R51 Headache; I10 Essential (primary) hypertension; Z95.5 Presence of coronary angioplasty implant and graft; Z79.01 Long term (current) use of anticoagulants
CPT/HCPCS: 36415; 70450; 80053; 81003; 81015; 82550; 83605; 84145; 84484; 85025; 85610; 85730; 87086; 93005; 93010; 99284

== ENCOUNTER 2019-07-25 11:00 | Emergency (ER) | payer MEDICARE, SELFPAY ==
[2019-02-04 18:29] VITALS: BMI 22.2
--- NOTE | 2019-07-25 | DI.RAD.S_ITS ---
PROCEDURE: FL CATHETER PATENCY COMPARISON: None. INDICATIONS: PERCUTANEOUS GALLBLADDER PATENCY STUDY FINDINGS: The patient reports cardiac condition which precludes surgical intervention and therefore a percutaneous cholecystostomy catheter had been placed recently within the gallbladder fossa. Drainage through this catheter has diminished to essentially none. Sterile water-soluble iodinated contrast was initially attempted to be injected retrograde through the stopcock joining the cholecystostomy tube to the drainage catheter tubing. No contrast could be infused retrograde. The stopcock was removed from the connection, and contrast easily flowed retrograde through the cholecystostomy tube when this was the case. The stopcock was evaluated, found to be blood, was unplugged, and reinserted in its original position. Contrast could then be injected through the stopcock cephalad into the cholecystostomy tube. The drainage catheter tubing was then reattached and the patient was transferred to the emergency room for additional violation. The retrograde study does show no significant fluid collection at the gallbladder fossa area. Only a small amount of contrast collected in this area prior to then traversing inferiorly along the subhepatic space and along the right lateral margin of the liver. IMPRESSION: This study provides only limited assessment of the right upper quadrant. The apparent cause of absence of drainage through the cholecystostomy tube appears to have been secondary to blockage at the 3 port stopcock. This was identified, cleared, the stopcock was reinserted and function was confirmed, and thereafter the drainage bag catheter was reattached to the stopcock. The study also shows no significant fluid collection sequestered in the right upper quadrant abdomen adjacent to the cholecystostomy pigtail tip. More accurate assessment of the right upper quadrant could be obtained utilizing CT scanning if necessary. Note was made of a small amount of peritoneal contrast transit to the right lateral hepatic margin and the subhepatic space, and overall the appearance of this limited study is as expected after clearance of the stopcock device. Dictated by: Hardik Irwin M.D. on 07/25/2019 at 15:38 Approved by: Hardik Irwin M.D. on 07/25/2019 at 15:43
[2019-07-25 11:04] VITALS: BP 111/65; PULSE 87; RESP 18; TEMP 37.4; O2SAT 96
--- NOTE | 2019-07-25 11:08 | PC.NURSE ---
Pt has a drain in gallbladder r/t cholecyctitis. Pt unable to have gallbladder surgery due to heart problems so they put the drain in. Pts drain is not flushing at care facility per staff.
--- NOTE | 2019-07-25 11:09 | ED_ITS ---
HPI - General Adult General Chief complaint: Abdominal Pain Stated complaint: Drain not draining Time Seen by Provider: 07/25/19 11:01 Source: patient Mode of arrival: EMS Limitations: no limitations History of Present Illness HPI narrative: 79-year-old female. Somewhat of a poor historian however does state that approximately 10 days ago she was admitted to an outside facility. The report was she was diagnosed with acute cholecystitis. It was also reported that it was felt that she was not a candidate for surgery so a percutaneous drain was placed. She was discharged to a nursing facility. She is unsure as to how long she has been at this nursing facility but she does think it has been the past couple days. She states she was sent to the emergency department today because the drain is no longer putting out any fluid. She also has mild right upper quadrant discomfort. No fevers. Related Data Home Medications Medication Instructions Recorded Confirmed aspirin 81 mg tablet,delayed 81 mg PO DAILY 04/20/18 03/02/19 release pantoprazole 40 mg tablet,delayed 40 mg PO DAILY 04/20/18 04/23/19 release albuterol sulfate [Ventolin HFA] 2 puff INHALATION Q6H PRN 10/29/18 03/02/19 magnesium oxide 400 mg PO QAM 10/29/18 03/02/19 Eliquis 5 mg PO BID 02/04/19 03/02/19 amlodipine 5 mg PO DAILY 02/04/19 04/23/19 baclofen 5 mg PO TID 03/02/19 03/02/19 metoprolol succinate 100 mg PO DAILY 03/02/19 04/23/19 simvastatin 20 mg PO DAILY 03/02/19 04/23/19 metoprolol succinate PO 04/23/19 Previous Rx's Medication Instructions Recorded acetaminophen 650 mg PO Q6HR PRN #30 tab 02/06/19 bisacodyl 10 mg [place] DAILY PRN #10 ea 02/06/19 docusate sodium [DOK] 100 mg PO BID #60 cap 02/06/19 hydrocodone-acetaminophen 2 tab PO Q4HR PRN #30 tab 02/06/19 polyethylene glycol 3350 17 gm PO DAILY #1 pkg 02/06/19 prednisone 20 mg PO DAILY #4 tab 03/02/19 Allergies Allergy/AdvReac Type Severity Reaction Status Date / Time morphine AdvReac Intermediate burning Verified 07/25/19 11:06 sensation at IV site amoxicillin [From Augmentin] AdvReac Mild flu like Verified 07/25/19 11:06 symptoms clavulanic acid AdvReac Mild flu like Verified 07/25/19 11:06 [From Augmentin] symptoms lisinopril AdvReac Mild cough Verified 07/25/19 11:06 Review of Systems Constitutional Constitutional: Denies fever(s) and Denies headache(s) ENT Ears, Nose, Mouth, and Throat: Denies headache(s) Cardiovascular Cardiovascular: Denies chest pain and Denies dyspnea Respiratory Respiratory: Denies dyspnea Gastrointestinal Gastrointestinal: Reports abdominal pain (Right upper quadrant around the drain), Denies nausea and Denies vomiting Genitourinary Genitourinary: Denies dysuria Musculoskeletal Musculoskeletal: Denies myalgias and Denies arthralgias Integumentary/Breasts Skin/Breast: Denies lesions and Denies rash Neurologic Neurologic: Denies behavioral changes and Denies headache(s) Psychiatric Psychiatric: Denies behavioral changes Hematologic/Lymphatic Hematologic/Lymphatic: Denies easy bleeding and Denies easy bruising Patient History Medical History Afib (Acute) CAD (coronary artery disease) (Chronic) Cardiac defibrillator in place (Acute) Carotid stenosis (Chronic) Colovaginal fistula (Acute) COPD (chronic obstructive pulmonary disease) (Chronic) CVA (cerebral vascular accident) (Acute) Enterovaginal fistula (Acute) Heart failure (Chronic) HLD (hyperlipidemia) (Chronic) HTN (hypertension) (Chronic) Nicotine addiction (Acute) PAD (peripheral artery disease) (Chronic) Social History household members: none Smoking Status: Former smoker alcohol intake: current Smoking Status: Former smoker tobacco type: cigarettes alcohol intake frequency: holidays/special occasions only Substance Use Type: does not use Exam Initial Vital Signs Initial Vital Signs: Vital Signs Temperature 99.3 F 07/25/19 11:04 Pulse Rate 87 07/25/19 11:04 Respiratory Rate 18 07/25/19 11:04 Blood Pressure 111/65 07/25/19 11:04 Pulse Oximetry 96 07/25/19 11:04 Const General: cooperative, comfortable and well developed Limitations: mental status not altered HENNM Head: normal to inspection and normocephalic Resp Effort & Inspection: normal respiratory effort Auscultation: clear to auscultation bilaterally Cardio Rate: regular rate GI Other: Mild right upper quadrant tenderness, drain coming from the right upper quadrant with nothing in the collection bag Skin Lesions: no lesions Rashes: no rashes Neuro General: alert and awake Cognition: normal cognition Speech: speech normal Extrem General: normal to inspection and capillary refill normal Course Orders Ordered: ED Orders 07/25/19 11:42 Complete Blood Count AUTO DIFF Stat Comprehensive Metabolic Panel Stat Lipase Stat Vital Signs Vital signs: Vital Signs - 8 hr 07/25/19 11:04 07/25/19 13:39 Temperature 99.3 F 97.3 F L Pulse Rate 87 96 H Respiratory Rate 18 12 Blood Pressure 111/65 Blood Pressure [rt arm] 101/73 Pulse Oximetry 96 95 Medical Decision Making Medical Records Medical records reviewed: Yes I reviewed the patient's medical records. Lab Data Lab results reviewed: Yes I reviewed the patient's lab results. Result diagrams: 07/25/19 11:42 07/25/19 11:42 Labs: Lab Results 07/25/19 07/25/19 Range/Units 11:42 11:42 WBC 7.9 (4.5-11.0) X10^3/uL RBC 3.93 L (4.0-5.2) X10^6/uL Hgb 9.5 L (12.0-16.0) g/dL Hct 30.2 L (36-46) % MCV 77.0 L (80-100) fL MCH 24.3 L (26-34) PG MCHC 31.6 (30-36) % RDW 18.8 H (11.6-14.8) % Plt Count 467 H (150-400) X10^3/uL Neut % (Auto) 74.4 (50-75) % Lymph % (Auto) 11.6 L (25-40) % [place] % (Auto) 10.2 (3-14) % Eos % (Auto) 2.8 (2-4) % Baso % (Auto) 1.0 (0-2) % Neut # (Auto) 5900 (7036-0147) /uL Lymph # (Auto) 900 L (7448-2786) /uL [place] # (Auto) 800 (0-900) /uL Eos # (Auto) 200 (0-450) /uL Baso # (Auto) 100 (0-100) /uL Sodium 137 (137-145) mmol/L Potassium 3.9 (3.4-5.1) mmol/L Chloride 103 (98-107) mmol/L Carbon Dioxide 28 (22-32) mmol/L BUN 13 (7-17) mg/dL Creatinine 0.62 (0.52-1.04) mg/dL Estimated GFR > 60.0 (>60) mL/min BUN/Creatinine Ratio 21.0 (6-22) Glucose 140 H (80-110) mg/dL Calcium 8.8 (8.4-10.2) mg/dL Total Bilirubin 0.3 (0.2-1.3) mg/dL AST 18 (14-36) IU/L ALT 8 (<35) IU/L Alkaline Phosphatase 69 (38-126) U/L Total Protein 6.3 (6.3-8.2) g/dL Albumin 3.3 L (3.5-5.0) g/dL Globulin 3.0 (1.7-4.1) g/dL Albumin/Globulin Ratio 1.1 (1.0-2.8) Lipase 31 (23-300) U/L MDM Narrative Medical decision making narrative: I discussed the case with General surgery from [facility] about the percutaneous drain. They recommended a drain patency study. I discussed with Radiology had a performed the study. Patient was sent to Interventional Radiology and did have a drain patency study performed. Received a call from radiology who stated that it appeared that the 3 way stopcock was what was blocked. They were able to clear this blockage. They then did the pains the study. It appears that the catheter is in the correct place. The common bile duct appears to be patent. Patient's labs are unremarkable. Will discharge the patient home with follow-up that is already s cheduled with General surgery. She was given return precautions. Discharge Plan Departure Patient Disposition: Home Clinical Impression: Postoperative complication Qualifiers: Surgical complication system/body Area: [id number] Activity Restrictions/Additional Instructions: Study performed today does show that the drain is patent and is in the proper position. You can continue all drain care activities as directed. She can keep all of her scheduled follow-up appointments. It is possible that the drain no longer has any output. This does not necessarily mean that there is a complication with the drain. If she develops fevers or worsening right upper quadrant pain please return to the emergency department. She can continue all of her medications as directed Prescriptions: No Action albuterol sulfate [Ventolin HFA] 90 mcg/actuation Hfa Aerosol Inhaler 2 puff INHALATION Q6H PRN (Reason: Shortness Of Breath Or Wheezing) RF: 0 magnesium oxide 400 mg magnesium Tablet 400 mg PO QAM RF: 0 amlodipine 5 mg tablet 5 mg PO DAILY RF: 0 Eliquis 5 mg tablet 5 mg PO BID RF: 0 acetaminophen 325 mg Tablet 650 mg PO Q6HR PRN (Reason: Fever/Mild Pain (1-3)) Qty: 30 RF: 0 polyethylene glycol 3350 17 gram Powder In Packet 17 gm PO DAILY Qty: 1 RF: 0 hydrocodone-acetaminophen 5-325 mg Tablet 2 tab PO Q4HR PRN (Reason: Pain, Severe (7-10)) Qty: 30 RF: 0 bisacodyl 10 mg Suppository 10 mg [place] DAILY PRN (Reason: Constipation) Qty: 10 RF: 0 docusate sodium [DOK] 100 mg Capsule 100 mg PO BID Qty: 60 RF: 0 metoprolol succinate 100 mg tablet extended release 24 hr 100 mg PO DAILY RF: 0 simvastatin 20 mg Tablet 20 mg PO DAILY RF: 0 baclofen 5 mg Tablet 5 mg PO TID RF: 0 prednisone 20 mg tablet 20 mg PO DAILY Qty: 4 RF: 0 metoprolol succinate 25 mg tablet extended release 24 hr PO RF: 0 aspirin [Adult Aspirin Regimen] 81 mg tablet,delayed release (DR/EC) 81 mg PO DAILY RF: 0 pantoprazole 40 mg tablet,delayed release (DR/EC) 40 mg PO DAILY RF: 0 Referrals: Deepa Varela MD [Primary Care Provider] -
[2019-07-25 11:51] LABS: Add Manual Diff / Slide Review NO; Basophils Absolute Auto 100 /uL (0-100); Eosinophils Absolute Auto 200 /uL (0-450); Eosinophils Percent Auto 2.8 % (2-4); Hematocrit 30.2 % (36-46); Hemoglobin 9.5 g/dL (12.0-16.0); Lymphocytes Absolute Auto 900 /uL (1100-4500); Lymphocytes Percent Auto 11.6 % (25-40); Mean Corpuscular HGB Conc 31.6 % (30-36); Mean Corpuscular Hemoglobin 24.3 PG (26-34); Monocytes Absolute Auto 800 /uL (0-900); Monocytes Percent Auto 10.2 % (3-14); Neutrophils Absolute Auto 5900 /uL (1500-7000); Neutrophils Percent Auto 74.4 % (50-75); Platelet Count 467 X10^3/uL (150-400); Red Blood Cell Count 3.93 X10^6/uL (4.0-5.2); Red Cell Distribution Width 18.8 % (11.6-14.8); White Blood Cell Count 7.9 X10^3/uL (4.5-11.0)
[2019-07-25 12:02] LABS: Alanine Aminotransferase 8 IU/L (<35); Albumin 3.3 g/dL (3.5-5.0); Albumin Globulin Ratio 1.1 (1.0-2.8); Alkaline Phosphatase 69 U/L (38-126); Aspartate Aminotransferase 18 IU/L (14-36); Bilirubin Total 0.3 mg/dL (0.2-1.3); Blood Urea Nitrogen 13 mg/dL (7-17); Calcium 8.8 mg/dL (8.4-10.2); Carbon Dioxide 28 mmol/L (22-32); Chloride 103 mmol/L (98-107); Estimated Glomerular Filt Rate > 60.0 mL/min (>60); Glucose 140 mg/dL (80-110); HEMOLYSIS < 15 (0-50); Lipase 31 U/L (23-300); Potassium 3.9 mmol/L (3.4-5.1); Sodium 137 mmol/L (137-145); Total Protein 6.3 g/dL (6.3-8.2)
[2019-07-25 13:39] VITALS: BP 101/73; PULSE 96; RESP 12; TEMP 36.3; O2SAT 95
[2019-07-25 14:41] VITALS: BP 101/73; PULSE 92; RESP 16; TEMP 36.7; O2SAT 94
== END 2019-07-25 14:43 | disposition home or self-care (01) ==
PROVIDERS: Emergency Provider Emergency Medicine; PCP Internal Medicine
DX: T81.9XXA Unspecified complication of procedure, initial encounter (principal); T85.9XXA Unspecified complication of internal prosthetic device, implant and graft, initial encounter
CPT/HCPCS: 36415; 76000; 80053; 83690; 85025; 99284

== ENCOUNTER 2019-07-27 13:11 | Emergency (ER) | payer MEDICARE, SELFPAY ==
[2019-02-04 18:29] VITALS: BMI 22.2
[2019-07-27] VITALS (14 sets, daily range): BP systolic 118–188; BP diastolic 53–86; PULSE 70–129; RESP 12–26; TEMP 36.4–37.8; O2SAT 94–100; BMI 22.9
--- NOTE | 2019-07-27 13:36 | DI.RAD.S_ITS ---
PROCEDURE: XR CHEST 1V INDICATIONS: copd, hYPOXIC on room air TECHNIQUE: One view of the chest was acquired. COMPARISON: [facility], XA, SI ULTRASOUND GUIDED PERICENTESIS, 07/20/2019, 9:51. [facility], RF, FL CATHETER PATENCY, 07/25/2019, 12:11. [facility], CR, XR CHEST 1V, 04/23/2019, 18:35. FINDINGS: Surgical changes and devices: Surgical clips projecting in the right axilla. Cholecystostomy tube noted. Lungs and pleura: Scattered subsegmental atelectasis and/or scarring. No focal consolidation. No pleural effusions or pneumothorax. Mediastinum: Mediastinal contours appear normal. Heart size is normal. Bones and chest wall: No suspicious bony lesions. Overlying soft tissues appear unremarkable. IMPRESSION: Scattered subsegmental atelectasis and/or scarring. No focal consolidation. Dictated by: Jorge Griffith M.D. on 07/27/2019 at 14:46 Approved by: Jorge Griffith M.D. on 07/27/2019 at 14:48
[2019-07-27 13:41] LABS: Add Manual Diff / Slide Review NO; Basophils Absolute Auto 100 /uL (0-100); Basophils Percent Auto 0.8 % (0-2); Eosinophils Absolute Auto 100 /uL (0-450); Eosinophils Percent Auto 0.7 % (2-4); Hematocrit 31.9 % (36-46); Hemoglobin 10.1 g/dL (12.0-16.0); Lymphocytes Absolute Auto 1200 /uL (1100-4500); Lymphocytes Percent Auto 7.5 % (25-40); Mean Corpuscular HGB Conc 31.8 % (30-36); Mean Corpuscular Hemoglobin 24.2 PG (26-34); Mean Corpuscular Volume 76.3 fL (80-100); Monocytes Absolute Auto 1300 /uL (0-900); Monocytes Percent Auto 8.3 % (3-14); Neutrophils Absolute Auto 12900 /uL (1500-7000); Neutrophils Percent Auto 82.7 % (50-75); Platelet Count 566 X10^3/uL (150-400); Red Blood Cell Count 4.18 X10^6/uL (4.0-5.2); Red Cell Distribution Width 19.4 % (11.6-14.8); White Blood Cell Count 15.7 X10^3/uL (4.5-11.0)
--- NOTE | 2019-07-27 13:43 | ED_ITS ---
HPI - Abdominal Pain <Walker Stearns MD - Last Filed: 07/29/19 15:17> General Chief Complaint: Abdominal Pain Stated Complaint: Abd Pain Time Seen by Provider: 07/27/19 13:13 Source: EMS Mode of arrival: EMS History of Present Illness HPI narrative: CC: severe abdominal Pain: HPI: The patient is a 79-year-old female who lives with her son and [id number]. She was states that she was seen yesterday in the emergency department any actual dates states that she was seen on July 24. At that time she had a plugged nonfunctioning catheter in her common bile duct. She had a catheter series performed and the 3 way stopcock was unplugged and functioning. The patient was sent home and comes back today because she has developed severe recurrent abdominal pain. She denies any fever chills or sweats. On arrival she had a pulse ox of 88% on room air and is not on home oxygen. Her oxygenation improved significantly with supplemental oxygen. Her heart rate was running 129-135 with a history of paroxysmal atrial fibrillation. The patient was reported to have had a laproscopic cholecystectomy approximately 10 days ago at [facility]. The patient has previously stated was evaluated in the emergency department and on discharge her pain and discomfort had significantly improved but has now recurred and is intolerable at this time. When she was discharged home on July 24 her catheter was functioning. Today it appears that the patient is leaking around the catheter. The patient has a history of acute cholecystitis, acute respiratory failure with hypoxia, iron deficiency anemia, history of ischemic cardiomyopathy, paroxysmal atrial fibrillation, and COPD.the patient currently states that her pain is 10/10 in intensity. The patient denies being a diabetic but admits to history of a previous myocardial infarction congestive heart failure and COPD. Related Data Home Medications Medication Instructions Recorded Confirmed aspirin 81 mg tablet,delayed 81 mg PO DAILY 04/20/18 03/02/19 release pantoprazole 40 mg tablet,delayed 40 mg PO DAILY 04/20/18 04/23/19 release albuterol sulfate [Ventolin HFA] 2 puff INHALATION Q6H PRN 10/29/18 03/02/19 magnesium oxide 400 mg PO QAM 10/29/18 03/02/19 Eliquis 5 mg PO BID 02/04/19 03/02/19 amlodipine 5 mg PO DAILY 02/04/19 04/23/19 baclofen 5 mg PO TID 03/02/19 03/02/19 metoprolol succinate 100 mg PO DAILY 03/02/19 04/23/19 simvastatin 20 mg PO DAILY 03/02/19 04/23/19 metoprolol succinate PO 04/23/19 Previous Rx's Medication Instructions Recorded acetaminophen 650 mg PO Q6HR PRN #30 tab 02/06/19 bisacodyl 10 mg DC DAILY PRN #10 ea 02/06/19 docusate sodium [DOK] 100 mg PO BID #60 cap 02/06/19 hydrocodone-acetaminophen 2 tab PO Q4HR PRN #30 tab 02/06/19 polyethylene glycol 3350 17 gm PO DAILY #1 pkg 02/06/19 prednisone 20 mg PO DAILY #4 tab 03/02/19 Allergies Allergy/AdvReac Type Severity Reaction Status Date / Time morphine AdvReac Intermediate burning Verified 07/27/19 13:33 sensation at IV site amoxicillin [From Augmentin] AdvReac Mild flu like Verified 07/27/19 13:33 symptoms clavulanic acid AdvReac Mild flu like Verified 07/27/19 13:33 [From Augmentin] symptoms lisinopril AdvReac Mild cough Verified 07/27/19 13:33 Review of Systems <Walker Stearns MD - Last Filed: 07/29/19 15:17> Review of Systems Narrative: REVIEW OF SYSTEMS: CONSTITUTIONAL: She denies any fever chills or sweats NEUROLOGICAL: She denies any headache numbness tingling paresthesias anesthesia is paresis or paralysis. EENT: She denies any loss of vision change in vision sore throat sinus congestion CARDIO-PULMONARY: She denies any shortness of breath cough or chest pain at this time. However on arrival she had a pulse ox saturation of 88% on room air. She is not on home oxygen. She lives at home with her son and [id number]. HEMOTOLOGICAL: He denies any bleeding or bruising abnormalities. GASTROINTESTINAL: She has the abdominal pain that she has been complaining of with discomfort in the epigastrium right upper quadrant. She has had no significant vomiting mild nausea no diarrhea no melena or hematochezia. GENITAL URINARY: She denies any urinary frequency or discomfort MUSCULOSKELETAL/ RHEUMATOLOGICAL: Denies any significant back pain DERMATOLOGICAL: No rash or bruising Patient History <Walker Stearns MD - Last Filed: 07/29/19 15:17> Medical History Afib (Acute) CAD (coronary artery disease) (Chronic) Cardiac defibrillator in place (Acute) Carotid stenosis (Chronic) Colovaginal fistula (Acute) COPD (chronic obstructive pulmonary disease) (Chronic) CVA (cerebral vascular accident) (Acute) Enterovaginal fistula (Acute) Heart failure (Chronic) HLD (hyperlipidemia) (Chronic) HTN (hypertension) (Chronic) Nicotine addiction (Acute) PAD (peripheral artery disease) (Chronic) Surgical History H/O carotid endarterectomy (Chronic) History of appendectomy (Acute) History of coronary artery stent placement (Chronic) History of hysterectomy (Acute) Hx of tonsillectomy (Acute) Family History Father Throat cancer Mother Ovarian cancer Social History household members: none Smoking Status: Former smoker alcohol intake: current Smoking Status: Former smoker tobacco type: cigarettes alcohol intake frequency: holidays/special occasions only Substance Use Type: does not use Exam <Walker Stearns MD - Last Filed: 07/29/19 15:17> Narrative Exam Narrative: PHYSICAL EXAM: CONSTITUTIONAL: Awake, Alert, Oriented, Cooperative in moderate discomfort. The patient appears pale and ashen. The patient is very nervous and jumpy when touched. HEAD: AT/NC EENT: PERRL, FROM of eyes, no discharge, no nystagmus MOUTH:Oral mucosa is moist and pink. Is wearing a mask. NECK: Supple, no obvious JVD, Trachea is midline without stridor, no palpable LN. SPINE: Palpationof the cervical, spine reveals no gross deformity or tenderness. THORAX: No deformity, retractions, chest wall tenderness. Increased AP diameter LUNGS: Clear, symmetrical breath sounds, markedly decreased without respiratory distress. HEART: Irregular irregular heart tones that are tachycardic and distant ABDOMEN: A percutaneous drain in the right upper quadrant. Her abdomen is diffusely tender in all 4 quadrants especially the epigastrium and right upper quadrant with mild guarding but without any rigidity. LYMPHATIC: no palpable lymph nodes or spleen. EXTREMITIES: No edema, deformity, tenderness or cyanosis. SKIN: No rash, bruising,. NEURO: Awake, alert, conversive, cranial nerves II-XII are symmetrical , moves all 4 extremities . Initial Vital Signs Initial Vital Signs: Vital Signs Temperature 99.1 F 07/27/19 13:14 Pulse Rate 124 H 07/27/19 13:14 Respiratory Rate 12 07/27/19 13:14 Blood Pressure 188/79 H 07/27/19 13:14 Pulse Oximetry 99 07/27/19 13:14 <Kaitlyn Fajardo MD - Last Filed: 07/27/19 22:03> Initial Vital Signs Initial Vital Signs: Vital Signs Temperature 99.1 F 07/27/19 13:14 Pulse Rate 124 H 07/27/19 13:14 Respiratory Rate 12 07/27/19 13:14 Blood Pressure 188/79 H 07/27/19 13:14 Pulse Oximetry 99 07/27/19 13:14 Course <Walker Stearns MD - Last Filed: 07/29/19 15:17> Course Course Narrative: 1400: On July 24 a flow catheter patent see radiological st udy was performed as a percutaneous gallbladder patency study. Per the radiologist the study provided only limited assessment of the right upper quadrant. The apparent cause of absence of drainage through the cholecystotomy tube appears to have been secondary to a blockage at the 3 way stopcock. This was identified, cleared the stopcock was reinserted and function was confirmed. There after the drainage bag was reattached to the stopcock. The study shows no significant fluid collections sequestered in the right upper quadrant adjacent to the cholecystostomy pigtail tip. More accurate assessment of the right upper quadrant could be obtained utilizing CT scanning if necessary. Note was made of a small amount of peritoneal contrast transit to the right lateral hepatic margin and the subhepatic space. Overall the appearance of this study was limited. The patient is returning today with increased pain and discomfort in the same area. A CT of her abdomen with IV contrast will be obtained since the patient has normal renal function with a GFR greater than 6 to assess her recurrent increasing abdominal pain at this time. The patient will be assessed for the possibility of ischemic bowel sin she has chronic paroxysmal atrial fibrillation with increased abdominal pain. She is currently on Eliquis as an anticoagulant. 1515: The patient's laboratory studies revealed a white blood count of 15.7 an ESR elevated at 44 CRP elevated at 1.5, BNP elevated at 5010, procalcitonin less than 0.05 lactate 1.3. Chest x-ray revealed subsegmental atelectasis without focal consolidation. The patient's catheter study recommended that a CT scan be performed if further problems develop. The patient is returning for for recurrent pain and discomfort so CT of the abdomen has been obtained as well as her chest since she has developed hypoxia secondary to her COPD not on home oxygen. 1638: CT of the patient's chest abdomen and pelvis with IV contrast remains pending. 1729: CT of the patient's chest and abdomen with IV contrast revealed: 1. Percutaneous Cholecystotomy tube demonstrated with persistent findings consistent with acute cholecystitis 2. Bilateral pleural effusions right greater than left increased from prior study with associated compression atelectasis 3. Persistent spiculated nodule in the right upper lobe highly suspicious for a neoplasm likely bronchogenic carcinoma. 4. Aneurysmal dilation of the infrarenal abdominal aorta redemonstrated with occlusion of the right iliac arteries. Reconstituted flow redemonstrated at the level of the common femoral artery via patent subclavian common femoral bypass I will discuss the patient with general surgery at [facility]. 1946: I discussed the patient with Dr. Molina who states that she has not a good surgical candidate. She will consult and see the patient and possibly replace the cholecystostomy tube. However the patient needs to be admitted to the Medicine Service with her multiple medical problems. Orders Ordered: Discontinued Medications Diltiazem HCl (Cardizem) 10 mg IV NOW ONE Stop: 07/27/19 14:35 Last Admin: 07/27/19 14:50 Dose: 10 mg Documented by: KRYSTAL Diltiazem HCl (Cardizem) 10 mg IV NOW ONE Stop: 07/27/19 18:59 Last Admin: 07/27/19 19:08 Dose: 10 mg Documented by: KRYSTAL Hydromorphone HCl (Dilaudid) 0.5 mg IV NOW ONE Stop: 07/27/19 13:34 Last Admin: 07/27/19 13:48 Dose: 0.5 mg Documented by: DORA Hydromorphone HCl (Dilaudid) 1 mg IV NOW ONE Stop: 07/27/19 14:44 Last Admin: 07/27/19 14:52 Dose: 0.75 mg Documented by: KRYSTAL Hydromorphone HCl (Dilaudid) 0.5 mg IV NOW ONE Stop: 07/27/19 18:33 Last Admin: 07/27/19 18:36 Dose: 0.5 mg Documented by: KRYSTAL Hydromorphone HCl (Dilaudid) 1 mg IV NOW ONE Stop: 07/27/19 22:28 Last Admin: 07/27/19 22:31 Dose: 1 mg Documented by: KRYSTAL Sodium Chloride (Normal Saline 0.9%) 1,000 mls @ 1,000 mls/hr IV BOLUS ONE Stop: 07/27/19 14:32 Last Infusion: 07/27/19 16:06 Dose: 0 mls/hr Documented by: Admin: 07/27/19 13:50 Dose: 1,000 mls/hr Documented by: DORA Piperacillin/Tazobactam/Dextrose (Zosyn) 4.5 gm in 100 mls @ 200 mls/hr IV NOW ONE Stop: 07/27/19 18:03 Last Infusion: 07/27/19 18:40 Dose: 0 mls/hr Documented by: Admin: 07/27/19 17:49 Dose: 200 mls/hr Documented by: KRYSTAL Sodium Chloride (Normal Saline 0.9%) 1,000 mls @ 125 mls/hr IV CONT SILKE Last Infusion: 07/27/19 23:18 Dose: 0 mls/hr Documented by: Admin: 07/27/19 19:08 Dose: 125 mls/hr Documented by: KRYSTAL DILTIAZEM (Diltiazem 125 Mg/125 Ml-D5w) 125 mg in 125 mls @ 5 mls/hr IV TITRATE SILKE; Protocol Last Titration: 07/27/19 23:17 Dose: 0 mg/hr, 0 mls/hr Documented by: Admin: 07/27/19 19:34 Dose: 5 mg/hr, 5 mls/hr Documented by: KRYSTAL Ondansetron HCl (Zofran) 4 mg IV NOW ONE Stop: 07/27/19 13:34 Last Admin: 07/27/19 13:50 Dose: 4 mg Documented by: DORA Vital Signs Vital signs: Vital Signs - 8 hr 07/27/19 14:06 07/27/19 14:50 07/27/19 15:13 Temperature Pulse Rate 120 H 114 H 110 H Respiratory Rate 26 H 16 15 Blood Pressure 157/76 H Blood Pressure [Left Arm] 159/76 H 155/80 H 134/64 Pulse Oximetry 97 96 95 07/27/19 16:00 07/27/19 16:30 07/27/19 17:50 Temperature Pulse Rate 108 H 111 H 70 Respiratory Rate 13 17 18 Blood Pressure Blood Pressure [Left Arm] 155/80 H 145/67 H 118/53 L Pulse Oximetry 96 97 95 07/27/19 18:40 07/27/19 19:08 07/27/19 19:40 Temperature 97.6 F Pulse Rate 124 H 129 H 120 H Respiratory Rate 18 18 Blood Pressure 153/78 H Blood Pressure [Left Arm] 128/79 152/71 H Pulse Oximetry 94 94 07/27/19 20:26 07/27/19 21:52 Temperature 100.1 F H Pulse Rate 118 H 107 H Respiratory Rate 16 17 Blood Pressure Blood Pressure [Left Arm] 143/71 H 141/86 H Pulse Oximetry 95 96 <Kaitlyn Fajardo MD - Last Filed: 07/27/19 22:03> Orders Ordered: Discontinued Medications Diltiazem HCl (Cardizem) 10 mg IV NOW ONE Stop: 07/27/19 14:35 Last Admin: 07/27/19 14:50 Dose: 10 mg Documented by: KRYSTAL Diltiazem HCl (Cardizem) 10 mg IV NOW ONE Stop: 07/27/19 18:59 Last Admin: 07/27/19 19:08 Dose: 10 mg Documented by: KRYSTAL Hydromorphone HCl (Dilaudid) 0.5 mg IV NOW ONE Stop: 07/27/19 13:34 Last Admin: 07/27/19 13:48 Dose: 0.5 mg Documented by: DORA Hydromorphone HCl (Dilaudid) 1 mg IV NOW ONE Stop: 07/27/19 14:44 Last Admin: 07/27/19 14:52 Dose: 0.75 mg Documented by: KRYSTAL Hydromorphone HCl (Dilaudid) 0.5 mg IV NOW ONE Stop: 07/27/19 18:33 Last Admin: 07/27/19 18:36 Dose: 0.5 mg Documented by: KRYSTAL Hydromorphone HCl (Dilaudid) 1 mg IV NOW ONE Stop: 07/27/19 22:28 Last Admin: 07/27/19 22:31 Dose: 1 mg Documented by: KRYSTAL Sodium Chloride (Normal Saline 0.9%) 1,000 mls @ 1,000 mls/hr IV BOLUS ONE Stop: 07/27/19 14:32 Last Infusion: 07/27/19 16:06 Dose: 0 mls/hr Documented by: Admin: 07/27/19 13:50 Dose: 1,000 mls/hr Documented by: DORA Piperacillin/Tazobactam/Dextrose (Zosyn) 4.5 gm in 100 mls @ 200 mls/hr IV NOW ONE Stop: 07/27/19 18:03 Last Infusion: 07/27/19 18:40 Dose: 0 mls/hr Documented by: Admin: 07/27/19 17:49 Dose: 200 mls/hr Documented by: KRYSTAL Sodium Chloride (Normal Saline 0.9%) 1,000 mls @ 125 mls/hr IV CONT SILKE Last Infusion: 07/27/19 23:18 Dose: 0 mls/hr Documented by: Admin: 07/27/19 19:08 Dose: 125 mls/hr Documented by: KRYSTAL DILTIAZEM (Diltiazem 125 Mg/125 Ml-D5w) 125 mg in 125 mls @ 5 mls/hr IV TITRATE SILKE; Protocol Last Titration: 07/27/19 23:17 Dose: 0 mg/hr, 0 mls/hr Documented by: Admin: 07/27/19 19:34 Dose: 5 mg/hr, 5 mls/hr Documented by: KRYSTAL Ondansetron HCl (Zofran) 4 mg IV NOW ONE Stop: 07/27/19 13:34 Last Admin: 07/27/19 13:50 Dose: 4 mg Documented by: DORA Vital Signs Vital signs: Vital Signs - 8 hr 07/27/19 14:06 07/27/19 14:50 07/27/19 15:13 Temperature Pulse Rate 120 H 114 H 110 H Respiratory Rate 26 H 16 15 Blood Pressure 157/76 H Blood Pressure [Left Arm] 159/76 H 155/80 H 134/64 Pulse Oximetry 97 96 95 07/27/19 16:00 07/27/19 16:30 07/27/19 17:50 Temperature Pulse Rate 108 H 111 H 70 Respiratory Rate 13 17 18 Blood Pressure Blood Pressure [Left Arm] 155/80 H 145/67 H 118/53 L Pulse Oximetry 96 97 95 07/27/19 18:40 07/27/19 19:08 07/27/19 19:40 Temperature 97.6 F Pulse Rate 124 H 129 H 120 H Respiratory Rate 18 18 Blood Pressure 153/78 H Blood Pressure [Left Arm] 128/79 152/71 H Pulse Oximetry 94 94 07/27/19 20:26 07/27/19 21:52 Temperature 100.1 F H Pulse Rate 118 H 107 H Respiratory Rate 16 17 Blood Pressure Blood Pressure [Left Arm] 143/71 H 141/86 H Pulse Oximetry 95 96 MDM - Abdominal Pain <Walker Stearns MD - Last Filed: 07/29/19 15:17> Medical Records Attestation: I reviewed the patient's medical records. Lab Data Attestation: I reviewed the patient's lab results. Result diagrams: 07/27/19 13:20 07/27/19 13:20 Labs: Lab Results 07/27/19 07/27/19 07/27/19 Range/Units 13:20 13:20 13:20 WBC 15.7 H (4.5-11.0) X10^3/uL RBC 4.18 (4.0-5.2) X10^6/uL Hgb 10.1 L (12.0-16.0) g/dL Hct 31.9 L (36-46) % MCV 76.3 L (80-100) fL MCH 24.2 L (26-34) PG MCHC 31.8 (30-36) % RDW 19.4 H (11.6-14.8) % Plt Count 566 H (150-400) X10^3/uL Neut % (Auto) 82.7 H (50-75) % Lymph % (Auto) 7.5 L (25-40) % [place] % (Auto) 8.3 (3-14) % Eos % (Auto) 0.7 L (2-4) % Baso % (Auto) 0.8 (0-2) % Neut # (Auto) 06557 H (1814-1971) /uL Lymph # (Auto) 1200 (2978-6377) /uL [place] # (Auto) 1300 H (0-900) /uL Eos # (Auto) 100 (0-450) /uL Baso # (Auto) 100 (0-100) /uL ESR (0-20) MM/HR Sodium 137 (137-145) mmol/L Potassium 4.0 (3.4-5.1) mmol/L Chloride 100 (98-107) mmol/L Carbon Dioxide 30 (22-32) mmol/L BUN 13 (7-17) mg/dL Creatinine 0.66 (0.52-1.04) mg/dL Estimated GFR > 60.0 (>60) mL/min BUN/Creatinine Ratio 19.7 (6-22) Glucose 106 (80-110) mg/dL Lactate 1.3 (0.7-2.1) mmol/L Calcium 9.0 (8.4-10.2) mg/dL Total Bilirubin 0.5 (0.2-1.3) mg/dL AST 34 (14-36) IU/L ALT 8 (<35) IU/L Alkaline Phosphatase 84 (38-126) U/L Lactate Dehydrogenase 571 (313-618) U/L Total Creatine Kinase 23 L (30-135) U/L CK-MB (CK-2) TNP CK-MB (CK-2) Rel Index TNP Troponin I < 0.012 (0.01-0.034) ng/mL C-Reactive Protein (<1.0) mg/dL NT-Pro-B Natriuret Pep 5010 H (<450) pg/mL Total Protein 7.0 (6.3-8.2) g/dL Albumin 3.7 (3.5-5.0) g/dL Globulin 3.3 (1.7-4.1) g/dL Albumin/Globulin Ratio 1.1 (1.0-2.8) Lipase (23-300) U/L Procalcitonin (<0.5) ng/mL Urine Color Urine Appearance Urine pH (4.5-8.0) Ur Specific [place] (1.000-1.035) Urine Protein (Negative) Urine Glucose (UA) (Negative) g/dL Urine Ketones (NEGATIVE) Urine Occult Blood (Negative) Urine Nitrate (Negative) Urine Bilirubin (NEGATIVE) Urine Urobilinogen (0.2) E.U./dL Ur Leukocyte Esterase (NEGATIVE) Urine RBC (0-5/HPF) Urine WBC (0-5/HPF) Ur Squamous Epith Cells (0-5/HPF) Ur Transition Epith Cell (0-5/HPF) Urine Bacteria (None) Ur Culture Indicated? 07/27/19 07/27/19 07/27/19 Range/Units 13:20 13:20 13:20 WBC (4.5-11.0) X10^3/uL RBC (4.0-5.2) X10^6/uL Hgb (12.0-16.0) g/dL Hct (36-46) % MCV (80-100) fL MCH (26-34) PG MCHC (30-36) % RDW (11.6-14.8) % Plt Count (150-400) X10^3/uL Neut % (Auto) (50-75) % Lymph % (Auto) (25-40) % [place] % (Auto) (3-14) % Eos % (Auto) (2-4) % Baso % (Auto) (0-2) % Neut # (Auto) (5924-6961) /uL Lymph # (Auto) (8407-2550) /uL [place] # (Auto) (0-900) /uL Eos # (Auto) (0-450) /uL Baso # (Auto) (0-100) /uL ESR 44 H (0-20) MM/HR Sodium (137-145) mmol/L Potassium (3.4-5.1) mmol/L Chloride (98-107) mmol/L Carbon Dioxide (22-32) mmol/L BUN (7-17) mg/dL Creatinine (0.52-1.04) mg/dL Estimated GFR (>60) mL/min BUN/Creatinine Ratio (6-22) Glucose (80-110) mg/dL Lactate (0.7-2.1) mmol/L Calcium (8.4-10.2) mg/dL Total Bilirubin (0.2-1.3) mg/dL AST (14-36) IU/L ALT (<35) IU/L Alkaline Phosphatase (38-126) U/L Lactate Dehydrogenase (313-618) U/L Total Creatine Kinase (30-135) U/L CK-MB (CK-2) CK-MB (CK-2) Rel Index Troponin I (0.01-0.034) ng/mL C-Reactive Protein 1.5 H (<1.0) mg/dL NT-Pro-B Natriuret Pep (<450) pg/mL Total Protein (6.3-8.2) g/dL Albumin (3.5-5.0) g/dL Globulin (1.7-4.1) g/dL Albumin/Globulin Ratio (1.0-2.8) Lipase 25 (23-300) U/L Procalcitonin < 0.05 (<0.5) ng/mL Urine Color Urine Appearance Urine pH (4.5-8.0) Ur Specific [place] (1.000-1.035) Urine Protein (Negative) Urine Glucose (UA) (Negative) g/dL Urine Ketones (NEGATIVE) Urine Occult Blood (Negative) Urine Nitrate (Negative) Urine Bilirubin (NEGATIVE) Urine Urobilinogen (0.2) E.U./dL Ur Leukocyte Esterase (NEGATIVE) Urine RBC (0-5/HPF) Urine WBC (0-5/HPF) Ur Squamous Epith Cells (0-5/HPF) Ur Transition Epith Cell (0-5/HPF) Urine Bacteria (None) Ur Culture Indicated? 07/27/19 Range/Units 20:29 WBC (4.5-11.0) X10^3/uL RBC (4.0-5.2) X10^6/uL Hgb (12.0-16.0) g/dL Hct (36-46) % MCV (80-100) fL MCH (26-34) PG MCHC (30-36) % RDW (11.6-14.8) % Plt Count (150-400) X10^3/uL Neut % (Auto) (50-75) % Lymph % (Auto) (25-40) % [place] % (Auto) (3-14) % Eos % (Auto) (2-4) % Baso % (Auto) (0-2) % Neut # (Auto) (3944-8169) /uL Lymph # (Auto) (9532-9661) /uL [place] # (Auto) (0-900) /uL Eos # (Auto) (0-450) /uL Baso # (Auto) (0-100) /uL ESR (0-20) MM/HR Sodium (137-145) mmol/L Potassium (3.4-5.1) mmol/L Chloride (98-107) mmol/L Carbon Dioxide (22-32) mmol/L BUN (7-17) mg/dL Creatinine (0.52-1.04) mg/dL Estimated GFR (>60) mL/min BUN/Creatinine Ratio (6-22) Glucose (80-110) mg/dL Lactate (0.7-2.1) mmol/L Calcium (8.4-10.2) mg/dL Total Bilirubin (0.2-1.3) mg/dL AST (14-36) IU/L ALT (<35) IU/L Alkaline Phosphatase (38-126) U/L Lactate Dehydrogenase (313-618) U/L Total Creatine Kinase (30-135) U/L CK-MB (CK-2) CK-MB (CK-2) Rel Index Troponin I (0.01-0.034) ng/mL C-Reactive Protein (<1.0) mg/dL NT-Pro-B Natriuret Pep (<450) pg/mL Total Protein (6.3-8.2) g/dL Albumin (3.5-5.0) g/dL Globulin (1.7-4.1) g/dL Albumin/Globulin Ratio (1.0-2.8) Lipase (23-300) U/L Procalcitonin (<0.5) ng/mL Urine Color Yellow Urine Appearance Clear Urine pH 6.5 (4.5-8.0) Ur Specific [place] <=1.005 (1.000-1.035) Urine Protein Negative (Negative) Urine Glucose (UA) Negative (Negative) g/dL Urine Ketones Negative (NEGATIVE) Urine Occult Blood Trace-lysed (Negative) Urine Nitrate Negative (Negative) Urine Bilirubin Negative (NEGATIVE) Urine Urobilinogen 0.2 (0.2) E.U./dL Ur Leukocyte Esterase 1+ H (NEGATIVE) Urine RBC 5-10/hpf H (0-5/HPF) Urine WBC 30-100/hpf H (0-5/HPF) Ur Squamous Epith Cells 1-5 /hpf (0-5/HPF) Ur Transition Epith Cell 5-10/hpf H (0-5/HPF) Urine Bacteria Few (2-10) H (None) Ur Culture Indicated? Specimen cultured ECG Data Attestation: I personally reviewed and interpreted this ECG as follows: Interpretation: The patient's EKG reveals atrial fibrillation with a rapid alejo tricular response. Her ventricular rate is 117. QRS is 111 milliseconds. QTC is 398 milliseconds. Harold is normal. The patient has an occasional PVC. The patient has a QS formation in lead III and V1. There are no acute diagnostic ST segment changes. ST segments are nonspecific. <Kaitlyn Fajardo MD - Last Filed: 07/27/19 22:03> Lab Data Attestation: I reviewed the patient's lab results. Labs: Lab Results 07/27/19 07/27/19 07/27/19 Range/Units 13:20 13:20 13:20 WBC 15.7 H (4.5-11.0) X10^3/uL RBC 4.18 (4.0-5.2) X10^6/uL Hgb 10.1 L (12.0-16.0) g/dL Hct 31.9 L (36-46) % MCV 76.3 L (80-100) fL MCH 24.2 L (26-34) PG MCHC 31.8 (30-36) % RDW 19.4 H (11.6-14.8) % Plt Count 566 H (150-400) X10^3/uL Neut % (Auto) 82.7 H (50-75) % Lymph % (Auto) 7.5 L (25-40) % [place] % (Auto) 8.3 (3-14) % Eos % (Auto) 0.7 L (2-4) % Baso % (Auto) 0.8 (0-2) % Neut # (Auto) 63094 H (6745-2681) /uL Lymph # (Auto) 1200 (8139-9184) /uL [place] # (Auto) 1300 H (0-900) /uL Eos # (Auto) 100 (0-450) /uL Baso # (Auto) 100 (0-100) /uL ESR (0-20) MM/HR Sodium 137 (137-145) mmol/L Potassium 4.0 (3.4-5.1) mmol/L Chloride 100 (98-107) mmol/L Carbon Dioxide 30 (22-32) mmol/L BUN 13 (7-17) mg/dL Creatinine 0.66 (0.52-1.04) mg/dL Estimated GFR > 60.0 (>60) mL/min BUN/Creatinine Ratio 19.7 (6-22) Glucose 106 (80-110) mg/dL Lactate 1.3 (0.7-2.1) mmol/L Calcium 9.0 (8.4-10.2) mg/dL Total Bilirubin 0.5 (0.2-1.3) mg/dL AST 34 (14-36) IU/L ALT 8 (<35) IU/L Alkaline Phosphatase 84 (38-126) U/L Lactate Dehydrogenase 571 (313-618) U/L Total Creatine Kinase 23 L (30-135) U/L CK-MB (CK-2) TNP CK-MB (CK-2) Rel Index TNP Troponin I < 0.012 (0.01-0.034) ng/mL C-Reactive Protein (<1.0) mg/dL NT-Pro-B Natriuret Pep 5010 H (<450) pg/mL Total Protein 7.0 (6.3-8.2) g/dL Albumin 3.7 (3.5-5.0) g/dL Globulin 3.3 (1.7-4.1) g/dL Albumin/Globulin Ratio 1.1 (1.0-2.8) Lipase (23-300) U/L Procalcitonin (<0.5) ng/mL Urine Color Urine Appearance Urine pH (4.5-8.0) Ur Specific [place] (1.000-1.035) Urine Protein (Negative) Urine Glucose (UA) (Negative) g/dL Urine Ketones (NEGATIVE) Urine Occult Blood (Negative) Urine Nitrate (Negative) Urine Bilirubin (NEGATIVE) Urine Urobilinogen (0.2) E.U./dL Ur Leukocyte Esterase (NEGATIVE) Urine RBC (0-5/HPF) Urine WBC (0-5/HPF) Ur Squamous Epith Cells (0-5/HPF) Ur Transition Epith Cell (0-5/HPF) Urine Bacteria (None) Ur Culture Indicated? 07/27/19 07/27/19 07/27/19 Range/Units 13:20 13:20 13:20 WBC (4.5-11.0) X10^3/uL RBC (4.0-5.2) X10^6/uL Hgb (12.0-16.0) g/dL Hct (36-46) % MCV (80-100) fL MCH (26-34) PG MCHC (30-36) % RDW (11.6-14.8) % Plt Count (150-400) X10^3/uL Neut % (Auto) (50-75) % Lymph % (Auto) (25-40) % [place] % (Auto) (3-14) % Eos % (Auto) (2-4) % Baso % (Auto) (0-2) % Neut # (Auto) (3557-1904) /uL Lymph # (Auto) (2886-2437) /uL [place] # (Auto) (0-900) /uL Eos # (Auto) (0-450) /uL Baso # (Auto) (0-100) /uL ESR 44 H (0-20) MM/HR Sodium (137-145) mmol/L Potassium (3.4-5.1) mmol/L Chloride (98-107) mmol/L Carbon Dioxide (22-32) mmol/L BUN (7-17) mg/dL Creatinine (0.52-1.04) mg/dL Estimated GFR (>60) mL/min BUN/Creatinine Ratio (6-22) Glucose (80-110) mg/dL Lactate (0.7-2.1) mmol/L Calcium (8.4-10.2) mg/dL Total Bilirubin (0.2-1.3) mg/dL AST (14-36) IU/L ALT (<35) IU/L Alkaline Phosphatase (38-126) U/L Lactate Dehydrogenase (313-618) U/L Total Creatine Kinase (30-135) U/L CK-MB (CK-2) CK-MB (CK-2) Rel Index Troponin I (0.01-0.034) ng/mL C-Reactive Protein 1.5 H (<1.0) mg/dL NT-Pro-B Natriuret Pep (<450) pg/mL Total Protein (6.3-8.2) g/dL Albumin (3.5-5.0) g/dL Globulin (1.7-4.1) g/dL Albumin/Globulin Ratio (1.0-2.8) Lipase 25 (23-300) U/L Procalcitonin < 0.05 (<0.5) ng/mL Urine Color Urine Appearance Urine pH (4.5-8.0) Ur Specific [place] (1.000-1.035) Urine Protein (Negative) Urine Glucose (UA) (Negative) g/dL Urine Ketones (NEGATIVE) Urine Occult Blood (Negative) Urine Nitrate (Negative) Urine Bilirubin (NEGATIVE) Urine Urobilinogen (0.2) E.U./dL Ur Leukocyte Esterase (NEGATIVE) Urine RBC (0-5/HPF) Urine WBC (0-5/HPF) Ur Squamous Epith Cells (0-5/HPF) Ur Transition Epith Cell (0-5/HPF) Urine Bacteria (None) Ur Culture Indicated? 07/27/19 Range/Units 20:29 WBC (4.5-11.0) X10^3/uL RBC (4.0-5.2) X10^6/uL Hgb (12.0-16.0) g/dL Hct (36-46) % MCV (80-100) fL MCH (26-34) PG MCHC (30-36) % RDW (11.6-14.8) % Plt Count (150-400) X10^3/uL Neut % (Auto) (50-75) % Lymph % (Auto) (25-40) % [place] % (Auto) (3-14) % Eos % (Auto) (2-4) % Baso % (Auto) (0-2) % Neut # (Auto) (8560-7543) /uL Lymph # (Auto) (8447-8402) /uL [place] # (Auto) (0-900) /uL Eos # (Auto) (0-450) /uL Baso # (Auto) (0-100) /uL ESR (0-20) MM/HR Sodium (137-145) mmol/L Potassium (3.4-5.1) mmol/L Chloride (98-107) mmol/L Carbon Dioxide (22-32) mmol/L BUN (7-17) mg/dL Creatinine (0.52-1.04) mg/dL Estimated GFR (>60) mL/min BUN/Creatinine Ratio (6-22) Glucose (80-110) mg/dL Lactate (0.7-2.1) mmol/L Calcium (8.4-10.2) mg/dL Total Bilirubin (0.2-1.3) mg/dL AST (14-36) IU/L ALT (<35) IU/L Alkaline Phosphatase (38-126) U/L Lactate Dehydrogenase (313-618) U/L Total Creatine Kinase (30-135) U/L CK-MB (CK-2) CK-MB (CK-2) Rel Index Troponin I (0.01-0.034) ng/mL C-Reactive Protein (<1.0) mg/dL NT-Pro-B Natriuret Pep (<450) pg/mL Total Protein (6.3-8.2) g/dL Albumin (3.5-5.0) g/dL Globulin (1.7-4.1) g/dL Albumin/Globulin Ratio (1.0-2.8) Lipase (23-300) U/L Procalcitonin (<0.5) ng/mL Urine Color Yellow Urine Appearance Clear Urine pH 6.5 (4.5-8.0) Ur Specific [place] <=1.005 (1.000-1.035) Urine Protein Negative (Negative) Urine Glucose (UA) Negative (Negative) g/dL Urine Ketones Negative (NEGATIVE) Urine Occult Blood Trace-lysed (Negative) Urine Nitrate Negative (Negative) Urine Bilirubin Negative (NEGATIVE) Urine Urobilinogen 0.2 (0.2) E.U./dL Ur Leukocyte Esterase 1+ H (NEGATIVE) Urine RBC 5-10/hpf H (0-5/HPF) Urine WBC 30-100/hpf H (0-5/HPF) Ur Squamous Epith Cells 1-5 /hpf (0-5/HPF) Ur Transition Epith Cell 5-10/hpf H (0-5/HPF) Urine Bacteria Few (2-10) H (None) Ur Culture Indicated? Specimen cultured MDM Narrative Medical decision making narrative: 8:40 pm care is reviewed with hospitalist at [facility], Dr. Brantley. Will accept the patient as a direct admit to [facility] bed. Will wait to get room number prior to arranging ALS transport. Discharge Plan Departure Patient Disposition: [facility] Clinical Impression: Hypoxia, Atrial fibrillation, rapid, Acute cholecystitis, Pleural effusion, bilateral, Pulmonary nodule, right, Aneurysm of infrarenal abdominal aorta Abdominal pain Qualifiers: Abdominal location: upper abdomen, unspecified Qualified Code(s): R10.10 - Upper abdominal pain, unspecified COPD (chronic obstructive pulmonary disease) Qualifiers: COPD type: unspecified COPD Qualified Code(s): J44.9 - Chronic obstructive pulmonary disease, unspecified Discharge Date/Time: 07/27/19 23:07 Prescriptions: No Action albuterol sulfate [Ventolin HFA] 90 mcg/actuation Hfa Aerosol Inhaler 2 puff INHALATION Q6H PRN (Reason: Shortness Of Breath Or Wheezing) RF: 0 magnesium oxide 400 mg magnesium Tablet 400 mg PO QAM RF: 0 amlodipine 5 mg tablet 5 mg PO DAILY RF: 0 Eliquis 5 mg tablet 5 mg PO BID RF: 0 acetaminophen 325 mg Tablet 650 mg PO Q6HR PRN (Reason: Fever/Mild Pain (1-3)) Qty: 30 RF: 0 polyethylene glycol 3350 17 gram Powder In Packet 17 gm PO DAILY Qty: 1 RF: 0 hydrocodone-acetaminophen 5-325 mg Tablet 2 tab PO Q4HR PRN (Reason: Pain, Severe (7-10)) Qty: 30 RF: 0 bisacodyl 10 mg Suppository 10 mg DC DAILY PRN (Reason: Constipation) Qty: 10 RF: 0 docusate sodium [DOK] 100 mg Capsule 100 mg PO BID Qty: 60 RF: 0 metoprolol succinate 100 mg tablet extended release 24 hr 100 mg PO DAILY RF: 0 simvastatin 20 mg Tablet 20 mg PO DAILY RF: 0 baclofen 5 mg Tablet 5 mg PO TID RF: 0 prednisone 20 mg tablet 20 mg PO DAILY Qty: 4 RF: 0 metoprolol succinate 25 mg tablet extended release 24 hr PO RF: 0 aspirin [Adult Aspirin Regimen] 81 mg tablet,delayed release (DR/EC) 81 mg PO DAILY RF: 0 pantoprazole 40 mg tablet,delayed release (DR/EC) 40 mg PO DAILY RF: 0 Referrals: Deepa Varela MD [Primary Care Provider] -
[2019-07-27] MEDS: HYDROMORPHONE 0.5 MG INJ IV ×2 (13:48→18:36)
[2019-07-27] MEDS: SODIUM CHLORIDE 0.9% 1,000 ML 1000 ML IV (13:50)
[2019-07-27] MEDS: ONDANSETRON 4 MG/2 ML INJ IV (13:50)
[2019-07-27 14:00] LABS: Alanine Aminotransferase 8 IU/L (<35); Albumin 3.7 g/dL (3.5-5.0); Albumin Globulin Ratio 1.1 (1.0-2.8); Alkaline Phosphatase 84 U/L (38-126); Aspartate Aminotransferase 34 IU/L (14-36); BUN Creatinine Ratio 19.7 (6-22); Bilirubin Total 0.5 mg/dL (0.2-1.3); Blood Urea Nitrogen 13 mg/dL (7-17); Carbon Dioxide 30 mmol/L (22-32); Chloride 100 mmol/L (98-107); Creatine Kinase 23 U/L (30-135); Estimated Glomerular Filt Rate > 60.0 mL/min (>60); Globulin 3.3 g/dL (1.7-4.1); Glucose 106 mg/dL (80-110); Lactate Dehydrogenase 571 U/L (313-618); Sodium 137 mmol/L (137-145)
[2019-07-27 14:01] LABS: Lactate (Lactic Acid) 1.3 mmol/L (0.7-2.1)
[2019-07-27 14:03] LABS: Erythrocyte Sedimentation Rate 44 MM/HR (0-20)
[2019-07-27 14:04] LABS: C-Reactive Protein Quant 1.5 mg/dL (<1.0); Lipase 25 U/L (23-300)
[2019-07-27 14:09] LABS: NT-proBNP (BNP-Adult 18+) 5010 pg/mL (<450)
[2019-07-27 14:19] LABS: Procalcitonin < 0.05 ng/mL (<0.5)
[2019-07-27 14:31] LABS: HEMOLYSIS < 15 (0-50); Troponin I < 0.012 ng/mL (0.01-0.034)
[2019-07-27] MEDS: dilTIAZem 5 MG/ML SDV 10 MG IV ×2 (14:50→19:08)
[2019-07-27] MEDS: HYDROMORPHONE 1 MG INJ IV ×2 (14:52→22:31)
--- NOTE | 2019-07-27 15:27 | DI.CT.S_ITS ---
PROCEDURE: CT CHEST ABD PEL W CON INDICATIONS: persistent abdominal pain, hypoxia, COPD TECHNIQUE: After the administration of intravenous contrast, 5 mm thick sections acquired from the lung apices to the symphysis. 2.5 mm thick coronal and sagittal reformats were acquired. Additional 7 mm thick coronal maximum intensity projection (MIP) reformats acquired through the lungs. Optional 10-minute delayed imaging may be performed from the kidneys to the bladder. For radiation dose reduction, the following was used: automated exposure control, adjustment of mA and/or kV according to patient size. COMPARISON: [facility], CT, CT CHEST ABDOMEN PELVIS WITH CONTRAST, 07/15/2019, 10:55. [facility], US, US ABDOMEN LIMITED, 07/15/2019, 12:43. [facility], MR, MR ABDOMEN MRCP, 07/18/2019, 16:12. [facility], XA, SI ULTRASOUND GUIDED PERICENTESIS, 07/20/2019, 9:51. [facility], CT, CT CHEST ABD PEL W CON, 07/20/2018, 14:11. FINDINGS: Image quality: Excellent. CHEST: Lungs: There are bilateral pleural effusions, small to moderate on the right and small the left, which appear increased from the prior study. There is associated compressive atelectasis bilaterally. Within the right upper lobe, there is a bony nodule with mildly spiculated margins redemonstrated, measuring up to 1.2 cm. This appears similar to the 07/15/19 study and new compared to older exams. Severe centrilobular emphysematous changes are redemonstrated. The trachea and central airways appear patent. Mediastinum: Heart size is mildly enlarged. No pericardial effusion. Prominent coronary arterial vascular calcification redemonstrated. Thoracic aorta and pulmonary arteries demonstrate normal size. There is extensive calcified atherosclerotic plaque throughout the aorta. No mediastinal or hilar adenopathy a size criteria. There are small subcentimeter mediastinal lymph nodes which are nonspecific but likely reactive. Esophagus is normal in caliber. There is a small hiatal hernia. Chest wall: No axillary or supraclavicular adenopathy. Partially visualized thyroid demonstrates small bilateral nodules measuring up to 0.6 cm on the right and 0.5 cm on the left which appears similar to the prior studies.. ABDOMEN: Solid organs: There is a percutaneous cholecystostomy catheter with the tip in the gallbladder demonstrated. A peripherally calcified gallstone measuring up to 2.6 cm is redemonstrated in the gallbladder neck. There is gallbladder wall thickening and pericholecystic fluid compatible with cholecystitis redemonstrated. Biliary system is non-dilated. Pancreas enhances normally. No peripancreatic fat stranding or fluid collections. No pancreatic duct dilatation. The spleen is normal in size. There is thickening of the left adrenal gland again noted. Kidneys demonstrate no hydronephrosis. Extensive bilateral renal arterial vascular calcifications redemonstrated including at the renal artery ostia suggestive of renal arterial stenosis. Peritoneum and bowel: Small bowel bowel loops demonstrate normal wall thickness and caliber. There is colonic diverticulosis without acute diverticulitis. Moderate colonic stool distention noted suggestive of constipation. There is a small amount of intracranial free fluid in the right upper quadrant and tracking inferiorly along the right paracolic gutter into the pelvis. Findings are likely reactive secondary to cholecystitis. Nodes and vessels: No retroperitoneal or mesenteric adenopathy. A right bypass graft extending from the subclavian artery to the common femoral artery is patent with fluid tracking along its course, similar in appearance to the prior studies. There is an infrarenal aortic aneurysm redemonstrated measuring up to 3.2 cm in anteroposterior dimension. There is eccentric thrombus within the aneurysm with occlusion of the right iliac arteries. There is reconstitution of flow at the level of the right common femoral artery. The left iliac arteries appear patent. Miscellaneous: No ventral hernias. PELVIS: Genitourinary: Bladder wall thickness is normal. Miscellaneous: No inguinal hernias or adenopathy. Bones: Pelvic ring and hip joints appear intact. No vertebral compression fractures. IMPRESSION: 1. Percutaneous cholecystostomy tube demonstrated with persistent findings consistent with acute cholecystitis. 2. Bilateral pleural effusions, right greater than left, are increased from the prior study with associated compressive atelectasis. 3. Persistent spiculated nodule in the right upper lobe highly suspicious for a neoplasm, likely bronchogenic carcinoma. Further evaluation may be obtained with PET/CT. 4. Aneurysmal dilatation of the infrarenal abdominal aorta are redemonstrated with occlusion of the right iliac arteries. Reconstituted flow redemonstrated at the level of the common femoral artery via a patent subclavian-common femoral bypass. Dictated by: Ankit Huizar M.D. on 07/27/2019 at 16:28 Approved by: Ankit Huizar M.D. on 07/27/2019 at 16:48
[2019-07-27] MEDS: PIPERACILLIN-TAZO 4.5 GM/100 ML FROZ.PIGGY IV (17:49)
[2019-07-27] MEDS: SODIUM CHLORIDE 0.9% 1,000 ML 125 ML IV (19:08)
[2019-07-27] MEDS: DILTIAZEM 125 MG/125 ML PIGGYBACK IV (19:34)
--- NOTE | 2019-07-27 20:11 | PC.NURSE ---
Pt unable to urinate on bedpan but still felt like she had pressure in her bladder. Bladder scan performed per ASIA Navarro. 478 ml was shown on the scan. ASIA Navarro aware
[2019-07-27 20:36] LABS: Appearance Urine UA CLEAR; Bilirubin Urine UA NEGATIVE (NEGATIVE); Color Urine UA YELLOW; Glucose Urine UA NEGATIVE (Negative); Ketones Urine UA NEGATIVE (NEGATIVE); Leukocyte Esterase Urine UA 1+ (NEGATIVE); Nitrite Urine UA NEGATIVE (Negative); Occult Blood Urine UA TRACE-LYSED (Negative); Protein Urine UA NEGATIVE (Negative); Specific Gravity Urine UA <=1.005 (1.000-1.035); Urobilinogen Urine UA 0.2 E.U./dL (0.2)
[2019-07-27 20:37] LABS: pH Urine UA 6.5 (4.5-8.0)
[2019-07-27 20:42] LABS: Bacteria Urine Few (2-10); Culture Indicated Urine Specimen Cultured; RBC Urine 5-10/HPF (0-5/HPF); Squamous Epithelial Cell Urine 1-5 /HPF (0-5/HPF); Transitional Epi Cells Urine 5-10/HPF (0-5/HPF); WBC Urine 30-100/HPF (0-5/HPF)
== END 2019-07-27 23:07 | disposition short-term general hospital (02) ==
PROVIDERS: Emergency Provider Emergency Medicine; PCP Internal Medicine; Referring Provider Emergency Medicine
DX: I71.4 Abdominal aortic aneurysm, without rupture (principal); R10.10 Upper abdominal pain, unspecified; K81.0 Acute cholecystitis; J44.9 Chronic obstructive pulmonary disease, unspecified; R09.02 Hypoxemia; I48.0 Paroxysmal atrial fibrillation; Z79.01 Long term (current) use of anticoagulants; J90 Pleural effusion, not elsewhere classified; R91.1 Solitary pulmonary nodule
CPT/HCPCS: 36415; 51701; 51798; 71045; 71260; 74177; 80053; 81001; 82550; 83605; 83615; 83690; 83880; 84145; 84484; 85025; 85651; 86140; 87077; 87086; 87147; 87185; 87186; 93005; 96361; 96365; 96366; 96367; 96375; 96376; 99285; J1170; J2405; J2543

== ENCOUNTER 2019-08-23 13:17 | Emergency (ER) | payer MEDICARE, SELFPAY ==
[2019-02-04 18:29] VITALS: BMI 22.2
--- NOTE | 2019-08-23 13:22 | DI.CT.S_ITS ---
PROCEDURE: CT STROKE INDICATIONS: post sx weakness confusion TECHNIQUE: Noncontrast 4.5 mm thick angled axial sections acquired from the foramen magnum to the vertex, with coronal reformats. For radiation dose reduction, the following was used: automated exposure control, adjustment of mA and/or kV according to patient size. COMPARISON: [facility], CT, CT HEAD/BRAIN WO CON, 05/13/2019, 13:28. FINDINGS: Image quality: Excellent. CSF spaces: Basal cisterns are patent. No extra-axial fluid collections. The ventricles are symmetric in size and shape. Brain: No intracranial bleeds or masses. There is cerebral volume loss for age, with resultant ventricular and sulcal prominence. There are periventricular and deep white matter chronic small vessel ischemic changes. There is intracranial internal carotid artery atherosclerosis. Skull and face: Calvarium and visualized facial bones appear intact, without suspicious lesions. Sinuses: Visualized sinuses and mastoids are clear. IMPRESSION: No acute intracranial process. Diffuse small white matter changes, probably represent chronic microvascular ischemic disease, versus statistically less likely demyelination or other infectious, inflammatory, neurodegenerative etiology, technically nonspecific. Findings were personally telephoned and discussed with Dr. Gómez in the emergency department at 1332 hours on 08/23/19. This study fulfills neurological imaging criteria for inclusion or exclusion of acute stroke therapies based on available published neurological guidelines. Dictated by: Jorge Griffith M.D. on 08/23/2019 at 13:29 Approved by: Jorge Griffith M.D. on 08/23/2019 at 13:32
--- NOTE | 2019-08-23 13:25 | ED.GENADULT ---
HPI - General Adult General Chief complaint: Neuro Symptoms/Deficit Stated complaint: Code stroke Time Seen by Provider: 08/23/19 13:17 Source: patient and EMS Mode of arrival: EMS Limitations: no limitations History of Present Illness HPI narrative: 79-year-old female. DNR. On Eliquis for history of paroxysmal atrial fibrillation. Also has had a history of stroke. No reported history of seizures. Is brought in by EMS after patient was sitting at lunch and then became ?unresponsive? apparently she was looking off to 1 side. Potentially slumped off to the side. Had was reported as shaking movements and then had drooping of the left side of her face. Event occurred just prior to arrival here in the ER. Upon evaluation of the patient she states that she does not remember why she is here. Does not remember going to lunch. States she is somewhat confused about even waking up this morning. Other than being tired patient has no other complaints. Related Data Home Medications Medication Instructions Recorded Confirmed pantoprazole 40 mg tablet,delayed 40 mg PO DAILY 04/20/18 08/23/19 release albuterol sulfate [Ventolin HFA] 2 puff INHALATION Q6H PRN 10/29/18 08/23/19 magnesium oxide 400 mg PO QAM 10/29/18 08/23/19 Eliquis 2.5 mg PO BID 02/04/19 08/23/19 metoprolol succinate 50 mg PO BID 03/02/19 08/23/19 simvastatin 40 mg PO QPM 03/02/19 08/23/19 clopidogrel 75 mg PO DAILY 08/23/19 08/23/19 diphenhydramine HCl [Benadryl 25 mg PO PRN PRN 08/23/19 08/23/19 Allergy] furosemide 20 mg PO DAILY 08/23/19 08/23/19 nitroglycerin 0.4 mg SUBLINGUAL Q5M PRN 08/23/19 08/23/19 oxycodone 2.5 mg PO Q6H PRN 08/23/19 08/23/19 potassium chloride 20 meq PO DAILY 08/23/19 08/23/19 sulfamethoxazole-trimethoprim See Rx Instructions .ROUTE .COMPLEX 08/23/19 08/23/19 Previous Rx's Medication Instructions Recorded acetaminophen 650 mg PO Q6HR PRN #30 tab 02/06/19 levetiracetam [Keppra] 500 mg PO BID #60 tab 08/23/19 Allergies Allergy/AdvReac Type Severity Reaction Status Date / Time Penicillins Allergy Verified 08/23/19 15:32 morphine AdvReac Intermediate burning Verified 08/23/19 13:29 sensation at IV site amoxicillin [From Augmentin] AdvReac Mild flu like Verified 08/23/19 13:29 symptoms clavulanic acid AdvReac Mild flu like Verified 08/23/19 13:29 [From Augmentin] symptoms lisinopril AdvReac Mild cough Verified 08/23/19 13:29 Review of Systems Constitutional Constitutional: Denies fever(s) and Denies headache(s) ENT Ears, Nose, Mouth, and Throat: Denies headache(s) Cardiovascular Cardiovascular: Denies chest pain and Denies dyspnea Respiratory Respiratory: Denies dyspnea Gastrointestinal Gastrointestinal: Denies abdominal pain, Denies nausea and Denies vomiting Musculoskeletal Musculoskeletal: Denies arthralgias and Denies myalgias Integumentary/Breasts Skin/Breast: Denies lesions and Denies rash Neurologic Neurologic: Reports confusion, Denies headache(s) and Reports seizure-like activity Comments: Tripping of left-sided face Psychiatric Psychiatric: Reports confusion Hematologic/Lymphatic Hematologic/Lymphatic: Denies easy bleeding and Denies easy bruising Patient History Medical History Afib (Acute) CAD (coronary artery disease) (Chronic) Cardiac defibrillator in place (Acute) Carotid stenosis (Chronic) Colovaginal fistula (Acute) COPD (chronic obstructive pulmonary disease) (Chronic) CVA (cerebral vascular accident) (Acute) Enterovaginal fistula (Acute) Heart failure (Chronic) HLD (hyperlipidemia) (Chronic) HTN (hypertension) (Chronic) Nicotine addiction (Acute) PAD (peripheral artery disease) (Chronic) Surgical History H/O carotid endarterectomy (Chronic) History of appendectomy (Acute) History of coronary artery stent placement (Chronic) History of hysterectomy (Acute) Hx of tonsillectomy (Acute) Family History Father Throat cancer Mother Ovarian cancer Social History household members: none Smoking Status: Former smoker alcohol intake: current Smoking Status: Former smoker tobacco type: cigarettes alcohol intake frequency: holidays/special occasions only Substance Use Type: does not use Exam Initial Vital Signs Initial Vital Signs: Vital Signs Temperature 98.1 F 08/23/19 13:29 Pulse Rate 83 08/23/19 13:29 Respiratory Rate 16 08/23/19 13:29 Blood Pressure 141/66 H 08/23/19 13:29 Pulse Oximetry 97 08/23/19 13:29 Const General: cooperative, comfortable and well developed Limitations: altered mental status HENMT Head: normal to inspection and normocephalic Ears: hearing grossly normal bilaterally Eyes Pupils: PERRL EOM: EOM intact bilaterally Resp Effort & Inspection: normal respiratory effort Auscultation: clear to auscultation bilaterally Cardio Rate: regular rate Rhythm: regular rhythm GI Inspection: non-distended Palpation: soft and No tender Skin Lesions: no lesions Rashes: no rashes Neuro General: patient alert and patient awake Speech: speech normal Sensory Exam: no sensory deficits noted Extrem General: normal to inspection and capillary refill normal Psych Appearance: grossly normal and well kempt Scores GCS [place] coma scale eye opening: Spontaneous [place] coma scale verbal response: Orientated [place] coma scale motor response: Obey commands Raj coma scale total score: 15 NIH Stroke Scale Level of Conciousness: Alert, keenly responsive Ask month/age: Answers one question correctly, intubated follow commands Open/close eyes, close hand: Performs both tasks correctly Best gaze horizontal: Normal Visual acevedo: No visual loss Facial palsy: Minor paralysis, flattened nasolabial fold, asymmetry on smiling Left arm drift: No drift for full 10 sec Right arm drift: No drift for full 10 sec Left leg drift: Drifts down, not to bed Right leg drift: No drift for full 10 sec Limb ataxia: Present in one limb Sensory on face/arms/legs: Normal, no sensory loss Best language: No aphasia, normal Dysarthria: Normal Extinction or inattention: No abnormality Total NIH Stroke scale score: 4 Course Orders Ordered: ED Orders 08/23/19 13:19 EKG-12 Lead Stat 08/23/19 13:20 Complete Blood Count AUTO DIFF Stat Comprehensive Metabolic Panel Stat Lipase Stat Partial Thromboplastin Time Stat Prolactin Stat Prothrombin Time INR Stat 08/23/19 13:22 CT Stroke Stat 08/23/19 14:35 Urine Culture Stat Urine Microscopic Stat Discontinued Medications Levetiracetam 1,500 mg/ Sodium (Chloride) 115 mls @ 460 mls/hr IV NOW ONE Stop: 08/23/19 14:24 Last Infusion: 08/23/19 15:33 Dose: 0 mls/hr Documented by: Admin: 08/23/19 15:01 Dose: 460 mls/hr Documented by: ESTEFANIA Vital Signs Vital signs: Vital Signs - 8 hr 08/23/19 13:29 08/23/19 14:04 08/23/19 14:55 Temperature 98.1 F Pulse Rate 83 91 H 87 Respiratory Rate 16 17 20 Blood Pressure 141/66 H Blood Pressure [Left Arm] 105/62 109/72 Pulse Oximetry 97 96 98 08/23/19 16:52 Temperature Pulse Rate 92 H Respiratory Rate 18 Blood Pressure Blood Pressure [Left Arm] 136/73 Pulse Oximetry 99 Medical Decision Making Medical Records Medical records reviewed: Yes I reviewed the patient's medical records. Lab Data Lab results reviewed: Yes I reviewed the patient's lab results. Result diagrams: 08/23/19 13:20 08/23/19 13:20 Labs: Lab Results 08/23/19 08/23/19 08/23/19 Range/Units 13:20 13:20 13:20 WBC 8.7 (4.5-11.0) X10^3/uL RBC 4.41 (4.0-5.2) X10^6/uL Hgb 10.9 L (12.0-16.0) g/dL Hct 34.3 L (36-46) % MCV 77.8 L (80-100) fL MCH 24.8 L (26-34) PG MCHC 31.8 (30-36) % RDW 23.6 H (11.6-14.8) % Plt Count 345 (150-400) X10^3/uL Neut % (Auto) 62.2 (50-75) % Lymph % (Auto) 20.7 L (25-40) % Stokes % (Auto) 10.7 (3-14) % Eos % (Auto) 5.4 H (2-4) % Baso % (Auto) 1.0 (0-2) % Neut # (Auto) 5400 (9869-5027) /uL Lymph # (Auto) 1800 (0930-5245) /uL Stokes # (Auto) 900 (0-900) /uL Eos # (Auto) 500 H (0-450) /uL Baso # (Auto) 100 (0-100) /uL RBC Morphology See below Hypochromasia 1+ H Poikilocytosis 1+ H Anisocytosis 3+ H Microcytosis 1+ H Ovalocytes 1+ H PT 15.4 H (10.1-12.7) SECONDS INR 1.3 (0.9-1.3) APTT 35 D (26.4-36.2) SECONDS Sodium 140 (137-145) mmol/L Potassium 4.4 (3.4-5.1) mmol/L Chloride 101 (98-107) mmol/L Carbon Dioxide 35 H (22-32) mmol/L BUN 17 (7-17) mg/dL Creatinine 0.70 (0.52-1.04) mg/dL Estimated GFR > 60.0 (>60) mL/min BUN/Creatinine Ratio 24.3 H (6-22) Glucose 127 H (80-110) mg/dL Calcium 9.6 (8.4-10.2) mg/dL Total Bilirubin 0.4 (0.2-1.3) mg/dL AST 25 (14-36) IU/L ALT 8 (<35) IU/L Alkaline Phosphatase 79 (38-126) U/L Total Protein 7.0 (6.3-8.2) g/dL Albumin 3.8 (3.5-5.0) g/dL Globulin 3.2 (1.7-4.1) g/dL Albumin/Globulin Ratio 1.2 (1.0-2.8) Lipase 27 (23-300) U/L Prolactin 43.0 H (3.0-18.6) ng/mL Urine RBC (0-5/HPF) Urine WBC (0-5/HPF) Ur Squamous Epith Cells (0-5/HPF) Amorphous Sediment Urine Bacteria (None) Ur Culture Indicated? 08/23/19 Range/Units 14:35 WBC (4.5-11.0) X10^3/uL RBC (4.0-5.2) X10^6/uL Hgb (12.0-16.0) g/dL Hct (36-46) % MCV (80-100) fL MCH (26-34) PG MCHC (30-36) % RDW (11.6-14.8) % Plt Count (150-400) X10^3/uL Neut % (Auto) (50-75) % Lymph % (Auto) (25-40) % Stokes % (Auto) (3-14) % Eos % (Auto) (2-4) % Baso % (Auto) (0-2) % Neut # (Auto) (3678-8700) /uL Lymph # (Auto) (4806-2143) /uL Stokes # (Auto) (0-900) /uL Eos # (Auto) (0-450) /uL Baso # (Auto) (0-100) /uL RBC Morphology Hypochromasia Poikilocytosis Anisocytosis Microcytosis Ovalocytes PT (10.1-12.7) SECONDS INR (0.9-1.3) APTT (26.4-36.2) SECONDS Sodium (137-145) mmol/L Potassium (3.4-5.1) mmol/L Chloride (98-107) mmol/L Carbon Dioxide (22-32) mmol/L BUN (7-17) mg/dL Creatinine (0.52-1.04) mg/dL Estimated GFR (>60) mL/min BUN/Creatinine Ratio (6-22) Glucose (80-110) mg/dL Calcium (8.4-10.2) mg/dL Total Bilirubin (0.2-1.3) mg/dL AST (14-36) IU/L ALT (<35) IU/L Alkaline Phosphatase (38-126) U/L Total Protein (6.3-8.2) g/dL Albumin (3.5-5.0) g/dL Globulin (1.7-4.1) g/dL Albumin/Globulin Ratio (1.0-2.8) Lipase (23-300) U/L Prolactin (3.0-18.6) ng/mL Urine RBC None seen (0-5/HPF) Urine WBC 1-5/hpf (0-5/HPF) Ur Squamous Epith Cells 0-1 /hpf (0-5/HPF) Amorphous Sediment 1+ Urine Bacteria Moderate (10-30) H (None) Ur Culture Indicated? Specimen cultured Urine Dip Bedside Urine Glucose Negative Bedside Urine Bilirubin - Negative Bedside Urine Ketone - Negative Urine Specific [place] 1.015 Bedside Urine Occult Blood +/- Bedside Urine pH 6.0 Bedside Urine Protein - Negative Bedside Urine Urobilinogen - Negative Bedside Urine Nitrite - Negative Bedside Urine Leukocytes +++ 500 Esterase Point of care testing: Urine Dip Bedside Urine Glucose Negative Bedside Urine Bilirubin - Negative Bedside Urine Ketone - Negative Urine Specific [place] 1.015 Bedside Urine Occult Blood +/- Bedside Urine pH 6.0 Bedside Urine Protein - Negative Bedside Urine Urobilinogen - Negative Bedside Urine Nitrite - Negative Bedside Urine Leukocytes +++ [address] scan - head: Radiologist's Impression: [address] [address] [address] Scan Report Signed Patient: Chasity Wilks JMR#: [id number] : [id number]:[id number] Age/Sex: 79 / FDate of Service: 08/23/19 Loc: ED Accession Number: [id number] Procedure: CT Stroke Ordering Provider: Fortunato Gómez D.O. PROCEDURE: CT STROKE INDICATIONS: post sx weakness confusion TECHNIQUE: Noncontrast 4.5 mm thick angled axial sections acquired from the foramen magnum to the vertex, with coronal reformats. For radiation dose reduction, the following was used: automated exposure control, adjustment of mA and/or kV according to patient size. COMPARISON: [facility], CT, CT HEAD/BRAIN WO CON, 05/13/2019, 13:28. FINDINGS: Image quality: Excellent. CSF spaces: Basal cisterns are patent. No extra-axial fluid collections. The ventricles are symmetric in size and shape. Brain: No intracranial bleeds or masses. There is cerebral volume loss for age, with resultant ventricular and sulcal prominence. There are periventricular and deep white matter chronic small vessel ischemic changes. There is intracranial internal carotid artery atherosclerosis. Skull and face: Calvarium and visualized facial bones appear intact, without suspicious lesions. Sinuses: Visualized sinuses and mastoids are clear. IMPRESSION: No acute intracranial process. Diffuse small white matter changes, probably represent chronic microvascular ischemic disease, versus statistically less likely demyelination or other infectious, inflammatory, neurodegenerative etiology, technically nonspecific. Findings were personally telephoned and discussed with Dr. Gómez in the emergency department at 1332 hours on 08/23/19. This study fulfills neurological imaging criteria for inclusion or exclusion of acute stroke therapies based on available published neurological guidelines. Dictated by: Jorge Griffith M.D. on 08/23/2019 at 13:29 Approved by: Jorge Griffith M.D. on 08/23/2019 at 13:32 ECG Data Attestation: I personally reviewed and interpreted this ECG as follows: Prior ECG tracings: not available for review Interpretation: Atrial fibrillation Ventricular rate 91 Normal axis QTC 501 milliseconds Normal QRS No ST T wave changes MDM Narrative Medical decision making narrative: Patient did arrive within the window for tPA however is DNR and also on Eliquis. Head CT was unremarkable. A review of the patient's medical record shows that in a note from the end of last year there was reports that patient does have residual left-sided facial droop from a prior stroke. Her unsure whether not her symptoms today were the seizure and potentially she has tot paralysis verses a CVA. I did discuss the case with [facility] neurology who was able to look up the patient's record from [facility]. In that note at the end of last year there was a description of event that appeared very similar to today's. The neurologist at that time thought that the patient potentially had a seizure. She was not started on any anticonvulsive medications however there was a recommendation for an outpatient EEG. There is no indication that an EEG had been performed. I did discuss the case with the nurse practitioner at the rehab facility where the patient is staying. Further recommendations of Neurology for she was given Keppra here in the ER as her symptoms are fairly consistent with a seizure. Will give her prescription to start this. The nurse practitioner states she would be happy to take the patient back to the facility and to arrange for an EEG to be done as an outpatient. Have low suspicion for a large vessel occlusion. Will hold on further workup here in the ER. Discharge Plan Departure Patient Disposition: Home Clinical Impression: Seizure-like activity Instructions: Seizure Safety Precautions-Adult Activity Restrictions/Additional Instructions: Continue all of her medications as directed. Start taking the Keppra as directed. After my discussions with Neurology it is recommended that she have an outpatient EEG. She can return to the emergency department at any point for new or worsening symptoms. Prescriptions: New levetiracetam [Keppra] 500 mg tablet 500 mg PO BID Qty: 60 RF: 0 No Action albuterol sulfate [Ventolin HFA] 90 mcg/actuation Hfa Aerosol Inhaler 2 puff INHALATION Q6H PRN (Reason: Shortness Of Breath Or Wheezing) RF: 0 magnesium oxide 400 mg magnesium Tablet 400 mg PO QAM RF: 0 Eliquis 5 mg tablet 2.5 mg PO BID RF: 0 acetaminophen 325 mg Tablet 650 mg PO Q6HR PRN (Reason: Fever/Mild Pain (1-3)) Qty: 30 RF: 0 metoprolol succinate 100 mg tablet extended release 24 hr 50 mg PO BID RF: 0 simvastatin 20 mg Tablet 40 mg PO QPM RF: 0 clopidogrel 75 mg Tablet 75 mg PO DAILY RF: 0 furosemide 20 mg Tablet 20 mg PO DAILY RF: 0 sulfamethoxazole-trimethoprim 200-40 mg/5 mL Suspension See Rx Instructions .ROUTE .COMPLEX RF: 0 potassium chloride 20 mEq Tablet Extended Release 20 meq PO DAILY RF: 0 diphenhydramine HCl [Benadryl Allergy] 25 mg Tablet 25 mg PO PRN PRN (Reason: Itching) RF: 0 nitroglycerin 0.4 mg Tablet, Sublingual 0.4 mg SUBLINGUAL Q5M PRN (Reason: Chest Pain) RF: 0 oxycodone 5 mg Tablet 2.5 mg PO Q6H PRN (Reason: Pain (Scale Score 4-6)) RF: 0 pantoprazole 40 mg tablet,delayed release (DR/EC) 40 mg PO DAILY RF: 0 Referrals: Deepa Varela MD [Primary Care Provider] -
[2019-08-23 13:26] LABS: Add Manual Diff / Slide Review NO; Basophils Absolute Auto 100 /uL (0-100); Eosinophils Absolute Auto 500 /uL (0-450); Eosinophils Percent Auto 5.4 % (2-4); Hematocrit 34.3 % (36-46); Hemoglobin 10.9 g/dL (12.0-16.0); Lymphocytes Absolute Auto 1800 /uL (1100-4500); Lymphocytes Percent Auto 20.7 % (25-40); Mean Corpuscular HGB Conc 31.8 % (30-36); Mean Corpuscular Hemoglobin 24.8 PG (26-34); Mean Corpuscular Volume 77.8 fL (80-100); Monocytes Absolute Auto 900 /uL (0-900); Monocytes Percent Auto 10.7 % (3-14); Neutrophils Absolute Auto 5400 /uL (1500-7000); Neutrophils Percent Auto 62.2 % (50-75); Platelet Count 345 X10^3/uL (150-400); Red Blood Cell Count 4.41 X10^6/uL (4.0-5.2); Red Cell Distribution Width 23.6 % (11.6-14.8); White Blood Cell Count 8.7 X10^3/uL (4.5-11.0)
[2019-08-23 13:29] VITALS: BP 141/66; PULSE 83; RESP 16; TEMP 36.7; O2SAT 97
[2019-08-23 13:33] LABS: INR 1.3 (0.9-1.3); Prothrombin Time 15.4 SECONDS (10.1-12.7)
[2019-08-23 13:36] LABS: PTT Partial Thromboplastin Tim 35 SECONDS (26.4-36.2)
[2019-08-23 13:37] LABS: Alanine Aminotransferase 8 IU/L (<35); Albumin 3.8 g/dL (3.5-5.0); Albumin Globulin Ratio 1.2 (1.0-2.8); Alkaline Phosphatase 79 U/L (38-126); Aspartate Aminotransferase 25 IU/L (14-36); BUN Creatinine Ratio 24.3 (6-22); Bilirubin Total 0.4 mg/dL (0.2-1.3); Blood Urea Nitrogen 17 mg/dL (7-17); Calcium 9.6 mg/dL (8.4-10.2); Carbon Dioxide 35 mmol/L (22-32); Chloride 101 mmol/L (98-107); Estimated Glomerular Filt Rate > 60.0 mL/min (>60); Globulin 3.2 g/dL (1.7-4.1); Glucose 127 mg/dL (80-110); HEMOLYSIS < 15 (0-50); Lipase 27 U/L (23-300); Potassium 4.4 mmol/L (3.4-5.1); Sodium 140 mmol/L (137-145)
[2019-08-23 14:04] VITALS: BP 105/62; PULSE 91; RESP 17; O2SAT 96
[2019-08-23 14:08] LABS: Anisocytosis 3+; Microcytosis 1+
[2019-08-23 14:09] LABS: Hypochromasia 1+; Ovalocytes 1+; Poikilocytosis 1+
[2019-08-23 14:55] VITALS: BP 109/72; PULSE 87; RESP 20; O2SAT 98
[2019-08-23] MEDS: levETIRAcetam 1,500 MG in SODIUM CHLORIDE 0.9% 100 ML 460 ML IV (15:01)
[2019-08-23 15:05] LABS: Amorphous Sediment Urine 1+; Bacteria Urine Moderate (10-30); Culture Indicated Urine Specimen Cultured; RBC Urine None Seen (0-5/HPF); Squamous Epithelial Cell Urine 0-1 /HPF (0-5/HPF); WBC Urine 1-5/HPF (0-5/HPF)
[2019-08-23 16:52] VITALS: BP 136/73; PULSE 92; RESP 18; O2SAT 99
[2019-08-23 18:23] VITALS: BP 108/55; PULSE 92; RESP 17; TEMP 36.6; O2SAT 96
== END 2019-08-23 18:24 | disposition home or self-care (01) ==
PROVIDERS: Emergency Provider Emergency Medicine; PCP Internal Medicine
DX: R56.9 Unspecified convulsions (principal); R29.818 Other symptoms and signs involving the nervous system; I48.0 Paroxysmal atrial fibrillation; Z79.01 Long term (current) use of anticoagulants
CPT/HCPCS: 36415; 70450; 80053; 81003; 81015; 83690; 84146; 85025; 85610; 85730; 87086; 93005; 96365; 99285; J1953

== ENCOUNTER → 2019-09-02 11:32 | Outpatient (ROUT) | payer MEDICARE, SELFPAY ==
[2019-02-04 18:29] VITALS: BMI 22.2
[2019-09-03 08:48] LABS: COVID19 Sendout Not Detected (Not Detect)
== END ==
PROVIDERS: PCP Internal Medicine; Visit Provider Internal Medicine
DX: Z11.59 Encounter for screening for other viral diseases (principal)
CPT/HCPCS: 87635

== ENCOUNTER → 2019-09-25 10:32 | Outpatient (ROUT) | payer MEDICARE, SELFPAY ==
[2019-02-04 18:29] VITALS: BMI 22.2
[2019-09-25 10:34] LABS: Bacteria Urine None Seen; RBC Urine None Seen (0-5/HPF); WBC Urine None Seen (0-5/HPF)
[2019-09-25 10:38] LABS: Add Manual Diff / Slide Review NO; Basophils Absolute Auto 100 /uL (0-100); Eosinophils Absolute Auto 600 /uL (0-450); Eosinophils Percent Auto 6.2 % (2-4); Hematocrit 38.1 % (36-46); Hemoglobin 12.1 g/dL (12.0-16.0); Lymphocytes Absolute Auto 1500 /uL (1100-4500); Lymphocytes Percent Auto 16.2 % (25-40); Mean Corpuscular HGB Conc 31.8 % (30-36); Mean Corpuscular Hemoglobin 25.9 PG (26-34); Mean Corpuscular Volume 81.3 fL (80-100); Monocytes Absolute Auto 700 /uL (0-900); Monocytes Percent Auto 7.6 % (3-14); Neutrophils Absolute Auto 6200 /uL (1500-7000); Platelet Count 279 X10^3/uL (150-400); Red Blood Cell Count 4.68 X10^6/uL (4.0-5.2); Red Cell Distribution Width 23.1 % (11.6-14.8)
[2019-09-25 10:40] LABS: Appearance Urine UA CLEAR; Bilirubin Urine UA NEGATIVE (NEGATIVE); Color Urine UA YELLOW; Glucose Urine UA NEGATIVE (Negative); Ketones Urine UA NEGATIVE (NEGATIVE); Leukocyte Esterase Urine UA NEGATIVE (NEGATIVE); Nitrite Urine UA NEGATIVE (Negative); Occult Blood Urine UA NEGATIVE (Negative); Protein Urine UA NEGATIVE (Negative); Urobilinogen Urine UA 0.2 E.U./dL (0.2)
[2019-09-25 10:46] LABS: Alanine Aminotransferase 10 IU/L (<35); Albumin 3.6 g/dL (3.5-5.0); Albumin Globulin Ratio 1.2 (1.0-2.8); Alkaline Phosphatase 76 U/L (38-126); Aspartate Aminotransferase 21 IU/L (14-36); BUN Creatinine Ratio 29.1 (6-22); Bilirubin Total 0.4 mg/dL (0.2-1.3); Blood Urea Nitrogen 23 mg/dL (7-17); Calcium 9.6 mg/dL (8.4-10.2); Carbon Dioxide 31 mmol/L (22-32); Chloride 103 mmol/L (98-107); Estimated Glomerular Filt Rate > 60.0 mL/min (>60); Glucose 130 mg/dL (80-110); HEMOLYSIS < 15 (0-50); Potassium 3.7 mmol/L (3.4-5.1); Sodium 139 mmol/L (137-145); Total Protein 6.6 g/dL (6.3-8.2)
[2019-09-25 10:49] LABS: Culture Indicated Urine Cult Not Indicated; Urine Comments Microscopic Normal
[2019-09-25 10:53] LABS: Anisocytosis 1+; Poikilocytosis 1+
== END ==
PROVIDERS: PCP Internal Medicine; Visit Provider Internal Medicine
DX: I25.5 Ischemic cardiomyopathy (principal); D50.0 Iron deficiency anemia secondary to blood loss (chronic)
CPT/HCPCS: 80053; 81001; 85025

== ENCOUNTER → 2019-10-17 11:03 | Outpatient (ROUT) | payer MEDICARE, SELFPAY ==
[2019-02-04 18:29] VITALS: BMI 22.2
[2019-10-17 11:12] LABS: Appearance Urine UA CLOUDY; Bilirubin Urine UA NEGATIVE (NEGATIVE); Color Urine UA YELLOW; Glucose Urine UA NEGATIVE (Negative); Ketones Urine UA NEGATIVE (NEGATIVE); Leukocyte Esterase Urine UA 3+ (NEGATIVE); Nitrite Urine UA NEGATIVE (Negative); Occult Blood Urine UA 1+ (Negative); Protein Urine UA NEGATIVE (Negative); Urobilinogen Urine UA 0.2 E.U./dL (0.2)
[2019-10-17 11:15] LABS: pH Urine UA 7.5 (4.5-8.0)
[2019-10-17 11:34] LABS: Amorphous Sediment Urine 1+; Bacteria Urine Many (>30); Culture Indicated Urine Specimen Cultured; RBC Urine 0-1/HPF (0-5/HPF); Squamous Epithelial Cell Urine 1-5 /HPF (0-5/HPF); WBC Urine 5-10/HPF (0-5/HPF)
== END ==
PROVIDERS: PCP Internal Medicine; Visit Provider Internal Medicine
DX: M54.9 Dorsalgia, unspecified (principal); R30.0 Dysuria
CPT/HCPCS: 81001; 87077; 87086; 87186

== ENCOUNTER → 2019-12-14 09:52 | Outpatient (CLI) | payer MEDICARE, SELFPAY ==
[2019-02-04 18:29] VITALS: BMI 22.2
--- NOTE | 2019-12-14 15:46 | DI.US.S_ITS ---
PROCEDURE: US ABDOMEN LIMITED INDICATIONS: CHRONIC CHOLECYSTITIS TECHNIQUE: Real-time focused scanning was performed of the abdomen, with image documentation. COMPARISON: [facility], XA, SI BILIARY DRAIN CATH EXCHANGE, 11/05/2019, 15:15. [facility], CT, CT ABDOMEN PELVIS WITH CONTRAST, 11/05/2019, 15:38. FINDINGS: Limited examination demonstrating cholecystostomy tube with the tip appears to be within the decompressed gallbladder. A previously identified gallstone is thought to be present although better visualized on prior CT. No biliary ductal dilatation identified. The liver measures 13.5 cm in length. No focal fluid collection identified. IMPRESSION: Cholecystostomy tube as above. Dictated by: Jorge Griffith M.D. on 12/14/2019 at 17:17 Approved by: Jorge Griffith M.D. on 12/14/2019 at 17:23
== END ==
PROVIDERS: Referring Provider Licensed Practical Nurse; Visit Provider Licensed Practical Nurse
DX: K81.1 Chronic cholecystitis (principal); Z93.59 Other cystostomy status
CPT/HCPCS: 76705

== ENCOUNTER 2020-04-04 13:48 | Inpatient (IN) | payer MEDICARE, SELFPAY ==
[2019-02-04 18:29] VITALS: BMI 22.2
[2020-04-04] VITALS (17 sets, daily range): BP systolic 114–151; BP diastolic 60–92; PULSE 104–124; RESP 18–38; TEMP 36.8–37.2; O2SAT 90–97; BMI 21.9
--- NOTE | 2020-04-04 14:01 | ED.ABDPAIN ---
HPI - Abdominal Pain General Chief Complaint: Abdominal Pain Stated Complaint: Abdominal pain Time Seen by Provider: 04/04/20 13:54 Source: patient and EMS Mode of arrival: EMS Limitations: no limitations History of Present Illness HPI narrative: Patient is a 79-year-old female has a history of atrial fibrillation on Eliquis chronic cholecystitis with ERCP in December 2019, COPD on O2 presenting with increased abdominal pain over the last 2 days. He denies any fevers chills she was having nausea but no longer nauseated no vomiting. She has pain radiate up to her right shoulder blade. No chest pain cough or shortness of breath she does seem to have some increased dyspnea. MD complaint: abdominal pain Onset (ago): day(s) (2) Pain Consistency: constant Location: diffuse Severity: moderate Migration to: no migration Relieving factors: nothing Related Data Home Medications Medication Instructions Recorded Confirmed pantoprazole 40 mg tablet,delayed 40 mg PO DAILY 04/20/18 08/23/19 release albuterol sulfate [Ventolin HFA] 2 puff INHALATION Q6H PRN 10/29/18 08/23/19 magnesium oxide 400 mg PO QAM 10/29/18 08/23/19 Eliquis 2.5 mg PO BID 02/04/19 08/23/19 metoprolol succinate 50 mg PO BID 03/02/19 08/23/19 simvastatin 40 mg PO QPM 03/02/19 08/23/19 clopidogrel 75 mg PO DAILY 08/23/19 04/04/20 diphenhydramine HCl [Benadryl 25 mg PO PRN PRN 08/23/19 08/23/19 Allergy] furosemide 20 mg PO DAILY 08/23/19 08/23/19 nitroglycerin 0.4 mg SUBLINGUAL Q5M PRN 08/23/19 08/23/19 oxycodone 2.5 mg PO Q6H PRN 08/23/19 08/23/19 potassium chloride 20 meq PO DAILY 08/23/19 08/23/19 sulfamethoxazole-trimethoprim See Rx Instructions .ROUTE .COMPLEX 08/23/19 08/23/19 Previous Rx's Medication Instructions Recorded acetaminophen 650 mg PO Q6HR PRN #30 tab 02/06/19 levetiracetam [Keppra] 500 mg PO BID #60 tab 08/23/19 Allergies Allergy/AdvReac Type Severity Reaction Status Date / Time Penicillins Allergy Verified 04/04/20 14:01 morphine AdvReac Intermediate burning Verified 04/04/20 14:01 sensation at IV site amoxicillin [From Augmentin] AdvReac Mild flu like Verified 04/04/20 14:01 symptoms clavulanic acid AdvReac Mild flu like Verified 04/04/20 14:01 [From Augmentin] symptoms lisinopril AdvReac Mild cough Verified 04/04/20 14:01 Review of Systems Review of Systems ROS Unobtainable: All systems reviewed & are unremarkable except as noted in HPI and below Constitutional Constitutional: Denies chills, Denies fever(s), Denies lethargy and Denies weakness Eyes Eyes: Denies change in vision, Denies eye discharge, Denies irritation and Denies loss of vision ENT Ears, Nose, Mouth, and Throat: Denies change in voice, Denies neck pain and Denies sore throat Cardiovascular Cardiovascular: Denies chest pain, Denies irregular heart rhythm, Denies lightheadedness, Denies palpitations, Denies dyspnea, Denies dyspnea on exertion and Denies orthopnea Respiratory Respiratory: Denies cough, Denies dyspnea, Denies dyspnea on exertion and Denies wheezing Gastrointestinal Gastrointestinal: Reports as per HPI Musculoskeletal Musculoskeletal: Denies neck pain Integumentary/Breasts Skin/Breast: Denies pruritus, Denies erythema, Denies rash and Denies wounds Neurologic Neurologic: Denies loss of vision and Denies weakness Endocrine Endocrine: Denies palpitations Allergic/Immunologic Allergic/Immunologic: Denies wheezing Patient History Medical History Afib CAD (coronary artery disease) Cardiac defibrillator in place Carotid stenosis Colovaginal fistula COPD (chronic obstructive pulmonary disease) CVA (cerebral vascular accident) Enterovaginal fistula Heart failure HLD (hyperlipidemia) HTN (hypertension) Nicotine addiction PAD (peripheral artery disease) Surgical History H/O carotid endarterectomy History of appendectomy History of coronary artery stent placement History of hysterectomy Hx of tonsillectomy Family History Father Throat cancer Mother Ovarian cancer Social History household members: none Smoking Status: Former smoker alcohol intake: current Smoking Status: Former smoker tobacco type: cigarettes alcohol intake frequency: holidays/special occasions only Substance Use Type: does not use Exam Initial Vital Signs Initial Vital Signs: Vital Signs Temperature 98.9 F 04/04/20 13:50 Pulse Rate 118 H 04/04/20 13:50 Respiratory Rate 38 H 04/04/20 13:50 Blood Pressure 114/74 04/04/20 13:50 Pulse Oximetry 91 04/04/20 13:50 GENERAL: Alert pleasant 79-year-old female appears in moderate pain HEENT: Head atraumatic,EOMI, pupils reactive, face symmetric, moist mucous membranes CARDIOVASCULAR: Regular rate and rhythm without murmurs, rubs or gallops. RESPIRATORY: Coarse breath sounds bilaterally ABDOMEN: Soft, diffuse pain no guarding or rebound mild right upper quadrant pain EXTREMITIES: Normal range of motion, no clubbing or edema. Neurovascularly intact NEUROLOGICAL: Alert and oriented x4.Normal gait and speech. Cranial nerves II through XII grossly intact. SKIN: Warm, dry, no laceration, no petechiae, no rashes or lesions. Course Orders Ordered: ED Orders 04/04/20 14:02 Consult to Respiratory Therapy Evaluate & Treat CT abdomen pelvis w con Stat 04/04/20 14:03 XR chest 1V Stat 04/04/20 14:05 COVID19 Stat Complete Blood Count AUTO DIFF Stat Comprehensive Metabolic Panel Stat Lactate (Lactic Acid) Stat Lipase Stat NT-proBNP (BNP-Adult 18+) Stat Partial Thromboplastin Time Stat Procalcitonin Stat Prothrombin Time INR Stat Troponin & CK Cardiac Panel Stat 04/04/20 14:16 Blood Culture Stat 04/04/20 16:00 Urine Culture Stat Urine Microscopic Stat Acetaminophen (Acetaminophen 325 Mg Tablet) 650 mg PO Q6HR PRN PRN Reason: Fever/Mild Pain (1-3) Ondansetron HCl (Ondansetron 4 Mg/2 Ml Inj) 4 mg IV Q8HR PRN PRN Reason: Nausea And Vomiting Oxycodone HCl (Oxycodone Ir 5 Mg Tablet) 5 mg PO Q6HR PRN PRN Reason: Pain, Moderate (4-6) Discontinued Medications Sodium Chloride (Normal Saline 0.9%) 1,000 mls @ 150 mls/hr IV CONT SILKE Stop: 04/04/20 18:30 Last Infusion: 04/04/20 17:59 Dose: 0 mls/hr Documented by: Admin: 04/04/20 16:28 Dose: 150 mls/hr Documented by: SHADY Ceftriaxone Sodium/Dextrose (Rocephin) 1 gm in 50 mls @ 100 mls/hr IV NOW ONE Stop: 04/04/20 17:50 Last Infusion: 04/04/20 17:59 Dose: 0 mls/hr Documented by: Admin: 04/04/20 17:29 Dose: 100 mls/hr Documented by: SHADY Vital Signs Vital signs: Vital Signs - 8 hr 04/04/20 13:50 04/04/20 13:52 04/04/20 14:00 Temperature 98.9 F Pulse Rate 118 H 107 H 113 H Respiratory Rate 38 H 31 H Blood Pressure 114/74 114/74 132/79 Pulse Oximetry 91 91 93 04/04/20 14:15 04/04/20 14:30 04/04/20 14:45 Temperature Pulse Rate 115 H 118 H 115 H Respiratory Rate 28 H 21 25 H Blood Pressure 146/92 H 148/60 H 151/65 H Pulse Oximetry 90 L 93 94 04/04/20 15:08 04/04/20 15:30 04/04/20 16:00 Temperature Pulse Rate 113 H 124 H 121 H Respiratory Rate 18 31 H 28 H Blood Pressure Pulse Oximetry 97 96 94 04/04/20 16:27 04/04/20 16:30 04/04/20 16:45 Temperature Pulse Rate 113 H 111 H 117 H Respiratory Rate 26 H 27 H 26 H Blood Pressure 139/65 137/63 150/65 H Pulse Oximetry 95 95 95 04/04/20 17:00 04/04/20 17:15 04/04/20 17:30 Temperature Pulse Rate 105 H 106 H 104 H Respiratory Rate 25 H 23 25 H Blood Pressure 140/77 142/66 H 140/63 Pulse Oximetry 95 95 95 MDM - Abdominal Pain Lab Data Attestation: I reviewed the patient's lab results. Result diagrams: 04/04/20 14:05 04/04/20 14:05 Labs: Lab Results 04/04/20 04/04/20 04/04/20 Range/Units 14:05 14:05 14:05 WBC 15.1 H (4.5-11.0) X10^3/uL RBC 5.19 (4.0-5.2) X10^6/uL Hgb 14.1 (12.0-16.0) g/dL Hct 44.4 (36-46) % MCV 85.5 (80-100) fL MCH 27.1 (26-34) PG MCHC 31.7 (30-36) % RDW 15.4 H (11.6-14.8) % Plt Count 319 (150-400) X10^3/uL Neut % (Auto) 80.1 H (50-75) % Lymph % (Auto) 10.4 L (25-40) % Saline % (Auto) 7.7 (3-14) % Eos % (Auto) 1.4 L (2-4) % Baso % (Auto) 0.4 (0-2) % Neut # (Auto) 34089 H (3166-0951) /uL Lymph # (Auto) 1600 (7900-8030) /uL Saline # (Auto) 1200 H (0-900) /uL Eos # (Auto) 200 (0-450) /uL Baso # (Auto) 100 (0-100) /uL PT 16.6 H (10.1-12.7) SECONDS INR 1.5 H (0.9-1.3) APTT 35 (26.4-36.2) SECONDS Sodium 137 (137-145) mmol/L Potassium 4.7 (3.4-5.1) mmol/L Chloride 98 (98-107) mmol/L Carbon Dioxide 35 H (22-32) mmol/L BUN 24 H (7-17) mg/dL Creatinine 0.76 (0.52-1.04) mg/dL Estimated GFR > 60.0 (>60) mL/min BUN/Creatinine Ratio 31.6 H (6-22) Glucose 141 H (80-110) mg/dL Lactate (0.7-2.1) mmol/L Calcium 9.9 (8.4-10.2) mg/dL Total Bilirubin 0.8 (0.2-1.3) mg/dL AST 34 (14-36) IU/L ALT 12 (<35) IU/L Alkaline Phosphatase 114 (38-126) U/L Total Creatine Kinase 40 (30-135) U/L CK-MB (CK-2) TNP CK-MB (CK-2) Rel Index TNP Troponin I < 0.012 (0.01-0.034) ng/mL NT-Pro-B Natriuret Pep 2130 H (<450) pg/mL Total Protein 8.1 (6.3-8.2) g/dL Albumin 4.3 (3.5-5.0) g/dL Globulin 3.8 (1.7-4.1) g/dL Albumin/Globulin Ratio 1.1 (1.0-2.8) Lipase 60 (23-300) U/L Procalcitonin (<0.5) ng/mL Urine RBC (0-5/HPF) Urine WBC (0-5/HPF) Ur Squamous Epith Cells (0-5/HPF) Ur Transition Epith Cell (0-5/HPF) Urine Bacteria (None) Ur Culture Indicated? SARS-CoV-2 (PCR) (Negative) 04/04/20 04/04/20 04/04/20 Range/Units 14:05 14:05 14:05 WBC (4.5-11.0) X10^3/uL RBC (4.0-5.2) X10^6/uL Hgb (12.0-16.0) g/dL Hct (36-46) % MCV (80-100) fL MCH (26-34) PG MCHC (30-36) % RDW (11.6-14.8) % Plt Count (150-400) X10^3/uL Neut % (Auto) (50-75) % Lymph % (Auto) (25-40) % Saline % (Auto) (3-14) % Eos % (Auto) (2-4) % Baso % (Auto) (0-2) % Neut # (Auto) (7856-3272) /uL Lymph # (Auto) (1166-6768) /uL Saline # (Auto) (0-900) /uL Eos # (Auto) (0-450) /uL Baso # (Auto) (0-100) /uL PT (10.1-12.7) SECONDS INR (0.9-1.3) APTT (26.4-36.2) SECONDS Sodium (137-145) mmol/L Potassium (3.4-5.1) mmol/L Chloride (98-107) mmol/L Carbon Dioxide (22-32) mmol/L BUN (7-17) mg/dL Creatinine (0.52-1.04) mg/dL Estimated GFR (>60) mL/min BUN/Creatinine Ratio (6-22) Glucose (80-110) mg/dL Lactate 2.3 H (0.7-2.1) mmol/L Calcium (8.4-10.2) mg/dL Total Bilirubin (0.2-1.3) mg/dL AST (14-36) IU/L ALT (<35) IU/L Alkaline Phosphatase (38-126) U/L Total Creatine Kinase (30-135) U/L CK-MB (CK-2) CK-MB (CK-2) Rel Index Troponin I (0.01-0.034) ng/mL NT-Pro-B Natriuret Pep (<450) pg/mL Total Protein (6.3-8.2) g/dL Albumin (3.5-5.0) g/dL Globulin (1.7-4.1) g/dL Albumin/Globulin Ratio (1.0-2.8) Lipase (23-300) U/L Procalcitonin 0.12 (<0.5) ng/mL Urine RBC (0-5/HPF) Urine WBC (0-5/HPF) Ur Squamous Epith Cells (0-5/HPF) Ur Transition Epith Cell (0-5/HPF) Urine Bacteria (None) Ur Culture Indicated? SARS-CoV-2 (PCR) Negative (Negative) 04/04/20 04/04/20 Range/Units 16:00 16:34 WBC (4.5-11.0) X10^3/uL RBC (4.0-5.2) X10^6/uL Hgb (12.0-16.0) g/dL Hct (36-46) % MCV (80-100) fL MCH (26-34) PG MCHC (30-36) % RDW (11.6-14.8) % Plt Count (150-400) X10^3/uL Neut % (Auto) (50-75) % Lymph % (Auto) (25-40) % Saline % (Auto) (3-14) % Eos % (Auto) (2-4) % Baso % (Auto) (0-2) % Neut # (Auto) (7921-9813) /uL Lymph # (Auto) (3582-3378) /uL Saline # (Auto) (0-900) /uL Eos # (Auto) (0-450) /uL Baso # (Auto) (0-100) /uL PT (10.1-12.7) SECONDS INR (0.9-1.3) APTT (26.4-36.2) SECONDS Sodium (137-145) mmol/L Potassium (3.4-5.1) mmol/L Chloride (98-107) mmol/L Carbon Dioxide (22-32) mmol/L BUN (7-17) mg/dL Creatinine (0.52-1.04) mg/dL Estimated GFR (>60) mL/min BUN/Creatinine Ratio (6-22) Glucose (80-110) mg/dL Lactate 1.6 (0.7-2.1) mmol/L Calcium (8.4-10.2) mg/dL Total Bilirubin (0.2-1.3) mg/dL AST (14-36) IU/L ALT (<35) IU/L Alkaline Phosphatase (38-126) U/L Total Creatine Kinase (30-135) U/L CK-MB (CK-2) CK-MB (CK-2) Rel Index Troponin I (0.01-0.034) ng/mL NT-Pro-B Natriuret Pep (<450) pg/mL Total Protein (6.3-8.2) g/dL Albumin (3.5-5.0) g/dL Globulin (1.7-4.1) g/dL Albumin/Globulin Ratio (1.0-2.8) Lipase (23-300) U/L Procalcitonin (<0.5) ng/mL Urine RBC 0-1/hpf (0-5/HPF) Urine WBC 10-30/hpf H (0-5/HPF) Ur Squamous Epith Cells 1-5 /hpf (0-5/HPF) Ur Transition Epith Cell 1-5/hpf (0-5/HPF) Urine Bacteria Many (>30) H (None) Ur Culture Indicated? Specimen cultured SARS-CoV-2 (PCR) (Negative) Point of care testing: Urine Dip Bedside Urine Glucose Negative Bedside Urine Bilirubin - Negative Bedside Urine Ketone - Negative Urine Specific [place] 1.020 Bedside Urine Occult Blood - Negative Bedside Urine pH 6.0 Bedside Urine Protein - Negative Bedside Urine Urobilinogen - Negative Bedside Urine Nitrite - Negative Bedside Urine Leukocytes + [address] scan - abdomen/pelvis: Radiologist's Impression: PROCEDURE: CT ABDOMEN PELVIS W CON INDICATIONS: abdominal pain TECHNIQUE: After the administration of intravenous contrast, 5 mm thick sections acquired from the diaphragm to the symphysis. 5 mm coronal and sagittal reformats were acquired. For radiation dose reduction, the following was used: automated exposure control, adjustment of mA and/or kV according to patient size. COMPARISON: [facility], CT, CT ABDOMEN PELVIS WITH CONTRAST, 11/05/2019, 15:38. FINDINGS: Image quality: Excellent. ABDOMEN: Lung bases: There is a small right pleural effusion with atelectasis in posterior aspect of right lower lobe. Emphysematous changes also seen. Left basilar atelectasis/scarring is seen. Heart size is enlarged, no pericardial effusion. Solid organs: Liver is normal in size and enhancement. Distended gallbladder containing a large gallstone is again seen with suggestion of gallbladder wall edema and thickening not significantly changed from prior study. A biliary stent is seen in its expected location. Biliary system is non dilated. Pancreas enhances normally. Spleen is normal in size and enhancement. No adrenal nodules. Kidneys demonstrate normal size and enhancement, without hydronephrosis. Bilateral nonobstructing renal calculi are seen versus vascular calcifications. Peritoneum and bowel: Bowel loops demonstrate normal wall thickness and caliber. No free fluid or air. Colonic diverticulosis is seen, no CT evidence of acute diverticulitis. Nodes and vessels: No retroperitoneal or mesenteric adenopathy by size criteria. Chronic appearing infrarenal abdominal aortic aneurysm is again seen along with aneurysm of right common iliac artery unchanged from previous study. Extensive atherosclerotic disease throughout abdominal aorta and bilateral iliac arteries are noted with complete occlusion of the right common iliac artery, internal and external iliac arteries. A right-sided axillofemoral bypass graft is again seen and shows normal contrast filling without significant stenosis or occlusion. Left iliac arteries are patent. Miscellaneous: No ventral hernias. PELVIS: Genitourinary: Bladder wall thickness is normal. Miscellaneous: No inguinal hernias or adenopathy. Bones: No suspicious bony lesions. No vertebral body compression fractures. IMPRESSION: 1. Biliary stent in place, no significant biliary ductal dilatation. Cholelithiasis with suggestion of chronic cholecystitis. 2. No evidence of bowel obstruction. No abnormal bowel wall thickening. No free fluid or free air. Colonic diverticulosis without evidence of acute diverticulitis. 3. Suggestion of bilateral tiny nonobstructing renal calculi are versus vascular calcifications. No hydronephrosis. 4. Stable fusiform infrarenal abdominal aortic aneurysm and aneurysm of right common iliac artery. Occlusion of the right iliac arteries with presence of a patent right axillofemoral graft. Extensive atherosclerotic disease. 5. Small to moderate right pleural effusion with segmental atelectasis in posterior aspect of right lower lobe. Dictated by: De Nance M.D. on 04/04/2020 at 15:17 Chest x-ray: Radiologist's Impression: PROCEDURE: XR CHEST 1V INDICATIONS: sob TECHNIQUE: One view of the chest was acquired. COMPARISON: [facility], , XR CHEST 1V, 07/27/2019, 13:50. FINDINGS: Surgical changes and devices: Surgical clips are again noted near right axilla. Lungs and pleura: Persistent small right pleural effusion is again seen with fluid extending to major fissure. Pulmonary vascular congestion and mild pulmonary edema is seen. No gross pneumothorax. Chronic emphysematous changes are seen. Mediastinum: Mediastinal contours appear normal. Heart size is enlarged. Bones and chest wall: No suspicious bony lesions. Overlying soft tissues appear unremarkable. IMPRESSION: Congestive changes and pulmonary edema. Small partially loculated right pleural effusion. COPD. No gross pneumothorax. Dictated by: De Nance M.D. on 04/04/2020 at 15:01 [facility] Narrative Medical decision making narrative: The patient has mild leukocytosis of 15 slight elevated lactic acid minimal elevated procalcitonin and leukocytes in urine suggesting UTI. Abdominal CT head does not show any abnormality and other blood work is overall reassuring. She does have complicated history concern for deterioration. Blood pressure has been stable. Dr. Driscoll in ED to see and evaluate patient agrees with admission to observation Discharge Plan Departure Patient Disposition: Admitted as Observation Clinical Impression: Acute UTI Admit Date/Time: 04/04/20 17:34 Admit Provider: Andrea Driscoll
[2020-04-04 14:18] LABS: Add Manual Diff / Slide Review NO; Basophils Absolute Auto 100 /uL (0-100); Basophils Percent Auto 0.4 % (0-2); Eosinophils Absolute Auto 200 /uL (0-450); Eosinophils Percent Auto 1.4 % (2-4); Hematocrit 44.4 % (36-46); Hemoglobin 14.1 g/dL (12.0-16.0); Lymphocytes Absolute Auto 1600 /uL (1100-4500); Lymphocytes Percent Auto 10.4 % (25-40); Mean Corpuscular HGB Conc 31.7 % (30-36); Mean Corpuscular Hemoglobin 27.1 PG (26-34); Mean Corpuscular Volume 85.5 fL (80-100); Monocytes Absolute Auto 1200 /uL (0-900); Monocytes Percent Auto 7.7 % (3-14); Neutrophils Absolute Auto 12100 /uL (1500-7000); Neutrophils Percent Auto 80.1 % (50-75); Platelet Count 319 X10^3/uL (150-400); Red Blood Cell Count 5.19 X10^6/uL (4.0-5.2); Red Cell Distribution Width 15.4 % (11.6-14.8); White Blood Cell Count 15.1 X10^3/uL (4.5-11.0)
[2020-04-04 14:24] LABS: INR 1.5 (0.9-1.3); Prothrombin Time 16.6 SECONDS (10.1-12.7)
[2020-04-04 14:27] LABS: PTT Partial Thromboplastin Tim 35 SECONDS (26.4-36.2)
--- NOTE | 2020-04-04 14:27 | PC.NURSE ---
pt reports she has this cough that is intermittent. lung sounds clear. upper airway, throat sounds moist and rattling.
[2020-04-04 14:30] LABS: Lactate (Lactic Acid) 2.3 mmol/L (0.7-2.1)
[2020-04-04 14:32] LABS: Alanine Aminotransferase 12 IU/L (<35); Albumin 4.3 g/dL (3.5-5.0); Albumin Globulin Ratio 1.1 (1.0-2.8); Alkaline Phosphatase 114 U/L (38-126); Aspartate Aminotransferase 34 IU/L (14-36); BUN Creatinine Ratio 31.6 (6-22); Bilirubin Total 0.8 mg/dL (0.2-1.3); Blood Urea Nitrogen 24 mg/dL (7-17); Calcium 9.9 mg/dL (8.4-10.2); Carbon Dioxide 35 mmol/L (22-32); Chloride 98 mmol/L (98-107); Creatine Kinase 40 U/L (30-135); Estimated Glomerular Filt Rate > 60.0 mL/min (>60); Globulin 3.8 g/dL (1.7-4.1); Glucose 141 mg/dL (80-110); Lipase 60 U/L (23-300); Potassium 4.7 mmol/L (3.4-5.1); Sodium 137 mmol/L (137-145); Total Protein 8.1 g/dL (6.3-8.2)
[2020-04-04 14:34] LABS: COVID19 -Nasal RAPID Negative (Negative)
[2020-04-04 14:35] LABS: HEMOLYSIS 101 (0-50)
[2020-04-04 14:44] LABS: NT-proBNP (BNP-Adult 18+) 2130 pg/mL (<450); Troponin I < 0.012 ng/mL (0.01-0.034)
[2020-04-04 14:53] LABS: Procalcitonin 0.12 ng/mL (<0.5)
--- NOTE | 2020-04-04 15:31 | PC.NURSE ---
assited pt to bsc, pt unsteady on feet and sob with movement. pt states she is normally sob and uses oxygen daily. pt weak, and requiring 2 person assist back to stretcher. pt's vitals stable.
[2020-04-04 16:14] LABS: Reflexed Lactate in 2 Hours Y
[2020-04-04 16:26] LABS: Bacteria Urine Many (>30); Culture Indicated Urine Specimen Cultured; RBC Urine 0-1/HPF (0-5/HPF); Squamous Epithelial Cell Urine 1-5 /HPF (0-5/HPF); Transitional Epi Cells Urine 1-5/HPF (0-5/HPF); WBC Urine 10-30/HPF (0-5/HPF)
[2020-04-04] MEDS: SODIUM CHLORIDE 0.9% 1,000 ML 150 ML IV (16:28)
[2020-04-04 16:58] LABS: Lactate 2HR (Lactic Acid Rflx) 1.6 mmol/L (0.7-2.1)
[2020-04-04] MEDS: CEFTRIAXONE 1 GM/50 ML FROZ.PIGGY IV (17:29)
--- NOTE | 2020-04-04 17:59 | PM.HP.1 ---
History of Present Illness History of Present Illness Date Patient Seen: 04/04/20 Time Patient Seen: 18:00 Date of Onset of Symptoms: 04/03/20 Chief complaint: Abdominal pain Narrative: Chasity Wilks is a 78-year-old female with past medical history of CAD (stents x7 per patient), PAD s/p bypass and bilateral carotid disease, Atrial fibrillation on AC, prior CVA, HTN, HLD, COPD on 2L home O2, recent diagnosis of chronic cholecystitis with ERCP in December 2019 with cystic duct placement and cholecystostomy tube replacement (removed ? 6 weeks ago), chronic colovaginal/enterovaginal fistulae, resident of [facility] who presented with increasing abdominal pain over the past day. Patient states that it came on suddenly and was constant. She was unable to describe the quality of the pain other than that it hurt and felt awful. Abdominal pain was located primarily around her umbilicus. She stated it did not worsen with meals, but improved with initial treatment in the emergency room which was fluids and an antibiotic. At this time she denies any pain. She denies any fevers or chills. She has a chronic cough which has not changed recently. She denies worsened shortness of breath, chest pain, nausea, or vomiting. In the emergency room patient was mildly hypertensive and mildly tachycardic in atrial fibrillation. She is saturating in the low 90s on her usual 2 L of home oxygen. Initial laboratory evaluation showed a leukocytosis with the white count 15.1 an 80% neutrophils. The remainder of her CBC was unremarkable. Coagulation studies showed an INR of 1.5. Chemistry showed a mildly elevated glucose at 141, lactate was elevated at 2.3 which improved to 1.6 after fluids. Troponin was negative. ProBNP was 2130, down from a prior admission of over 5000. Procalcitonin was 0.12, indeterminate. Lipase was 60. Liver transaminases were unremarkable in T bilirubin was not elevated. Urinalysis revealed 10-30 white blood cells, and many urine bacteria. Specimen was sent for further culture. COVID-19 testing was negative. Admitted under observation for further evaluation of her abdominal pain. Patient History Medical History Afib CAD (coronary artery disease) Cardiac defibrillator in place Carotid stenosis Colovaginal fistula COPD (chronic obstructive pulmonary disease) CVA (cerebral vascular accident) Enterovaginal fistula Heart failure HLD (hyperlipidemia) HTN (hypertension) Nicotine addiction PAD (peripheral artery disease) Surgical History H/O carotid endarterectomy History of appendectomy History of coronary artery stent placement History of hysterectomy Hx of tonsillectomy Family & Social History Family History Father Throat cancer Mother Ovarian cancer Social History: household members none Safety & Behavioral: Feels Safe in Current Yes Environment Been Physically Hurt or No Threatened By a Person Tobacco & Substance use: Tobacco type cigarettes Smoking Status Former smoker alcohol intake current alcohol intake frequency holiday/special occasion Substance Use Type does not use Meds Home Medications and Allergies Home Medications Medication Instructions Recorded Confirmed Type pantoprazole 40 mg tablet,delayed 40 mg PO DAILY 04/20/18 08/23/19 History release albuterol sulfate [Ventolin HFA] 2 puff INHALATION Q6H PRN 10/29/18 08/23/19 History magnesium oxide 400 mg PO QAM 10/29/18 08/23/19 History Eliquis 2.5 mg PO BID 02/04/19 08/23/19 History acetaminophen 650 mg PO Q6HR PRN #30 tab 02/06/19 08/23/19 Rx metoprolol succinate 50 mg PO BID 03/02/19 08/23/19 History simvastatin 40 mg PO QPM 03/02/19 08/23/19 History clopidogrel 75 mg PO DAILY 08/23/19 04/04/20 History diphenhydramine HCl [Benadryl 25 mg PO PRN PRN 08/23/19 08/23/19 History Allergy] furosemide 20 mg PO DAILY 08/23/19 08/23/19 History levetiracetam [Keppra] 500 mg PO BID #60 tab 08/23/19 Rx nitroglycerin 0.4 mg SUBLINGUAL Q5M PRN 08/23/19 08/23/19 History oxycodone 2.5 mg PO Q6H PRN 08/23/19 08/23/19 History potassium chloride 20 meq PO DAILY 08/23/19 08/23/19 History sulfamethoxazole-trimethoprim See Rx Instructions .ROUTE .COMPLEX 08/23/19 08/23/19 History Allergies Allergy/AdvReac Type Severity Reaction Status Date / Time Penicillins Allergy Verified 04/04/20 14:01 morphine AdvReac Intermediate burning Verified 04/04/20 14:01 sensation at IV site amoxicillin [From Augmentin] AdvReac Mild flu like Verified 04/04/20 14:01 symptoms clavulanic acid AdvReac Mild flu like Verified 04/04/20 14:01 [From Augmentin] symptoms lisinopril AdvReac Mild cough Verified 04/04/20 14:01 Review of Systems Review of Systems Narrative: All other systems reviewed with the patient and are negative unless otherwise stated. Exam Vital Signs (past 8 hours): - 04/04/20 13:50 04/04/20 13:52 04/04/20 14:00 Temperature 98.9 F Pulse Rate 118 H 107 H 113 H Respiratory Rate 38 H 31 H Blood Pressure 114/74 114/74 132/79 Pulse Oximetry 91 91 93 04/04/20 14:15 04/04/20 14:30 04/04/20 14:45 Temperature Pulse Rate 115 H 118 H 115 H Respiratory Rate 28 H 21 25 H Blood Pressure 146/92 H 148/60 H 151/65 H Pulse Oximetry 90 L 93 94 04/04/20 15:08 04/04/20 15:30 04/04/20 16:00 Temperature Pulse Rate 113 H 124 H 121 H Respiratory Rate 18 31 H 28 H Blood Pressure Pulse Oximetry 97 96 94 04/04/20 16:27 04/04/20 16:30 04/04/20 16:45 Temperature Pulse Rate 113 H 111 H 117 H Respiratory Rate 26 H 27 H 26 H Blood Pressure 139/65 137/63 150/65 H Pulse Oximetry 95 95 95 04/04/20 17:00 04/04/20 17:15 04/04/20 17:30 Temperature Pulse Rate 105 H 106 H 104 H Respiratory Rate 25 H 23 25 H Blood Pressure 140/77 142/66 H 140/63 Pulse Oximetry 95 95 95 04/04/20 17:45 Temperature Pulse Rate 105 H Respiratory Rate 24 Blood Pressure 143/61 H Pulse Oximetry 95 Oxygen Delivery Method Nasal Cannula Oxygen Flow Rate 2 Narrative Exam Narrative: General: Elderly female lying in bed and in no acute distress, well-developed, appropriately interactive. HEENT: Normocephalic, atraumatic. External ears without defect. Pupils equal, round, and reactive to light. Anicteric sclerae, moist conjunctivae, and no lid lag. Neck: Supple with full range of motion. No lymphadenopathy or thyromegaly. Cardiovascular: Irregularly irregular and tachycardic rate without murmurs, rubs, or gallops appreciated. Pulmonary: Clear to auscultation bilaterally without crackles, wheezes, or rhonchi. Normal respiratory effort with no use of accessory muscles. Abdomen: Soft, bowel sounds present, nontender, nondistended. Extremities: No clubbing, cyanosis, or edema. Skin: Normal temperature, turgor, and texture; no rash, ulcers, or subcutaneous nodules appreciated. Neurological: Cranial nerves grossly intact, mild L facial asymmetry at baseline. Alert and oriented x2 to person and place. Psychiatric: Appropriate with stable behavior. Objective ECG Impression: Atrial fibrillation with rapid ventricular response, ? borderline ST depression in V4-6 compared to previous, though doubtful. Imaging Chest x-ray: My impression: small R pleural effusion, mild pulmonary congestion. Radiologist's impression: PROCEDURE: XR CHEST 1V INDICATIONS: sob TECHNIQUE: One view of the chest was acquired. COMPARISON: Located Within [facility], , XR CHEST 1V, 07/27/2019, 13:50. FINDINGS: Surgical changes and devices: Surgical clips are again noted near right axilla. Lungs and pleura: Persistent small right pleural effusion is again seen with fluid extending to major fissure. Pulmonary vascular congestion and mild pulmonary edema is seen. No gross pneumothorax. Chronic emphysematous changes are seen. Mediastinum: Mediastinal contours appear normal. Heart size is enlarged. Bones and chest wall: No suspicious bony lesions. Overlying soft tissues appear unremarkable. IMPRESSION: Congestive changes and pulmonary edema. Small partially loculated right pleural effusion. COPD. No gross pneumothorax. CT scan - abdomen: Radiologist's impression: PROCEDURE: CT ABDOMEN PELVIS W CON INDICATIONS: abdominal pain TECHNIQUE: After the administration of intravenous contrast, 5 mm thick sections acquired from the diaphragm to the symphysis. 5 mm coronal and sagittal reformats were acquired. For radiation dose reduction, the following was used: automated exposure control, adjustment of mA and/or kV according to patient size. COMPARISON: [facility], CT, CT ABDOMEN PELVIS WITH CONTRAST, 11/05/2019, 15:38. FINDINGS: Image quality: Excellent. ABDOMEN: Lung bases: There is a small right pleural effusion with atelectasis in posterior aspect of right lower lobe. Emphysematous changes also seen. Left basilar atelectasis/scarring is seen. Heart size is enlarged, no pericardial effusion. Solid organs: Liver is normal in size and enhancement. Distended gallbladder containing a large gallstone is again seen with suggestion of gallbladder wall edema and thickening not significantly changed from prior study. A biliary stent is seen in its expected location. Biliary system is non dilated. Pancreas enhances normally. Spleen is normal in size and enhancement. No adrenal nodules. Kidneys demonstrate normal size and enhancement, without hydronephrosis. Bilateral nonobstructing renal calculi are seen versus vascular calcifications. Peritoneum and bowel: Bowel loops demonstrate normal wall thickness and caliber. No free fluid or air. Colonic diverticulosis is seen, no CT evidence of acute diverticulitis. Nodes and vessels: No retroperitoneal or mesenteric adenopathy by size criteria. Chronic appearing infrarenal abdominal aortic aneurysm is again seen along with aneurysm of right common iliac artery unchanged from previous study. Extensive atherosclerotic disease throughout abdominal aorta and bilateral iliac arteries are noted with complete occlusion of the right common iliac artery, internal and external iliac arteries. A right-sided axillofemoral bypass graft is again seen and shows normal contrast filling without significant stenosis or occlusion. Left iliac arteries are patent. Miscellaneous: No ventral hernias. PELVIS: Genitourinary: Bladder wall thickness is normal. Miscellaneous: No inguinal hernias or adenopathy. Bones: No suspicious bony lesions. No vertebral body compression fractures. IMPRESSION: 1. Biliary stent in place, no significant biliary ductal dilatation. Cholelithiasis with suggestion of chronic cholecystitis. 2. No evidence of bowel obstruction. No abnormal bowel wall thickening. No free fluid or free air. Colonic diverticulosis without evidence of acute diverticulitis. 3. Suggestion of bilateral tiny nonobstructing renal calculi are versus vascular calcifications. No hydronephrosis. 4. Stable fusiform infrarenal abdominal aortic aneurysm and aneurysm of right common iliac artery. Occlusion of the right iliac arteries with presence of a patent right axillofemoral graft. Extensive atherosclerotic disease. 5. Small to moderate right pleural effusion with segmental atelectasis in posterior aspect of right lower lobe. Labs Result Diagrams: 04/04/20 14:05 04/04/20 14:05 Labs: Laboratory Results - last 24 hr 04/04/20 04/04/20 04/04/20 14:05 14:05 14:05 WBC 15.1 H RBC 5.19 Hgb 14.1 Hct 44.4 MCV 85.5 MCH 27.1 MCHC 31.7 RDW 15.4 H Plt Count 319 Neut % (Auto) 80.1 H Lymph % (Auto) 10.4 L Shoshone % (Auto) 7.7 Eos % (Auto) 1.4 L Baso % (Auto) 0.4 Neut # (Auto) 81776 H Lymph # (Auto) 1600 [place]oshone # (Auto) 1200 H Eos # (Auto) 200 Baso # (Auto) 100 PT 16.6 H INR 1.5 H APTT 35 Sodium 137 Potassium 4.7 Chloride 98 Carbon Dioxide 35 H BUN 24 H Creatinine 0.76 Estimated GFR > 60.0 BUN/Creatinine Ratio 31.6 H Glucose 141 H Lactate Calcium 9.9 Total Bilirubin 0.8 AST 34 ALT 12 Alkaline Phosphatase 114 Total Creatine Kinase 40 CK-MB (CK-2) TNP CK-MB (CK-2) Rel Index TNP Troponin I < 0.012 NT-Pro-B Natriuret Pep 2130 H Total Protein 8.1 Albumin 4.3 Globulin 3.8 Albumin/Globulin Ratio 1.1 Lipase 60 Procalcitonin Urine RBC Urine WBC Ur Squamous Epith Cells Ur Transition Epith Cell Urine Bacteria Ur Culture Indicated? SARS-CoV-2 (PCR) 04/04/20 04/04/20 04/04/20 14:05 14:05 14:05 WBC RBC Hgb Hct MCV MCH MCHC RDW Plt Count Neut % (Auto) Lymph % (Auto) Shoshone % (Auto) Eos % (Auto) Baso % (Auto) Neut # (Auto) Lymph # (Auto) Shoshone # (Auto) Eos # (Auto) Baso # (Auto) PT INR APTT Sodium Potassium Chloride Carbon Dioxide BUN Creatinine Estimated GFR BUN/Creatinine Ratio Glucose Lactate 2.3 H Calcium Total Bilirubin AST ALT Alkaline Phosphatase Total Creatine Kinase CK-MB (CK-2) CK-MB (CK-2) Rel Index Troponin I NT-Pro-B Natriuret Pep Total Protein Albumin Globulin Albumin/Globulin Ratio Lipase Procalcitonin 0.12 Urine RBC Urine WBC Ur Squamous Epith Cells Ur Transition Epith Cell Urine Bacteria Ur Culture Indicated? SARS-CoV-2 (PCR) Negative 04/04/20 04/04/20 16:00 16:34 WBC RBC Hgb Hct MCV MCH MCHC RDW Plt Count Neut % (Auto) Lymph % (Auto) Shoshone % (Auto) Eos % (Auto) Baso % (Auto) Neut # (Auto) Lymph # (Auto) Shoshone # (Auto) Eos # (Auto) Baso # (Auto) PT INR APTT Sodium Potassium Chloride Carbon Dioxide BUN Creatinine Estimated GFR BUN/Creatinine Ratio Glucose Lactate 1.6 Calcium Total Bilirubin AST ALT Alkaline Phosphatase Total Creatine Kinase CK-MB (CK-2) CK-MB (CK-2) Rel Index Troponin I NT-Pro-B Natriuret Pep Total Protein Albumin Globulin Albumin/Globulin Ratio Lipase Procalcitonin Urine RBC 0-1/hpf Urine WBC 10-30/hpf H Ur Squamous Epith Cells 1-5 /hpf Ur Transition Epith Cell 1-5/hpf Urine Bacteria Many (>30) H Ur Culture Indicated? Specimen cultured SARS-CoV-2 (PCR) Assessment & Plan Assessment & Plan narrative: 79-year-old female with multiple medical comorbidities living at a retirement facility who presents with acute abdominal pain, admitted under observation status with acute on chronic cystitis. 1. abdominal pain, acute, resolved - unclear etiology, may be related to acute cystitis given chronic fistulae, possible acute on chronic cholecystitis given improvement. Further differentials include a mesenteric ischemia although lactate improved and only mildly elevated and unremarkable CT of her abdomen. Unlikely related to recent cystic duct stent placement given no elevation in bilirubin. possible atypical angina, though less likely. - start on CLD, oxycodone for pain as needed. Advance as tolerated - if pain worsening with meals, consult surgery for ? cholecystostomy tube placement. - LA 2.3 in the ER, now <2. - will stop fluids given history of HFrEF - repeat 8 hour troponin 2. Acute on chronic cystitis, present on admission - continue ceftriaxone, culture pending. - patient has history of E. faecalis UTI secondary to chronic fistulae. 3. Chronic atrial fibrillation present on admission. Stable. -Continue metoprolol succinate, Eliquis -Continue to monitor electrolytes and replete as necessary. Goal K+ > 4.0 and Mg + >2.0. 4. COPD, present on admission. Stable. -Does not represent COPD exacerbation. -Continue albuterol inhaler every 6 hours as needed for shortness of breath or wheezing. 5. Hypertension, chronic, present on admission. Stable. -Continue metoprolol 6. Hyperlipidemia, chronic, present on admission. Stable. -Continue simvastatin 7. Coronary and peripheral arterial disease, chronic, present on admission. Stable. -most recently received 2 drug-eluting stents at [facility] 01/2019. Patient has history of several vascular grafts in her lower extremities. -Continue clopidogrel 75 mg daily, apixban 2.5 mg BID. 8. Colovaginal and enterovaginal fistulas, chronic, present on admission. Stable. 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 9. Chronic heart failure with reduced ejection fraction. - per records from [facility]. no indication for repeat TTE at this time. Appears euvolemic. Will stop further IV fluids now that she is advancing to clears. Continue home furosemide. 10 Chronic R pleural effusion, present on admission - XR imaging showing stable R pleural effusion since 07/2019. Unknown at this time if outside workup but patient is stable and does not appear to be symptomatic at this time from effusion. Code: DNR Dispo: admit under observation status. DVT: on apixaban.
[2020-04-04] MEDS: FERROUS SULFATE 325 MG TABLET PO (22:41)
[2020-04-04] MEDS: levETIRAcetam 250 MG TABLET 500 MG PO (22:41)
[2020-04-04] MEDS: APIXABAN 5 MG TABLET 2.5 MG PO (22:41)
[2020-04-04 22:50] LABS: Troponin I < 0.012 ng/mL (0.01-0.034)
[2020-04-05] VITALS (12 sets, daily range): BP systolic 98–136; BP diastolic 57–77; PULSE 86–115; RESP 16–20; TEMP 36.3–37.2; O2SAT 90–96
[2020-04-05 05:43] LABS: Add Manual Diff / Slide Review NO; Basophils Absolute Auto 0 /uL (0-100); Basophils Percent Auto 0.4 % (0-2); Eosinophils Absolute Auto 200 /uL (0-450); Eosinophils Percent Auto 1.6 % (2-4); Hematocrit 39.9 % (36-46); Hemoglobin 12.8 g/dL (12.0-16.0); Lymphocytes Absolute Auto 1300 /uL (1100-4500); Lymphocytes Percent Auto 12.2 % (25-40); Mean Corpuscular HGB Conc 32.2 % (30-36); Mean Corpuscular Hemoglobin 27.3 PG (26-34); Mean Corpuscular Volume 84.8 fL (80-100); Monocytes Absolute Auto 1400 /uL (0-900); Monocytes Percent Auto 12.6 % (3-14); Neutrophils Absolute Auto 7900 /uL (1500-7000); Neutrophils Percent Auto 73.2 % (50-75); Platelet Count 257 X10^3/uL (150-400); Red Cell Distribution Width 14.9 % (11.6-14.8); White Blood Cell Count 10.8 X10^3/uL (4.5-11.0)
[2020-04-05 05:46] LABS: Alanine Aminotransferase 9 IU/L (<35); Albumin 3.6 g/dL (3.5-5.0); Albumin Globulin Ratio 1.1 (1.0-2.8); Alkaline Phosphatase 94 U/L (38-126); Aspartate Aminotransferase 20 IU/L (14-36); BUN Creatinine Ratio 37.7 (6-22); Bilirubin Total 0.6 mg/dL (0.2-1.3); Bilirubin Unconjugated 0.6 mg/dL (0.0-1.1); Blood Urea Nitrogen 26 mg/dL (7-17); Calcium 9.3 mg/dL (8.4-10.2); Carbon Dioxide 35 mmol/L (22-32); Chloride 99 mmol/L (98-107); Estimated Glomerular Filt Rate > 60.0 mL/min (>60); Globulin 3.2 g/dL (1.7-4.1); Glucose 110 mg/dL (80-110); HEMOLYSIS < 15 (0-50); Magnesium 2.1 mg/dL (1.6-2.3); Potassium 3.7 mmol/L (3.4-5.1); Sodium 138 mmol/L (137-145); Total Protein 6.8 g/dL (6.3-8.2)
[2020-04-05 06:51] LABS: Troponin I < 0.012 ng/mL (0.01-0.034)
[2020-04-05] MEDS: ACETAMINOPHEN 325 MG TABLET 650 MG PO (07:18)
[2020-04-05] MEDS: PANTOPRAZOLE 40 MG TABLET PO (07:19)
[2020-04-05] MEDS: CLOPIDOGREL 75 MG TABLET PO (07:19)
[2020-04-05] MEDS: ISOSORBIDE MONONITRATE ER 30 MG TABLET PO (07:20)
[2020-04-05] MEDS: APIXABAN 5 MG TABLET 2.5 MG PO ×2 (07:20→20:36)
[2020-04-05] MEDS: FUROSEMIDE 20 MG TABLET PO (07:21)
[2020-04-05] MEDS: METOPROLOL ER 50 MG TABLET 75 MG PO ×2 (07:21→20:36)
[2020-04-05] MEDS: MAGNESIUM OXIDE 400 MG TABLET PO (07:21)
[2020-04-05] MEDS: levETIRAcetam 250 MG TABLET 500 MG PO ×2 (07:22→20:36)
[2020-04-05] MEDS: SODIUM CHLORIDE 0.9% FLUSH 10 ML IV ×2 (07:22→20:38)
--- NOTE | 2020-04-05 11:40 | CM.DANOTE ---
DCP: Case received, EMR reviewed and met with patient. Introduced self and role. Was able to obtain information from patient regarding her current activity level and living situation at [facility] before admission. DCP assessment completed with information currently available. Patient is a 79 year old female who admitted yesterday afternoon to the care of the hospitalist team. PCP: Dr. Varela. Payer: confirmed: Medicare/[employer]. Patient came to the hospital via ambulance from [facility], secondary to having abdominal pain. Patient also was noted to have small pleural effusion of her right lower lobe. Discussed patient during team rounds. She is noted to have a gall stone, but attempting to avoid surgery. Patient had a cholecystestomy tube at another hospital recently, and was removed. Dr. Holland wants to get in touch with the hospital that had done the procedure. before and at one time, had a cholecystestomy tube placement. Other option is if this resolves, she can go back to [facility], but need to ensure that she is stable before discharging. Spoke to Quin in admissions at [facility]. Confirmed that she is their resident, and that they will take her back when stable. Quin is not sure at this time if she is a snf resident. Patient is alert and oriented. She stated that she has been at [facility] for a while. Stated that she mostly is in her wheel-chair, but does have a walker if needed. Stated that she has a son named Geoff Wilks, and a daughter in law named Xiomy Wilks. They both reside in [place]. She is planning on going back to [facility]. P: DCP to continue to follow. Patient will be able to return to [facility] when she is medically stable. Audrey Moy RN/Hospital Supervisor
[2020-04-05] MEDS: CEFTRIAXONE 2 GM/50 ML FROZ.PIGGY IV (12:20)
--- NOTE | 2020-04-05 13:08 | PM.PN.1 ---
Subjective Subjective Date Patient Seen: 04/05/20 Interval history: The patient is a 79-year-old female with a history of chronic cholecystitis, treated with cystic duct stent and cholecystostomy tube that was removed 6 weeks ago. Patient was at [facility] and sent to the hospital for abrupt onset of abdominal pain. She received IV fluids in the emergency department with antibiotics and improvement of her pain. However today the patient does report right upper quadrant pain. She has no nausea vomiting. No diarrhea. We discussed multiple options given that the patient is not felt to be a surgical candidate. She is on a clear liquid diet and continues to tolerate that well Exam Vital Signs (past 8 hours): - 04/05/20 05:16 04/05/20 07:24 04/05/20 08:00 Temperature 97.4 F L 98.3 F Pulse Rate 103 H 99 H Respiratory Rate 18 18 Blood Pressure 107/72 136/65 Pulse Oximetry 90 L 90 L 90 L 04/05/20 08:47 04/05/20 12:00 04/05/20 12:24 Temperature 97.7 F Pulse Rate 88 94 H Respiratory Rate 16 19 Blood Pressure 98/77 Pulse Oximetry 96 96 96 Oxygen Delivery Method Nasal Cannula Oxygen Flow Rate 3 Narrative Exam Narrative: Elderly female lying in bed, somewhat uncomfortable on oxygen Lungs: Decreased breath sounds but clear to auscultation Cardiac exam: Irregularly irregular, normal S1-S2 Abdomen: Soft, mild right upper quadrant tenderness, no rebound tenderness, no board-like rigidity, normoactive bowel tones, no palpable mass Extremities: No edema Objective Labs Result Diagrams: 04/05/20 05:00 04/05/20 05:00 Labs: Laboratory Results - last 24 hr 04/04/20 04/04/20 04/04/20 14:05 14:05 14:05 WBC 15.1 H RBC 5.19 Hgb 14.1 Hct 44.4 MCV 85.5 MCH 27.1 MCHC 31.7 RDW 15.4 H Plt Count 319 Neut % (Auto) 80.1 H Lymph % (Auto) 10.4 L [place] % (Auto) 7.7 Eos % (Auto) 1.4 L Baso % (Auto) 0.4 Neut # (Auto) 12110 H Lymph # (Auto) 1600 [place] # (Auto) 1200 H Eos # (Auto) 200 Baso # (Auto) 100 PT 16.6 H INR 1.5 H APTT 35 Sodium 137 Potassium 4.7 Chloride 98 Carbon Dioxide 35 H BUN 24 H Creatinine 0.76 Estimated GFR > 60.0 BUN/Creatinine Ratio 31.6 H Glucose 141 H Lactate Calcium 9.9 Magnesium Total Bilirubin 0.8 Conjugated Bilirubin Unconjugated Bilirubin AST 34 ALT 12 Alkaline Phosphatase 114 Total Creatine Kinase 40 CK-MB (CK-2) TNP CK-MB (CK-2) Rel Index TNP Troponin I < 0.012 NT-Pro-B Natriuret Pep 2130 H Total Protein 8.1 Albumin 4.3 Globulin 3.8 Albumin/Globulin Ratio 1.1 Lipase 60 Procalcitonin Urine RBC Urine WBC Ur Squamous Epith Cells Ur Transition Epith Cell Urine Bacteria Ur Culture Indicated? SARS-CoV-2 (PCR) 04/04/20 04/04/20 04/04/20 14:05 14:05 14:05 WBC RBC Hgb Hct MCV MCH MCHC RDW Plt Count Neut % (Auto) Lymph % (Auto) [place] % (Auto) Eos % (Auto) Baso % (Auto) Neut # (Auto) Lymph # (Auto) [place] # (Auto) Eos # (Auto) Baso # (Auto) PT INR APTT Sodium Potassium Chloride Carbon Dioxide BUN Creatinine Estimated GFR BUN/Creatinine Ratio Glucose Lactate 2.3 H Calcium Magnesium Total Bilirubin Conjugated Bilirubin Unconjugated Bilirubin AST ALT Alkaline Phosphatase Total Creatine Kinase CK-MB (CK-2) CK-MB (CK-2) Rel Index Troponin I NT-Pro-B Natriuret Pep Total Protein Albumin Globulin Albumin/Globulin Ratio Lipase Procalcitonin 0.12 Urine RBC Urine WBC Ur Squamous Epith Cells Ur Transition Epith Cell Urine Bacteria Ur Culture Indicated? SARS-CoV-2 (PCR) Negative 04/04/20 04/04/20 04/04/20 16:00 16:34 22:20 WBC RBC Hgb Hct MCV MCH MCHC RDW Plt Count Neut % (Auto) Lymph % (Auto) [place] % (Auto) Eos % (Auto) Baso % (Auto) Neut # (Auto) Lymph # (Auto) [place] # (Auto) Eos # (Auto) Baso # (Auto) PT INR APTT Sodium Potassium Chloride Carbon Dioxide BUN Creatinine Estimated GFR BUN/Creatinine Ratio Glucose Lactate 1.6 Calcium Magnesium Total Bilirubin Conjugated Bilirubin Unconjugated Bilirubin AST ALT Alkaline Phosphatase Total Creatine Kinase CK-MB (CK-2) CK-MB (CK-2) Rel Index Troponin I < 0.012 NT-Pro-B Natriuret Pep Total Protein Albumin Globulin Albumin/Globulin Ratio Lipase Procalcitonin Urine RBC 0-1/hpf Urine WBC 10-30/hpf H Ur Squamous Epith Cells 1-5 /hpf Ur Transition Epith Cell 1-5/hpf Urine Bacteria Many (>30) H Ur Culture Indicated? Specimen cultured SARS-CoV-2 (PCR) 04/05/20 04/05/20 04/05/20 05:00 05:00 05:00 WBC 10.8 RBC 4.70 Hgb 12.8 Hct 39.9 MCV 84.8 MCH 27.3 MCHC 32.2 RDW 14.9 H Plt Count 257 Neut % (Auto) 73.2 Lymph % (Auto) 12.2 L [place] % (Auto) 12.6 Eos % (Auto) 1.6 L Baso % (Auto) 0.4 Neut # (Auto) 7900 H Lymph # (Auto) 1300 [place] # (Auto) 1400 H Eos # (Auto) 200 Baso # (Auto) 0 PT INR APTT Sodium 138 Potassium 3.7 Chloride 99 Carbon Dioxide 35 H BUN 26 H Creatinine 0.69 Estimated GFR > 60.0 BUN/Creatinine Ratio 37.7 H Glucose 110 Lactate Calcium 9.3 Magnesium 2.1 Total Bilirubin 0.6 Conjugated Bilirubin 0.0 Unconjugated Bilirubin 0.6 AST 20 ALT 9 Alkaline Phosphatase 94 Total Creatine Kinase CK-MB (CK-2) CK-MB (CK-2) Rel Index Troponin I < 0.012 NT-Pro-B Natriuret Pep Total Protein 6.8 Albumin 3.6 Globulin 3.2 Albumin/Globulin Ratio 1.1 Lipase Procalcitonin Urine RBC Urine WBC Ur Squamous Epith Cells Ur Transition Epith Cell Urine Bacteria Ur Culture Indicated? SARS-CoV-2 (PCR) [facility] Medical History Afib CAD (coronary artery disease) Cardiac defibrillator in place Carotid stenosis Colovaginal fistula COPD (chronic obstructive pulmonary disease) CVA (cerebral vascular accident) Enterovaginal fistula Heart failure HLD (hyperlipidemia) HTN (hypertension) Nicotine addiction PAD (peripheral artery disease) Surgical History H/O carotid endarterectomy History of appendectomy History of coronary artery stent placement History of hysterectomy Hx of tonsillectomy Family History Father Throat cancer Mother Ovarian cancer Social History household members: none Smoking Status: Former smoker alcohol intake: current Assessment & Plan Assessment & Plan narrative: abdominal pain, acute, persistent -suspect the patient's abdominal pain is related to her cholecystitis. -repeat imaging does demonstrate a large gallstone with gallbladder wall thickening -patient may have an element of chronic cholecystitis -will resume antibiotics -if pain persists consider repeat replacement of a cholecystostomy tube. Patient does not necessarily want this option but will discuss with surgery on Tuesday if she continues to have pain 2. Acute on chronic cystitis, present on admission - continue ceftriaxone, culture pending. - patient has history of E. faecalis UTI secondary to chronic fistulae. -continue antibiotics as above 3. Chronic atrial fibrillation present on admission. Stable. -Continue metoprolol succinate, Eliquis -Continue to monitor electrolytes and replete as necessary. Goal K+ > 4.0 and Mg + >2.0. 4. COPD, present on admission. , chronic hypoxic respiratory failure, patient is on oxygen chronically -Does not represent COPD exacerbation. -Continue albuterol inhaler every 6 hours as needed for shortness of breath or wheezing. 5. Hypertension, chronic, present on admission. Stable. -Continue metoprolol 6. Hyperlipidemia, chronic, present on admission. Stable. -Continue simvastatin 7. Coronary and peripheral arterial disease, chronic, present on admission. Stable. -most recently received 2 drug-eluting stents at [facility] 01/2019. Patient has history of several vascular grafts in her lower extremities. -Continue clopidogrel 75 mg daily, apixban 2.5 mg BID. 8. Colovaginal and enterovaginal fistulas, chronic, present on admission. Stable. 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 9. Chronic heart failure with reduced ejection fraction. - per records from [facility]. no indication for repeat TTE at this time. Appears euvolemic. Will stop further IV fluids now that she is advancing to clears. Continue home furosemide. 10 Chronic R pleural effusion, present on admission - XR imaging showing stable R pleural effusion since 07/2019. Unknown at this time if outside workup but patient is stable and does not appear to be symptomatic at this time from effusion.
--- NOTE | 2020-04-05 14:22 | PC.NURSE ---
Patient alert, oriented denies RUQ pain at this time, also denies nausea. Tolerating clear liquid diet. Two person to chair and BSC, patient reports she is wheelchair bound and just stands to transfer and pivot. Assisted back to bed,alarm on.
[2020-04-05] MEDS: SIMVASTATIN 20 MG TABLET PO (17:33)
[2020-04-05] MEDS: OXYCODONE IR 5 MG TABLET PO (18:32)
[2020-04-05] MEDS: FERROUS SULFATE 325 MG TABLET PO (20:36)
[2020-04-06] VITALS (9 sets, daily range): BP systolic 105–155; BP diastolic 56–73; PULSE 91–113; RESP 15–30; TEMP 36.7–37; O2SAT 93–96
[2020-04-06 05:24] LABS: Add Manual Diff / Slide Review NO; Basophils Absolute Auto 100 /uL (0-100); Basophils Percent Auto 0.4 % (0-2); Eosinophils Absolute Auto 400 /uL (0-450); Eosinophils Percent Auto 3.1 % (2-4); Hemoglobin 12.8 g/dL (12.0-16.0); Lymphocytes Absolute Auto 2300 /uL (1100-4500); Lymphocytes Percent Auto 19.1 % (25-40); Mean Corpuscular HGB Conc 31.2 % (30-36); Mean Corpuscular Hemoglobin 26.8 PG (26-34); Monocytes Absolute Auto 1200 /uL (0-900); Monocytes Percent Auto 10.1 % (3-14); Neutrophils Absolute Auto 8300 /uL (1500-7000); Neutrophils Percent Auto 67.3 % (50-75); Platelet Count 309 X10^3/uL (150-400); Red Blood Cell Count 4.77 X10^6/uL (4.0-5.2); Red Cell Distribution Width 15.1 % (11.6-14.8); White Blood Cell Count 12.3 X10^3/uL (4.5-11.0)
[2020-04-06 06:34] LABS: Alanine Aminotransferase 10 IU/L (<35); Albumin 3.7 g/dL (3.5-5.0); Alkaline Phosphatase 103 U/L (38-126); Aspartate Aminotransferase 23 IU/L (14-36); BUN Creatinine Ratio 38.2 (6-22); Bilirubin Total 0.5 mg/dL (0.2-1.3); Bilirubin Unconjugated 0.4 mg/dL (0.0-1.1); Blood Urea Nitrogen 29 mg/dL (7-17); Calcium 9.5 mg/dL (8.4-10.2); Carbon Dioxide 36 mmol/L (22-32); Chloride 99 mmol/L (98-107); Estimated Glomerular Filt Rate > 60.0 mL/min (>60); Globulin 3.6 g/dL (1.7-4.1); Glucose 102 mg/dL (80-110); HEMOLYSIS < 15 (0-50); Magnesium 2.1 mg/dL (1.6-2.3); Potassium 4.1 mmol/L (3.4-5.1); Sodium 137 mmol/L (137-145); Total Protein 7.3 g/dL (6.3-8.2)
[2020-04-06] MEDS: APIXABAN 5 MG TABLET 2.5 MG PO (08:41)
[2020-04-06] MEDS: METOPROLOL ER 50 MG TABLET 75 MG PO (08:42)
[2020-04-06] MEDS: ISOSORBIDE MONONITRATE ER 30 MG TABLET PO (08:42)
[2020-04-06] MEDS: MAGNESIUM OXIDE 400 MG TABLET PO (08:42)
[2020-04-06] MEDS: CLOPIDOGREL 75 MG TABLET PO (08:42)
[2020-04-06] MEDS: FUROSEMIDE 20 MG TABLET PO (08:42)
[2020-04-06] MEDS: levETIRAcetam 250 MG TABLET 500 MG PO (08:42)
[2020-04-06] MEDS: SODIUM CHLORIDE 0.9% FLUSH 10 ML IV (08:43)
[2020-04-06] MEDS: PANTOPRAZOLE 40 MG TABLET PO (08:43)
--- NOTE | 2020-04-06 10:45 | PC.NURSE ---
Addendum entered by Erin Erickson R.N. 04/06/20 14:50: Spoke with nurse transfer at [facility], report given on patient. Also spoke with son and informed him his mother was being transported later this afternoon. Son verbalized understanding. Addendum entered by Erin Erickson R.N. 04/06/20 11:53: Left voicemail for son regarding plans to transport mother to [facility]. Original Note: Patient A/O x4, resting in bed. Patient on 2L O2, NC. Denies SOB. Lungs diminished, clear bilaterally. Patient has intermittent, wet, non-productive cough. Reports this is normal for her. Patient assisted with bedpan, jerson-care given. Coccyx is blanchable, turned to right side, patient can move independently in the bed, reminded patient to periodically turn to a side. Patient tolerating clear liquid diet, denies N/V. Denies RUQ pain at this time. Denies abdominal tenderness with palpitation. Voiding in the bedpan, reports last BM was 04/04. IV in left AC, patent, saline locked. Call light in reach.
--- NOTE | 2020-04-06 11:19 | PM.DS.1 ---
History of Present Illness History of Present Illness Date Patient Seen: 04/06/20 Chief complaint: Abdominal pain Narrative: Chasity Wilks is a 78-year-old female with past medical history of CAD (stents x7 per patient), PAD s/p bypass and bilateral carotid disease, Atrial fibrillation on AC, prior CVA, HTN, HLD, COPD on 2L home O2, recent diagnosis of chronic cholecystitis with ERCP in December 2019 with cystic duct placement and cholecystostomy tube replacement (removed ? 6 weeks ago), chronic colovaginal/enterovaginal fistulae, resident of [facility] who presented with increasing abdominal pain over the past day. Patient states that it came on suddenly and was constant. She was unable to describe the quality of the pain other than that it hurt and felt awful. Abdominal pain was located primarily around her umbilicus. She stated it did not worsen with meals, but improved with initial treatment in the emergency room which was fluids and an antibiotic. At this time she denies any pain. She denies any fevers or chills. She has a chronic cough which has not changed recently. She denies worsened shortness of breath, chest pain, nausea, or vomiting. In the emergency room patient was mildly hypertensive and mildly tachycardic in atrial fibrillation. She is saturating in the low 90s on her usual 2 L of home oxygen. Initial laboratory evaluation showed a leukocytosis with the white count 15.1 an 80% neutrophils. The remainder of her CBC was unremarkable. Coagulation studies showed an INR of 1.5. Chemistry showed a mildly elevated glucose at 141, lactate was elevated at 2.3 which improved to 1.6 after fluids. Troponin was negative. ProBNP was 2130, down from a prior admission of over 5000. Procalcitonin was 0.12, indeterminate. Lipase was 60. Liver transaminases were unremarkable in T bilirubin was not elevated. Urinalysis revealed 10-30 white blood cells, and many urine bacteria. Specimen was sent for further culture. COVID-19 testing was negative. Admitted under observation for further evaluation of her abdominal pain. Discharge Providers Provider Date of admission: 04/04/20 17:34 Discharge Date: 04/06/20 Primary care physician: Deepa Varela MD Consults: 04/04/20 14:02 Consult to Respiratory Therapy Evaluate & Treat Comment: Physician Instructions: Evaluate and treat Discharge provider: Vanessa Holland MD Summary Hospital Course Discharge Diagnosis: 1. Right upper quadrant abdominal pain 2. Chronic cholecystitis 3. Biliary stent placement December 2019, with internal drainage, and cholecystostomy tube which was removed 6 weeks ago 4. Coronary artery disease status post multiple stents 5. Peripheral vascular disease the history of carotid artery disease 6. History of congestive heart failure secondary to systolic dysfunction 7. GERD 8. Atrial fibrillation on anticoagulation 9. Chronic hypoxic respiratory failure, secondary to COPD 10. Hypertension 11. Hyperlipidemia Hospital Course: Patient was admitted to the hospital for right upper quadrant abdominal pain. She was placed on IV fluids and antibiotics. CT of the abdomen and pelvis confirmed a large gallstone with gallbladder wall thickening although no biliary ductal dilatation. Her biliary stent was in place. The patient continued to have intermittent and recurrent right upper quadrant pain. Conversation ensued with GI, Dr. Deshawn ASENCIO from [facility]. His recommendations were that the patient be transferred to for GI consultation given her stent placement and multiple procedures to treat her chronic cholecystitis. The patient has been afebrile, she has had improvement of her white count. She was deemed appropriate for transfer and arrangements were made for her to transfer to [facility] for further evaluation. Exam Vital Signs (past 8 hours): - 04/06/20 04:00 04/06/20 04:25 04/06/20 07:55 Temperature 98.2 F 98.5 F Pulse Rate 113 H 96 H Respiratory Rate 30 H 15 Blood Pressure 105/73 117/56 L Pulse Oximetry 93 93 93 04/06/20 08:21 Temperature Pulse Rate 91 H Respiratory Rate 18 Blood Pressure Pulse Oximetry 93 Oxygen Delivery Method Nasal Cannula Oxygen Flow Rate 2 Narrative Exam Narrative: Pleasant elderly female lying in bed with minimal abdominal pain Lungs: Clear to auscultation Cardiac exam: Irregularly irregular, normal S1-S2 with a 2/6 systolic ejection murmur Abdomen: Soft nondistended, mild tenderness in the right upper quadrant, no palpable masses, no rebound tenderness no board-like rigidity Extremities: No edema Objective Labs Result Diagrams: 04/06/20 04:35 04/06/20 04:35 Labs: Laboratory Results - last 24 hr 04/06/20 04/06/20 04/06/20 04:35 04:35 04:35 WBC 12.3 H RBC 4.77 Hgb 12.8 Hct 41.0 MCV 86.0 MCH 26.8 MCHC 31.2 RDW 15.1 H Plt Count 309 Neut % (Auto) 67.3 Lymph % (Auto) 19.1 L [place] % (Auto) 10.1 Eos % (Auto) 3.1 Baso % (Auto) 0.4 Neut # (Auto) 8300 H Lymph # (Auto) 2300 [place] # (Auto) 1200 H Eos # (Auto) 400 Baso # (Auto) 100 Sodium Cancelled 137 Potassium Cancelled 4.1 Chloride Cancelled 99 Carbon Dioxide Cancelled 36 H BUN Cancelled 29 H Creatinine Cancelled 0.76 Estimated GFR Cancelled > 60.0 BUN/Creatinine Ratio Cancelled 38.2 H Glucose Cancelled 102 Calcium Cancelled 9.5 Magnesium 2.1 Total Bilirubin Cancelled 0.5 Conjugated Bilirubin 0.0 Unconjugated Bilirubin 0.4 AST Cancelled 23 ALT Cancelled 10 Alkaline Phosphatase Cancelled 103 Total Protein Cancelled 7.3 Albumin Cancelled 3.7 Globulin Cancelled 3.6 Albumin/Globulin Ratio Cancelled 1.0 PFSH Medical History Afib CAD (coronary artery disease) Cardiac defibrillator in place Carotid stenosis Colovaginal fistula COPD (chronic obstructive pulmonary disease) CVA (cerebral vascular accident) Enterovaginal fistula Heart failure HLD (hyperlipidemia) HTN (hypertension) Nicotine addiction PAD (peripheral artery disease) Surgical History H/O carotid endarterectomy History of appendectomy History of coronary artery stent placement History of hysterectomy Hx of tonsillectomy Family History Father Throat cancer Mother Ovarian cancer Social History household members: none Smoking Status: Former smoker alcohol intake: current Discharge Assessment & Plan Assessment and Plan Assessment: 1. Chronic cholecystitis 2. Chronic atrial fibrillation on anticoagulation 3. Chronic hypoxic respiratory failure 4. COPD 5. Coronary disease status post multiple stent 6. Peripheral vascular disease Plan of Treatment: Transferred [facility] for ERCP and definitive treatment Discharge Plan Discharge Plan Disposition: [facility] Discharge orders & Medications Follow up/Referrals: Deepa Varela MD [Primary Care Provider] - Discharge Health Status Multidrug resistant organism: No MDRO Diet/Activity/Treatments Diet: Clear Liquid Liquid consistency: Normal/Thin Food texture: Regular Activity: as tolerated Discharge Data Primary Care Provider: Deepa Varela
[2020-04-06] MEDS: OXYCODONE IR 5 MG TABLET PO ×2 (11:42→16:10)
--- NOTE | 2020-04-06 11:42 | CM.DPC ---
DCP Cont: Discussed patient this morning. Dr. Holland indicated that she would be consulting GI at a higher level hospital regarding cholecystostomy tube placement, since she is not a candidate for surgery. Patient has been continuing to have right quadrant discomfort. P: Patient will be transferring over to [facility] orders are in. Went ahead and called Quin in admissions at [facility], and gave her update. Audrey Moy RN/Braille Translator
[2020-04-06] MEDS: CEFTRIAXONE 2 GM/50 ML FROZ.PIGGY IV (11:43)
[2020-04-06] MEDS: ACETAMINOPHEN 325 MG TABLET 650 MG PO (16:06)
--- NOTE | 2020-04-06 16:31 | PC.NURSE ---
Pt preparing for transfer to . Pt's son is at bedside holding pt's hand. Pt on 02 @ 2L per NC. Pt requests pain meds for transfer. Discussed with Dr. Holland as pain meds are ordered every 6 hours and too soon to administer. Verbal order to give now dose 5 mg oxycodone and this was done. Administered tylenol to pt as well to manage pain for transport. Medics arrive and review pt's history and were provided with packet and pt's polst designating DNR status. Pt left hospital with saline lock intact with medics in stable condition for transfer, alert, awake, and conversant. Pt's son leaves for home.
== END 2020-04-06 16:37 | disposition short-term general hospital (02) | DRG 445 ==
LOC: ED 17:34 → AC 04-05 11:26
PROVIDERS: Internal Medicine; Nurse Practitioner Family; Admitting Provider Internal Medicine; Emergency Provider Emergency Medicine; PCP Internal Medicine; Referring Provider Emergency Medicine; Visit Provider Internal Medicine
DX: K80.10 Calculus of gallbladder with chronic cholecystitis without obstruction (principal); I50.22 Chronic systolic (congestive) heart failure; J96.11 Chronic respiratory failure with hypoxia; N30.00 Acute cystitis without hematuria; I48.20 Chronic atrial fibrillation, unspecified; I11.0 Hypertensive heart disease with heart failure; Z79.01 Long term (current) use of anticoagulants; I25.10 Atherosclerotic heart disease of native coronary artery without angina pectoris; Z95.818 Presence of other cardiac implants and grafts; Z86.73 Personal history of transient ischemic attack (TIA), and cerebral infarction without residual deficits; E78.5 Hyperlipidemia, unspecified; J44.9 Chronic obstructive pulmonary disease, unspecified; Z99.81 Dependence on supplemental oxygen; Z95.810 Presence of automatic (implantable) cardiac defibrillator; Z20.822 Contact with and (suspected) exposure to COVID-19; Z87.891 Personal history of nicotine dependence; I73.9 Peripheral vascular disease, unspecified; K21.9 Gastro-esophageal reflux disease without esophagitis
CPT/HCPCS: 36415; 71045; 74177; 80048; 80053; 80076; 81003; 81015; 82550; 83605; 83690; 83735; 83880; 84145; 84484; 85025; 85610; 85730; 87040; 87077; 87086; 87185; 87186; 87635; 93005; 94667; 94760; 96361; 96365; 99285; C9803; J0696

== ENCOUNTER → 2020-05-28 11:12 | Outpatient (CLI) | payer MEDICARE, SELFPAY ==
[2020-04-04 19:35] VITALS: BMI 21.9
--- NOTE | 2020-05-28 | DI.RAD.S_ITS ---
PROCEDURE: XR SHOULDER LT MIN 2V INDICATIONS: LEFT SHOULDER PAIN AND DECREASED ROM TECHNIQUE: 2 views of the shoulder were acquired. COMPARISON: None. FINDINGS: Bones: No fractures or dislocations. No suspicious bony lesions. Visualized ribs appear intact. Severe acromioclavicular degenerative narrowing. Humeral head is high-riding. Soft tissues: No suspicious soft tissue calcifications. IMPRESSION: 1. High riding appearance of the humeral head, which can be indicative of rotator cuff pathology. MRI shoulder may be obtained as clinically indicated for further evaluation of rotator cuff injury. 2. Severe acromioclavicular degenerative narrowing. Dictated by: Zohra Dennis M.D. on 05/28/2020 at 17:36 Approved by: Zohra Dennis M.D. on 05/28/2020 at 17:37
== END ==
PROVIDERS: PCP Internal Medicine; Referring Provider Physician Assistant; Visit Provider Physician Assistant
DX: M25.512 Pain in left shoulder (principal)
CPT/HCPCS: 73030

== ENCOUNTER → 2020-07-02 11:03 | Outpatient (CLI) | payer MEDICARE, SELFPAY ==
[2020-04-04 19:35] VITALS: BMI 21.9
--- NOTE | 2020-07-02 | DI.US.S_ITS ---
PROCEDURE: US ABDOMEN LIMITED INDICATIONS: Left groin pain TECHNIQUE: Real-time focused scanning was performed of the abdomen, with image documentation. COMPARISON: None. FINDINGS: No fluid collection or other soft tissue abnormality in the left groin pain region of interest. Deep veins of the left lower extremity appear patent. There is stenosis in the left common femoral artery distally. Proximal to the stenosis the flow velocity is 39 centimeters/second with triphasic waveform. Distal to the stenosis velocity is 220 centimeters/second with biphasic waveforms. Flow in the left proximal superficial femoral artery is biphasic with velocity of 71 centimeters/second. Flow velocity in the deep femoral artery is 37 centimeters/second with triphasic flow. IMPRESSION: Flow-limiting stenosis in the distal common femoral artery. No fluid collection or other soft tissue abnormality in the left groin region of interest to explain pain. Dictated by: Mario Stern M.D. on 07/02/2020 at 12:26 Approved by: Mario Stern M.D. on 07/02/2020 at 12:28
== END ==
PROVIDERS: PCP Internal Medicine; Referring Provider Nurse Practitioner; Visit Provider Nurse Practitioner
DX: R10.30 Lower abdominal pain, unspecified (principal)
CPT/HCPCS: 76705

== ENCOUNTER → 2020-07-03 12:59 | Outpatient (CLI) | payer MEDICARE, SELFPAY ==
[2020-04-04 19:35] VITALS: BMI 21.9
--- NOTE | 2020-07-03 13:01 | DI.MRI.S_ITS ---
PROCEDURE: MR SHOULDER LT WO CON INDICATIONS: LEFT SHOULDER PAIN TECHNIQUE: Noncontrast oblique coronal T2 fast spin echo with fat saturation, oblique sagittal T1 spin echo and T2 fast spin echo with fat saturation, axial T1 spin echo and T2 fast spin echo with fat saturation through the shoulder. COMPARISON: [facility], CT, CT CHEST ABDOMEN PELVIS WITH CONTRAST, 07/15/2019, 10:55. [facility], CR, XR CHEST 1V, 06/12/2018, 19:58. [facility], CR, XR CHEST 1V, 04/04/2020, 14:48. [facility], CT, CT CHEST ABD PEL W CON, 07/27/2019, 15:54. [facility], CR, XR SHOULDER LT MIN 2V, 05/28/2020, 11:18. FINDINGS: Image quality: There are significant motion artifacts degrading images. Rotator cuff: The supraspinatus, infraspinatus, and subscapularis tendons appear mildly thickened and with heterogeneous signal consistent with tendinitis. Sagittal images demonstrate no rotator cuff muscle atrophy. Bones and bursae: There is abnormal signal and edema involving the coracoid process extending to the superior glenoid. There may be a mass within the coracoid process which appears enlarged. Several calcified densities are seen adjacent to the coracoid process. Mild acromioclavicular joint degeneration. The acromion demonstrates conventional anatomy, without an os acromiale. No pathologic subacromial-subdeltoid or subcoracoid bursal fluid is present. Capsule and soft tissues: Labrum is not well seen because of motion artifacts. The long head of the biceps tendon demonstrates normal location and morphology. The rotator interval appears normal, without fibrosis. The coracohumeral ligament is normal in thickness. IMPRESSION: The examination is limited due to motion artifacts. 1. There is abnormal signal and edema involving the coracoid process extending to the superior glenoid. There may be a mass within the coracoid process which appears enlarged. The findings are concerning for an osseous lesion such as metastasis. Several calcific densities are seen in the area. Differential diagnoses include acute trauma and infection. CT may be helpful for further evaluation. 2. Tendinitis of the supraspinatus, infraspinatus and subscapularis tendons. Dictated by: Elodia Maki M.D. on 07/03/2020 at 14:00 Approved by: Elodia Maki M.D. on 07/03/2020 at 17:30
== END ==
PROVIDERS: PCP Internal Medicine; Referring Provider Nurse Practitioner; Visit Provider Nurse Practitioner
DX: M75.92 Shoulder lesion, unspecified, left shoulder (principal); M25.9 Joint disorder, unspecified; M19.012 Primary osteoarthritis, left shoulder
CPT/HCPCS: 73221

== ENCOUNTER → 2020-08-01 11:38 | Outpatient (CLI) | payer MEDICARE, SELFPAY ==
[2020-04-04 19:35] VITALS: BMI 21.9
--- NOTE | 2020-08-01 | DI.CT.S_ITS ---
PROCEDURE: CT UE LT WO/W CON INDICATIONS: PAIN LEFT SHOULDER R/O MASS TECHNIQUE: After the administration of intravenous contrast, 3 mm axial sections acquired of the left shoulder and then the chest where data was acquired, with coronal and sagittal reformats. COMPARISON: [facility], CT, CT ABDOMEN PELVIS WITH CONTRAST, 11/05/2019, 15:38. [facility], CR, XR CHEST 1V, 04/04/2020, 14:48. [facility], CT, CT ABDOMEN PELVIS W CON, 04/04/2020, 14:58. [facility], US, US ABDOMEN LIMITED, 07/02/2020, 11:09. [facility], MR, MR SHOULDER LT WO CON, 07/03/2020, 13:15. During image processing it was noted that there is evidence of malignancy involving the mediastinum and right hemithorax and the [id number] for processing was expanded to include the mediastinum and right hemithorax through the field of view included on original scanning. FINDINGS: Image quality: Excellent. 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 This produces the area of prior MRI concern from 07/03/20. This mass with osteolysis measures up to 3 x 3 cm, and includes cortical destruction. This has not definitely enlarged from the comparison MR study. The soft tissue component within the area of osteolysis is enhancing when comparing pre contrast to postcontrast imaging. Soft tissues: The expanded field of view to include the right hemithorax and mediastinum allows visualization of evidence of extensive mediastinal metastatic disease. This also involves the right hilum and there is a pulmonary nodule identified at the right mid lung, measuring up to 1.7 cm in maximal dimension. There is right hilar and confluent mediastinal adenopathy. The lymph nodes at the mediastinum are within the subcarinal space, the precarinal space, the right paratracheal space, and the aorta pulmonary window region of the left mediastinum. Confluent adenopathy extends into the mid and lower thirds of the right hilum, and overall dimensions are estimated to be of 5.3 cm AP, 7.5 cm transverse and approximately 8.5 cm craniocaudad. This is associated with unilateral right-sided lobulated pleural effusions likely malignant in origin in this clinical circumstance. Partial visualization of the upper lungs allows diagnosis of centrilobular emphysema and likelihood of longstanding smoking history. IMPRESSION: 1. The prior MRI had identified a masslike lesion involving the left shoulder. 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 2. As discussed above the early analysis of the available imaging field of view indicates presence of mediastinal and right hilar malignant adenopathy, and therefore the field of view was expanded to include those areas. This does not represent a complete chest CT. 3. There is extensive mediastinal and right hilar adenopathy, confluent. There is a 1.7 cm right mid lung mass, perhaps the primary source of metastatic disease. 4. There also is lobulated pleural effusion on the right, likely malignant in origin in this clinical circumstance. Dictated by: Hardik Irwin M.D. on 08/01/2020 at 12:59 Approved by: Hardik Irwin M.D. on 08/01/2020 at 13:44
== END ==
PROVIDERS: PCP Internal Medicine; Referring Provider Nurse Practitioner; Visit Provider Nurse Practitioner
DX: M89.512 Osteolysis, left shoulder (principal); R59.0 Localized enlarged lymph nodes; J90 Pleural effusion, not elsewhere classified
CPT/HCPCS: 73202; Q9967

== ENCOUNTER → 2020-11-04 10:07 | Outpatient (CLI) | payer MEDICARE, SELFPAY ==
[2020-04-04 19:35] VITALS: BMI 21.9
== END ==
PROVIDERS: PCP Internal Medicine; Referring Provider Nurse Practitioner; Visit Provider Nurse Practitioner
DX: R05 Cough (principal); Z53.20 Procedure and treatment not carried out because of patient's decision for unspecified reasons